=== PATIENT | female | born 1940 | race Caucasian/White ===

== ENCOUNTER → 2017-01-26 | Outpatient (CLI) | payer OTHER ==
[~2017-01-26] MED LIST: ASPEC81 PO; B-COCAP2 PO; FSM70 PO; LSN25 PO; METO50TA7 PO; MULT-506 PO; SIMV20TA2 PO; SYN88 PO; VIT. D3 PO; VITAMIN C PO; [UNRECOGNIZED DRUG - CODE] PO; [UNRECOGNIZED DRUG - OTHER] OR
== END | disposition home or self-care (01) ==
LOC: C.PATHSPEC 17:14
PROVIDERS: ATTEND Plastic Surgery
DX: L82.1 Other seborrheic keratosis (principal)

== ENCOUNTER 2024-04-03 08:21 | Observation (INO) ==
--- NOTE | 2024-04-03 09:52 | History & Physical Bridge Note ---
Date of Service April 03, 2024 History & Physical Bridge Note I have examined the patient, reviewed the History & Physical and in the interval since the performance of the History & Physical I have noted the following changes of clinical significance: no changes noted
--- NOTE | 2024-04-03 09:52 | Pre Anesthesia Assessment ---
Date of Service April 03, 2024 Pre Sedation Assessment Vital Signs Pulse Resp BP Pulse Ox O2 Del Method 04/03/24 08:49 69 18 159/65 H 96 Room Air Cardiovascular + regular rate Respiratory + respiratory effort normal Pre-Sedation Airway Assessment Smoking Status: Never smoker Hx Sleep Apnea: No Hx Difficult Intubation: No Short, Thick Neck: No Thyromental Distance: > or= 3.5 Finger Breadths Oral Cavity: + WNL Mallampati Class: III ASA: ASA3 NPO Status Date of Last Intake of Fluids: 04/03/24 Time of Last Intake of Fluids: 07:00 Date of Last Intake of Solid Food: 04/02/24 Time of Last Intake of Solid Foods: 22:00 Procedure Planning Contraindications for Sedation: none Current Medications Reviewed: Yes Notes The planned sedation has been discussed with the patient. Informed Consent was obtained. I have identified the patient, determined the appropriateness of sedation and have assessed the patient immediately prior to the procedure. All medicine(s) and interventions are by my order.
[2024-04-03] MEDS: NITROGLYCERIN/D5W 100MCG/ML 20ML SYR ONE (10:19)
[2024-04-03] MEDS: niCARdipine HCL INJ 2.5 MG/ML 10 ML AMP ONE (10:19)
[2024-04-03] MEDS: MIDAZOLAM HCL 1 MG/ML 2ML VIAL ONE ×2 (11:25→12:01)
[2024-04-03] MEDS: CLOPIDOGREL BISULFATE 300 MG TAB ONE (11:25)
[2024-04-03] MEDS: OPTIRAY 350 ONE (11:26)
[2024-04-03] MEDS: IODIXANOL (VISIPAQUE) 320 MG/ML 100ML IV ONE (12:00)
[2024-04-03] MEDS: HEPARIN (PORCINE) 1000 UNIT/ML 10 ML (CATH LAB USE ONLY) ONE ×2 (12:00→12:02)
[2024-04-03] MEDS: fentaNYL citrate PF 100 MCG/2 ML VIAL ONE (12:01)
--- NOTE | 2024-04-03 12:24 | Post Anesthesia Assessment ---
Date of Service April 03, 2024 Post Sedation Assessment Vital Signs Pulse Resp BP Pulse Ox O2 Del Method 04/03/24 08:49 69 18 159/65 H 96 Room Air Recovery Score Activity: Moves 4 extremities Respiration: Deep Breath/Cough Circulation: +/-20% PreAnes Value Consciousness: Fully Awake Oxygen Saturation: O2 needed for >90% Discharge Sedation Level of Care: Fast Track Phase II Post Sedation Plan On clinical assessment, the patient appears to have tolerated the sedation without complications. Patient is recovering as anticipated. Patient will continue to be monitored by nursing and may be discharged when sedation discharge criteria are met per below protocol. Upon Completions of procedure up to 15 minutes continue every 5 minute vital signs and the P.A.R. score; then discharge to a Phase I or Fast Track to Phase II per the following guidelines: * Discharge Patient to appropriate Phase II area if PAR is 8 or greater or return to pre- procedure baseline. The post - procedure orders will be as directed. * If PAR score is less than 8 or not return to pre-procedure baseline then patient will follow Phase I monitoring till PAR is reached for Phase II. The Phase I may be done in procedure room or may call to secure a Phase I area. * If naloxone or flumazenil are used for reversal, hold in Phase I for continued monitoring from when last reversal dose was given for a minimum of 60 minutes or longer pending the nurse and/or physician discretion of patient condition before discharge to Phase II. Please call the Sedation Physician to re-evaluate and complete post-note for discharge to Phase II area. Do NOT discharge from procedure sedation or Phase 1 until post- sedation evaluation note is complete by procedure /sedation MD Sedation Discharge Instructions to be given to the patient at discharge to home.
[2024-04-03] MEDS ORDERED: ONDANSETRON INJ 2 MG/ML 2 ML VIAL IV PRN (12:25)
--- OUTSIDE RECORDS SUMMARY | 2024-04-03 13:08 | External Medical Summary | Summary of Care ---
Author Name Unknown Organization [facility] Address [address] [place] [address] Phone [phone] Care Team Providers Care Pantograph Operator Name Role Phone Ally Paredes DO Primary Care Provider [phone] Reason for Visit * Reason Comments Medication Refill Encounter Details Date Type Department Care Team (Late st Contact Info) Description 03/23/2024 Refill Family Practice [facility] [address] [place] [address] Ally Paredes DO [address] [place] [address] Urinary frequency Allergies Active Allergy Reactions Criticality Noted Date Comments Clindamycin Hcl 09/19/2015 Fentanyl High 10/01/2016 Severe emesis Cephalexin Diarrhea 03/22/2022 Meperidine Hcl 01/24/2023 Naproxen Nausea/vomiting 06/30/2009 Oxycodone Hcl Nausea/vomiting 04/09/2010 Sulfamethoxazole-Trimethoprim Nausea/vomiting 0 01/27/2016 Tramadol 12/08/2016 Hydrocodone-Acetaminophen Nausea/vomiting 06/30 documented as of this encounter (statuses as of 03/23/2024) Medications Medication Sig Dispensed Refills Start Date End Date Status ASPIRIN 81 MG PO CHEW Take 1 Tablet by mouth in the morning. Active VITAMIN C CR 1000 MG PO TBCR Take 1,000 Tabs by mouth. Active MULTIVITAMINS PO TABS 1 daily Active Phenazopyrid-Cranbr y-C-Probiot (AZO URINARY TRACT SUPPORT) 95 & 250-30 MG TBPK Take by mouth once a week. Unsure of dosage 12/08/2016 Active Cholecalciferol (VITAMIN D-3) 25 MCG (1000 UT) Capsule Take 1 Capsule by mouth. 3x/week Active NATURAL SUPPLEMENT Take by mouth daily. Pancreatic enzyme supplement once daily Active Metamucil Oral Wafer Take 1 Wafer by mouth in the morning. Active Magnesium 250 MG Oral Tablet Take 1 Tablet by mouth in the morning. Active GNP Vitamin B-12 1000 MCG Oral Tablet Extended Release (Cyanocobalamin ER) Take by mouth daily. Active Hair Skin & Nails Gummies 1250-7.5-7.5 MCG-MG-UNT Oral Tablet Chewable (Biotin w/ Vitamins C & E) Take by mouth. Active Levoxyl 88 MCG Oral TabletIndications:P ostsurgical hypothyroidism TAKE 1 TABLET BY MOUTH ONCE DAILY FOR 6 DAYS OF THE WEEK. DO NOT TAKE ON SUNDAYS DIRECTED 90 Tablet 3 04/06/2023 04/28/20 24 Active Carvedilol 3.125 MG Oral Tablet (Coreg) TAKE ONE TABLET BY MOUTH TWICE A DAY IN THE MORNING AND BEFORE BEDTIME WITH FOOD 200 Tablet 2 06/28/2023 06/27/20 24 Active Diclofenac Sodium 1 % External Gel (Voltaren) apply 2gm topically four times daily; apply to single elbow, wrist or hand; for hand includes palm/fingers/caroline k of hand 800 g 2 09/19/2023 Active Lisinopril 40 MG Oral Tablet TAKE ONE TABLET BY MOUTH EVERY MORNING 90 Tablet 3 11/10/2023 11/10/19 25 Active Potassium Chloride ER 10 MEQ Oral Capsule Extended ReleaseIndications: Potassium (K) deficiency Take 1 Capsule by mouth in the morning and 1 Capsule before bedtime. 100 Capsule 3 11/10/2023 Active amLODIPine Besylate 5 MG Oral Tablet (Norvasc)Indication s:HTN, goal below 140/90 Take 1 Tablet by mouth in the morning. 100 Tablet 1 12/08/2023 Active Melatonin 10 MG Oral Tablet Disintegrating Take 1 Tablet by mouth at bedtime as needed for Sleep. Active Atorvastatin Calcium 40 MG Oral Tablet (Lipitor)Indication s:Hyperlipidemia with target LDL less than 100,Bruit (arterial),Aortic valve sclerosis TAKE ONE TABLET BY MOUTH EVERY DAY 90 Tablet 3 02/21/2024 Active Furosemide 20 MG Oral Tablet (Lasix)Indications: Chronic diastolic congestive heart failure (HCC) Take 2 Tablets by mouth in the morning. Or as directed by cardiology for edema/sob. 180 Tablet 3 03/07/2024 Active Additional Information Patient taking differently:40 mg Oral Daily(AM),20 mg every other day alternating with 40 mg, Reported on 03/19/2024 Fish Oil 1000 MG Oral Capsule Take 1 Capsule by mouth in the morning. Active Nitroglycerin 0.4 MG Sublingual Tablet Sublingual (Nitrostat) Place 1 Tablet under the tongue every 5 minutes as needed for Pain, Chest. up to 3 doses in 15 minutes 25 Tablet 11 03/19/2024 Active Mirabegron ER 25 MG Oral Tablet Extended Release 24 Hour (Myrbetriq)Indicati ons:Urinary frequency Take 1 Tablet by mouth in the morning. 100 Tablet 3 03/23/2024 Active Myrbetriq 25 MG Oral Tablet Extended Release 24 Hour (Mirabegron ER)Indications:Urin live frequency Take 1 Tablet by mouth in the morning. 100 Tablet 1 09/12/2023 03/23/20 24 Discontinu ed(Refill) Hospital, Clinic, or Other Facility Administered Medication Ordered Dose Route Frequency Start Date End Date Status Denosumab (Prolia) subcut inj 60 mgIndications:Senile osteoporosis 60 mg SC [id number] 09/06/2023 08/31/2024 Active documented as of this encounter (statuses as of 03/23/2024) Active Problems Problem Noted Date Diagnosed Date Hypertensive heart disease w ith chronic diastolic congestive heart failure 01/23/2024 Other specified peripheral vascular diseases 10/2022 Chronic diastolic congestive heart failure 01/24 Hyperparathyroidism 09/25/2020 Carotid stenosis, non-symptomatic, bilateral History of melanoma in situ 01/22/2018 S/P reverse total shoulder arthroplasty, right 1 08/22/2016 Senile osteoporosis 01/11/2017 History of papillary adenocarcinoma of thyroid 0 12/08/2016 History of malignant neoplasm of skin 12/08/2016 [facility]MC arthritis 07/22/2016 Personal history of malignant 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, recurrent, [id number], 2008 Dyslipidemia, goal LDL below 130 06/16/2010 Shoulder joint replacement status 05/29/2010 Primary localized osteoarthrosis of shoulder reg ion 01/08/2010 Vitamin D deficiency 09/19/2009 HTN, goal below 140/90 11/14/2007 ADVANCE DIRECTIVE INFORMATION 06/03/2005 Overview: Yes, Patient instructed to provide copy of advance directive for provider to review and to be scanned into Electronic Medical Record. 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/21/2014 09/18/2021 Overview: Historical.Multicentric Papillary Thyroid Carcinoma found incidentally at the time of surgery for Primary Hyperparathyroidism Carotid bruit 08/20/2011 08/20/2011 Secondary malignant neoplasm of axillary lymph nodes 07/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 01/30/2012 Hyperparathyroidism, primary 03/25/2010 02/24/2022 Overview: More specified condition on pl MALIGNANT NEOPLASM OF FEMALE BREAST 07/25/2008 01/30/2012 Secondary malignancy of skin of chest 07/17/2008 05/01/2019 Cardiovascular symptoms 11/14/200710/07 Overview: Right cartoid bruit, us negative Other osteoporosis without c urrent pathological fracture 10/31/2003 09/19/2015 Overview: ICD-10 update of inactive term Keratin granuloma , Glabella 05/30/00 05/30/2002 05/25/2006 Risk Intern's papule, Lt arm 05/30/00 05/30/2002 05/25/2006 Irritated crateriform keratosis, Back 11/18/00 05/30/20 02 05/25/2006 Lichenoid inflammatory reaction, Back 10/20/01 05/30/20 02 05/01/2019 Other seborrheic keratosis 03/02/2002 1 Actinic keratosis 03/02/2002 05/01/2019 Dyslipidemia, goal to be determined 06/16/2010 documented as of this encounter (statuses as of 03/23/2024) Immunizations Name Administration Dates Next Due COVID-19 mRNA, LNP-s, No Pre serve, 2-Dose Series (Moderna) 10/05/2020,08/31/2020 COVID-19, MRNA-LNP, 23-24, P F, 30 MCG/0.3 mL, 12 YRS AND ABOVE, IM ([employer] 12/19/2023,05/09/2023 COVID-19, mRNA, LNP-s, PF, B ooster, 100mcg/0.5mg (Moderna) 11/27/2021,06/04/2021 Covid-19, Mrna, Lnp-s, Pf, B ivalent, 30 Mcg, IM, 12 yrs and above (Pfizer) 04/19/2022 Covid-19, Mrna, Lnp-s, Pf, B ivalent, 50 Mcg, IM, 12 yrs and above (Moderna) 03/10/2023 Pneumococcal Conjugate Vacc, 13 Valent (Prevnar) 07/25/2018 RSV Vac., Bivalent, Perfusio n F, Pf,0.5 Ml (Abrysvo) 06/06/2023 Season Influenza, Quad, PF, Adjuvanted, 65+ Yrs, IM (FLUAD) 04/24/2020 Seasonal Influenza, PF, 6 M & above, IM , (FluLaval or Fluzone) 05/23/2018 Seasonal Influenza, Quadriva lent Hd (Fluzone Hd) 05/10/2023,05/06/2022,04/29/2021 Seasonal Influenza, Trivalen t, Adjuvanted, 65+ yrs 05/01/2019 TDAP (age 10 and older)(Boostrix) 10/07/2022,07/2013 Varicella Zoster Vaccine (Adult) 12/05/2008 Zoster Vaccine Recombinant (Shingrix) 01/01/2020 ,10/03/2019 documented as of this encounter Social History Tobacco Use Types Packs/Day Years Used Date Smoking Tobacco: Never Passive Smoke Exposure: Past Smokeless Tobacco: Never Comments:no passive smoke Alcohol Use Standard Drinks/Week Comments Yes 0 (1 standard drink = 0.6 oz pure alcohol) Ounce of yessi in middle of night if can't sleep PHQ-2 Answer Date Recorded PHQ Adult Total Score 0 05/10/2023 Hunger Vital Sign Answer Date Recorded Within the past 12 months, y ou worried that your food would run out before you got the money to buy more. Never true 02/16/20 23 Within the past 12 months, t he food you bought just didn't last and you didn't have money to get more. Never true 02/15/2023 Sex and Gender Information Value Date Recorded Sex Assigned at Female 05/01/2019 9:54 AM EDT Gender Identity Female 05/01/2019 9:54 AM EDT Sexual Orientation Straight 05/01/2019 9: 54 AM EDT Job Start Date Occupation Industry Not on file Not on file Not on file documented as of this encounter Miscellaneous Notes * Telephone Encounter - Ally Paredes DO - 03/23/2024 3:30 PM EDTSigned Prescriptions: Disp Refills Mirabegron ER 25 MG Oral Tablet Extended R*100 Ta*3 Sig: Take 1 Tablet by mouth in the morning. Authorizing Provider: ALLY PAREDES * Telephone Encounter - Marilyn Limon LPN - 03/23/2024 2:00 PM EDTPending Prescriptions: Disp Refills Mirabegron ER 25 MG Oral Tablet Extended R*100 Ta*3 Sig: Take 1 Tablet by mouth in the morning. * Telephone Encounter - Marilyn Limon LPN - 03/23/2024 2:00 PM EDT Did you pend patient's preferred pharmacy and medication before forwarding?no Pharmacy: [facility] Pending Prescriptions: Disp Refills Mirabegron ER 25 MG Oral Tablet Extended *100 Ta*3 Sig: Take 1 Tablet by mouth in the morning. Last Visit: 01/23/2024 (in office), Visit date not found (telemedicine) Next Visit: 04/24/2024 If no future appointments scheduled, and last appointment is greater than a year ago, please schedule patient for a follow-up appointment Last date the medication was ordered: Is this request for a controlled substance?No Urine Drug Screen:No results found. However, due to the size of the patient record, not all encounters were searched. Please check Results Review for a complete set of results. Patient Phone Numbers Labs: Lab Results Component Value Date/Time CREAT 1.2 (H) 03/20/2024 12:04 PM CREAT 0.9 08/12/2020 03:14 PM CREAT 0.8 07/23/1996 10:20 AM POTASSIUM 4.2 03/20/2024 12:04 PM POTASSIUM 4.1 08/12/2020 03:14 PM POTASSIUM 4.5 07/23/1996 10:20 AM TSH 2.20 01/25/2024 02:03 PM TSH 1.08 07/10/2020 12:36 PM LDLCALC 84 08/24/2023 07:38 AM LDLCALC 80 03/05/2019 07:20 AM LDLCALC 152. (H) 07/23/1996 10:20 AM LDLDIRECT 79 03/11/2020 07:33 AM ALT 18 03/20/2024 12:04 PM ALT 24 08/12/2020 03:14 PM ALT 15 07/23/1996 10:20 AM HGBA1C 5.7 (H) 07/08/2021 10:42 AM HGBA1C 5.4 03/11/2020 07:33 AM * Telephone Encounter - [place] - 03/23/2024 7:08 AM EDTPending Prescriptions: Disp Refills Mirabegron ER 25 MG Oral Tablet Extended R*100 Ta*1 Sig: Take 1Tablet by mouth in the morning. documented in this encounter Plan of Treatment Upcoming Encounters Date Type Department Care Team (Late st Contact Info) Description 04/24/2024 9:20 AM EDT Office Visit Family Practice [address] [place] [address] [address] [place] [address] Ally Paredes DO [address] [place] [address] 05/14/2024 2:45 PM EDT Office Visit Dermatology [facility] [address] [place] [address] Dann Tavarez MD [address] [place] [address] 07/03/2024 8:30 AM EST Office Visit Cardiology, [facility] [address] [place] [address] Charito Mccain PA-C [address] [place] [address] 07/26/2024 1:30 PM EST Office Visit Cardiology, [facility] [address] [facility] [address] [place] [address] Charito Mccain PA-C [address] [address] 08/30/2024 12:00 PM EST Office Visit Endocrinology [address] [place] [address] Maddy Munoz MD [address] [facility] [place] [address] 10/17/2024 12:30 PM EDT Office Visit Hematology/Oncology [facility] [address] [place] [address] Sonia Tesfaye MD [address] [place] [address] 12/17/2024 11:00 AM EDT Nurse Only Ancillary [facility] [address] [place] [address] College, Nurse Annual Wellness Visit [facility] [address] [place] [address] Health Maintenance Due Date Last Done Comments *NEPHROLOGY REFERRAL DUE TO RESISTANT HTN 03/14/2024 Influenza Vaccine (FLU shot) (#1) 2024 05/10/2023, 05/06/2022, 04/29/2021, Additional history exists Adult Wellness Visit 12/12/2024 12/13/2023, 04/05/2022, 03/23/2021 Depression Screening 12/12/2024 12/13/2023 DXA Scan 12/20/2024 12/20/2022, 12/06, 12/16/2020, Additional history exists TSH 01/24/2025 01/25/2024, 08/08, 07/08/2022, Additional history exists GFR 03/20/2025 03/20/2024, 08/0 01/2024, 02/23/2024, Additional history exists Albumin/Creatinine Ratio 04/05/2025 022, 03/05/2019, 07/25/2018, Additional history exists DTaP,Tdap,and Td Vaccines (3 - Td or Tdap) 10/07/2032 10/07/2022, 09/19/2012, 12/20/2002 Pneumococcal Vaccine: 65+ Years Completed 07/25/2018, 09/14/2004 Zoster Vaccines Completed 01/01/2020, 09/09, 12/05/2008 COVID-19 Vaccine Completed 12/19/2023, 09/2022, 03/10/2023, Additional history exists VITAMIN D LEVEL ONCE IN A LIFETIME-USE SMARTSET# [id number] Completed 02/23/2024, 08/24/2023, 07/08/2022, Additional history exists HPV (Gardasil) Vaccine Aged Out No lo nger eligible based on patient's age to complete this topic Hepatitis B Vaccine Aged Out No longe r eligible based on patient's age to complete this topic MENINGOCOCCAL (MENACTRA/MENVEO) Aged Out No longer eligible based on patient's age to complete this topic documented as of this encounter Medical Devices Implanted Type Area Signal Processing Engineer Device Identifier Shelf Expiration Date Model / Serial / Lot Plate Ricardo 6.5x30 508-32-104 - [id number] Implanted:Qty: 1 on 04/09/2010 at OR [facility] Right: Shoulder [employer] 10/07/2015 508-32-104 / / [id number] Socket Humeral Insert Implanted:Qty: 1 on 04/09/2010 at OR [facility] Right: Shoulder [employer] 07/08/2014 508-01-032 / / [id number] Head Glenoid/Screw5 -006 - [id number] Implanted:Qty: 1 on 04/09/2010 at OR [facility] Right: Shoulder [employer] 11/07/2015 508-32-101 / / [id number] Screw Lckg 5x22 506-03-122 - [id number] Implanted:Qty: 1 on 04/09/2010 at OR [facility] [place] Right: Shoulder [employer] 10/07/2015 506-03-122 / / [id number] Scrw Lckg [employer] 506-03-114 - [id number] Implanted:Qty: 1 on 04/09/2010 at OR [facility] Right: Shoulder [employer] 08/08/2015 506-03-114 / / [id number] Screw Lckg 5x26 506-03-126 - [id number] Implanted:Qty: 1 on 04/09/2010 at OR [facility] Right: Shoulder [employer] 12/07/2015 506-03-126 / / [id number] Screw Lckg 5x22 [id number] - [id number] Implanted:Qty: 1 on 04/09/2010 at OR [facility] Right: Shoulder [employer] 02/06/2016 506-03-122 / / [id number] Cement Bone G 1113-140-01 - [id number] Implanted:Qty: 1 on 04/09/2010 at OR [facility] Right: Shoulder [employer] 07/08/2013 00-1113-14 0 / / [id number] Shell Socket Humeral Rsp Implanted:Qty: 1 on 04/09/2010 at OR [facility] Right: Shoulder [employer] 01/07/2016 508-00-008 / / [id number] Stem Humeral Primary Rsp Implanted:Qty: 1 on 04/09/2010 at OR [facility] Right: Shoulder [employer] 08/08/2015 506-00-008 / / [id number] [place] Mini Quick 2/0 [id number] - [id number] Implanted:Qty: 1 on 09/17/2016 by Rafi Burnham MD at [facility] Left: Hand JNJ : DEPUY MITEK SURG PROD 05/07/2019 [id number] / / [id number] [place] Mini Quick 2/0 [id number] - [id number] Implanted:Qty: 1 on 09/17/2016 by Rafi Burnham MD at OR [facility] Left: Hand JNJ : DEPUY MITEK SURG PROD 05/07/2019 [id number] / / [id number] documented as of this encounter Visit Diagnoses Diagnosis Urinary frequency documented in this encounter Advance Directives Documents on File Type Date Recorded Patient Foaming Machine Operator Expl anation Power of Sourcing Coordinator 10/18/2023 12:36 PM NEENA R OF CATEGORY SPECIALIST - [facility] DIRECTIVE * Full Code (Latest Code Status on File) Date Activated Date Inactivated Comments 09/17/2016 10:03 AM 09/17/2016 4:52 PM This order reflects the patients wishes and were consensually agreed upon. * Full Code Date Activated Date Inactivated Comments 04/09/2010 10:27 AM 04/10/2010 4:33 PM This order re flects the patients wishes and were consensually agreed upon. * Full Code Date Activated Date Inactivated Comments 02/02/2010 12:31 PM 02/03/2010 10:26 PM This order reflects the patients wishes and were consensually agreed upon. * Full Code Date Activated Date Inactivated Comments 01/08/2010 10:06 AM 01/08/2010 11:06 AM This order r eflects the patients wishes and were consensually agreed upon. Question Answer Comments Discussion of Advance Directives occurred with: Patient Does the patient have a Living Will? No Does the patient have Health Care Power of Attor viridiana? No * Full Code Date Activated Date Inactivated Comments 08/13/2008 1:48 PM 08/14/2008 6:49 PM Care Teams Pantograph Operator Relationship Specialty Start Date End Date Ally Paredes DO [address] [place] [address] PCP - General Family Medicine 01/19/24 documented as of this encounter
--- OUTSIDE RECORDS SUMMARY | 2024-04-03 13:08 | External Medical Summary ---
Author Name Unknown Address Unknown Organization K09:[facility] [place] [address] [place] [address] Laboratory Report Ordering Provider Test Date Status MOSHE BOOGIE 03/20/2024 12:04:08 Final Warfarin Therapy
INR: 2 .0-3.0 conventional anticoagulation
INR: 2.5- 3.5 high intensity anticoagulation Observation Date Value Abnormality Reference (Units ) Status PT 03/20/2024 12:04:08 12.6 11.6-15.2 (seconds) Final INR 03/20/2024 12:04:08 0.9 0.8-1.2 Final Performing Location [facility] [place] [address] [place] [address]
--- OUTSIDE RECORDS SUMMARY | 2024-04-03 13:08 | External Medical Summary ---
Author Name Unknown Address Unknown Organization K09:[facility] [address] [place] [address] Laboratory Report Ordering Provider Test Date Status MOSHE BOOGIE 03/20/2024 12:04:08 Final Observation Date Value Abnormality Reference (Units ) Status BUN 03/20/2024 12:04:08 27 Above high normal 6-20 (mg/dL) Final Creatinine 03/20/2024 12:04:08 1.2 Above high normal 0.5-1.0 (mg/dL) Final Glomerular filtration rate/1.73 sq M.predicted [Volume Rate/Area] in Serum, Plasma or Blood by Creatinine-based formula (CKD-EPI) 03/20/2024 12:04:08 45 Below low normal >=60 (mL/min) Final eGFR is calculated based on the CKD-EPI 2020 equation. Sodium 03/20/2024 12:04:08 142 135-146 (m mol/L) Final Potassium 03/20/2024 12:04:08 4.2 3.5-5.1 (m mol/L) Final Cl 03/20/2024 12:04:08 101 98-107 (mm ol/L) Final CO2 03/20/2024 12:04:08 28 22-32 (mmo l/L) Final Anion gap 03/20/2024 12:04:08 13 7-15 (mmol /L) Final Glucose 03/20/2024 12:04:08 84 70-120 (mg /dL) Final Albumin 03/20/2024 12:04:08 4.4 3.8-5.0 (g /dL) Final AST (Aspartate aminotransferase) 03/20/2024 12:04:08 24 10-35 (U/L) Final Alk Phos 03/20/2024 12:04:08 64 35-130 (U/ L) Final Bilirubin, Total 03/20/2024 12:04:08 0.5 <=1 .2 (mg/dL) Final Calcium 03/20/2024 12:04:08 10.2 8.4-10.2 ( mg/dL) Final Protein 03/20/2024 12:04:08 6.8 6.0-8.3 (g /dL) Final ALT (Alanine aminotransferase) 03/20/2024 12:04:08 18 10-35 (U/L) Final Performing Location [facility] [address] [place] [address]
--- OUTSIDE RECORDS SUMMARY | 2024-04-03 13:08 | External Medical Summary | Summary of Care ---
Author Name Unknown Organization [facility] Address [address] [place] [address] Phone [phone] Care Team Providers Care Manager Retail Store Name Role Phone Ally Gonzales DO Primary Care Provider Reason for Visit * Reason Comments Outpatient Testing Encounter Details Date Type Department Care Team (Late st Contact Info) Description 03/20/2024 12:00 PM EDT Laboratory Laboratory [facility] [place] [address] [place] [address] [facility] [address] [place] [address] Exertional angina (HCC) Allergies Active Allergy Reactions Criticality Noted Date Comments Clindamycin Hcl 09/19/2015 Fentanyl High 10/01/2016 Severe emesis Cephalexin Diarrhea 03/22/2022 Meperidine Hcl 01/24/2023 Naproxen Nausea/vomiting 06/30/2009 Oxycodone Hcl Nausea/vomiting 04/09/2010 Sulfamethoxazole-Trimethoprim Nausea/vomiting 0 01/27/2016 Tramadol 12/08/2016 Hydrocodone-Acetaminophen Nausea/vomiting 06/30 documented as of this encounter (statuses as of 03/20/2024) Medications Medication Sig Dispensed Refills Start Date End Date Status ASPIRIN 81 MG PO CHEW Take 1 Tablet by mouth in the morning. Active VITAMIN C CR 1000 MG PO TBCR Take 1,000 Tabs by mouth. Active MULTIVITAMINS PO TABS 1 daily Active Phenazopyrid-Cranbry -C-Probiot (AZO URINARY TRACT SUPPORT) 95 & 250-30 [...] by mouth. Active Levoxyl 88 MCG Oral TabletIndications:Po stsurgical hypothyroidism TAKE 1 TABLET BY MOUTH ONCE DAILY FOR 6 DAYS OF THE WEEK. DO NOT TAKE ON SUNDAYS DIRECTED 90 Tablet 3 04/06/2023 4 Active Carvedilol 3.125 MG Oral Tablet (Coreg) TAKE ONE TABLET BY MOUTH TWICE A DAY IN THE MORNING AND BEFORE BEDTIME WITH FOOD 200 Tablet 2 06/28/2023 4 Active Myrbetriq 25 MG Oral Tablet Extended Release 24 Hour (Mirabegron ER)Indications:Urina ry frequency Take 1 Tablet by mouth in the morning. 100 Tablet 1 09/12/2023 Active Diclofenac Sodium 1 % External Gel (Voltaren) apply 2gm topically four times daily; apply to single elbow, wrist or hand; for hand includes palm/fingers/back of hand 800 g 2 09/19/2023 Active Lisinopril 40 MG Oral Tablet TAKE ONE TABLET BY MOUTH EVERY MORNING 90 Tablet 3 11/10/2023 5 Active Potassium Chloride ER 10 MEQ Oral Capsule Extended ReleaseIndications:P otassium (K) deficiency Take 1 Capsule by mouth in the morning and 1 Capsule before bedtime. 100 Capsule 3 11/10/2023 Active amLODIPine Besylate 5 MG Oral Tablet (Norvasc)Indications :HTN, goal below 140/90 Take 1 Tablet by mouth in the morning. 100 Tablet 1 12/08/2023 Active Melatonin 10 MG Oral Tablet Disintegrating Take 1 Tablet by mouth at bedtime as needed for Sleep. Active Atorvastatin Calcium 40 MG Oral Tablet (Lipitor)Indications :Hyperlipidemia with target LDL less than 100,Bruit (arterial),Aortic valve sclerosis TAKE ONE TABLET BY MOUTH EVERY DAY 90 Tablet 3 02/21/2024 Active Furosemide 20 MG Oral Tablet (Lasix)Indications:C hronic diastolic congestive heart failure (HCC) Take 2 [...] 15 minutes 25 Tablet 11 03/19/2024 Active Hospital, Clinic, or Other Facility Administered Medication Ordered Dose Route Frequency Start Date End Date Status Denosumab (Prolia) subcut inj 60 mgIndications:Senile osteoporosis 60 mg SC [id number] 09/06/2023 08/31/2024 Active documented as of this encounter (statuses as of 03/20/2024) Active Problems Problem Noted Date Diagnosed Date [...] 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, recurrent, [id number], 2008 Dyslipidemia, goal LDL below 130 06/16/2010 [...] as of this encounter (statuses as of 03/20/2024) Resolved Problems Problem Noted Date Diagnosed Date [...] Keratin granuloma , Glabella 05/30/00 05/30/2002 05/25/2006 Heat Treating Bluer's papule, Lt arm 05/30/00 05/30/2002 05/25/2006 Irritated crateriform keratosis, Back 11/18/00 05/30/20 02 05/25/2006 Lichenoid inflammatory reaction, Back 10/20/01 05/30/20 05/01/2019 Other seborrheic keratosis 03/02/2002 1 Actinic keratosis 03/02/2002 05/01/2019 Dyslipidemia, goal to be determined 06/16/2010 documented as of this encounter (statuses as of 03/20/2024) Immunizations Name Administration Dates Next Due COVID-19 mRNA, LNP-s, No Pre serve, 2-Dose Series (Moderna) 10/05/2020,08/31/2020 COVID-19, MRNA-LNP, 23-24, P F, 30 MCG/0.3 mL, 12 YRS AND ABOVE, IM ([facility]) 12/19/2023,05/09/2023 COVID-19, mRNA, LNP-s, PF, B ooster, [...] file Not on file Not on file Travel History Travel Start Travel End [facility] 02/08/2024 02/19/2024 documented as of this encounter Plan of Treatment Upcoming Encounters Date Type Department Care Team (Late st Contact Info) Description 04/24/2024 9:20 AM EDT Office Visit Family Practice [address] [place] [address] [address] [place] [address] Ally Gonzales DO [address] [place] [address] 05/14/2024 2:45 PM EDT [facility] [address] [place] [address] Dann Tavarez MD [address] [place] [address] 07/03/2024 8:30 AM EST Office Visit Cardiology, [facility] 132 [facility] [place] [address] Charito Mccain PA-C 132 [facility] [place] [address] 07/26/2024 1:30 PM EST Office Visit Cardiology, [facility] [address] [facility] [place] [address] Charito Mccain PA-C [address] [facility] [place] [address] 08/30/2024 12:00 PM EST Office Visit Endocrinology [address] [place] [address] Maddy Munoz [facility] [address] 10/17/2024 12:30 PM EDT Office Visit Hematology/Oncology [facility] 200 [place] [address] Sonia Tesfaye MD 200 [place] [address] 12/17/2024 11:00 AM EDT Nurse Only Ancillary 65 [facility] [address] [place] [address] College, Nurse Annual Wellness Visit [address] [address] Pending Results Name Type Priority Associated Diagnoses Date /Time COMPREHENSIVE METABOLIC PANEL Lab Routine Exertional angina (HCC) 03/20/2024 12:04 PM EDT PT INR Lab Routine Exertional angina (HCC) 03/20/2024 12:04 PM EDT APTT Lab Routine Exertional angina (HCC) 03/20/2024 12:04 PM EDT Health Maintenance Due Date Last Done Comments *NEPHROLOGY REFERRAL DUE TO RESISTANT HTN 03/14/2024 Influenza Vaccine (FLU shot) (#1) 2024 05/10/2023, 05/06/2022, 04/29/2021, Additional history exists Adult Wellness Visit 12/12/2024 12/13/2023, 04/05/2022, 03/23/2021 Depression Screening 12/12/2024 12/13/2023 DXA Scan 12/20/2024 12/20/2022, 12/06, 12/16/2020, Additional history exists TSH 01/24/2025 01/25/2024, 08/08, 07/08/2022, Additional history exists GFR 03/13/2025 03/13/2024, 02/05, 01/25/2024, Additional history exists Albumin/Creatinine Ratio 04/05/2025 022, 03/05/2019, 07/25/2018, Additional history exists DTaP,Tdap,and Td Vaccines (3 - Td or Tdap) 10/07/2032 10/07/2022, 09/19/2012, 12/20/2002 Pneumococcal Vaccine: 65+ Years Completed 07/25/2018, 09/14/2004 Zoster Vaccines Completed 01/01/2020, 09/09, 12/05/2008 COVID-19 Vaccine Completed 12/19/2023, 09/2022, 03/10/2023, Additional history exists VITAMIN D LEVEL ONCE IN A LIFETIME-USE SMARTSET# [id number] Completed 02/23/2024, 08/24/2023, 07/08/2022, Additional history exists [...] this encounter Medical Devices Implanted Type Area Contact Center Agent Device Identifier Shelf Expiration Date Model / Serial / Lot Plate Ricardo 6.5x30 508-32-104 - [id number] Implanted:Qty: 1 on 04/09/[place] [facility] [place]: Shoulder [employer] 10/07/2015 508-32-104 / / [id number] Socket Humeral Insert Implanted:Qty: 1 on 04/09/2010 [place] [facility] [place]: Shoulder [employer] 07/08/2014 508-01-032 / / [id number] Head Glenoid/Screw5 08-00-006 - [id number] Implanted:Qty: 1 on 04/09/2010 [place] [facility] [place]: Shoulder [employer] 11/07/2015 508-32-101 / / [id number] Screw Lckg 5x22 506122 - [id number] Implanted:Qty: 1 on 04/09/2010 [place] [facility] [place]: Shoulder [employer] 10/07/2015 506-03-122 / / [id number] Scrw Lckg [employer] [id number] - [id number] Implanted:Qty: 1 on 04/09/2010 [place] [facility] [place]: Shoulder [employer] 08/08/2015 506-03-114 / / [id number] Screw Lckg 5x26 506-126 - [id number] Implanted:Qty: 1 on 04/09/2010 [place] [facility] [place]: Shoulder [employer] 12/07/2015 506-03-126 / / [id number] Screw Lckg 5x22 122 - [id number] Implanted:Qty: 1 on 04/09/2010 [place] [facility] Right: Shoulder [employer] 02/06/2016 506-03-122 / / [id number] Cement Bone G 1113-140-01 - [id number] Implanted:Qty: 1 on 04/09/2010 [place] [facility] Right: Shoulder [employer] 07/08/2013 00-1113-14 / / [id number] Shell Socket Humeral Rsp Implanted:Qty: 1 on 04/09/2010 [place] [facility] Right: Shoulder [employer] 01/07/2016 508-00-008 / / [id number] Stem Humeral Primary Rsp Implanted:Qty: 1 on 04/09/2010 [place] [facility] Right: Shoulder [employer] 08/08/2015 506-00-008 / / [id number] [place] Mini Quick 2/0 342289 - [id number] Implanted:Qty: 1 on 09/17/2016 by Rafi Burnham MD at [facility] Left: Hand JNJ : DEPUY MITEK SURG PROD 05/07/2019 [id number] / / [id number] [place] Mini Quick 2/0 115815 - [id number] Implanted:Qty: 1 on 09/17/2016 by Rafi Burnham MD at OR [facility] Left: Hand JNJ : DEPUY MITEK SURG PROD 05/07/2019 [id number] / / [id number] documented as of this encounter Procedures Procedure Name Priority Date/Time Associated Diagnosis Comments CBC Routine 03/20/2024 12:04 PM EDT Exertional angina (HCC) documented in this encounter Results * CBC (03/20/2024 12:04 PM EDT) WBC 7.99 4.00 - 10.80 K/uL 03/20/2024 12:10 PM EDT [address] RBC 4.31 3.85 - 5.15 M/uL 03/20/2024 12:10 PM EDT [place] [address] HGB 13.4 12.0 - 15.3 g/dL 03/20/2024 12:10 PM EDT [address] HCT 41.9 36.0 - 45.2 % 03/20/2024 12:10 PM EDT [address] MCV 97.2 81.5 - 97.5 fL 03/20/2024 12:10 PM EDT [address] MCH 31.1 27.0 - 34.0 pg 03/20/2024 12:10 PM EDT [address] MCHC 32.0 32.0 - 36.0 g/dL 03/20/2024 12:10 PM EDT [address] RDW 13.1 11.5 - 15.5 % 03/20/2024 12:10 PM EDT [address] PLT 179 140 - 400 K/uL 03/20/2024 12:10 PM EDT [address] MPV 10.4 6.6 - 11.1 fL 03/20/2024 12:10 PM EDT [facility] 56 Blood Venous blood specimen / Unknown Venipuncture / Unknown 03/20/2024 12:04 PM EDT 03/20/2024 12:04 PM EDT Steve Roper DO LAB BLOOD ORDERABLES [address] [place] [address] documented in this encounter Visit Diagnoses Diagnosis Exertional angina (HCC) Other and unspecified angina pectoris documented in this encounter Advance Directives Documents on File Type Date Recorded Patient Mattress Stuffer Expl anation Power of Plate Molder 10/18/2023 12:36 PM NEENA R OF HOME AIDE - [employer] DIRECTIVE * Full Code [...] 1:48 PM 08/14/2008 6:49 PM Care Teams Manager Retail Store Relationship Specialty Start Date End Date Ally Gonzales DO [address] [place] [address] PCP - General Family Medicine 01/19/24 documented as of this encounter
--- OUTSIDE RECORDS SUMMARY | 2024-04-03 13:08 | External Medical Summary ---
Author Name Unknown Address Unknown Organization [id number]:[facility] [place] [address] Laboratory Report Ordering Provider Test Date Status MOSHE BOOGIE 03/20/2024 12:04:08 Final Observation Date Value Abnormality Reference (Units ) Status WBC, Total 03/20/2024 12:04:08 7.99 4.00-10.8 0 (K/uL) Final RBC 03/20/2024 12:04:08 4.31 3.85-5.15 (M/uL) Final Hemoglobin 03/20/2024 12:04:08 13.4 12.0-15.3 (g/dL) Final HCT 03/20/2024 12:04:08 41.9 36.0-45.2 (%) Final MCV 03/20/2024 12:04:08 97.2 81.5-97.5 (fL) Final MCH 03/20/2024 12:04:08 31.1 27.0-34.0 (pg) Final MCHC 03/20/2024 12:04:08 32.0 32.0-36.0 (g/dL) Final RDW 03/20/2024 12:04:08 13.1 11.5-15.5 (%) Final Platelets 03/20/2024 12:04:08 179 140-400 (K /uL) Final MPV 03/20/2024 12:04:08 10.4 6.6-11.1 ( fL) Final Performing Location [facility] [place] [address]
--- OUTSIDE RECORDS SUMMARY | 2024-04-03 13:08 | External Medical Summary ---
Author Name Unknown Address Unknown Organization K01:[facility] [place] - [address] [place] [address] Laboratory Report Ordering Provider Test Date Status MOSHE BOOGIE 03/20/2024 12:04:08 Final Anticoagulation may affect t esting. Refer to [facility] Test Catalog for a list of effects. Observation Date Value Abnormality Reference (Units ) Status aPTT panel - Platelet poor plasma 03/20/2024 12:04:08 27 21-38 (seconds) Final Performing Location [facility] - [address] [place] [address]
--- OUTSIDE RECORDS SUMMARY | 2024-04-03 13:08 | External Medical Summary | Summary of Care ---
Author Name Unknown Organization [facility] Address [address] [place] [address] Phone [phone] Care Team Providers Care Backbreaker Name Role Phone Ally Gonzales DO Primary Care Provider [phone] Reason for Visit * Reason Onset Date Comments Follow Up 03/19/2024 Encounter Details Date Type Department Care Team (Late st Contact Info) Description 03/19/2024 Telephone Cardiology, [facility] [address] [place] [address] Steve Roper DO [address] [place] [address] Follow Up Allergies Active Allergy Reactions Criticality Noted Date Comments Clindamycin Hcl 09/19/2015 Fentanyl High 10/01/2016 Severe emesis Cephalexin Diarrhea 03/22/2022 Meperidine Hcl 01/24/2023 Naproxen Nausea/vomiting 06/30/2009 Oxycodone Hcl Nausea/vomiting 04/09/2010 Sulfamethoxazole-Trimethoprim Nausea/vomiting 0 01/27/2016 Tramadol 12/08/2016 Hydrocodone-Acetaminophen Nausea/vomiting 06/30 documented as of this encounter (statuses as of 03/21/2024) Medications Medication Sig Dispensed Refills Start Date [...] inj 60 mgIndications:Senile osteoporosis 60 mg SC [id number] 09/06/2023 08/31/2024 Active documented as of this encounter (statuses as of 03/21/2024) Active Problems Problem Noted Date Diagnosed Date [...] 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, recurrent, [id number], 2008 Dyslipidemia, goal LDL below 130 06/16/2010 [...] as of this encounter (statuses as of 03/21/2024) Resolved Problems Problem Noted Date Diagnosed Date [...] Keratin granuloma , Glabella 05/30/00 05/30/2002 05/25/2006 Personal Care Assistant's papule, Lt arm 05/30/00 05/30/2002 05/25/2006 Irritated crateriform keratosis, Back 11/18/00 05/30/20 02 05/25/2006 Lichenoid inflammatory reaction, Back 10/20/01 05/30/20 02 05/01/2019 Other seborrheic keratosis 03/02/2002 1 Actinic keratosis 03/02/2002 05/01/2019 Dyslipidemia, goal to be determined 06/16/2010 documented as of this encounter (statuses as of 03/21/2024) Immunizations Name Administration Dates Next Due COVID-19 mRNA, LNP-s, No Pre serve, 2-Dose Series (Moderna) 10/05/2020,08/31/2020 COVID-19, MRNA-LNP, 23-24, P F, 30 MCG/0.3 mL, 12 YRS AND ABOVE, IM (PFIZER-Comirnaty) 12/19/2023,05/09/2023 COVID-19, mRNA, LNP-s, PF, B ooster, [...] file Travel History Travel Start Travel End [facility] 02/08/2024 02/19/2024 documented as of this encounter Miscellaneous Notes * Telephone Encounter - Lakesha Pro LPN - 03/20/2024 2:44 PM EDT [facility] CARDI[facility] CATHETERIZATION INSTRUCTIONS Please arrive at [facility] via the Main Entrance and check in at Outpatient Registration Desk at 8:30am (time) on 04/03/24(date). German Mccoy MD will perform your cardiac catheterization. Nothing to eat or drink after 10:00PM the night before. No caffeine 24 hours prior to procedure, No tobacco products after midnight DO NOT take the following medications on the morning of your procedure: Furosemide, Fish oil No over the counter vitamins, Fish oil and/or Vit E the morning of your procedure OK to take the following medications with a sip of water at their usual times: All other AM medications except vitamins Be sure to take (4) 81mg low dose aspirin on the morning of your catheterization. If you take INSULIN or NON-INSULIN INJECTABLES: n/a If you take COUMADIN/BLOOD THINNERS: n/a DO NOT wear any jewelry the day of the procedure. Bring your medications with you in their original containers. It may be necessary for you to take them after your procedure. You will not be allowed to drive, please bring a milk tanker driver 18 or older to take you home. You will not be permitted to leave via taxi, public transportation/bus or Uber. You will be admitted to a recovery area for rest and observation after your catheterization is complete. Please bring a book or tablet to occupy your time. No televisions are available in the recovery area. Pre-Op Testing [x] LAB [] RADIOLOGY/CHEST XRAY [] EKG If you have questions regarding the procedure or questions in the days after the procedure, please do not hesitate to call the office at [phone]. * Telephone Encounter - Steve Roper DO - 03/19/2024 4:49 PM EDT Cardiology nursing: Please refer to progress note from 03/19/2024. Please help proceed with obtaining prior authorization/scheduling diagnostic cardiac catheterization at [facility] with Dr German Mccoy, per patient preference. Pt's friend is care for by Dr. Mccoy and she was specifically asked for him. He was at [facility] this week, week of 03/19/24 and likely back again the week after that. Recent CXR already completed. Pt to have labs at [facility]. She had a meeting this afternoon and needed to leave before labs were drawn so I had placed the orders. documented in this encounter Plan of Treatment Upcoming Encounters Date Type Department Care Team (Late st Contact Info) Description 04/24/2024 9:20 AM EDT Office Visit Family Practice 65 [facility] [place] [facility] [address] Ally Gonzales DO 293 [facility] [address] 05/14/2024 2:45 PM EDT Office Visit Dermatology [facility] [place] [address] [facility] [address] Dann Tavarez MD 200 [facility] [place] [address] 07/03/2024 8:30 AM EST Office Visit Cardiology, [facility] 132 [place] [address] Charito Mccain PA-C 132 [place] [address] 07/26/2024 1:30 PM EST Office Visit Cardiology, [facility] 132 [place] [address] Charito Mccain PA-C 132 [place] [address] 08/30/2024 12:00 PM EST Office Visit Endocrinology [address] [place] [address] Maddy Munoz MD [address] [place] [facility] [place] [address] 10/17/2024 12:30 PM EDT Office Visit Hematology/Oncology [facility] 200 [facility] [place] [address] Sonia Tesfaye MD 200 [facility] [place] [address] 12/17/2024 11:00 AM EDT Nurse Only Ancillary 65 [facility] 293 [facility] [place] [address] College, Nurse Annual Wellness Visit [address] [place] [address] Scheduled Orders Name Type Priority Associated Diagnoses Orde r Schedule CARDIAC CATH-CARDIOLOGY ONLY Procedures Routine Exertional angina (HCC) Ordered: 03/19/2024 Health Maintenance Due Date Last Done Comments *NEPHROLOGY REFERRAL DUE TO RESISTANT HTN 03/14/2024 Influenza Vaccine (FLU shot) (#1) 2024 05/10/2023, 05/06/2022, 04/29/2021, Additional history exists Adult Wellness Visit 12/12/2024 12/13/2023, 04/05/2022, 03/23/2021 Depression Screening 12/12/2024 12/13/2023 DXA Scan 12/20/2024 12/20/2022, 12/06, 12/16/2020, Additional history exists TSH 01/24/2025 01/25/2024, 08/08, 07/08/2022, Additional history exists GFR 03/20/2025 03/20/2024, 01/2024, 02/23/2024, Additional history exists Albumin/Creatinine Ratio 04/05/2025 022, 03/05/2019, 07/25/2018, Additional history exists DTaP,Tdap,and Td Vaccines (3 - Td or Tdap) 10/07/2032 10/07/2022, 09/19/2012, 12/20/2002 Pneumococcal Vaccine: 65+ Years Completed 07/25/2018, 09/14/2004 Zoster Vaccines Completed 01/01/2020, 09/09, 12/05/2008 COVID-19 Vaccine Completed 12/19/2023, 09/2022, 03/10/2023, Additional history exists VITAMIN D LEVEL ONCE IN A LIFETIME-USE SMARTSET# [id number] Completed 02/23/2024, 08/24/2023, 07/08/2022, Additional history exists [...] this encounter Medical Devices Implanted Type Area Medical Language Specialist Device Identifier Shelf Expiration Date Model / Serial / Lot Plate Ricardo 6.5x30 508-32-104 - [id number] Implanted:Qty: 1 on 04/09/2010 at OR [facility] Right: Shoulder [employer] 10/07/2015 508-32-104 / / [id number] Socket Humeral Insert Implanted:Qty: 1 on 04/09/2010 at OR [facility] Right: Shoulder [employer] 07/08/2014 508-01-032 / / [id number] Head Glenoid/Screw5 - [id number] Implanted:Qty: 1 on 04/09/2010 at OR [facility] Right: Shoulder [employer] 11/07/2015 508-32-101 / / [id number] Screw Lckg 5x22 506-03122 - [id number] Implanted:Qty: 1 on 04/09/2010 at OR [facility] Right: Shoulder [employer] 10/07/2015 506-03-122 / / [id number] Scrw Lckg [employer] [id number] - [id number] Implanted:Qty: 1 on 04/09/2010 at OR [facility] Right: Shoulder [employer] 08/08/2015 506-03-114 / / [id number] Screw Lckg 5x26 506126 - [id number] Implanted:Qty: 1 on 04/09/2010 at OR [facility] Right: Shoulder [employer] 12/07/2015 506-03-126 / / [id number] Screw Lckg 5x22 506122 - [id number] Implanted:Qty: 1 on 04/09/2010 at OR [facility] Right: Shoulder [employer] 02/06/2016 506-03-122 / / [id number] Cement Bone G 1113-140-01 - [id number] Implanted:Qty: 1 on 04/09/2010 at OR [facility] Right: Shoulder [employer] 07/08/2013 00-1113-14 / / [id number] Shell Socket Humeral Rsp Implanted:Qty: 1 on 04/09/2010 at OR [facility] Right: Shoulder [employer] 01/07/2016 508-00-008 / / [id number] Stem Humeral Primary Rsp Implanted:Qty: 1 on 04/09/2010 at OR [facility] Right: Shoulder [employer] 08/08/2015 506-00-008 / / [id number] [place] Mini Quick 2/0 618293 - [id number] Implanted:Qty: 1 on 09/17/2016 by Rafi Burnham MD at OR [facility] Left: Hand JNJ : DEPUY MITEK SURG PROD 05/07/2019 [id number] / / [id number] [place] Mini Quick 2/0 672550 - [id number] Implanted:Qty: 1 on 09/17/2016 by Rafi Burnham MD at OR [facility] Left: Hand JNJ : DEPUY MITEK SURG PROD 05/07/2019 091942 / / [id number] documented as of this encounter Visit Diagnoses Diagnosis Exertional angina (HCC)- Primary Other and unspecified angina pectoris documented in this encounter Advance Directives Documents on File Type Date Recorded Patient Quality Control Operator Expl anation Power of Condenser Tube Tender 10/18/2023 12:36 PM NEENA R OF PRODUCTION WELDING SUPERVISOR - [employer] DIRECTIVE * Full Code [...] 1:48 PM 08/14/2008 6:49 PM Care Teams Backbreaker Relationship Specialty Start Date End Date Ally Gonzales DO 293 [facility] [place] [address] PCP - General Family Medicine 01/19/24 documented as of this encounter
--- OUTSIDE RECORDS SUMMARY | 2024-04-03 13:09 | External Medical Summary | Summary of Care ---
Author Name Unknown Organization [facility] Address [address] [place] [address] Phone [phone] Care Team Providers Care Auto Rental Supervisor Name Role Phone Ally Paredes DO Primary Care Provider [phone] Reason for Visit * Reason Comments Follow Up Encounter Details Date Type Department Care Team (Latest Contact Info) Description 03/19/2024 11:30 AM EDT Office Visit Cardiology, [facility] [address] [place] [phone] Keagan Roper DO [address] [place] [id number] Exertional angina (HCC)*; LVH (left ventricular hypertrophy); HTN, goal below 140/90; Diastolic dysfunction; Nonrheumatic aortic valve insufficiency; Abnormal stress echocardiogram Allergies Active Allergy Reactions Criticality Noted Date Comments Clindamycin Hcl 09/19/2015 Fentanyl High 10/01/2016 Severe emesis Cephalexin Diarrhea 03/22/2022 Meperidine Hcl 01/24/2023 Naproxen Nausea/vomiting 06/30/2009 Oxycodone Hcl Nausea/vomiting 04/09/2010 Sulfamethoxazole-Trimethoprim Nausea/vomiting 0 01/27/2016 Tramadol 12/08/2016 Hydrocodone-Acetaminophen Nausea/vomiting 06/30 documented as of this encounter (statuses as of 03/19/2024) Medications Medication Sig Dispensed Refills Start Date [...] inj 60 mgIndications:Senile osteoporosis 60 mg SC [id number] 09/06/2023 08/31/2024 Active perflutren lipid microsphere inj SUSP 1.956 mgIndications:Chronic diastolic congestive heart failure (HCC),SOB (shortness of breath),Chest tightness 1.956 mg IV ONCE PRN 03/19/2024 03/19/2024 Ended documented as of this encounter (statuses as of 03/19/2024) Active Problems Problem Noted Date Diagnosed Date [...] 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, recurrent, [id number], 2008 Dyslipidemia, goal LDL below 130 06/16/2010 [...] as of this encounter (statuses as of 03/19/2024) Resolved Problems Problem Noted Date Diagnosed Date [...] Keratin granuloma , Glabella 05/30/00 05/30/2002 05/25/2006 Leather Cutter's papule, Lt arm 05/30/00 05/30/2002 05/25/2006 Irritated crateriform keratosis, Back 11/18/00 05/30/20 02 05/25/2006 Lichenoid inflammatory reaction, Back 10/20/01 05/30/20 02 05/01/2019 Other seborrheic keratosis 03/02/2002 1 Actinic keratosis 03/02/2002 05/01/2019 Dyslipidemia, goal to be determined 06/16/2010 documented as of this encounter (statuses as of 03/19/2024) Immunizations Name Administration Dates Next Due COVID-19 [...] Passive Smoke Exposure: Past Smokeless Tobacco: Never Tobacco Cessation:Counseling Given: Not Answered Comments:no passive smoke Alcohol Use Standard Drinks/Week [...] file Travel History Travel Start Travel End [facility] 02/08/2024 02/19/2024 documented as of this encounter Last Filed Vital Signs Vital Sign Reading Time Taken Comments Blood Pressure 146/62 03/19/2024 10:58 AM EDT Pulse 70 03/19/2024 10:58 AM EDT Temperature - - Respiratory Rate 16 03/19/2024 10:58 AM EDT Oxygen Saturation - - Inhaled Oxygen Concentration - - Weight 54 kg (119 lb) 03/19/2024 10:58 AM EDT Height - - Body Mass Index 19.65 01/23/2024 4:43 PM EDT documented in this encounter Progress Notes * Keagan Roper DO - 03/19/2024 11:15 AM EDT Cardiology Follow Up Visit [facility] 03/19/2024 PCP: [place] [address] [phone] History of Present Illness: Ally Morris is a 83 year old year old female seen in cardiology follow up today as an acute add on for recent subjective complaint of exertional chest tightness and abnormal stress echocardiogram performed today. The patient describes herself as being physically active the patient describes herself as being physically active. She notes that over the last 3 months, she has experienced exertional chest tightness with her activity at water aerobics at the local [facility] that he had not limited her in the past. Previous medication adjustments were made including the addition of furosemide for treatment of exertional dyspnea, in the setting of hypertension and diastolic dysfunction and she has been taking furosemide 20 milligram tablet, 1 tablet per day alternating with 2 tablets per day, however her symptoms have persisted. Her baseline EKG reveals diffuse repolarization abnormalities suggestive of possible underlying left ventricular hypertrophy. Her exercise stress echocardiogram performed today was abnormal with reproduction of her chest tightness symptoms at a relatively low level of exercise with a stress-induced inferoseptal and inferior wall motion abnormality as described below. Symptoms resolved early in the post stress recovery interval and her EKG reverted to the previous baseline. She was comfortable at the time of my initial assessment in the stress test room and then ultimately in the cardiology clinic exam room. She was very active in her community performing multiple voluntary functions. She lives with her , Leon, who is 88 years old and is a renown historian of the national collegiate athletic association. Her past medical history is most notable for history of breast carcinoma for which she underwent bilateral mastectomy in the remote past dating back to 2008. She had lymph node resection of her rightarm in the past. She has a daughter who lives up the street from her, and a second child who lives in [place]. 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 History of malignant neoplasm of skin Senile osteoporosis S/P reverse total shoulder arthroplasty, right History of melanoma in situ Hyperparathyroidism (HCC) Carotid stenosis, non-symptomatic, bilateral Chronic diastolic congestive heart failure (HCC) Other specified peripheral vascular diseases (HCC) Hypertensive heart disease with chronic diastolic congestive heart failure (HCC) Past Surgical History: Procedure Laterality Date CENTRAL LINE PLACEMENT-FLUORO ([facility]) 02/03/2010 CENTRAL LINE PLACEMENT-FLUORO performed by GRAY KATZ at [place] [facility] [place]MO BY BOTH INFUSION AND O 08/08/1983 COLONOSCOPY, GI REFERRAL OP 06/08/2005 wnl DRAIN SHOULDER LESION, DEEP 02/02/2010 INCISION AND DRAINAGE SHOULDER performed by Samantha VELASCO at [place] [facility] INFORMATION 2022 groin lump removed MASTECTOMY, SIMPLE, COMPLETE 08/13/2008 MASTECTOMY SIMPLE COMPLETE performed by KEAGAN PARHAM at [facility] MASTECTOMY,RADICAL, URBAN-TYPE 08/13/2008 MASTECTOMY RADICAL INCLUDING PECTORAL MUSCLES AXILLARY AND INTERNAL MAMMARY LYMPH NODES URBAN TYPE OPERATION performed by KEAGAN PARHAM at [facility] MISCELLANEOUS ORDER ([facility] ONLY) 08/08/1971 Varicose Veins MISCELLANEOUS ORDER ([facility] ONLY) 08/08/1983 Lumpectomy, mastectomy , ALND right breast OTHER 08/08/1955 L5 discetomy PAP SCREEN 08/30/2003 WNL RECONSTRUCT/REPLACE SHOULDER JOINT 04/09/2010 REVERSE TOTAL SHOULDER ARTHROPLASTY performed by Samantha VELASCO at [place] [facility] REMOVAL OF BREAST, MODIFIED RADICAL 04/08/1984 REMOVAL OF THYROID GLAND 08/08/2002 Thyroidectomy and parathyroidectomy REMOVE TONSILS & ADENOIDS, UNDER 12 08/08/1943 Tonsillectomy/Adenoids,<12 Y/O REPAIR BICEPS LONG TENDON RUPTURE 07/01/2009 supraspinatus and subscapularis repair REPAIR/REVISE WRIST JOINT(S) Left 09/17/2016 ARTHROPLASTY INTERPOSITION CARPAL JOINTS performed by Rafi Burnham MD at OR [facility] REVISE UPPER EYELID 06/24/2011 both eyes upper lid blepharoplasties, Dr. Winston SET RADIATION THERAPY FIELD, SIMPLE 08/08/1983 SHOULDER ARTHROSCOPY/DECOMPRESSION 07/01/2009 Dr. Wagner [facility]OULDER SURGERY PROCEDURE NEC 07/10/2004 Left Shoulder Surgery, Open SIGMOIDOSCOPY/BIOPSY 09/26/2001 hyperplastic polyp TOTAL HYSTERECTOMY 08/08/1980 Partial, still has ovaries Family History: Family History Problem Relation Name Age of Onset Cancer Mother Shameka Cronin breast No Past Hx Mother Shameka Cronin at 81 years, metastatic breast cancer Heart Disorder Father Sam Cronin Lung Disorder Father Sam Cronin copd Hypertension Father Sam Cronin No Past Hx Father Sam Cronin at 76 of congestive heart failure Stroke Brother No Past Hx Brother Cancer Grandmother (Paternal) Libby Cronin stomach cancer Other (Other) Daughter (-) BRCA genetic testing in 09/2006 Other (Other) Other Denies any family history of skin diseases or skin cancer. 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 Tobacco Use Smoking status: Never Passive exposure: Past Smokeless tobacco: Never Tobacco comments: no passive smoke Vaping Use Vaping status: Never Used Substance and Sexual Activity Alcohol use: Yes Comment: Ounce of yessi in middle of night if can't sleep Drug use: No Sexual activity: Yes Partners: Male Comment: , Allergies: Fentanyl, Clindamycin hcl, Keflex [cephalexin], Meperidine hcl, Naproxen, Oxycodone hcl,Sulfamethoxazole-trimethoprim, Tramadol, and Vicodin [hydrocodone-acetaminophen] Medications: Current Outpatient Medications Medication Sig Dispense Refill ASPIRIN 81 MG PO CHEW Take 1 Tablet by mouth in the morning. VITAMIN C CR 1000 MG PO TBCR Take 1,000 Tabs by mouth. MULTIVITAMINS PO TABS 1 daily Cruodewkrrgw-Ikpsnpb-V-Probiot (AZO URINARY TRACT SUPPORT) 95 & 250-30 MG TBPK Take by mouth once a week. Unsure of dosage Cholecalciferol (VITAMIN D-3) 25 MCG (1000 UT) Capsule Take 1 Capsule by mouth. 3x/week NATURAL SUPPLEMENT Take by mouth daily. Pancreatic enzyme supplement once daily Metamucil Oral Wafer Take 1 Wafer by mouth in the morning. Magnesium 250 MG Oral Tablet Take 1 Tablet by mouth in the morning. GNP Vitamin B-12 1000 MCG Oral Tablet Extended Release (Cyanocobalamin ER) Take by mouth daily. Hair Skin & Nails Gummies 1250-7.5-7.5 MCG-MG-UNT Oral Tablet Chewable (Biotin w/ Vitamins C & E) Take by mouth. Levoxyl 88 MCG Oral Tablet TAKE 1 TABLET BY MOUTH ONCE DAILY FOR 6 DAYS OF THE WEEK. DO NOT TAKE ONSUNDAYS DIRECTED 90 Tablet 3 Carvedilol 3.125 MG Oral Tablet (Coreg) TAKE ONE TABLET BY MOUTH TWICE A DAY IN THE MORNING AND BEFORE BEDTIME WITH FOOD 200 Tablet 2 Myrbetriq 25 MG Oral Tablet Extended Release 24 Hour (Mirabegron ER) Take 1 Tablet by mouth in the morning. 100 Tablet 1 Diclofenac Sodium 1 % External Gel (Voltaren) apply 2gm topically four times daily; apply to singleelbow, wrist or hand; for hand includes palm/fingers/back of hand 800 g 2 Lisinopril 40 MG Oral Tablet TAKE ONE TABLET BY MOUTH EVERY MORNING 90 Tablet 3 Potassium Chloride ER 10 MEQ Oral Capsule Extended Release Take 1 Capsule by mouth in the morning and 1 Capsule before bedtime. 100 Capsule 3 amLODIPine Besylate 5 MG Oral Tablet (Norvasc) Take 1 Tablet by mouth in the morning. 100 Tablet 1 Melatonin 10 MG Oral Tablet Disintegrating Take 1 Tablet by mouth at bedtime as needed for Sleep. Atorvastatin Calcium 40 MG Oral Tablet (Lipitor) TAKE ONE TABLET BY MOUTH EVERY DAY 90 Tablet 3 Furosemide 20 MG Oral Tablet (Lasix) Take 2 Tablets by mouth in the morning. Or as directed by cardiology for edema/sob. (Patient taking differently: Take 2 Tablets by mouth in the morning. 20 mg every other day alternating with 40 mg.) 180 Tablet 3 Fish Oil 1000 MG Oral Capsule Take 1 Capsule by mouth in the morning. Current Facility-Administered Medications Medication Dose Route Frequency Provider Last Rate Last Admin Denosumab (Prolia) subcut inj 60 mg 60 mg Subcutaneous Q6 Months Linden Mansfield PA-C 60 mg at 09/06/23 1120 perflutren lipid microsphere inj SUSP 1.956 mg 1.956 mg Intravenous Once PRN Charito Mccain PA-C 1.956 mg at 03/19/24 1004 OBJECTIVE/PHYSICAL EXAMINATION: BP 146/62 (BP Site: Left Arm, BP Position: Sitting, BP Cuff Size: Regular) | Pulse 70 | Resp 16 | Wt 54 kg (119 lb) | BMI 19.65 kg/m | BSA 1.58 m BP Readings from Last 4 Encounters: 03/19/24 146/62 01/25/24 158/68 01/23/24 146/70 12/13/23 126/60 General: no acute distress and stated age Eyes: conjunctiva are pink and non-injected, sclera clear Neck: normal jugular venous pulse, no hepatojugular reflux Chest: normal shape and normal respiratory effort Lungs: clear to auscultation and percussion Cardiac Exam: - regular heart sounds, no murmurs, rubs, or gallops Abdomen: abdomen soft, non-tender, no abnormal masses and no hepatosplenomegaly Musculoskeletal: no gait disturbance, no weakness Extremities: no edema and no cyanosis Neuro: grossly normal exam Psych: appropriate affect and insight. Data: EKG performed 03/19/2024 and interpreted independently: Sinus rhythm at 68 beats per minute with occasional premature atrial contractions, T-wave abnormality noted in the inferior leads as well as leads V3-V6 suggestive of left ventricular hypertrophy versus ischemia. Unchanged compared to the previous resting EKG. Summary of resting transthoracic echocardiogram study performed 02/01/2024: The left ventricular cavity size is normal. The LV wall thickness is mildly increased (concentric). The left ventricular wall motion is normal. The qualitative LV ejection fraction is 60-64% (normal). The left ventricular diastolic function is moderately abnormal (grade II). The left atrium is mildly enlarged (35-41 ml/m^2). The aortic valve is mildly calcified. The aortic valve opening is mildly reduced. Mild aortic valve regurgitation is present. There is moderate mitral annular calcification. The mitral valve leaflets thickness is mildly increased. Mild mitral regurgitation is present. Moderate tricuspid regurgitation is present. There is no evidence of pulmonary hypertension. Summary of exercise stress echocardiogram performed today 03/19/2024: The examination is adequate to evaluate the referral indication. The stress echo is negative for inducible ischemia. The left ventricular wall motion is normal. Post exercise, there is a moderate sized septal and inferior wall motion abnormality with hypokinesis of the segments. The stress EKG response to exercise is equivocal for excluding ischemia with significant baseline ST, T wave changes that became more prominent with exercise. of ischemia versus left ventricular hypertrophy. The exercise test was terminated due to fatigue, shortness of breath, with noted 8/10 intensity "chest tightness" described by the patient at peak stress. The patient's symptoms resolved early in the post stress recovery interval and the EKG returned to the pre stress baseline. This study has what is deemed to be a "significant abnormality" consistent with ACT 112. Results of the study were discussed with the ordering provider. Same day cardiology follow-up was arranged. IMPRESSION: 83 year old year old female Exertional angina (HCC) (Primary) - Patient with symptoms of exertional chest tightness , reproduced during stress testing today withimages suggestive of RCA territory ischemia. -Prescription medication management: Continue aspirin , carvedilol, amlodipine, lisinopril and atorvastatin. -Recommend proceeding with invasive coronary angiography. Pt would like to have this performed at [place] with Dr Mccoy. -SL nitroglycerin added to her regimen for as needed use and instructions provided. LVH (left ventricular hypertrophy) / Diastolic dysfunction Continue furosemide . Hold the day of cath. HTN, goal below 140/90 BP slightly above goal today, however, patient is on 3 antihyertensives (carvedilol, lisinopril, and furosemide). In effort to avoid symptomatic low BP will maintain same treatment, which has yet however to be effective at preventing her angina. Nonrheumatic aortic valve insufficiency Mild, stable on echo Abnormal stress echocardiogram Plan as noted. orders - Nitroglycerin 0.4 MG Sublingual Tablet Sublingual (Nitrostat); Place 1 Tablet under the tongue every 5 minutes as needed for Pain, Chest. up to 3 doses in 15 minutes Pt had recent CXR last week with stable findings. Return for labs tomorrow. Will arrange cardiac catheterization. Follow Up: Return in about 4 weeks (around 04/16/2024) for Clinic Visit. | For: Clinic Visit | Check-out note: Non fasting lab work at [facility] this week. Nursing to schedule cardiac catheterization at [facility] Return with Teddy Mccain in 4-6 weeks. -pt seen in longitudinal cardiology follow up of the above chronic concerns with assessment and plan as noted. Keagan Roper, DO Cardiology, [address] [place] [address] This chart was completed in part utilizing [employer] Speech Voice Recognition Software. Grammatical errors, random word insertions, prounoun errors, and incomplete sentences are an occasional consequence of this system due to software limitations, ambient noise, and hardware issues. Any formal questions or concerns about the content, text, or information contained within the body of this dictation should be directly addressed to the provider for clarification. documented in this encounter Nursing Notes * Mariaa Childress CMA - 03/19/2024 10:57 AM EDT Examination Room: 12 Name: Ally Morris Date of : (1940). Reason for Visit: f/u stress test Interim Hospitalization(s): none Problems/Concerns: LE edema Chest Pain/SOB: Increase DEUTSCH. Chest pressure/tightness. [facility] Discussed: Not applicable [facility] is a way you can talk to your provider online through e-mail. Would you like to sign up? I can activate it for you? ALREADY ACTIVE Patient was instructed to not get up on the exam table until directed and assisted by their provider; patient is to remain seated in the chair/ wheelchair/ exam table for fall prevention and safety reasons. Patient is aware to have assistance to step down off exam table with personnel. Patient voiced full comprehension of instructions. documented in this encounter Plan of Treatment Upcoming Encounters Date Type Department Care Team (Late st Contact Info) Description 04/24/2024 9:20 AM EDT Office Visit Family Practice [address] [place] [address] [address] [place] [address] Ally Paredes [facility] [address] 05/14/2024 2:45 PM EDT Office Visit Dermatology [address] [place] [address] [place] [address] Dann Tavarez MD [address] [place] [address] 07/03/2024 8:30 AM EST Office Visit Cardiology, [facility] [address] [place] [address] Charito Mccain PA-C [address] [place] [address] 07/26/2024 1:30 PM EST Office Visit Cardiology, [facility] [address] [place] [address] Charito Mccain PA-C [address] [place] [address] 08/30/2024 12:00 PM EST Office Visit Endocrinology [address] [place] [address] Maddy Munoz MD [address] [place] [address] 10/17/2024 12:30 PM EDT Office Visit Hematology[facility] [address] [place] [address] Sonia Tesfaye MD [address] [place] [address] 12/17/2024 11:00 AM EDT Nurse Only Ancillary [address] [facility] [address] [place] [address] College, Nurse Annual Wellness Visit [address] [address] Scheduled Orders Name Type Priority Associated Diagnoses Orde r Schedule EKG EKG Routine Exertional angina (HCC) Ordered: 03/19/2024 CBC Lab Routine Exertional angina (HCC) Expected: 03/20/2024, Expires: 06/07/2024 COMPREHENSIVE METABOLIC PANEL Lab Routine Exertional angina (HCC) Expected: 03/20/2024, Expires: 06/07/2024 PT INR Lab Routine Exertional angina (HCC) Expected: 03/20/2024, Expires: 06/07/2024 APTT Lab Routine Exertional angina (HCC) Expected: 03/20/2024, Expires: 06/07/2024 Health Maintenance Due Date Last Done Comments [...] D LEVEL ONCE IN A LIFETIME-USE SMARTSET# [id number] Completed 02/23/2024, 08/24/2023, 07/08/2022, Additional history exists [...] this encounter Medical Devices Implanted Type Area Powder Blender And Pourer Device Identifier Shelf Expiration Date Model / Serial / Lot Plate Ricardo 6.5x30 508-32-104 - [id number] Implanted:Qty: 1 on 04/09/2010 [place] [facility] [place]: Shoulder [employer] 10/07/2015 508-32-104 / / [id number] Socket Humeral Insert Implanted:Qty: 1 on 04/09/2010 at [place] [facility] [place]: Shoulder [employer] 07/08/2014 508-01-032 / / [id number] Head Glenoid/Screw5 - [id number] Implanted:Qty: 1 on 04/09/2010 at [place] [facility] [place]: Shoulder [employer] 11/07/2015 508-32-101 / / [id number] Screw Lckg 5x22 [id number] - [id number] Implanted:Qty: 1 on 04/09/2010 at [place] [facility] [place]: Shoulder [employer] 10/07/2015 506-03-122 / / [id number] Scrw Lckg [employer] [id number] - [id number] Implanted:Qty: 1 on 04/09/2010 at [place] [facility] [place]: Shoulder [employer] 08/08/2015 506-03-114 / / [id number] Screw Lckg 5x26 506-03-126 - [id number] Implanted:Qty: 1 on 04/09/2010 at [place] [facility] [place]: Shoulder [employer] 12/07/2015 506-03-126 / / [id number] Screw Lckg 5x22 506-03-122 - [id number] Implanted:Qty: 1 on 04/09/2010 at [place] [facility] [place]: Shoulder [employer] 02/06/2016 506-03-122 / / [id number] Cement Bone G 1113-140-01 - [id number] Implanted:Qty: 1 on 04/09/2010 at [place] [facility] [place]: Shoulder [employer] 07/08/2013 00-1113-14 0 / / [id number] Shell Socket Humeral Rsp Implanted:Qty: 1 on 04/09/2010 at [place] [facility] [place]: Shoulder [employer] 01/07/2016 508-00-008 / / [id number] Stem Humeral Primary Rsp Implanted:Qty: 1 on 04/09/2010 at [place] [facility] [place]: Shoulder [employer] 08/08/2015 506-00-008 / / [id number] [employer] Mini Quick 2/0 [id number] - [id number] Implanted:Qty: 1 on 09/17/2016 by Rafi Burnham MD at OR [facility] Left: Hand SHAINAJ : DEPUY MITEK SURG PROD 05/07/2019 [id number] / / [id number] [employer] Mini Quick 2/0 [id number] - [id number] Implanted:Qty: 1 on 09/17/2016 by Rafi Burnham MD at OR [facility] Left: Hand JNJ : DEPUY MITEK SURG PROD 05/07/2019327157 / / [id number] documented as of this encounter Visit Diagnoses Diagnosis Exertional angina (HCC)- Primary Other and unspecified angina pectoris LVH (left ventricular hypertrophy) Cardiomegaly HTN, goal below 140/90 Unspecified essential hypertension Diastolic dysfunction Heart disease, unspecified Nonrheumatic aortic valve insufficiency Aortic valve disorders Abnormal stress echocardiogram Other nonspecific abnormal cardiovascular system function study documented in this encounter Advance Directives Documents on File Type Date Recorded Patient Certified Histologic Technician Expl anation Power of Stair Builder 10/18/2023 12:36 PM NEENA R OF COMPRESSED GAS TESTER - ADVANCED HEALTHCARE DIRECTIVE * Full Code [...] 1:48 PM 08/14/2008 6:49 PM Care Teams Auto Rental Supervisor Relationship Specialty Start Date End Date Ally Paredes DO [address] [place] [address] PCP - General Family Medicine 01/19/24 documented as of this encounter
--- OUTSIDE RECORDS SUMMARY | 2024-04-03 13:09 | External Medical Summary | Summary of Care ---
Author Name Unknown Organization [facility] Address [address] [place] [address] Phone [phone] Care Team Providers Care Principal Ios Developer Name Role Phone Ally Gonzales DO Primary Care Provider Encounter Details Date Type Department Care Team (Latest Contact Info) Description 03/05/2024 11:25 AM EDT - 03/05/2024 11:59 PM EDT Hospital Encounter Radiology Film File [address] [place] [address] Arrived Discharge Disposition: Home - Self Care Allergies Active Allergy Reactions Criticality Noted Date Comments Clindamycin Hcl 09/19/2015 Fentanyl High 10/01/2016 Severe emesis Cephalexin Diarrhea 03/22/2022 Meperidine Hcl 01/24/2023 Naproxen Nausea/vomiting 06/30/2009 Oxycodone Hcl Nausea/vomiting 04/09/2010 Sulfamethoxazole-Trimethoprim Nausea/vomiting 0 01/27/2016 Tramadol 12/08/2016 Hydrocodone-Acetaminophen Nausea/vomiting 06/30 documented as of this encounter (statuses as of 03/06/2024) Medications Medication Sig Dispensed Refills Start Date [...] Tablet Disintegrating Take 1 Tablet by mouth every night at bedtime. Active Furosemide 20 MG Oral Tablet (Lasix)Indications:C hronic diastolic congestive heart failure (HCC) Take 1 Tablet by mouth in the morning. 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, recurrent, [id number], 2008 Dyslipidemia, goal LDL below 130 06/16/2010 [...] as of this encounter (statuses as of 03/06/2024) Resolved Problems Problem Noted Date Diagnosed Date [...] Keratin granuloma , Glabella 05/30/00 05/30/2002 05/25/2006 Medical Records Coder's papule, Lt arm 05/30/00 05/30/2002 05/25/2006 Irritated crateriform keratosis, Back 11/18/00 05/30/20 02 05/25/2006 Lichenoid inflammatory reaction, Back 10/20/01 05/30/20 02 05/01/2019 Other seborrheic keratosis 03/02/2002 1 Actinic keratosis 03/02/2002 05/01/2019 Dyslipidemia, goal to be determined 06/16/2010 documented as of this encounter (statuses as of 03/06/2024) Immunizations Name Administration Dates Next Due COVID-19 mRNA, LNP-s, No Pre serve, 2-Dose Series (Moderna) 10/05/2020,08/31/2020 COVID-19, MRNA-LNP, 23-24, P F, 30 MCG/0.3 mL, 12 YRS AND ABOVE, IM (Urban Remedyirnaty) 12/19/2023,05/09/2023 COVID-19, mRNA, LNP-s, PF, B ooster, [...] file Travel History Travel Start Travel End [facility] 02/08/2024 02/19/2024 documented as of this encounter Plan of Treatment Upcoming Encounters Date Type Department Care Team (Late st Contact Info) Description 03/19/2024 9:15 AM EDT Imaging Cardiac Studies, [facility] [address] [facility] [place] [address] 04/24/2024 9:20 AM EDT Office Visit Family Practice [address] [place] [address] [address] [facility] [place] [address] Ally Gonzales DO [address] [place] [address] 07/26/2024 1:30 PM EST Office Visit Cardiology, [facility] [address] [place] [address] Charito Mccain, [place] 132 [facility] [place] [address] 08/30/2024 12:00 PM EST Office Visit Endocrinology [address] [place] [address] Maddy Munoz MD [address] [facility] [place] [address] 10/17/2024 12:30 PM EDT Office Visit Hematology/Oncology [address] [place] [address] [place] [address] Sonia Tesfaye MD [address] [place] [address] 12/17/2024 11:00 AM EDT Nurse Only Ancillary [address] [place] [address] [facility] [place] [address] College, Nurse Annual Wellness Visit [address] [facility] [address] [facility], [place] [id number] Health Maintenance Due Date Last Done Comments Influenza Vaccine (FLU shot) (#1) 2024 05/10/2023, 05/06/2022, 04/29/2021, Additional history exists Depression Screening 12/12/2024 12/13/2023 DXA Scan 12/20/2024 12/20/2022, 12/06, 12/16/2020, Additional history exists TSH 01/24/2025 01/25/2024, 08/08, 07/08/2022, Additional history exists GFR 02/22/2025 02/23/2024, 01/06, 08/24/2023, Additional history exists Albumin/Creatinine Ratio 04/05/2025 022, 03/05/2019, 07/25/2018, Additional history exists DTaP,Tdap,and Td Vaccines (3 - Td or Tdap) 10/07/2032 10/07/2022, 09/19/2012, 12/20/2002 Pneumococcal Vaccine: 65+ Years Completed 07/25/2018, 09/14/2004 Zoster Vaccines Completed 01/01/2020, 09/09, 12/05/2008 COVID-19 Vaccine Completed 12/19/2023, 09/2022, 03/10/2023, Additional history exists VITAMIN D LEVEL ONCE IN A LIFETIME-USE SMARTSET# [id number] Completed 02/23/2024, 08/24/2023, 07/08/2022, Additional history exists [...] this encounter Medical Devices Implanted Type Area Cutter Aluminum Sheet Device Identifier Shelf Expiration Date Model / Serial / Lot Plate Ricardo 6.5x30 508-32-104 - [id number] Implanted:Qty: 1 on 04/09/2010 at OR [facility] Right: Shoulder [employer] 10/07/2015 508-32-104 / / [id number] Socket Humeral Insert Implanted:Qty: 1 on 04/09/2010 at OR [facility] Right: Shoulder [employer] 07/08/2014 508-01-032 / / [id number] Head Glenoid/Screw5 - [id number] Implanted:Qty: 1 on 04/09/2010 at OR [facility] Right: Shoulder [employer] 11/07/2015 508-32-101 / / [id number] Screw Lckg 5x22 506122 - [id number] Implanted:Qty: 1 on 04/09/2010 at OR [facility] Right: Shoulder [employer] 10/07/2015 506-03-122 / / [id number] Scrw Lckg [employer] 506-03114 - [id number] Implanted:Qty: 1 on 04/09/2010 at OR [facility] Right: Shoulder [employer] 08/08/2015 506-03-114 / / [id number] Screw Lckg 5x26 506-03126 - [id number] Implanted:Qty: 1 on 04/09/2010 at OR [facility] Right: Shoulder [employer] 12/07/2015 506-03-126 / / [id number] Screw Lckg 5x22 506122 - [id number] Implanted:Qty: 1 on 04/09/2010 at OR [facility] Right: Shoulder [employer] 02/06/2016 506-03-122 / / [id number] Cement Bone G 1113-140-01 - [id number] Implanted:Qty: 1 on 04/09/2010 at OR [facility] Right: Shoulder [employer] 07/08/2013 00-1113-14 0 / / [id number] Shell Socket Humeral Rsp Implanted:Qty: 1 on 04/09/2010 at OR [facility] Right: Shoulder [employer] 01/07/2016 508-00-008 / / [id number] Stem Humeral Primary Rsp Implanted:Qty: 1 on 04/09/2010 at OR [facility] Right: Shoulder [employer] 08/08/2015 506-00-008 / / [id number] [place] Mini Quick 2/0 [id number] - [id number] Implanted:Qty: 1 on 09/17/2016 by Rafi Burnham MD at OR [facility] Left: Hand JNJ : DEPUY MITEK SURG PROD 05/07/2019522660 / / [id number] [place] Mini Quick 2/0 191532 - [id number] Implanted:Qty: 1 on 09/17/2016 by Rafi Burnham MD at OR [facility] Left: Hand JNJ : DEPUY MITEK SURG PROD 05/07/201921191011 / / [id number] documented as of this encounter Procedures Procedure Name Priority Date/Time Associated Diagnosis Comments DERM EXAM - DERM (IMAGES ONLY, NO REPORT) Routine 03/05/2024 11:25 AM EDT Seborrheic keratosis AK (actinic keratosis) documented in this encounter Results * DERM EXAM - DERM (IMAGES ONLY, NO REPORT) (03/05/2024 11:25 AM EDT) Narrative Scheduling, Silent - 03/05/2024 11:25 AM EDT This is an imaging study not interpreted or resulted by a [facility] or [facility] contracted radiologist. Mili Ricks PA-C RADIOLO GY ([facility]) documented in this encounter Advance Directives Documents on File Type Date Recorded Patient [place]nut Dehydrator Operator Expl anation Power of Secretary Receptionist 10/18/2023 12:36 PM NEENA R OF CENTER MACHINE SET UP OPERATOR - [facility] DIRECTIVE * Full Code [...] 1:48 PM 08/14/2008 6:49 PM Care Teams Principal Ios Developer Relationship Specialty Start Date End Date Ally Gonzales DO [address] [place] [address] PCP - General Family Medicine 01/19/24 documented as of this encounter
--- OUTSIDE RECORDS SUMMARY | 2024-04-03 13:09 | External Medical Summary | Summary of Care ---
Author Name Unknown Organization [facility] Address [address] [place] [address] Phone [phone] Care Team Providers Care Portable Track Crew Chief Name Role Phone Ally Gonzales DO Primary Care Provider Reason for Visit * Reason Comments Outpatient Testing Encounter Details Date Type Department Care Team (Late st Contact Info) Description 02/23/2024 1:40 PM EDT Laboratory Laboratory [facility] [place] [address] [place] [address] [facility] [address] [place] [address] Senile osteoporosis; Chronic diastolic congestive heart failure (HCC); SOB (shortness of breath); Chest tightness; HTN, goal below 140/90; Localized edema Allergies Active Allergy Reactions Criticality Noted Date Comments Clindamycin Hcl 09/19/2015 Fentanyl High 10/01/2016 Severe emesis Cephalexin Diarrhea 03/22/2022 Meperidine Hcl 01/24/2023 Naproxen Nausea/vomiting 06/30/2009 Oxycodone Hcl Nausea/vomiting 04/09/2010 Sulfamethoxazole-Trimethoprim Nausea/vomiting 0 01/27/2016 Tramadol 12/08/2016 Hydrocodone-Acetaminophen Nausea/vomiting 06/30 documented as of this encounter (statuses as of 02/23/2024) Medications Medication Sig Dispensed Refills Start Date [...] the morning. 30 Tablet 5 01/27/2024 Active Furosemide 20 MG Oral Tablet (Lasix) Take 1 Tablet by mouth in the morning. 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, recurrent, [id number], 2009 Dyslipidemia, goal LDL below 130 06/16/2010 Shoulder [...] as of this encounter (statuses as of 02/23/2024) Resolved Problems Problem Noted Date Diagnosed Date [...] Keratin granuloma , Glabella 05/30/00 05/30/2002 05/25/2006 Insulation Worker Furnace Installer's papule, Lt arm 05/30/00 05/30/2002 05/25/2006 Irritated crateriform keratosis, Back 11/18/00 05/30/20 02 05/25/2006 Lichenoid inflammatory reaction, Back 10/20/01 05/30/20 02 05/01/2019 Other seborrheic keratosis 03/02/2002 1 Actinic keratosis 03/02/2002 05/01/2019 Dyslipidemia, goal to be determined 06/16/2010 documented as of this encounter (statuses as of 02/23/2024) Immunizations Name Administration Dates Next Due COVID-19 mRNA, LNP-s, No Pre serve, 2-Dose Series (Moderna) 10/05/2020,08/31/2020 COVID-19, MRNA-LNP, 23-24, P F, 30 MCG/0.3 mL, 12 YRS AND ABOVE, IM (PFIZER-Comirnat) 12/19/2023,05/09/2023 COVID-19, mRNA, LNP-s, PF, B ooster, [...] file Travel History Travel Start Travel End [facility] 02/08/2024 02/19/2024 documented as of this encounter Plan of Treatment Upcoming Encounters Date Type Department Care Team (Late st Contact Info) Description 03/19/2024 9:15 AM EDT Imaging Cardiac Studies, [facility] [address] [place] [address] 04/24/2024 9:20 AM EDT Office Visit Family Practice [address] [place] [address] [address] [place] [address] Ally Gonzales DO [address] [place] [address] 07/26/2024 1:30 PM EST Office Visit Cardiology, [facility] [address] [place] [address] Charito Mccain, [place]ha[place] 132 [place] [address] 08/30/2024 12:00 PM EST Office Visit Endocrinology [address] [place] [address] Maddy Munoz MD [address] [facility] [place] [address] 10/17/2024 12:30 PM EDT Office Visit [facility]ematology/[facility] [address] [facility] [place], [place] [address] Sonia Tesfaye MD 200 [facility] [place], [place] [address] 12/17/2024 11:00 AM EDT Nurse Only Ancillary 65 [facility] [address] [place] [address] College, Nurse Annual Wellness Visit [address] [facility] [address] [facility] [place] [address] Pending Results Name Type Priority Associated Diagnoses Date /Time 25-HYDROXY VITAMIN D Lab Routine Senile osteoporosis 02/23/2024 1:50 PM EDT BASIC METABOLIC PANEL Lab Routine Chronic diastolic congestive heart failure (HCC) SOB (shortness of breath) Chest tightness HTN, goal below 140/90 Localized edema 02/23/2024 1:50 PM EDT BNP, NT-PRO Lab Routine Chronic diastolic congestive heart failure (HCC) SOB (shortness of breath) Chest tightness HTN, goal below 140/90 Localized edema 02/23/2024 1:50 PM EDT Health Maintenance Due Date Last Done Comments Influenza Vaccine (FLU shot) (#1) 2024 05/10/2023, 05/06/2022, 04/29/2021, Additional history exists Depression Screening 12/12/2024 12/13/2023 DXA Scan 12/20/2024 12/20/2022, 12/06, 12/16/2020, Additional history exists GFR 01/24/2025 01/25/2024, 08/08, 12/16/2022, Additional history exists TSH 01/24/2025 01/25/2024, 08/08, 07/08/2022, Additional history exists Albumin/Creatinine Ratio 04/05/2025 022, 03/05/2019, 07/25/2018, Additional history exists DTaP,Tdap,and Td Vaccines (3 - Td or Tdap) 10/07/2032 10/07/2022, 09/19/2012, 12/20/2002 Pneumococcal Vaccine: 65+ Years Completed 07/25/2018, 09/14/2004 Zoster Vaccines Completed 01/01/2020, 09/09, 12/05/2008 VITAMIN D LEVEL ONCE IN A LIFETIME-USE SMARTSET# [id number] Completed 08/24/2023, 07/08/2022, 07/08/2021, Additional history exists COVID-19 Vaccine Completed 12/19/2023, 09/2022, 03/10/2023, Additional history exists HPV (Gardasil) Vaccine Aged Out No lo nger eligible based on patient's age to complete this topic Hepatitis B Vaccine Aged Out No longe r eligible based on patient's age to complete this topic MENINGOCOCCAL (MENACTRA/MENVEO) Aged Out No longer eligible based on patient's age to complete this topic documented as of this encounter Medical Devices Implanted Type Area Core Inserter Device Identifier Shelf Expiration Date Model / Serial / Lot Plate Ricardo 6.5x30 508-32-104 - [id number] Implanted:Qty: 1 on 04/09/2010 at [place] [facility] Right: Shoulder [employer] 10/07/2015 508-32-104 / / [id number] Socket Humeral Insert Implanted:Qty: 1 on 04/09/2010 at OR [facility] Right: Shoulder [employer] 07/08/2014 508-01-032 / / [id number] Head Glenoid/Screw5 -006 - [id number] Implanted:Qty: 1 on 04/09/2010 at OR [facility] Right: Shoulder [employer] 11/07/2015 508-32-101 / / [id number] Screw Lckg 5x22 506-03-122 - [id number] Implanted:Qty: 1 on 04/09/2010 at OR [facility] Right: Shoulder [employer] 10/07/2015 506-03-122 / / [id number] Scrw Lckg [employer] 506-03-114 - [id number] Implanted:Qty: 1 on 04/09/2010 at OR [facility] Right: Shoulder [employer] 08/08/2015 506-03-114 / / [id number] Screw Lckg 5x26 506-03-126 - [id number] Implanted:Qty: 1 on 04/09/2010 at OR [facility] Right: Shoulder [employer] 12/07/2015 506-03-126 / / [id number] Screw Lckg 5x22 506-03-122 - [id number] Implanted:Qty: 1 on 04/09/2010 at OR [facility] Right: Shoulder [employer] 02/06/2016 506-03-122 / / [id number] Cement Bone G 1113-140-01 - [id number] Implanted:Qty: 1 on 04/09/2010 at OR [facility] Right: Shoulder [employer] 07/08/2013 00-1113-14 0 / / [id number] Shell Socket Humeral Rsp Implanted:Qty: 1 on 04/09/2010 at OR [facility] Right: Shoulder [employer] 01/07/2016 508-00-008 / / [id number] Stem Humeral Primary Rsp Implanted:Qty: 1 on 04/09/2010 at OR [facility] Right: Shoulder [employer] 08/08/2015 506-00-008 / / [id number] [place] Mini Quick 2/0 [id number] - [id number] Implanted:Qty: 1 on 09/17/2016 by Rafi Burnham MD at OR [facility] Left: Hand JNJ : DEPUY MITEK SURG PROD 05/07/2019 [id number] / / [id number] [place] Mini Quick 2/0 [id number] - [id number] Implanted:Qty: 1 on 09/17/2016 by Rafi Burnham MD at OR [facility] Left: Hand JNJ : DEPUY MITEK SURG PROD 05/07/2019 [id number] / / [id number] documented as of this encounter Visit Diagnoses Diagnosis Senile osteoporosis Chronic diastolic congestive heart failure (HCC) Chronic diastolic heart failure SOB (shortness of breath) Shortness of breath Chest tightness Other chest pain HTN, goal below 140/90 Unspecified essential hypertension Localized edema Edema documented in this encounter Advance Directives Documents on File Type Date Recorded Patient Director Systems Expl anation Power of Plumbing Hardware Assembler 10/18/2023 12:36 PM NEENA R OF PARTS ROOM ASSOCIATE - [facility] DIRECTIVE * Full Code [...] 1:48 PM 08/14/2008 6:49 PM Care Teams Portable Track Crew Chief Relationship Specialty Start Date End Date Ally Gonzales DO [address] [place] [address] PCP - General Family Medicine 01/19/24 documented as of this encounter
--- OUTSIDE RECORDS SUMMARY | 2024-04-03 13:09 | External Medical Summary | Summary of Care ---
Author Name Unknown Organization [facility] Address [address] [place] [address] Phone [phone] Care Team Providers Care Caramel Coloring Operator Name Role Phone Ally Gonzales DO Primary Care Provider [phone] Reason for Visit * Reason Comments Outpatient Testing Encounter Details Date Type Department Care Team (Late st Contact Info) Description 03/13/2024 1:40 PM EDT Laboratory Laboratory [facility] [place] [address] [place] [address] [place] [facility] [address] [place] [address] Chronic diastolic congestive heart failure (HCC); SOB [...] as of this encounter (statuses as of 03/13/2024) Medications Medication Sig Dispensed Refills Start Date [...] by mouth every night at bedtime. Active Atorvastatin Calcium 40 MG Oral Tablet (Lipitor)Indications :Hyperlipidemia with target LDL less than 100,Bruit (arterial),Aortic valve sclerosis TAKE ONE TABLET BY MOUTH EVERY DAY 90 Tablet 3 02/21/2024 Active Furosemide 20 MG Oral Tablet (Lasix)Indications:C hronic diastolic congestive heart failure (HCC) Take 2 Tablets by mouth in the morning. Or as directed by cardiology for edema/sob. 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, recurrent, [id number], 2008 Dyslipidemia, goal LDL below 130 06/16/2010 [...] as of this encounter (statuses as of 03/13/2024) Resolved Problems Problem Noted Date Diagnosed Date [...] Keratin granuloma , Glabella 05/30/00 05/30/2002 05/25/2006 Wireless Operator's papule, Lt arm 05/30/00 05/30/2002 05/25/2006 Irritated crateriform keratosis, Back 11/18/00 05/30/20 02 05/25/2006 Lichenoid inflammatory reaction, Back 10/20/01 05/30/20 02 05/01/2019 Other seborrheic keratosis 03/02/2002 1 Actinic keratosis 03/02/2002 05/01/2019 Dyslipidemia, goal to be determined 06/16/2010 documented as of this encounter (statuses as of 03/13/2024) Immunizations Name Administration Dates Next Due COVID-19 [...] file Travel History Travel Start Travel End [facility] 02/08/2024 02/19/2024 documented as of this encounter Plan of Treatment Upcoming Encounters Date Type Department Care Team (Late st Contact Info) Description 03/19/2024 9:15 AM EDT Imaging Cardiac Studies, [facility] [address] [place] [address] 04/24/2024 9:20 AM EDT Office Visit Family Practice [address] [place] [address] [address] [place] [address] Ally Gonzales DO [address] [place] [address] 07/26/2024 1:30 PM EST Office Visit Cardiology, [facility] [address] [place] [address] Charito Mccain PAShaun [address] [place] [address] 08/30/2024 12:00 PM EST Office Visit Endocrinology [address] [place] [address] Maddy Munoz MD [address] [facility] [place] [address] 10/17/2024 12:30 PM EDT Office Visit Hematology/Oncology [place] [address] [facility] [place], [place] [address] Sonia Tesfaye MD [address] [facility] [place], [place] [address] 12/17/2024 11:00 AM EDT Nurse Only Ancillary [facility] [address] [place] [address] College, Nurse Annual Wellness Visit [address] [facility] [address] [place] [address] Pending Results Name Type Priority Associated Diagnoses Date /Time BASIC METABOLIC PANEL Lab Routine Chronic diastolic congestive heart failure (HCC) SOB (shortness of breath) Chest tightness HTN, goal below 140/90 Localized edema 03/13/2024 1:41 PM EDT Health Maintenance Due Date Last [...] D LEVEL ONCE IN A LIFETIME-USE SMARTSET# [id number] Completed 02/23/2024, 08/24/2023, 07/08/2022, Additional history exists [...] this encounter Medical Devices Implanted Type Area Aircraft Structural Design Engineer Device Identifier Shelf Expiration Date Model / Serial / Lot Plate Ricardo 6.5x30 508-32-104 - [id number] [place]ed:Q[place] 1 [place]09[place] [facility] [place] Shoulder [employer] 10/07/2015 508-32-104 / / [id number] Socket Humeral Insert Implanted:Qty: 1 on 04/09/2010 [place] [facility] [place] Shoulder [employer] 07/08/2014 508-01-032 / / [id number] Head Glenoid/Screw5 006 - [id number] Implanted:Qty: 1 on 04/09/2010 [place] [facility] [place] Shoulder [employer] 11/07/2015 508-32-101 / / [id number] Screw Lckg 5x22 506-03-122 - [id number] Implanted:Qty: 1 on 04/09/2010 [place] [facility] [place]: Shoulder [employer] 10/07/2015 506-03-122 / / [id number] Scrw Lckg [employer] 506-03-114 - [id number] Implanted:Qty: 1 on 04/09/2010 [place] [facility] [place]: Shoulder [employer] 08/08/2015 506-03-114 / / [id number] Screw Lckg 5x26 506-126 - [id number] Implanted:Qty: 1 on 04/09/2010 [place] [facility] [place]: Shoulder [employer] 12/07/2015 506-03-126 / / [id number] Screw Lckg 5x22 506122 - [id number] Implanted:Qty: 1 on 04/09/2010 [place] [facility] [place]: Shoulder [employer] 02/06/2016 506-03-122 / / [id number] Cement Bone G 1113-140-01 - [id number] Implanted:Qty: 1 on 04/09/2010 [place] [facility] [place]: Shoulder [employer] 07/08/2013 00-1113-14 0- / / [id number] Shell Socket Humeral Rsp Implanted:Qty: 1 on 04/09/2010 [place] [facility] [place]: Shoulder [employer] 01/07/2016 508-00-008 / / [id number] Stem Humeral Primary Rsp Implanted:Qty: 1 on 04/09/2010 [place] [facility] [place]: Shoulder [employer] 08/08/2015 506-00-008 / / [id number] [place] Mini Quick 2/0 115965 - [id number] Implanted:Qty: 1 on 09/17/2016 by Rafi Burnahm MD at OR [facility] Left: Hand JNJ : DEPUY MITEK SURG PROD 05/07/2019 147417 / / [id number] [place] Mini Quick 2/0 184982 - [id number] Implanted:Qty: 1 on 09/17/2016 by Rafi Burnham MD at OR [facility] Left: Hand JNJ : DEPUY MITEK SURG PROD 05/07/2019 [id number] / / [id number] documented as of this encounter Visit Diagnoses Diagnosis Chronic diastolic congestive heart failure (HCC) Chronic diastolic heart failure SOB (shortness of breath) Shortness of breath Chest tightness Other chest pain HTN, goal below 140/90 Unspecified essential hypertension Localized edema Edema documented in this encounter Advance Directives Documents on File Type Date Recorded Patient Director And Professor Expl anation Power of Cycling Instructor 10/18/2023 12:36 PM NEENA R OF RESEARCH METHODS INSTRUCTOR - [employer] DIRECTIVE * Full Code [...] 1:48 PM 08/14/2008 6:49 PM Care Teams Caramel Coloring Operator Relationship Specialty Start Date End Date Ally Gonzales DO [address] [place] [address] PCP - General Family Medicine 01/19/24 documented as of this encounter
--- OUTSIDE RECORDS SUMMARY | 2024-04-03 13:09 | External Medical Summary | Summary of Care ---
Author Name Unknown Organization [facility] Address [address] [place] [address] Phone [phone] Care Team Providers Care Senior Bioinformatics Scientist Name Role Phone Ally Gonzales DO Primary Care Provider [phone] Reason for Visit * Reason Comments Follow Up Pt has changing and new skin lesions on various areas of body that she would like to point out. H/o MM and several SCC's. Encounter Details Date Type Department Care Team (Late st Contact Info) Description 03/05/2024 11:20 AM EDT Office Visit Dermatology, [facility]me[facility] Hendricks [address] [place] [address] Mili Ricks PA-C [address] [place] [address] Seborrheic keratosis*; AK (actinic keratosis) Allergies Active Allergy Reactions Criticality Noted Date Comments Clindamycin Hcl 09/19/2015 Fentanyl High 10/01/2016 Severe emesis Cephalexin Diarrhea 03/22/2022 Meperidine Hcl 01/24/2023 Naproxen Nausea/vomiting 06/30/2009 Oxycodone Hcl Nausea/vomiting 04/09/2010 Sulfamethoxazole-Trimethoprim Nausea/vomiting 0 01/27/2016 Tramadol 12/08/2016 Hydrocodone-Acetaminophen Nausea/vomiting 06/30 documented as of this encounter (statuses as of 03/05/2024) Medications Medication Sig Dispensed Refills Start Date [...] elbow, wrist or hand; for hand includes palm/fingers/ba ck of hand 800 g 2 09/19/2023 Active [...] bedtime. Active Furosemide 20 MG Oral Tablet (Lasix)Indications: Chronic diastolic congestive heart failure (HCC) Take 1 Tablet by mouth in the morning. 30 Tablet 5 01/27/2024 Active Atorvastatin Calcium 40 MG Oral Tablet (Lipitor)Indication s:Hyperlipidemia with target LDL less than 100,Bruit (arterial),Aortic valve sclerosis TAKE ONE TABLET BY MOUTH EVERY DAY 90 Tablet 3 02/21/2024 Active Furosemide 20 MG Oral Tablet (Lasix) Take 1 Tablet by mouth in the morning. 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, recurrent, [id number], 2009 Dyslipidemia, goal LDL below 130 06/16/2010 [...] as of this encounter (statuses as of 03/05/2024) Resolved Problems Problem Noted Date Diagnosed Date [...] Keratin granuloma , Glabella 05/30/00 05/30/2002 05/25/2006 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, Lt arm 05/30/00 05/30/2002 05/25/2006 Irritated crateriform keratosis, Back 11/18/00 05/30/2005/25/2006 Lichenoid inflammatory reaction, Back 10/20/01 05/30/2005/01/2019 Other seborrheic keratosis 03/02/2002 1 Actinic keratosis 03/02/2002 05/01/2019 Dyslipidemia, goal to be determined 06/16/2010 documented as of this encounter (statuses as of 03/05/2024) Immunizations Name Administration Dates Next Due COVID-19 [...] file Travel History Travel Start Travel End [facility] 02/08/2024 02/19/2024 documented as of this encounter Progress Notes * Mili Ricks PA-C - 03/05/2024 11:13 AM EDT SUBJECTIVE: CC: Pt has changing and new skin lesions on various areas of body that she would like to point out.H/o MM and several SCC's. HPI: Ally Morris is a 83 year old female who is an established patient seen for follow-up for several concerning areas. Patient last visit on 11/[address] Tavarez. Spot on R neck. Present for a long time. Peels off. Similar ones on R back, L upper arm, back of scalp [place] scaly spots on L dorsal hand and R forearm. Catches. DERMATOLOGIC PAST MEDICAL HISTORY: Reviewed previous office notes and relevant surgical pathology: History of skin cancer: Hx melanoma 12/27, stage T1a R forearm; severely atypical nevus cannot r/o MMIS R lower paraspinal back 11/29 Hx SCC R hand 2021, SCCIS R distal arm 2021, SCC R bradley 2020 REVIEW OF SYSTEMS: See HPI- all other findings negative Constitutional: (-) fever, chills, sweats, weight loss Cardiovascular: (-) lower extremity edema Skin: (-) no rash or new or changing moles or skin lesions MEDICA TIONS: Current Outpatient Medications Medication Sig Dispense Refill ASPIRIN 81 MG PO CHEW Take 1 Tablet by mouth in the morning. VITAMIN C CR 1000 MG PO TBCR Take 1,000 Tabs by mouth. MULTIVITAMINS PO TABS 1 daily Myqkwfffqkir-Fccxedo-T-Probiot (AZO URINARY TRACT SUPPORT) 95 & 250-30 [...] Tablet by mouth every night at bedtime. Furosemide 20 MG Oral Tablet (Lasix) Take 1 Tablet by mouth in the morning. 30 Tablet 5 Atorvastatin Calcium 40 MG Oral Tablet (Lipitor) TAKE ONE TABLET BY MOUTH EVERY DAY 90 Tablet 3 Current Facility-Administered Medications Medication Dose Route Frequency Provider Last Rate Last Admin Denosumab (Prolia) subcut inj 60 mg 60 mg Subcutaneous Q6 Months Linden Mansfield PA-C 60 mg at 09/06/23 1120 ALLERG Y: Fentanyl, Clindamycin hcl, Keflex [cephalexin], Meperidine hcl, Naproxen, Oxycodone hcl, Sulfamethoxazole-trimethoprim, Tramadol, and Vicodin [hydrocodone-acetaminophen] OBJECTIVE: GEN: Healthy, alert, no distress, appears oriented, pleasant, and cooperative. PSYCH: Appropriate mood and affect, alert SKIN: Detailed exam of scalp, neck, back, arms was completed and are within normal limits with the following exceptions: 1. Brown to skin colored papules on posterior scalp, upper back, upper arms 2. [place] scaly papule on L dorsal hand, R forearm ASSESS MENT/PLAN: Seborrheic Keratoses -Reassured of the benign nature of lesion -Discussed with patient that they may get more of these lesions in the future -If there are any lesions that become irritated, bleed, or painful to return to clinic for evaluation -No current treatment necessary at this time 2. Actinic Keratoses -Educated on premalignant potential and small risk of developing into a SCC -Discussed treatment options including cryotherapy. Patient prefers cryotherapy. -Cryosurgery procedure, risks and benefits explained to the patient. Specifically, side effects including blistering, hyperpigmentation, hypopigmentation, scar or pain at procedure site was discussedand patient verbalized understanding. Consent was obtained. Patient, site and procedure verified. Cryotherapy was performed with Liquid Nitrogen via cryo spray unit to 2 lesions. Location noted in physical exam. Post op course explained. -Counseled on importance of sun protection with sunscreen of at least SPF 30 and protective clothing. -Discussed importance of yearly skin checks and to contact our office if she notices any new or changes skin lesion. Patient alone today. Follow-up: Schedule 6 month FU in [facility] with Dr. Tavarez Photos taken 5-15, patient consented to photos taken. Patient Phone Numbers Applicable photos (if any) and chart reviewed by Dr. Giancarlo Landis The patient was encouraged to contact me with any further questions or concerns. Mili Ricks PA-C 03/05/2024 11:13 AM documented in this encounter Nursing Notes * Phylicia Landon, MED ASSIST - 03/05/2024 11:05 AM EDT Chief Complaint Patient presents with Follow Up Pt has changing and new skin lesions on various areas of body that she would like to point out. H/oMM and several SCC's. documented in this encounter Plan of Treatment Upcoming Encounters Date Type Department Care Team (Late st Contact Info) Description 03/19/2024 9:15 AM EDT Imaging Cardiac Studies, [facility] [address] [place] [address] 04/24/2024 9:20 AM EDT Office Visit Family Practice [address] [facility] [address] [place] [address] Ally Gonzales DO [address] [place] [address] 07/26/2024 1:30 PM EST Office Visit Cardiology, [facility] [address] [place] [address] Charito Mccain PA-Saloni [address] [place] [address] 08/30/2024 12:00 PM EST Office Visit Endocrinology [address] [place] [address] Maddy Munoz MD [address] [facility] [place] [address] 10/17/2024 12:30 PM EDT Office Visit Hematology/Oncology [facility] [place] [address] [place] [address] Sonia Tesfaye MD [address] [place] [address] 12/17/2024 11:00 AM EDT Nurse Only Ancillary [address] [facility] [address] [place] [address] College, Nurse Annual Wellness Visit [address] [place] [address] Health Maintenance Due Date Last Done Comments [...] D LEVEL ONCE IN A LIFETIME-USE SMARTSET# [id number] Completed 02/23/2024, 08/24/2023, 07/08/2022, Additional history exists [...] this encounter Medical Devices Implanted Type Area Channel Sales Director Device Identifier Shelf Expiration Date Model / Serial / Lot Plate Ricardo 6.5x30 508-32-104 - [id number] Implanted:Qty: 1 [place] [facility] [place]: Shoulder [employer] 10/07/2015 508-32-104 / / [id number] Socket Humeral Insert Implanted:Qty: 1 on 04/09/2010 [place] [facility] [place]: Shoulder [employer] 07/08/2014 508-01-032 / / [id number] Head Glenoid/Screw5 006 - [id number] Implanted:Qty: 1 on 04/09/2010 [place] [facility] [place]: Shoulder [employer] 11/07/2015 508-32-101 / / [id number] Screw Lckg 5x22 506122 - [id number] Implanted:Qty: 1 on 04/09/2010 [place] [facility] [place]: Shoulder [employer] 10/07/2015 506-03-122 / / [id number] Scrw Lckg [employer] [id number] - [id number] Implanted:Qty: 1 on 04/09/2010 [place] [facility] [place]: Shoulder [employer] 08/08/2015 506-03-114 / / [id number] Screw Lckg 5x26 506-03-126 - [id number] Implanted:Qty: 1 on 04/09/2010 [place] [facility] [place]: Shoulder [employer] 12/07/2015 506-03-126 / / [id number] Screw Lckg 5x22 506-03122 - [id number] Implanted:Qty: 1 on 04/09/2010 [place] [facility] [place]: Shoulder [employer] 02/06/2016 506-03-122 / / [id number] Cement Bone G 1113-140-01 - [id number] Implanted:Qty: 1 on 04/09/2010 [place] [facility] [place]: Shoulder [employer] 07/08/2013 00-1113-14 / / [id number] Shell Socket Humeral Rsp Implanted:Qty: 1 on 04/09/2010 [place] [facility] [place] Right: Shoulder [employer] 01/07/2016 508-00-008 / / [id number] Stem Humeral Primary Rsp Implanted:Qty: 1 on 04/09/2010 [place] [facility] [place]: Shoulder [employer] 08/08/2015 506-00-008 / / [id number] [place] Mini Quick 2/0 [id number] - [id number] Implanted:Qty: 1 on 09/17/2016 by Rafi Burnham MD at [facility] Left: Hand JNJ : DEPUY MITEK SURG PROD 05/07/2019 568260 / / [id number] [place] Mini Quick 2/0 [id number] - [id number] Implanted:Qty: 1 on 09/17/2016 by Rafi Burnham MD at OR [facility] Left: Hand JNJ : DEPUY MITEK SURG PROD 05/07/2019 [id number] / / [id number] documented as of this encounter Procedures Procedure [...] study not interpreted or resulted by a [employer] or [employer] contracted radiologist. Mili Ricks PA-C RADIOLO GY (RAD GENERAL) documented in this encounter Visit Diagnoses Diagnosis Seborrheic keratosis- Primary Other seborrheic keratosis AK (actinic keratosis) Actinic keratosis documented in this encounter Advance Directives Documents on File Type Date Recorded Patient Piece Worker Expl anation Power of Patient Support Specialist 10/18/2023 12:36 PM NEENA R OF PRICE CHANGER - [employer] DIRECTIVE * Full Code [...] 1:48 PM 08/14/2008 6:49 PM Care Teams Senior Bioinformatics Scientist Relationship Specialty Start Date End Date Ally Gonzales DO [address] [place] [address] PCP - General Family Medicine 01/19/24 documented as of this encounter
--- OUTSIDE RECORDS SUMMARY | 2024-04-03 13:09 | External Medical Summary ---
Author Name Unknown Address Unknown Organization K[facility] [place] [address] Laboratory Report Ordering Provider Test Date Status ANGIE ESTRADA 03/13/2024 13:41:54 Final Observation Date Value Abnormality Reference (Units ) Status BUN 03/13/2024 13:41:54 21 Above high normal 6-20 (mg/dL) Final Creatinine 03/13/2024 13:41:54 1.2 Above high normal 0.5-1.0 (mg/dL) Final Glomerular filtration rate/1.73 sq M.predicted [Volume Rate/Area] in Serum, Plasma or Blood by Creatinine-based formula (CKD-EPI) 03/13/2024 13:41:54 46 Below low normal >=60 (mL/min) Final eGFR is calculated based on the CKD-EPI 2020 equation. Sodium 03/13/2024 13:41:54 141 135-146 (m mol/L) Final Potassium 03/13/2024 13:41:54 4.1 3.5-5.1 (m mol/L) Final Cl 03/13/2024 13:41:54 101 98-107 (mm ol/L) Final CO2 03/13/2024 13:41:54 30 22-32 (mmo l/L) Final Anion gap 03/13/2024 13:41:54 10 7-15 (mmol /L) Final Glucose 03/13/2024 13:41:54 109 70-120 (mg /dL) Final Calcium 03/13/2024 13:41:54 10.0 8.4-10.2 ( mg/dL) Final Performing Location [facility] [place] [address]
--- OUTSIDE RECORDS SUMMARY | 2024-04-03 13:09 | External Medical Summary | Summary of Care ---
Author Name Unknown Organization [facility] Address [address] [place] [address] Phone [phone] Care Team Providers Care Customer Quality Engineer Name Role Phone Ally Gonzales DO Primary Care Provider [phone] Reason for Visit * Reason Comments Follow Up Pt has changing and new skin lesions on various areas of body that she would like to point out. H/o MM and several SCC's. 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, recurrent, [id number], 2009 Dyslipidemia, goal LDL below 130 06/16/2010 [...] Keratin granuloma , Glabella 05/30/00 05/30/2002 05/25/2006 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, 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 05/30/00 05/30/2002 05/25/2006 Irritated [...] IM, 12 yrs and above (Moderna) 03/10/2023 PPD 08/11/2005,05/08/2004 Pneumococcal Conjugate Vacc, 13 Valent (Prevnar) 07/25/2018 Pneumococcal Polysaccharide PPV23 (Pneumovax) 09/14/2004 RSV Vac., Bivalent, Perfusio n F, Pf,0.5 Ml (Abrysvo) 06/06/2023 Season Influenza, Quad, PF, Adjuvanted, 65+ Yrs, IM (FLUAD) 04/24/2020 Seasonal Influenza, PF, 6 M & above, IM , (FluLaval or Fluzone) 05/23/2018 Seasonal Influenza, Quadriva lent Hd (Fluzone Hd) 05/10/2023,05/06/2022,04/29/2021 Seasonal Influenza, Trivalen t, Adjuvanted, 65+ yrs 05/01/2019 TD - Tetanus/Diptheria (ADULT) 12/20/2002 TDAP (age 10 and older)(Boostrix) 10/07/2022,07/2013 Varicella [...] file Travel History Travel Start Travel End [facility] 02/08/2024 02/19/2024 documented as of this encounter Progress Notes * Gopal Landis MD - 03/05/2024 11:20 AM EDT I have reviewed the relevant notes and photographs taken by BRIAN Regan. I have reviewed and agree with the assessment and plan. Gopal Landis MD * Mili Ricks PA-C - 03/05/2024 11:13 [...] back, L upper arm, back of scalp Ferron scaly spots on L dorsal hand and [...] by mouth. MULTIVITAMINS PO TABS 1 daily Jzzefciqqbmx-Cpgmffo-F-Probiot (AZO URINARY TRACT SUPPORT) 95 & 250-30 [...] posterior scalp, upper back, upper arms 2. Ferron scaly papule on L dorsal hand, R [...] today. Follow-up: Schedule 6 month FU in [facility] with Dr. Tavarez Photos taken 5-15, patient [...] 03/19/2024 9:15 AM EDT Imaging Cardiac Studies, [facility] [address] [place] [address] 04/24/2024 9:20 AM EDT Office Visit Family Practice [address] [place] [address] [address] [place] [address] Ally Gonzales DO [address] [place] [address] 07/26/2024 1:30 PM EST Office Visit Cardiology, [facility] [address] [place] [address] Charito Mccain PA-C [address] [place] [address] 08/30/2024 12:00 PM EST Office Visit Endocrinology [address] [place], [place] [address] Maddy Munoz MD [address] [facility] [place] [id number] 10/17/2024 12:30 PM EDT Office Visit Hematology/Oncology [facility] 200 [facility] [place] [phone] Sonia Tesfaye MD 200 [facility] [place] [address] 12/17/2024 11:00 AM EDT Nurse Only Ancillary 65 [facility] 293 [place] [address] College, Nurse Annual Wellness Visit [address] [facility] [address] [place] [facility] [address] Health Maintenance Due Date Last Done Comments [...] D LEVEL ONCE IN A LIFETIME-USE SMARTSET# 61159 Completed 02/23/2024, 08/24/2023, 07/08/2022, Additional history exists [...] this encounter Medical Devices Implanted Type Area Distribution System Operator Device Identifier Shelf Expiration Date Model / Serial / Lot Plate Ricardo 6.5x30 508-32-104 - [id number] Implanted:Qty: 1 on 04/09/2010 at OR [facility] Right: Shoulder [employer] 10/07/2015 508-32-104 / / [id number] Socket Humeral Insert Implanted:Qty: 1 on 04/09/2010 at OR [facility] Right: Shoulder [employer] 07/08/2014 508-01-032 / / [id number] Head Glenoid/Screw5 - [id number] Implanted:Qty: 1 on 04/09/2010 at OR [facility] Right: Shoulder [employer] 11/07/2015 508-32-101 / / [id number] Screw Lckg 5x22 506-03-122 - [id number] Implanted:Qty: 1 on 04/09/2010 at OR [facility] Right: Shoulder [employer] 10/07/2015 506-03-122 / / [id number] Scrw Lckg [employer] 506-03-114 - [id number] Implanted:Qty: 1 on 04/09/2010 at OR [facility] Right: Shoulder [employer] 08/08/2015 506-03-114 / / [id number] Screw Lckg 5x26 506-03-126 - [id number] Implanted:Qty: 1 on 04/09/2010 at OR [facility] Right: Shoulder [employer] 12/07/2015 506-03-126 / / [id number] Screw Lckg 5x22 506-03-122 - [id number] Implanted:Qty: 1 on 04/09/2010 at OR [facility] Right: Shoulder [employer] 02/06/2016 506-03-122 / / [id number] Cement Bone G 1113-140-01 - [id number] Implanted:Qty: 1 on 04/09/2010 at OR [facility] Right: Shoulder [employer] 07/08/2013 00-1113-14 / / [id number] Shell Socket Humeral Rsp Implanted:Qty: 1 on 04/09/2010 at OR [facility] Right: Shoulder [employer] 01/07/2016 508-00-008 / / [id number] Stem Humeral Primary Rsp Implanted:Qty: 1 on 04/09/2010 at OR [facility] Right: Shoulder [employer] 08/08/2015 506-00-008 / / [id number] [place] Mini Quick 2/0 [id number] - [id number] Implanted:Qty: 1 on 09/17/2016 by Rafi Burnham MD at OR [facility] Left: Hand JNJ : DEPUY MITEK SURG PROD 05/07/2019 167841 / / [id number] [place] Mini Quick 2/0 686319 - [id number] Implanted:Qty: 1 on 09/17/2016 by Rafi Burnham MD at OR [facility] Left: Hand JNJ : DEPUY MITEK SURG PROD 05/07/2019 [id number] / / [id number] documented as of this encounter Procedures Procedure [...] interpreted or resulted by a [facility] or [facility] contracted radiologist. Mili Ricks PA-C RADIOLO GY (RAD GENERAL) documented in this encounter Visit Diagnoses Diagnosis Seborrheic keratosis- Primary Other seborrheic keratosis AK (actinic keratosis) Actinic keratosis documented in this encounter Advance Directives Documents on File Type Date Recorded Patient Limited Radiology Technician Expl anation Power of Fleet Maintenance Manager 10/18/2023 12:36 PM NEENA R OF ENFORCEMENT MANAGER - [facility] DIRECTIVE * Full Code [...] 1:48 PM 08/14/2008 6:49 PM Care Teams Customer Quality Engineer Relationship Specialty Start Date End Date Ally Gonzales DO [address] [place] [address] PCP - General Family Medicine 01/19/24 documented as of this encounter
--- OUTSIDE RECORDS SUMMARY | 2024-04-03 13:09 | External Medical Summary ---
Author Name Unknown Address Unknown Organization [id number]:LABORATORY [facility] - [address] [place] [address] Laboratory Report Ordering Provider Test Date Status OANH BLAIR 02/23/2024 13:50:06 Final Deficient: <20 ng/mL
Ins ufficient: 20-29 ng/mL
Recommended/Optimum:30-50 ng/mL

Vitamin D intoxication is rare. If suspicious of Vitamin D toxicity, evaluation of serum Calcium and PTH is recommended. Observation Date Value Abnormality Reference (Units ) Status 25-OH Vitamin D total 02/23/2024 13:50:06 39 >19 (ng/mL) Final Performing Location LABORATORY C - [address] [place] [address]
--- OUTSIDE RECORDS SUMMARY | 2024-04-03 13:09 | External Medical Summary | Summary of Care ---
Author Name Unknown Organization [facility] Address [address] [place] [address] Phone [phone] Care Team Providers Care Pl Sql Developer Name Role Phone Ally Paredes DO Primary Care Provider Reason for Visit * Reason Comments Follow Up Encounter Details Date Type Department Care Team (Latest Contact Info) Description 03/19/2024 11:30 AM EDT Office Visit Cardiology, [facility] [address] [place] [address] Keagan Roper DO [address] [place] [address] Exertional angina (HCC)*; LVH (left ventricular hypertrophy); [...] inj 60 mgIndications:Senile osteoporosis 60 mg SC [id number] 09/06/2023 08/31/2024 Active perflutren lipid microsphere inj [...] 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, recurrent, [id number], 2008 Dyslipidemia, goal LDL below 130 06/16/2010 [...] Keratin granuloma , Glabella 05/30/00 05/30/2002 05/25/2006 Specialty Trimmer's papule, Lt arm 05/30/00 05/30/2002 05/25/2006 Irritated [...] file Travel History Travel Start Travel End [facility] 02/08/2024 02/19/2024 documented as of this [...] 11:15 AM EDT Cardiology Follow Up Visit [facility] 03/19/2024 PCP: [place] [address] [phone] History of Present Illness: Ally Morris is [...] activity at water aerobics at the local [facility] that he had not limited her [...] and a second child who lives in [place]. Review of Systems: All systems reviewed & [...] PLACEMENT-FLUORO performed by GRAY KATZ at [facility] CHEMO BY BOTH INFUSION AND O 08/08/1983 COLONOSCOPY, GI REFERRAL OP 06/08/2005 wnl DRAIN SHOULDER LESION, DEEP 02/02/2010 INCISION AND DRAINAGE SHOULDER performed by Samantha VELASCO at OR [facility] INFORMATION 2022 groin lump removed MASTECTOMY, SIMPLE, COMPLETE 08/13/2008 MASTECTOMY SIMPLE COMPLETE performed by KEAGAN PARHAM at [facility] MASTECTOMY,RADICAL, URBAN-TYPE 08/13/2008 MASTECTOMY RADICAL INCLUDING PECTORAL MUSCLES AXILLARY AND INTERNAL MAMMARY LYMPH NODES URBAN TYPE OPERATION performed by KEAGAN PARHAM at [facility] MISCELLANEOUS ORDER ([facility] ONLY) 08/08/1971 Varicose Veins MISCELLANEOUS ORDER ([facility] ONLY) 08/08/1983 Lumpectomy, mastectomy , ALND right breast OTHER 08/08/1955 L5 discetomy PAP SCREEN 08/30/2003 WNL RECONSTRUCT/REPLACE SHOULDER JOINT 04/09/2010 REVERSE TOTAL SHOULDER ARTHROPLASTY performed by Samantha VELASCO at [facility] REMOVAL OF BREAST, MODIFIED RADICAL 04/08/1984 REMOVAL [...] SIMPLE 08/08/1983 SHOULDER ARTHROSCOPY/DECOMPRESSION 07/01/2009 Dr. 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 MULTIVITAMINS PO TABS 1 daily Oogpxsgddhus-Jtcmaun-U-Probiot (AZO URINARY TRACT SUPPORT) 95 & 250-30 [...] would like to have this performed at [place] with Dr Mccoy. -SL nitroglycerin added to [...] Check-out note: Non fasting lab work at [facility] this week. Nursing to schedule cardiac catheterization at [facility] Return with Teddy Mccain in 4-6 weeks. -pt seen in longitudinal cardiology follow up of the above chronic concerns with assessment and plan as noted. Keagan Roper, DO Cardiology, [address] [place] [address] This chart was completed in part utilizing [employer] Speech Voice Recognition Software. Grammatical errors, random [...] 9:20 AM EDT Office Visit Family Practice [address] [place] [address] 293 [facility] [place] [address] Ally Paredes DO [address] [facility] [address] 05/14/2024 2:45 PM EDT Office Visit Dermatology [facility] [place] [address] [place] [address] Dann Tavarez MD [address] [place] [address] 07/03/2024 8:30 AM EST Office Visit Cardiology, [facility] 132 [place] [address] Charito Mccain PA-C 132 [place] [address] 07/26/2024 1:30 PM EST Office Visit Cardiology, [facility] 132 [facility] [place] [address] Charito Mccain PA-C 132 [place] [address] 08/30/2024 12:00 PM EST Office Visit Endocrinology [address] [place] [address] Maddy Munoz MD [address] [place] [address] 10/17/2024 12:30 PM EDT Office Visit Hematology/Oncology [facility] 200 [place] [address] Sonia Tesfaye MD 200 [place] [address] 12/17/2024 11:00 AM EDT Nurse Only Ancillary 65 [facility] [address] [place] [address] College, Nurse Annual Wellness Visit [address] [address] Scheduled Orders Name Type Priority Associated Diagnoses [...] D LEVEL ONCE IN A LIFETIME-USE SMARTSET# [id number] Completed 02/23/2024, 08/24/2023, 07/08/2022, Additional history exists [...] this encounter Medical Devices Implanted Type Area Data Entry Device Identifier Shelf Expiration Date Model / Serial / Lot Plate Ricardo 6.5x30 508-32-104 - [id number] Implanted:Qty: 1 on 04/09/2010 at [place] [facility] Right: Shoulder [employer] 10/07/2015 508-32-104 / / [id number] Socket Humeral Insert Implanted:Qty: 1 on 04/09/2010 at [place] [facility] Right: Shoulder [employer] 07/08/2014 508-01-032 / / [id number] Head Glenoid/Screw5 - [id number] Implanted:Qty: 1 on 04/09/2010 at [place] [facility] Right: Shoulder [employer] 11/07/2015 508-32-101 / / [id number] Screw Lckg 5x22 506122 - [id number] Implanted:Qty: 1 on 04/09/2010 at [place] [facility] Right: Shoulder [employer] 10/07/2015 506-03-122 / / [id number] Scrw Lckg [employer] [id number] - [id number] Implanted:Qty: 1 on 04/09/2010 at [place] [facility] Right: Shoulder [employer] 08/08/2015 506-03-114 / / [id number] Screw Lckg 5x26 506-03-126 - [id number] Implanted:Qty: 1 on 04/09/2010 at [place] [facility] Right: Shoulder [employer] 12/07/2015 506-03-126 / / [id number] Screw Lckg 5x22 506-03-122 - [id number] Implanted:Qty: 1 on 04/09/2010 at [place] [facility] Right: Shoulder [employer] 02/06/2016 506-03-122 / / [id number] Cement Bone G 1113-140-01 - [id number] Implanted:Qty: 1 on 04/09/2010 at [place] [facility] Right: Shoulder [employer] 07/08/2013 00-1113-14 0 / / [id number] Shell Socket Humeral Rsp Implanted:Qty: 1 on 04/09/2010 at OR [facility] Right: Shoulder [employer] 01/07/2016 508-00-008 / / [id number] Stem Humeral Primary Rsp Implanted:Qty: 1 on 04/09/2010 at [place] [facility] Right: Shoulder [employer] 08/08/2015 506-00-008 / / [id number] [place] Mini Quick 2/0 829804 - [id number] Implanted:Qty: 1 on 09/17/2016 by Rafi Burnham MD at OR [facility] Left: Hand SHAINAJ : DEPUY MITEK SURG PROD 05/07/2019 985965 / / [id number] [place] Mini Quick 2/0 476448 - [id number] Implanted:Qty: 1 on 09/17/2016 by Rafi Burnham MD at OR [facility] Left: Hand JNJ : DEPUY MITEK SURG PROD 05/07/2019510199 / / [id number] documented as of this encounter Visit Diagnoses [...] Documents on File Type Date Recorded 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
--- OUTSIDE RECORDS SUMMARY | 2024-04-03 13:09 | External Medical Summary | Summary of Care ---
Author Name Unknown Organization [facility] Address [address] [place] [address] Phone [phone] Care Team Providers Care Regional Vice President Surgical Sales Name Role Phone Ally Gonzales DO Primary Care Provider Reason for Visit * Reason Onset Date Comments Test Results 03/14/2024 Encounter Details Date Type Department Care Team (Late st Contact Info) Description 03/14/2024 Telephone Cardiology, [facility] [address] [place] [address] Charito Mccain PA-C [address] [place] [address] Test Results Allergies Active Allergy Reactions Criticality Noted Date Comments Clindamycin Hcl 09/19/2015 Fentanyl High 10/01/2016 Severe emesis Cephalexin Diarrhea 03/22/2022 Meperidine Hcl 01/24/2023 Naproxen Nausea/vomiting 06/30/2009 Oxycodone Hcl Nausea/vomiting 04/09/2010 Sulfamethoxazole-Trimethoprim Nausea/vomiting 0 01/27/2016 Tramadol 12/08/2016 Hydrocodone-Acetaminophen Nausea/vomiting 06/30 documented as of this encounter (statuses as of 03/14/2024) Medications Medication Sig Dispensed Refills Start Date [...] inj 60 mgIndications:Senile osteoporosis 60 mg SC [id number] 09/06/2023 08/31/2024 Active documented as of this encounter (statuses as of 03/14/2024) Active Problems Problem Noted Date Diagnosed Date [...] 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, recurrent, [id number], 2008 Dyslipidemia, goal LDL below 130 06/16/2010 [...] as of this encounter (statuses as of 03/14/2024) Resolved Problems Problem Noted Date Diagnosed Date [...] Keratin granuloma , Glabella 05/30/00 05/30/2002 05/25/2006 Geriatric Care Manager's papule, Lt arm 05/30/00 05/30/2002 05/25/2006 Irritated crateriform keratosis, Back 11/18/00 05/30/20 02 05/25/2006 Lichenoid inflammatory reaction, Back 10/20/01 05/30/20 02 05/01/2019 Other seborrheic keratosis 03/02/2002 1 Actinic keratosis 03/02/2002 05/01/2019 Dyslipidemia, goal to be determined 06/16/2010 documented as of this encounter (statuses as of 03/14/2024) Immunizations Name Administration Dates Next Due COVID-19 [...] file Travel History Travel Start Travel End [facility] 02/08/2024 02/19/2024 documented as of this encounter Miscellaneous Notes * Telephone Encounter - Florence Peña CMA - 03/14/2024 12:36 PM EDT My g sent. * Telephone Encounter - Folrence Peña CMA - 03/14/2024 12:35 PM EDT ----- Message from Charito Mccain sent at 03/13/2024 4:34 PM EDT ----- Lungs are clear Normal chest xray. Good documented in this encounter Plan of Treatment Upcoming Encounters Date Type Department Care Team (Late st Contact Info) Description 03/19/2024 9:15 AM EDT Imaging Cardiac Studies, [facility] 132 [facility] [place] [address] 04/24/2024 9:20 AM EDT Office Visit Family Practice [address] [place] [address] 293 [facility] [place] [address] Ally Gonzales DO [address] [facility], [place] [address] 05/14/2024 2:45 PM EDT Office Visit Dermatology [facility] 200 [facility] [place] [address] Dann Tavarez MD 200 [facility] [place] [address] 07/26/2024 1:30 PM EST Office Visit Cardiology, [facility] [address] [place] [address] Charito Mccain PA-C [address] [facility] [place] [address] 08/30/2024 12:00 PM EST Office Visit Endocrinology [address] [place] [address] Maddy Munoz MD [address] [place] [address] 10/17/2024 12:30 PM EDT Office Visit Hematology/Oncology [facility] 200 [facility] [place] [phone] Sonia Tesfaye MD 200 [facility] [place] [address] 12/17/2024 11:00 AM EDT Nurse Only Ancillary 65 [facility] 293 [facility] [place] [address] College, Nurse Annual Wellness Visit 65 [facility] 293 [facility] [place] [address] Health Maintenance Due Date Last Done Comments [...] D LEVEL ONCE IN A LIFETIME-USE SMARTSET# 78067 Completed 02/23/2024, 08/24/2023, 07/08/2022, Additional history exists [...] this encounter Medical Devices Implanted Type Area Commercial Floor Covering Installer Device Identifier Shelf Expiration Date Model / Serial / Lot Plate Ricardo 6.5x30 508-32-104 - [id number] Implanted:Qty: 1 on 04/09/2010 at OR [facility] Right: Shoulder [employer] 10/07/2015 508-32-104 / / [id number] Socket Humeral Insert Implanted:Qty: 1 on 04/09/2010 at OR [facility] Right: Shoulder [employer] 07/08/2014 508-01-032 / / [id number] Head Glenoid/Screw5 08-00-006 - [id number] Implanted:Qty: 1 on 04/09/2010 at OR [facility] Right: Shoulder [employer] 11/07/2015 508-32-101 / / [id number] Screw Lckg 5x22 506--122 - [id number] Implanted:Qty: 1 on 04/09/2010 at OR [facility] Right: Shoulder [employer] 10/07/2015 506-03-122 / / [id number] Scrw Lckg [employer] 506-03-114 - [id number] Implanted:Qty: 1 on 04/09/2010 at OR [facility] Right: Shoulder [employer] 08/08/2015 506-03-114 / / [id number] Screw Lckg 5x26 506-03-126 - [id number] Implanted:Qty: 1 on 04/09/2010 at OR [facility] Right: Shoulder [employer] 12/07/2015 506-03-126 / / [id number] Screw Lckg 5x22 506-122 - [id number] Implanted:Qty: 1 on 04/09/2010 at OR [facility] Right: Shoulder [employer] 02/06/2016 506-03-122 / / [id number] Cement Bone G 1113-140-01 - [id number] Implanted:Qty: 1 on 04/09/2010 at OR [facility] Right: Shoulder [employer] 07/08/2013 00-1113-14 / / [id number] Shell Socket Humeral Rsp Implanted:Qty: 1 on 04/09/2010 at OR [facility] Right: Shoulder [employer] 01/07/2016 508-00-008 / / [id number] Stem Humeral Primary Rsp Implanted:Qty: 1 on 04/09/2010 at OR [facility] Right: Shoulder [employer] 08/08/2015 506-00-008 / / [id number] [place] Mini Quick 2/0 455081 - [id number] Implanted:Qty: 1 on 09/17/2016 by Rafi Burnham MD at OR [facility] Left: Hand JNJ : DEPUY MITEK SURG PROD 05/07/2019791149 / / [id number] [place] Mini Quick 2/0 709122 - [id number] Implanted:Qty: 1 on 09/17/2016 by Rafi Burnham MD at OR [facility] Left: Hand JNJ : DEPUY MITEK SURG PROD 05/07/2019587416 / / [id number] documented as of this encounter Advance Directives Documents on File Type Date Recorded Patient Biomedical Specialist Expl anation Power of Plate Mill Hand 10/18/2023 12:36 PM NEENA R OF SEARCH MANAGER - [facility] [facility] DIRECTIVE * Full [...] 1:48 PM 08/14/2008 6:49 PM Care Teams Regional Vice President Surgical Sales Relationship Specialty Start Date End Date Ally Gonzales DO [address] [place] [address] PCP - General Family Medicine 01/19/24 documented as of this encounter
--- OUTSIDE RECORDS SUMMARY | 2024-04-03 13:10 | External Medical Summary ---
Author Name Unknown Address Unknown Organization K01:[facility] [address] [place] [address] Laboratory Report Ordering Provider Test Date Status ANGIE ESTRADA 02/23/2024 13:50:06 Final Exclude Heart Failure: <300 pg/mL
Diagnose Heart Failure:
Age <50 yr: >450 pg/mL
50-75 yr: >900 pg/mL
>75 yr: >1800 pg/mL
GFR is 30-59 mL/min: >1200 pg/mL or Age- adjusted values
GFR <30 mL/min: do not use, not reliable

Prognostic threshold: 1000 pg/mL Observation Date Value Abnormality Reference (Units ) Status BNP, Pro-hormone 02/23/2024 13:50:06 4 Above high no rmal <300 (pg/mL) Final Performing Location [facility] [address] [place] [address]
--- OUTSIDE RECORDS SUMMARY | 2024-04-03 13:10 | External Medical Summary | Summary of Care ---
Author Name Unknown Organization [facility] Address [address] [place] [address] Phone [phone] Care Team Providers Care Acid Blower Name Role Phone Ally Gonzales DO Primary Care Provider Reason for Visit * Reason Comments Outpatient Testing Encounter Details Date Type Department Care Team (Latest Contact Info) Description 01/25/2024 2:00 PM EDT Laboratory Laboratory, [facility] 132 [facility] [place] [address] [place] [address] [facility] [address] Localized edema; LVH (left ventricular hypertrophy); HTN, goal below 140/90; SOB (shortness of breath); Nonspecific abnormal electrocardiogram (ECG) (EKG) Allergies Active Allergy Reactions Criticality Noted Date Comments Clindamycin Hcl 09/19/2015 Fentanyl High 10/01/2016 Severe emesis Cephalexin Diarrhea 03/22/2022 Meperidine Hcl 01/24/2023 Naproxen Nausea/vomiting 06/30/2009 Oxycodone Hcl Nausea/vomiting 04/09/2010 Sulfamethoxazole-Trimethoprim Nausea/vomiting 0 01/27/2016 Tramadol 12/08/2016 Hydrocodone-Acetaminophen Nausea/vomiting 06/30 documented as of this encounter (statuses as of 01/25/2024) Medications Medication Sig Dispensed Refills Start Date [...] FOOD 200 Tablet 2 06/28/2023 4 Active Atorvastatin Calcium 40 MG Oral Tablet (Lipitor)Indications :Hyperlipidemia with target LDL less than 100,Bruit (arterial),Aortic valve sclerosis TAKE ONE TABLET BY MOUTH EVERY DAY 90 Tablet 1 08/31/2023 5 Active Myrbetriq 25 MG Oral Tablet Extended [...] MOUTH EVERY MORNING 90 Tablet 3 11/10/2023 Active Potassium Chloride ER 10 MEQ Oral Capsule Extended ReleaseIndications:P otassium (K) deficiency Take 1 Capsule by mouth in the morning and 1 Capsule before bedtime. 100 Capsule 3 11/10/2023 Active hydroCHLOROthiazide 12.5 MG Oral CapsuleIndications:H TN, goal below 140/90 TAKE ONE CAPSULE BY MOUTH EVERY MORNING 90 Capsule 1 11/10/2023 Active amLODIPine Besylate 5 MG Oral Tablet (Norvasc)Indications :HTN, goal below 140/90 Take 1 Tablet by mouth in the morning. 100 Tablet 1 12/08/2023 Active Melatonin 10 MG Oral Tablet Disintegrating Take 1 Tablet by mouth every night at bedtime. 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, recurrent, [id number], 2008 Dyslipidemia, goal LDL below 130 06/16/2010 [...] as of this encounter (statuses as of 01/25/2024) Resolved Problems Problem Noted Date Diagnosed Date [...] Keratin granuloma , Glabella 05/30/00 05/30/2002 05/25/2006 Per Diem Physical Therapist Assistant's papule, Lt arm 05/30/00 05/30/2002 05/25/2006 Irritated crateriform keratosis, Back 11/18/00 05/30/20 02 05/25/2006 Lichenoid inflammatory reaction, Back 10/20/01 05/30/20 02 05/01/2019 Other seborrheic keratosis 03/02/2002 1 Actinic keratosis 03/02/2002 05/01/2019 Dyslipidemia, goal to be determined 06/16/2010 documented as of this encounter (statuses as of 01/25/2024) Immunizations Name Administration Dates Next Due COVID-19 mRNA, LNP-s, No Pre serve, 2-Dose Series (Moderna) 10/05/2020,08/31/2020 COVID-19, MRNA-LNP, 23-24, P F, 30 MCG/0.3 mL, 12 YRS AND ABOVE, IM ([facility] 12/19/2023,05/09/2023 COVID-19, mRNA, LNP-s, PF, B [...] on file documented as of this encounter Plan of Treatment Upcoming Encounters Date Type Department Care Team (Late st Contact Info) Description 02/01/2024 9:00 AM EDT Cardiac Studies Cardiac Studies, [facility] 132 [facility] [place] [address] 04/24/2024 9:20 AM EDT Office Visit Family Practice [address] [place] [address] [address] [place] [address] Ally Gonzales DO [address] [place] [address] 07/26/2024 1:30 PM EST Office Visit Cardiology, [facility] 132 [facility] [place] [address] Charito Mccain PA-C 132 [place] [address] 08/30/2024 12:00 PM EST Office Visit Endocrinology [address] [place] [address] Maddy Munoz MD [address] [facility] [place] [address] 10/17/2024 12:30 PM EDT Office Visit Hematology/Oncology [facility] [address] [place] [address] Sonia Tesfaye MD 200 [facility] [place] [address] 12/17/2024 11:00 AM EDT Nurse Only Ancillary 65 [facility] 293 [place] [address] College, Nurse Annual Wellness Visit 65 [facility] 293 [place] [address] Pending Results Name Type Priority Associated Diagnoses Date /Time CBC Lab Routine Localized edema LVH (left ventricular hypertrophy) HTN, goal below 140/90 SOB (shortness of breath) Nonspecific abnormal electrocardiogram (ECG) (EKG) 01/25/2024 2:03 PM EDT BNP, NT-PRO Lab Routine Localized edema LVH (left ventricular hypertrophy) HTN, goal below 140/90 SOB (shortness of breath) Nonspecific abnormal electrocardiogram (ECG) (EKG) 01/25/2024 2:03 PM EDT COMPREHENSIVE METABOLIC PANEL Lab Routine Localized edema LVH (left ventricular hypertrophy) HTN, goal below 140/90 SOB (shortness of breath) Nonspecific abnormal electrocardiogram (ECG) (EKG) 01/25/2024 2:03 PM EDT TSH WITH FREE T4 IF INDICATED Lab Routine Localized edema LVH (left ventricular hypertrophy) HTN, goal below 140/90 SOB (shortness of breath) Nonspecific abnormal electrocardiogram (ECG) (EKG) 01/25/2024 2:03 PM EDT Health Maintenance Due Date Last Done Comments GFR 08/24/2024 08/24/2023, 12/06, 09/23/2022, Additional history exists TSH 08/24/2024 08/24/2023, 12/0 08/2021, 07/08/2021, Additional history exists Depression Screening 12/12/2024 12/13/2023 DXA Scan 12/20/2024 12/20/2022, 12/06, 12/16/2020, Additional history exists Albumin/Creatinine Ratio 04/05/20252 022, 03/05/2019, 07/25/2018, Additional history exists DTaP,Tdap,and Td Vaccines (3 - Td or Tdap) 10/07/2032 10/07/2022, 09/19/2012, 12/20/2002 Pneumococcal Vaccine: 65+ Years Completed 07/25/2018, 09/14/2004 Zoster Vaccines Completed 01/01/2020, 09/09, 12/05/2008 Influenza Vaccine (FLU shot) Completed 10/2022, 05/06/2022, 04/29/2021, Additional history exists VITAMIN D LEVEL ONCE IN A LIFETIME-USE SMARTSET# [id number] Completed 08/24/2023, 07/08/2022, 07/08/2021, Additional history exists COVID-19 Vaccine Completed 12/19/2023, 09/2022, 03/10/2023, Additional history exists GARDASIL-HPV IMMUNIZATION SERIES Aged Out No longer eligible based on patient's age to complete this topic Hepatitis B Aged Out No longer eligi ble based on patient's age to complete this topic MENINGOCOCCAL (MENACTRA/MENVEO) Aged Out No longer eligible based on patient's age to complete this topic documented as of this encounter Medical Devices Implanted Type Area Physical Education Teacher Device Identifier Shelf Expiration Date Model / Serial / Lot Plate Ricardo 6.5x30 508-32-104 - [id number] Implanted:Qty: 1 on 04/09/2010 [place] [facility] [place]: Shoulder [employer] 10/07/2015 508-32-104 / / [id number] Socket Humeral Insert Implanted:Qty: 1 on 04/09/2010 at [place] [facility] [place]: Shoulder [employer] 07/08/2014 508-01-032 / / [id number] Head Glenoid/Screw5 - [id number] Implanted:Qty: 1 on 04/09/2010 at [place] [facility] [place] Right: Shoulder [employer] 11/07/2015 508-32-101 / / [id number] Screw Lckg 5x22 506-03-122 - [id number] Implanted:Qty: 1 on 04/09/2010 at [place] [facility] [place] Right: Shoulder [employer] 10/07/2015 506-03-122 / / [id number] Scrw Lckg [employer] -03-114 - [id number] Implanted:Qty: 1 on 04/09/2010 at [place] [facility] [place] Right: Shoulder [employer] 08/08/2015 506-03-114 / / [id number] Screw Lckg 5x26 506-03126 - [id number] Implanted:Qty: 1 on 04/09/2010 at [place] [facility] [place] Right: Shoulder [employer] 12/07/2015 506-03-126 / / [id number] Screw Lckg 5x22 506-03122 - [id number] Implanted:Qty: 1 on 04/09/2010 at [place] [facility] [place]: Shoulder [employer] 02/06/2016 506-03-122 / / [id number] Cement Bone G 1113-140-01 - [id number] Implanted:Qty: 1 on 04/09/2010 at [place] [facility] [place] Right: Shoulder [employer] 07/08/2013 00-1113-14 / / [id number] Shell Socket Humeral Rsp Implanted:Qty: 1 on 04/09/2010 at [place] [facility] [place] Right: Shoulder [employer] 01/07/2016 508-00-008 / / [id number] Stem Humeral Primary Rsp Implanted:Qty: 1 on 04/09/2010 at [place] [facility] [place] Right: Shoulder [employer] 08/08/2015 506-00-008 / / [id number] [place] Mini Quick 2/0 [id number] - [id number] Implanted:Qty: 1 on 09/17/2016 by Rafi Burnham MD at [facility] Left: Hand JNJ : DEPUY MITEK SURG PROD 05/07/2019 [id number] / / [id number] [place] Mini Quick 2/0 385761 - [id number] Implanted:Qty: 1 on 09/17/2016 by Rafi Burnham MD at [facility] Left: Hand JNJ : DEPUY MITEK SURG PROD 05/07/2019 [id number] / / [id number] documented as of this encounter Visit Diagnoses Diagnosis Localized edema Edema LVH (left ventricular hypertrophy) Cardiomegaly HTN, goal below 140/90 Unspecified essential hypertension SOB (shortness of breath) Shortness of breath Nonspecific abnormal electrocardiogram (ECG) (EKG) documented in this encounter Advance Directives Documents on File Type Date Recorded Patient Towboat Pilot Expl anation Power of Wood Flour Miller 10/18/2023 12:36 PM NEENA R OF PERSONAL CARE SERVICE PROVIDER - [facility] DIRECTIVE * Full Code [...] 1:48 PM 08/14/2008 6:49 PM Care Teams Acid Blower Relationship Specialty Start Date End Date Ally Gonzales DO [address] [place] [address] PCP - General Family Medicine 01/19/24 documented as of this encounter
--- OUTSIDE RECORDS SUMMARY | 2024-04-03 13:10 | External Medical Summary ---
Author Name Unknown Address Unknown Organization [id number]:LAB[facility]ATORY [facility] - [facility] [address] [place] [address] Laboratory Report Ordering Provider Test Date Status ANGIE ESTRADA 01/25/2024 14:03:06 Final Exclude Heart Failure: <300 pg/mL
Diagnose Heart Failure:
Age <50 yr: >450 pg/mL
50-75 yr: >900 pg/mL
>75 yr: >1800 pg/mL
GFR is 30-59 mL/min: >1200 pg/mL or Age- adjusted values
GFR <30 mL/min: do not use, not reliable

Prognostic threshold: 1000 pg/mL Observation Date Value Abnormality Reference (Units ) Status BNP, Pro-hormone 01/25/2024 14:03:06 1439 Above high no rmal <300 (pg/mL) Final Performing Location LABORATORY [facility] - [address] [place] [address]
--- OUTSIDE RECORDS SUMMARY | 2024-04-03 13:10 | External Medical Summary | Summary of Care ---
Author Name Unknown Organization [facility] Address [address] [place] [address] Phone [phone] Care Team Providers Care Investor Relations Manager Name Role Phone Ally Gonzales DO Primary Care Provider [phone] Reason for Visit * Reason Onset Date Comments Advice 01/27/2024 Adán Encounter Details Date Type Department Care Team (Late st Contact Info) Description 01/27/2024 Telephone Cardiology, [facility] [address] [place] [address] Charito Mccain PA-C [address] [place] [address] Advice (Adán) Allergies Active Allergy Reactions Criticality Noted Date Comments Clindamycin Hcl 09/19/2015 Fentanyl High 10/01/2016 Severe emesis Cephalexin Diarrhea 03/22/2022 Meperidine Hcl 01/24/2023 Naproxen Nausea/vomiting 06/30/2009 Oxycodone Hcl Nausea/vomiting 04/09/2010 Sulfamethoxazole-Trimethoprim Nausea/vomiting 0 01/27/2016 Tramadol 12/08/2016 Hydrocodone-Acetaminophen Nausea/vomiting 06/30 documented as of this encounter (statuses as of 01/27/2024) Medications Medication Sig Dispensed Refills Start Date [...] inj 60 mgIndications:Senile osteoporosis 60 mg SC [id number] 09/06/2023 08/31/2024 Active documented as of this encounter (statuses as of 01/27/2024) Active Problems Problem Noted Date Diagnosed Date [...] 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, recurrent, [id number], 2008 Dyslipidemia, goal LDL below 130 06/16/2010 [...] as of this encounter (statuses as of 01/27/2024) Resolved Problems Problem Noted Date Diagnosed Date [...] Keratin granuloma , Glabella 05/30/00 05/30/2002 05/25/2006 Rd Manager's papule, Lt arm 05/30/00 05/30/2002 05/25/2006 Irritated crateriform keratosis, Back 11/18/00 05/30/20 02 05/25/2006 Lichenoid inflammatory reaction, Back 10/20/01 05/30/20 02 05/01/2019 Other seborrheic keratosis 03/02/2002 1 Actinic keratosis 03/02/2002 05/01/2019 Dyslipidemia, goal to be determined 06/16/2010 documented as of this encounter (statuses as of 01/27/2024) Immunizations Name Administration Dates Next Due COVID-19 [...] Telephone Encounter - Florence Peña CMA - 01/27/2024 11:37 AM EDT Rx sent. Pt aware. * Telephone Encounter - Flores Kessler OSA - 01/27/2024 9:04 AM EDT Person calling: Ally Relationship to patient: self Number to return call: [phone] Reason for call(brief): [facility]ication [facility] Provider Name: Adán Detailed message to office:Patien calling in asking about her lasix prescription. She stated that the pharmacy had not received it yet. documented in this encounter Plan of Treatment Upcoming Encounters Date Type Department Care Team (Late st Contact Info) Description 02/01/2024 9:00 AM EDT Cardiac Studies [facility] [address] [place] [address] 04/24/2024 9:20 AM EDT Office Visit Family Practice 65 [facility] [place] [facility] [phone] Ally Gonzales DO 293 [facility] [address] 07/26/2024 1:30 PM EST Office Visit Cardiology, [facility] [address] [facility] [place] [address] Charito Mccain, PA-[place] [facility] [address] 08/30/2024 12:00 PM EST Office Visit Endocrinology [address] [place] [address] Maddy Munoz MD [address] [facility] [address] 10/17/2024 12:30 PM EDT Office [facility] 200 [facility] [place] [address] Sonia Tesfaye MD 200 [facility] [place] [address] 12/17/2024 11:00 AM EDT Nurse Only Ancillary 65 [facility] 293 [place] [address] College, Nurse Annual Wellness Visit [address] [place] [address] Health Maintenance Due Date Last Done Comments Depression Screening 12/12/2024 12/13/2023 DXA Scan 12/20/2024 [...] D LEVEL ONCE IN A LIFETIME-USE SMARTSET# [id number] Completed 08/24/2023, 07/08/2022, 07/08/2021, Additional history exists [...] this encounter Medical Devices Implanted Type Area Primer Press Operator Device Identifier Shelf Expiration Date Model / Serial / Lot Plate Ricardo 6.5x30 508-32-104 - [id number] [place]planted:Qty: 1 on 04/09[place]2010 [place] [facility] [place] Shoulder [employer] 10/07/2015 508-32-104 / / [id number] Socket Humeral Insert Implanted:Qty: 1 on 04/09/2010 [place] [facility] [place]: Shoulder [employer] 07/08/2014 508-01-032 / / [id number] Head Glenoid/Screw5 - [id number] Implanted:Qty: 1 on 04/09/2010 [place] [facility] [place]: Shoulder [employer] 11/07/2015 508-32-101 / / [id number] Screw Lckg 5x22 506-03-122 - [id number] Implanted:Qty: 1 on 04/09/2010 [place] [facility] [place]: Shoulder [employer] 10/07/2015 506-03-122 / / [id number] Scrw Lckg [employer] 506-03-114 - [id number] Implanted:Qty: 1 on 04/09/2010 [place] [facility] [place]: Shoulder [employer] 08/08/2015 506-03-114 / / [id number] Screw Lckg 5x26 506-03-126 - [id number] Implanted:Qty: 1 on 04/09/2010 [place] [facility] [place]: Shoulder [employer] 12/07/2015 506-03-126 / / [id number] Screw Lckg 5x22 506-03-122 - [id number] Implanted:Qty: 1 on 04/09/2010 [place] [facility] [place]: Shoulder [employer] 02/06/2016 506-03-122 / / [id number] Cement Bone G 1113-140-01 - [id number] Implanted:Qty: 1 on 04/09/2010 [place] [facility] [place]: Shoulder [employer] 07/08/2013 00-1113-14 0- / / [id number] Shell Socket Humeral Rsp Implanted:Qty: 1 on 04/09/2010 at [place] [facility] [place]: Shoulder [employer] 01/07/2016 508-00-008 / / [id number] Stem Humeral Primary Rsp Implanted:Qty: 1 on 04/09/2010 [place] [facility] [place]: Shoulder [employer] 08/08/2015 506-00-008 / / [id number] [place] Mini Quick 2/0 500340 - [id number] Implanted:Qty: 1 on 09/17/2016 by Rafi Burnham MD at [facility] Left: Hand JNJ : DEPUY MITEK SURG PROD 05/07/2019 [id number] / / [id number] [place] Mini Quick 2/0 748933 - [id number] Implanted:Qty: 1 on 09/17/2016 by Rafi Burnham MD at [facility] Left: Hand JNJ : DEPUY MITEK SURG PROD 05/07/2019 [id number] / / [id number] documented as of this encounter Advance Directives Documents on File Type Date Recorded Patient Center Medical Director Expl anation Power of Cottage Cheese Maker 10/18/2023 12:36 PM NEENA R OF SENIOR CONSTRUCTION MANAGER - [facility] DIRECTIVE * Full [...] 1:48 PM 08/14/2008 6:49 PM Care Teams Investor Relations Manager Relationship Specialty Start Date End Date Ally Gonzales DO [address] [place] [address] PCP - General Family Medicine 01/19/24 documented as of this encounter
--- OUTSIDE RECORDS SUMMARY | 2024-04-03 13:10 | External Medical Summary ---
Author Name Unknown Address Unknown Organization K0G:LABORATORY [facility] [place] [address] [place] [address] Laboratory Report Ordering Provider Test Date Status ANGIE ESTRADA 01/25/2024 14:03:06 Final Observation Date Value Abnormality Reference (Units ) Status WBC, Total 01/25/2024 14:03:06 7.19 4.00-10.8 0 (K/uL) Final RBC 01/25/2024 14:03:06 4.17 3.85-5.15 (M/uL) Final Hemoglobin 01/25/2024 14:03:06 13.1 12.0-15.3 (g/dL) Final HCT 01/25/2024 14:03:06 40.1 36.0-45.2 (%) Final MCV 01/25/2024 14:03:06 96.2 81.5-97.5 (fL) Final MCH 01/25/2024 14:03:06 31.4 27.0-34.0 (pg) Final MCHC 01/25/2024 14:03:06 32.7 32.0-36.0 (g/dL) Final RDW 01/25/2024 14:03:06 12.7 11.5-15.5 (%) Final Platelets 01/25/2024 14:03:06 201 140-400 (K /uL) Final MPV 01/25/2024 14:03:06 10.6 6.6-11.1 ( fL) Final Performing Location [facility]ORY [facility] [place] [address] [place] [address]
--- OUTSIDE RECORDS SUMMARY | 2024-04-03 13:10 | External Medical Summary | Summary of Care ---
Author Name Unknown Organization [facility] Address [address] [place] [address] Phone [phone] Care Team Providers Care Production Line Manager Name Role Phone Ally Gonzales DO Primary Care Provider [phone] Reason for Referral * Precert (Within 10 days (routine)) - Authorized Specialty Diagnoses / Procedures Referred By Contac t Referred To Contact Cardiac Studies Diagnoses Localized edema LVH (left ventricular hypertrophy) HTN, goal below 140/90 SOB (shortness of breath) Nonspecific abnormal electrocardiogram (ECG) (EKG) Procedures ECHO, COMPLETE (2D), TRANS-THORACIC Charito Mccain PA-C [address] [place] [address] Referral ID Status Reason Start Date Expiration Date V isits Requested Visits Authorized [id number] Authorized Precert 01/25/[phone] Reason for Visit * Reason Comments Follow Up * Evaluate & Treat - Unlimited Visits (Within 24 hrs (call dept; emergent)) - Authorized Specialty Diagnoses / Procedures Referred By Contact Referred To Contact Cardiovascular Medicine / Cardiology Diagnoses Angina pectoris (HCC) Chronic diastolic congestive heart failure (HCC) Hypertensive heart disease with chronic diastolic congestive heart failure (HCC) Ally Gonzales DO [address] [place] [address] Referral ID Status Reason Start Date Expiration Date Visits Requested Visits Authorized [id number] Authorized Specialty Services Required 01/23/[phone] Encounter Details Date Type Department Care Team (Latest Contact Info) Description 01/25/2024 1:30 PM EDT Office Visit [facility], [facility] [address] [facility] [address] Charito Mccain PA-C [address] [facility] [address] SOB (shortness of breath)*; Localized edema; LVH (left ventricular hypertrophy); HTN, goal below 140/90; Nonspecific abnormal electrocardiogram (ECG) (EKG) Allergies Active [...] MOUTH EVERY MORNING 90 Capsule 1 11/10/2023 5 Active amLODIPine Besylate 5 MG Oral Tablet [...] inj 60 mgIndications:Senile osteoporosis 60 mg SC [id number] 09/06/2023 08/31/2024 Active documented as of this [...] 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, recurrent, [id number], 2009 Dyslipidemia, goal LDL below 130 06/16/2010 [...] Keratin granuloma , Glabella 05/30/00 05/30/2002 05/25/2006 [employer]'s papule, Lt arm 05/30/00 05/30/2002 05/25/2006 Irritated [...] 30 Mcg, IM, 12 yrs and above ([facility]) 04/19/2022 Covid-19, Mrna, Lnp-s, Pf, B ivalent, [...] on file documented as of this encounter Last Filed Vital Signs Vital Sign Reading Time Taken Comments Blood Pressure 158/68 01/25/2024 1:23 PM EDT Pulse 66 01/25/2024 1:23 PM EDT Temperature - - Respiratory Rate - - Oxygen Saturation 98% 01/25/2024 1:23 PM EDT Inhaled Oxygen Concentration - - Weight 55.3 kg (122 lb) 01/25/2024 1:23 PM EDT Height - - Body Mass Index 20.15 01/23/2024 4:43 PM EDT documented in this encounter Progress Notes * Charito Mccain PA-C - 01/25/2024 1:55 PM EDT 01/25/2024 Cardiology F/U: History of Present Illness: Ally Morris is a 83 year old female who presents today for cardiology follow up, requested by theP. Last clinic evaluation approx 1.5 years ago with the undersigned History includes: 1. Hypertension with hypertensive heart disease 2. Dyslipidemia 3. Mild carotid vascular disease, follows with vascular. 4. History of Breast CA x2 with radiation to the chest 5. History of thyroid CA 6. History of melanoma 7. History of abnormal EKG, suggestive of LVH with repolarization. Negative nuclear stress test in 11/2022. Patient reports worsening SOB and LE edema over the last few weeks. Mild chest tightness with a lotof walking up an incline. Resolves quickly. BP was also high intermittently but now improved. She is taking lisinopril, carvedilol, HCTZ and amlodipine. She feels her ankles and feet are swollen, but to my exam, they have no edema. She does not want to have another nuclear stress due to side effects she experiences for several days. No chest pain, palpitations, dizziness, syncope or near syncope. No orthopnea, PND, or increased lower extremity edema. No fever, chills, cough, hematochezia, melena, or hemoptysis. BP was high on arrival today but much improved on my repeat. She reports readings at home are in the 130/70's. Review of Systems: See HPI for pertinent positives. All others negative, other than those noted in HPI. Patient Active Problem List Diagnosis POSTSURGICAL HYPOTHYROID [...] PLACEMENT-FLUORO performed by GRAY KATZ at RADIOLOGY [facility] CHEMO BY BOTH INFUSION AND O 08/08/1983 COLONOSCOPY, GI REFERRAL OP 06/08/2005 wnl DRAIN SHOULDER LESION, DEEP 02/02/2010 INCISION AND DRAINAGE SHOULDER performed by Samantha VELASCO at [facility] INFORMATION 2022 groin lump removed MASTECTOMY, SIMPLE, COMPLETE 08/13/2008 MASTECTOMY SIMPLE COMPLETE performed by KEAGAN PARHAM at [facility] MASTECTOMY,RADICAL, URBAN-TYPE 08/13/2008 MASTECTOMY RADICAL INCLUDING PECTORAL MUSCLES AXILLARY AND INTERNAL MAMMARY LYMPH NODES URBAN TYPE OPERATION performed by KEAGAN PARHAM at [facility] MISCELLANEOUS ORDER ([facility] ONLY) 08/08/1971 Varicose Veins MISCELLANEOUS ORDER ([facility] ONLY) 08/08/1983 Lumpectomy, mastectomy , ALND right breast OTHER 08/08/1955 L5 discetomy PAP SCREEN 08/30/2003 WNL RECONSTRUCT/REPLACE SHOULDER JOINT 04/09/2010 REVERSE TOTAL SHOULDER ARTHROPLASTY performed by Samantha VELASCO at OR [facility] REMOVAL OF BREAST, MODIFIED RADICAL 04/08/1984 REMOVAL [...] SIMPLE 08/08/1983 SHOULDER ARTHROSCOPY/DECOMPRESSION 07/01/2009 Dr. 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 (Adult - for ages 18 years and over): No Does your family have trouble paying for medicine? (Household - for ages 0-17 years): Not on file Food Insecurity: No Food Insecurity (05/10/2023) Food Insecurity Do you need food for this week? (Adult - for ages 18 years and over): No Are you able to get enough food for your family? (Household - for ages 0-17 years): Not on file Does your family need food this week? (Household - for ages 0-17 years): Not on file Do you always have enough food for your family? (Household - for ages 0-17 years): Not on file Transportation Needs: No Transportation Needs (05/10/2023) Transportation Needs Do you have trouble getting a ride to medical visits or work? (Adult - for ages 18 years and over):Never True Does your family have a hard time getting a ride to doctors visits? (Household - for ages 0-17 years): Not on file Has lack of transportation kept you from medical appointments, meetings, work, or from getting things needed for daily living? Check all that apply. (Adult - for ages 18 years and over): Not on file Do you (or your family) have trouble finding or paying for a ride (transportation)? (Household - for ages 0-17 years): Not on file Social Connections: Socially Integrated (05/10/2023) Social Connections How often do you feel lonely or isolated from those around you? (Adult - for ages 18 years and over): Never Housing Stability: Low Risk (05/10/2023) Housing Stability Do you currently live in a intermediate or have no steady place to sleep at night? (Adult - for ages 18 years and over): No Do you think you are at risk of becoming homeless? (Adult - for ages 18 years and over): No Does your family worry about paying for your home or becoming homeless? (Household - for ages 0-17 years): Not on file Are you homeless or worried that you might be in the future? (Adult - for ages 18 years and over): Not on file Are you (or your family) homeless or worried that you might be in the future? (Household - for ages0-17 years): Not on file Allergies: Fentanyl, Clindamycin hcl, Keflex [cephalexin], Meperidine hcl, Naproxen, Oxycodone hcl,Sulfamethoxazole-trimethoprim, Tramadol, and Vicodin [hydrocodone-acetaminophen] Medications: Current Outpatient Medications Medication Sig Dispense Refill ASPIRIN 81 MG PO CHEW Take 1 Tablet by mouth in the morning. VITAMIN C CR 1000 MG PO TBCR Take 1,000 Tabs by mouth. MULTIVITAMINS PO TABS 1 daily Lupqrkqhpmdq-Paqtvnb-C-Probiot (AZO URINARY TRACT SUPPORT) 95 & 250-30 [...] BEFORE BEDTIME WITH FOOD 200 Tablet 2 Atorvastatin Calcium 40 MG Oral Tablet (Lipitor) TAKE ONE TABLET BY MOUTH EVERY DAY 90 Tablet 1 Myrbetriq 25 MG Oral Tablet Extended Release [...] 1 Capsule before bedtime. 100 Capsule 3 hydroCHLOROthiazide 12.5 MG Oral Capsule TAKE ONE CAPSULE BY MOUTH EVERY MORNING 90 Capsule 1 amLODIPine Besylate 5 MG Oral Tablet (Norvasc) Take 1 Tablet by mouth in the morning. 100 Tablet 1 Melatonin 10 MG Oral Tablet Disintegrating Take 1 Tablet by mouth every night at bedtime. Current Facility-Administered Medications Medication Dose Route Frequency Provider Last Rate Last Admin Denosumab (Prolia) subcut inj 60 mg 60 mg Subcutaneous Q6 Months Linden Mansfield PA-C 60 mg at 09/06/23 1120 OBJECTIVE/PHYSICAL EXAMINATION: BP 158/68 | Pulse 66 | Wt 55.3 kg (122 lb) | SpO2 98% | BMI 20.15 kg/m | BSA 1.6 m On my repeat 134/66 BP Readings from Last 4 Encounters: 01/25/24 158/68 01/23/24 146/70 12/13/23 126/60 10/18/23 122/60 General: no acute distress and stated age Eyes: conjunctiva are pink and non-injected, sclera clear Neck: normal jugular venous pulse, no hepatojugular reflux Chest: normal shape and normal respiratory effort Lungs: clear to auscultation and percussion Cardiac Exam: regular heart sounds, II/ systolic murmur Lexiscan stress test report reviewed dated November 25, 2022: Abdomen: abdomen soft, non-tender, no abnormal masses and no hepatosplenomegaly Musculoskeletal: no gait disturbance, no weakness Extremities: no edema and no cyanosis Neuro: grossly normal exam Psych: appropriate affect and insight. Data: EKG reviewed from January 2024: Normal sinus rhythm with sinus arrhythmia Possible Left atrial enlargement Left ventricular hypertrophy with secondary repolarization abnormality Abnormal ECG When compared with ECG of 24-Jan-2023 08:33, No significant change was found Nuclear lexiscan stress test report reviewed dated November 2022: Interpretation Summary 1. Normal pharmacologic Cardiolite stress test without evidence of infarct or ischemia. 2. Normal pharmacologic stress EKG. 3. Normal post-stress ejection fraction. 4. Normal wall motion analysis. EKG performed October 2022: Sinus bradycardia at 59 bpm Possible Left atrial enlargement Left ventricular hypertrophy with secondary repolarization abnormality Abnormal ECG When compared with ECG of 06-OCT-2022 11:17, T wave inversion more evident in Inferior leads Echo report reviewed dated October 14, 2022: Interpretation Summary The primary indication after review was deemed appropriate and the examination was performed. Normal LV chamber size with mild concentric LVH. Calculated LV ejection Fraction = 60% (bi-plane method of discs). Grade III diastolic dysfunction. Moderate aortic valve sclerosis without stenosis. Moderate aortic valve regurgitation is present. There is mild mitral annular calcification. The mitral valve leaflets are mildly calcified. Mitral stenosis is absent. Moderate mitral regurgitation is present. Moderate tricuspid regurgitation is present. Mild left atrial enlargement. EKG reviewed from 10/06/22 - Poor tracing/artifact Normal sinus rhythm Possible Left atrial enlargement Left ventricular hypertrophy with secondary repolarization abnormality or ischemia Abnormal ECG compared to the previous tracing performed 08/31/2016 significant changes are present with the development of high amplitude T wave inversions in the lateral leads Carotid duplex report reviewed dated Aug 2022: Impression: Right carotid artery duplex examination indicates evidence of less than 50% stenosis of the internal carotid artery. Left carotid artery duplex examination indicates evidence of less than 50% stenosis of the internalcarotid artery. Latest Reference Range & Units 08/12/22 10:29 09/23/22 12:52 Triglycerides <=174 mg/dL 120 Cholesterol <200 mg/dL 165 Non-HDL Cholesterol <=159 mg/dL 101 HDL Cholesterol >49 mg/dL 64 LDL Cholesterol <=129 mg/dL 77 Sodium 135 - 146 mmol/L 139 138 Potassium 3.5 - 5.1 mmol/L 4.3 5.0 Chloride 98 - 107 mmol/L 98 99 CO2 22 - 32 mmol/L 31 29 BUN 6 - 20 mg/dL 20 20 Creatinine 0.5 - 1.0 mg/dL 0.9 0.9 Estimated Glomerular Filtration Rate >=60 mL/min 61 62 Anion Gap 7 - 15 mmol/L 10 10 Glucose 70 - 120 mg/dL 85 103 Calcium 8.4 - 10.2 mg/dL 10.2 10.0 IMPRESSION: 83 year old female ICD-10-CM 1. SOB (shortness of breath) R06.02 2. Localized edema R60.0 3. LVH (left ventricular hypertrophy) I51.7 4. HTN, goal below 140/90 I10 5. Nonspecific abnormal electrocardiogram (ECG) (EKG) R94.31 RECOMMENDATIONS/PLAN: Patient presenting with increased SOB, edema, and intermittent chest tightness. EKG is chronically abnormal, suggestive of LVH with repolarization She had negative nuclear stress test 1 year ago which was negative for inducible ischemia. She claims to have had side effects from this stress test for many days and does not wish to repeat. Recommend updating labs Plan: Cbc BNP, NT-pro Comprehensive metabolic panel TSH with free T4 if indicated Recommend updating resting echo. Consider changing HCTZ to loop diuretic. She does not examine as volume tolerated but she has grade III diastolic dysfunction which may contribute to her symptoms. We also discussed her low dose amlodipine may be contributing to her mild edema, along with her varicose veins. Compression stockings advised. Low sodium diet encouraged. Further recommendations pending review of labs and echo. Patient leaving to go out of the country in several weeks, will try to expedite testing The patient is to continue all current medications as listed above. No changes were made at today'svisit. ER for emergencies advised. Patient is being evaluated in the cardiology office for ongoing care/risk management for HTN; LVH. I spent a total of 30 minutes on the date of service in preparation, delivery, and documentation ofthe care provided to Ally Morris excluding any time spent in the performance of separately billedservices. The patient agrees to the above plan and will call with additional questions or concerns. ER with all emergencies advised. Follow-up: Return in about 6 months (around 07/26/2024). | Check-out note: Blood work today Schedule echo JOSEPH - prior to February 07 - may need to call in the back Charito Mccain PA-C Department of Cardiology This chart was completed in part utilizing [employer] Speech Voice Recognition Software. Grammatical errors, random [...] documented in this encounter Nursing Notes * Florence Peña CMA - 01/25/2024 1:20 PM EDT Examination Room: 1 Name: Ally Morris Date of : (1940) Reason for Visit: 1 yr Interim Hospitalization(s): none Problems/Concerns: denied Chest Pain/SOB: chest pain throughout the day. Tightness in center of chest. Feet swelling. Uncomfortable. SOBOE. Has to stop to get a breath. My [facility] is a way you can [...] 9:00 AM EDT Cardiac Studies Cardiac Studies, [facility] [address] [place] [address] 04/24/2024 9:20 AM EDT Office Visit Family Practice [address] [facility] [address] [place] [address] Ally Gonzales DO [address] [place] [address] 07/26/2024 1:30 PM EST Office Visit Cardiology, [facility] [address] [place] [address] Charito Mccain, PA-Saloni [address] [place] [address] 08/30/2024 12:00 PM EST Office Visit Endocrinology [address] [place] [address] Maddy Munoz MD [address] [facility], [place] [id number] 10/17/2024 12:30 PM EDT Office Visit Hematology/Oncology [facility] [address] [facility] [place] [address] Sonia Tesfaye MD [address] [facility] [place] [address] 12/17/2024 11:00 AM EDT Nurse Only Ancillary [address] [facility] [address] [facility] [place] [address] College, Nurse Annual Wellness Visit [address] [address] Pending Results Name Type Priority Associated Diagnoses Date /Time BNP, NT-PRO Lab Routine Localized edema LVH (left ventricular hypertrophy) HTN, goal below 140/90 SOB (shortness of breath) Nonspecific abnormal electrocardiogram (ECG) (EKG) 01/25/2024 2:03 PM EDT TSH WITH FREE T4 IF INDICATED Lab Routine Localized edema LVH (left ventricular hypertrophy) HTN, goal below 140/90 SOB (shortness of breath) Nonspecific abnormal electrocardiogram (ECG) (EKG) 01/25/2024 2:03 PM EDT Scheduled Orders Name Type Priority Associated Diagnoses Orde r Schedule BNP, NT-PRO Lab Routine Localized edema LVH (left ventricular hypertrophy) HTN, goal below 140/90 SOB (shortness of breath) Nonspecific abnormal electrocardiogram (ECG) (EKG) Expected: 01/25/2024, Expires: 01/24/2025 TSH WITH FREE T4 IF INDICATED Lab Routine Localized edema LVH (left ventricular hypertrophy) HTN, goal below 140/90 SOB (shortness of breath) Nonspecific abnormal electrocardiogram (ECG) (EKG) Expected: 01/25/2024, Expires: 01/24/2025 ECHO, COMPLETE (2D), TRANS-THORACIC Echocardiology Routine Localized edema LVH (left ventricular hypertrophy) HTN, goal below 140/90 SOB (shortness of breath) Nonspecific abnormal electrocardiogram (ECG) (EKG) Expected: 01/25/2024 (Approximate), Expires: 01/24/2025 Health Maintenance Due Date Last Done Comments TSH 08/24/2024 08/24/2023, 12/0 08/2021, 07/08/2021, Additional history exists Depression Screening 12/12/2024 12/13/2023 DXA Scan 12/20/2024 12/20/2022, 12/06, 12/16/2020, Additional history exists GFR 01/24/2025 01/25/2024, 08/08, 12/16/2022, Additional history exists Albumin/Creatinine Ratio 04/05/2025 022, 03/05/2019, 07/25/2018, Additional history exists DTaP,Tdap,and Td Vaccines (3 - Td or Tdap) 10/07/2032 10/07/2022, 09/19/2012, 12/20/2002 Pneumococcal Vaccine: 65+ Years Completed 07/25/2018, 09/14/2004 Zoster Vaccines Completed 01/01/2020, 09/09, 12/05/2008 Influenza Vaccine (FLU shot) Completed 10/2022, 05/06/2022, 04/29/2021, Additional history exists VITAMIN D LEVEL ONCE IN A LIFETIME-USE SMARTSET# [id number] Completed 08/24/2023, 07/08/2022, 07/08/2021, Additional history exists [...] this encounter Medical Devices Implanted Type Area Supervisor Pig Machine Device Identifier Shelf Expiration Date Model / Serial / Lot Plate Ricardo 6.5x30 508-32-104 - [id number] Implanted:Qty: 1 on 04/09/2010 at OR [facility] Right: Shoulder [employer] 10/07/2015 508-32-104 / / [id number] Socket Humeral Insert Implanted:Qty: 1 on 04/09/2010 at OR [facility] Right: Shoulder [employer] 07/08/2014 508-01-032 / / [id number] Head Glenoid/Screw5 006 - [id number] Implanted:Qty: 1 on 04/09/2010 at OR [facility] Right: Shoulder [employer] 11/07/2015 508-32-101 / / [id number] Screw Lckg 5x22 506-03-122 - [id number] Implanted:Qty: 1 on 04/09/2010 at OR [facility] Right: Shoulder [employer] 10/07/2015 506-03-122 / / [id number] Scrw Lckg [employer] 50603-114 - [id number] Implanted:Qty: 1 on 04/09/2010 at OR [facility] Right: Shoulder [employer] 08/08/2015 506-03-114 / / [id number] Screw Lckg 5x26 506-126 - [id number] Implanted:Qty: 1 on 04/09/2010 at OR [facility] Right: Shoulder [employer] 12/07/2015 506-03-126 / / [id number] Screw Lckg 5x22 122 - [id number] Implanted:Qty: 1 on 04/09/2010 at OR [facility] Right: Shoulder [employer] 02/06/2016 506-03-122 / / [id number] Cement Bone G 1113-140-01 - [id number] Implanted:Qty: 1 on 04/09/2010 at OR [facility] Right: Shoulder [employer] 07/08/2013 00-1113-14 0- / / [id number] Shell Socket Humeral Rsp Implanted:Qty: 1 on 04/09/2010 at OR [facility] Right: Shoulder [employer] 01/07/2016 508-00-008 / / [id number] Stem Humeral Primary Rsp Implanted:Qty: 1 on 04/09/2010 at OR [facility] Right: Shoulder [employer] 08/08/2015 506-00-008 / / [id number] [place] Mini Quick 2/0 [id number] - [id number] Implanted:Qty: 1 on 09/17/2016 by Rafi Burnham MD at OR [facility] Left: Hand JNJ : DEPUY MITEK [employer]G PROD 05/07/2019 576100 / / [id number] [place] Mini Quick 2/0 [id number] - [id number] Implanted:Qty: 1 on 09/17/2016 by Rafi Burnham MD at OR [facility] Left: Hand JNJ : DEPUY MITEK SURG PROD 05/07/2019 [id number] / / [id number] documented as of this encounter Results * (ABNORMAL) COMPREHENSIVE METABOLIC PANEL (01/25/2024 2:03 PM EDT) BUN 21(H) 6 - 20 mg/dL 01/25/2024 4:24 PM EDT [facility] Creatinine 1.0 0.5 - 1.0 mg/dL 01/25/2024 4:24 PM EDT [facility] Estimated Glomerular Filtration Rate 56(L) >=60 mL/min 01/25/2024 4:24 PM EDT [facility] Comment:eGFR is calculated b ased on the CKD-EPI 2020 equation Sodium 136 135 - 146 mmol/L 01/25/2024 4:24 PM EDT [facility] Potassium 4.3 3.5 - 5.1 mmol/L 01/25/2024 4:24 PM EDT [facility] Chloride 97(L) 98 - 107 mmol/L 01/25/2024 4:24 PM EDT [facility] CO2 31 22 - 32 mmol/L 01/25/2024 4:24 PM EDT [facility] Anion Gap 8 7 - 15 mmol/L 01/25/2024 4:24 PM EDT [facility] Glucose 115 70 - 120 mg/dL 01/25/2024 4:24 PM EDT [facility] Albumin 4.5 3.8 - 5.0 g/dL 01/25/2024 4:24 PM EDT [facility] AST 25 10 - 35 U/L 01/25/2024 4:24 PM EDT [facility] Alkaline Phosphatase 61 35 - 130 U/L 01/25/2024 4:24 PM EDT [facility] Bilirubin, Total 0.5 <=1.2 mg/dL 01/25/2024 4:24 PM EDT [facility] Calcium 10.0 8.4 - 10.2 mg/dL 01/25/2024 4:24 PM EDT [facility] Protein 6.9 6.0 - 8.3 g/dL 01/25/2024 4:24 PM EDT [facility] ALT 20 10 - 35 U/L 01/25/2024 4:24 PM EDT [facility] Blood Venous blood specimen / Unknown Venipuncture / Unknown 01/25/2024 2:03 PM EDT 01/25/2024 2:03 PM EDT Charito Mccain PA-C LAB BLOOD [facility]ALLUM [facility] [address] [facility] [place] [address] * CBC (01/25/2024 2:03 PM EDT) WBC 7.19 4.00 - 10.80 K/uL 01/25/2024 2:22 PM EDT [facility] RBC 4.17 3.85 - 5.15 M/uL 01/25/2024 2:22 PM EDT [facility] HGB 13.1 12.0 - 15.3 g/dL 01/25/2024 2:22 PM EDT [facility] HCT 40.1 36.0 - 45.2 % 01/25/2024 2:22 PM EDT [facility] MCV 96.2 81.5 - 97.5 fL 01/25/2024 2:22 PM EDT [facility] MCH 31.4 27.0 - 34.0 pg 01/25/2024 2:22 PM EDT [facility] MCHC 32.7 32.0 - 36.0 g/dL 01/25/2024 2:22 PM EDT [facility] RDW 12.7 11.5 - 15.5 % 01/25/2024 2:22 PM EDT [facility] PLT 201 140 - 400 K/uL 01/25/2024 2:22 PM EDT [facility] MPV 10.6 6.6 - 11.1 fL 01/25/2024 2:22 PM EDT [facility] Blood Venous blood specimen / Unknown Venipuncture / Unknown 01/25/2024 2:03 PM EDT 01/25/2024 2:03 PM EDT Charito Mccain PA-C LAB BLOOD ORDSamir MCCALLUM [facility] [address] [place] [address] documented in this encounter Visit Diagnoses Diagnosis SOB (shortness of breath)- Primary Shortness of breath Localized edema Edema LVH (left ventricular hypertrophy) Cardiomegaly HTN, goal below 140/90 Unspecified essential hypertension Nonspecific abnormal electrocardiogram (ECG) (EKG) documented in this encounter Advance Directives Documents on File Type Date Recorded Patient Oim Consultant Expl anation Power of Market Developer 10/18/2023 12:36 PM NEENA R OF LUBE MAN - [employer] [facility] DIRECTIVE * Full Code [...] 1:48 PM 08/14/2008 6:49 PM Care Teams Production Line Manager Relationship Specialty Start Date End Date Ally Gonzales DO [address] [place] [address] PCP - General Family Medicine 01/19/24 documented as of this encounter"
--- OUTSIDE RECORDS SUMMARY | 2024-04-03 13:10 | External Medical Summary | Summary of Care ---
Author Name Unknown Organization [facility] Address [address] [place] [address] Phone [phone] Care Team Providers Care Still Operator Name Role Phone Ally Gonzales DO Primary Care Provider Reason for Visit * Reason Onset Date Comments Test Results 02/02/2024 Encounter Details Date Type Department Care Team (Late st Contact Info) Description 02/02/2024 Telephone Cardiology, [facility] [address] [place] [id number] Mir Neumann PA-C [address] [place] [phone] Test Results Allergies Active Allergy Reactions Criticality Noted Date Comments Clindamycin Hcl 09/19/2015 Fentanyl High 10/01/2016 Severe emesis Cephalexin Diarrhea 03/22/2022 Meperidine Hcl 01/24/2023 Naproxen Nausea/vomiting 06/30/2009 Oxycodone Hcl Nausea/vomiting 04/09/2010 Sulfamethoxazole-Trimethoprim Nausea/vomiting 0 01/27/2016 Tramadol 12/08/2016 Hydrocodone-Acetaminophen Nausea/vomiting 06/30 documented as of this encounter (statuses as of 02/02/2024) Medications Medication Sig Dispensed Refills Start Date [...] the morning. 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, recurrent, [id number], 2009 Dyslipidemia, goal LDL below 130 06/16/2010 [...] as of this encounter (statuses as of 02/02/2024) Resolved Problems Problem Noted Date Diagnosed Date [...] Keratin granuloma , Glabella 05/30/00 05/30/2002 05/25/2006 Electrical Controls Engineer's papule, Lt arm 05/30/00 05/30/2002 05/25/2006 Irritated crateriform keratosis, Back 11/18/00 05/30/20 02 05/25/2006 Lichenoid inflammatory reaction, Back 10/20/01 05/30/20 02 05/01/2019 Other seborrheic keratosis 03/02/2002 1 Actinic keratosis 03/02/2002 05/01/2019 Dyslipidemia, goal to be determined 06/16/2010 documented as of this encounter (statuses as of 02/02/2024) Immunizations Name Administration Dates Next Due COVID-19 [...] encounter Miscellaneous Notes * Telephone Encounter - Prashant Wilkinson LPN - 02/02/2024 11:38 AM EDT Sent patient a Spire message to make aware. ----- Message from Mir Neumann sent at 02/01/2024 5:49 PM EDT ----- In basket coverage for Mrs. Mccain. Echo results are similar to prior - normal systolic function, diastolic dysfunction, stable mild to moderate valve issues. No evidence of pulmonary hypertension. OK documented in this encounter Plan of Treatment Upcoming Encounters Date Type Department Care Team (Late st Contact Info) Description 04/24/2024 9:20 AM EDT Office Visit Family Practice [address] [place] [address] [address] [place] [address] Ally Gonzales DO [address] [place] [address] 07/26/2024 1:30 PM EST Office Visit Cardiology, [facility] 132 [facility] [place] [address] Charito Mccain PA-C 132 [facility] [place] [address] 08/30/2024 12:00 PM EST Office Visit Endocrinology [address] [place] [phone] Maddy Munoz MD [address] [facility], [place] [id number] 10/17/2024 12:30 PM EDT Office Visit Hematology/Oncology [facility] [address] [facility] [place] [phone] Sonia Tesfaye MD [address] [facility] [place] [address] 12/17/2024 11:00 AM EDT Nurse Only Ancillary 65 [facility] [address] [place] [address] College, Nurse Annual Wellness Visit 65 [facility] 293 [facility] [address] Health Maintenance Due Date Last Done Comments [...] D LEVEL ONCE IN A LIFETIME-USE SMARTSET# 90530 Completed 08/24/2023, 07/08/2022, 07/08/2021, Additional history exists [...] this encounter Medical Devices Implanted Type Area Marketing Services Manager Device Identifier Shelf Expiration Date Model / Serial / Lot Plate Ricardo 6.5x30 508-32-104 - [id number] Implanted:Qty: 1 on 04/09/2010 at OR [facility] [place] Right: Shoulder [employer] 10/07/2015 508-32-104 / / [id number] Socket Humeral Insert Implanted:Qty: 1 on 04/09/2010 at OR [facility] Right: Shoulder [employer] 07/08/2014 508-01-032 / / [id number] Head Glenoid/Screw5 - [id number] Implanted:Qty: 1 on 04/09/2010 at OR [facility] Right: Shoulder [employer] 11/07/2015 508-32-101 / / [id number] Screw Lckg 5x22 506-122 - [id number] Implanted:Qty: 1 on 04/09/2010 at OR [facility] [place] Right: Shoulder [employer] 10/07/2015 506-03-122 / / [id number] Scrw Lckg [employer] 03-114 - [id number] Implanted:Qty: 1 on 04/09/2010 at OR [facility] Right: Shoulder [employer] 08/08/2015 506-03-114 / / [id number] Screw Lckg 5x26 506-126 - [id number] Implanted:Qty: 1 on 04/09/2010 at OR [facility] Right: Shoulder [employer] 12/07/2015 506-03-126 / / [id number] Screw Lckg 5x22 506122 - [id number] Implanted:Qty: 1 on 04/09/2010 at OR [facility] Right: Shoulder [employer] 02/06/2016 506-03-122 / / [id number] Cement Bone G 1113-140-01 - [id number] Implanted:Qty: 1 on 04/09/2010 at OR [facility] Right: Shoulder [employer] 07/08/2013 00-1113-14 / [id number] Shell Socket Humeral Rsp Implanted:Qty: 1 on 04/09/2010 at OR [facility] Right: Shoulder [employer] 01/07/2016 508-00-008 / / [id number] Stem Humeral Primary Rsp Implanted:Qty: 1 on 04/09/2010 at OR [facility] Right: Shoulder [employer] 08/08/2015 506-00-008 / / [id number] Brutus Mini Quick 2/0 [id number] - [id number] Implanted:Qty: 1 on 09/17/2016 by Rafi Burnham MD at OR [facility] Left: Hand JNJ : DEPUY MITEK SURG PROD 05/07/2019533669 / / [id number] Brutus Mini Quick 2/0 [id number] - [id number] Implanted:Qty: 1 on 09/17/2016 by Rafi Burnham MD at OR [facility] Left: Hand JNJ : DEPUY MITEK SURG PROD 05/07/2019035967 / / [id number] documented as of this encounter Advance Directives Documents on File Type Date Recorded Patient Taxi Cab Driver Expl anation Power of Counter Stacker 10/18/2023 12:36 PM NEENA R OF DISPATCHER SERVICE CHIEF - [facility] DIRECTIVE * Full Code [...] 1:48 PM 08/14/2008 6:49 PM Care Teams Still Operator Relationship Specialty Start Date End Date Ally Gonzales DO [address] [place] [address] PCP - General Family Medicine 01/19/24 documented as of this encounter
--- OUTSIDE RECORDS SUMMARY | 2024-04-03 13:10 | External Medical Summary | Summary of Care ---
Author Name Unknown Organization [facility] Address [address] [place] [address] Phone [phone] Care Team Providers Care Parts Washer Name Role Phone Ally Paredes DO Primary Care Provider Reason for Visit * Reason Comments Medication Refill Encounter Details Date Type Department Care Team (Late st Contact Info) Description 02/21/2024 Refill Family Practice 65 [facility] [address] [place] [phone] Ally Paredes DO [address] [place] [address] Hyperlipidemia with target LDL less than 100; Bruit (arterial); Aortic valve sclerosis Allergies Active Allergy Reactions Criticality Noted Date Comments Clindamycin Hcl 09/19/2015 Fentanyl High 10/01/2016 Severe emesis Cephalexin Diarrhea 03/22/2022 Meperidine Hcl 01/24/2023 Naproxen Nausea/vomiting 06/30/2009 Oxycodone Hcl Nausea/vomiting 04/09/2010 Sulfamethoxazole-Trimethoprim Nausea/vomiting 0 01/27/2016 Tramadol 12/08/2016 Hydrocodone-Acetaminophen Nausea/vomiting 06/30 documented as of this encounter (statuses as of 02/21/2024) Medications Medication Sig Dispensed Refills Start Date [...] EVERY DAY 90 Tablet 3 02/21/2024 Active Atorvastatin Calcium 40 MG Oral Tablet (Lipitor)Indication s:Hyperlipidemia with target LDL less than 100,Bruit (arterial),Aortic valve sclerosis TAKE ONE TABLET BY MOUTH EVERY DAY 90 Tablet 1 08/31/2023 4 Discontinu ed(Refill) Hospital, Clinic, or Other Facility Administered Medication Ordered Dose Route Frequency Start Date End Date Status Denosumab (Prolia) subcut inj 60 mgIndications:Senile osteoporosis 60 mg SC [id number] 09/06/2023 08/31/2024 Active documented as of this encounter (statuses as of 02/21/2024) Active Problems Problem Noted Date Diagnosed Date [...] 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, recurrent, [id number], 2009 Dyslipidemia, goal LDL below 130 06/16/2010 [...] as of this encounter (statuses as of 02/21/2024) Resolved Problems Problem Noted Date Diagnosed Date [...] Keratin granuloma , Glabella 05/30/00 05/30/2002 05/25/2006 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 Vertical's papule, Lt arm 05/30/00 05/30/2002 05/25/2006 Irritated crateriform keratosis, Back 11/18/00 05/30/20 02 05/25/2006 Lichenoid inflammatory reaction, Back 10/20/01 05/30/2005/01/2019 Other seborrheic keratosis 03/02/2002 1 Actinic keratosis 03/02/2002 05/01/2019 Dyslipidemia, goal to be determined 06/16/2010 documented as of this encounter (statuses as of 02/21/2024) Immunizations Name Administration Dates Next Due COVID-19 [...] encounter Miscellaneous Notes * Telephone Encounter - Paula Eldridge RPh - 02/21/2024 9:59 PM EDT Signed Prescriptions: Disp Refills Atorvastatin Calcium 40 MG Oral Tablet (Li*90 Tab*3 Sig: TAKE ONE TABLET BY MOUTH EVERY DAYAuthorizing Provider: ALLY PAREDES User: PAULA ELDRIDGE documented in this encounter Plan of Treatment Upcoming Encounters Date Type Department Care Team (Late st Contact Info) Description 04/24/2024 9:20 AM EDT Office Visit Family Practice [address] [place] [address] [place] [phone] Ally Paredes DO [address] [place] [address] 07/26/2024 1:30 PM EST Office Visit Cardiology, [facility] [address] [facility] [place] [address] Charito Mccain PA-C [address] [place] [address] 08/30/2024 12:00 PM EST Office Visit Endocrinology [address] [place] [address] Maddy Munoz MD [address] [facility] [place] [address] 10/17/2024 12:30 PM EDT Office Visit Hematology/Oncology [facility] 200 [facility] [place] [address] Sonia Tesfaye MD 200 [place] [address] 12/17/2024 11:00 AM EDT Nurse Only Ancillary 65 [facility] [address] [place] [address] College, Nurse Annual Wellness Visit 65 [facility] 293 [facility] [place] [address] Health Maintenance Due Date Last Done Comments Influenza Vaccine (FLU shot) (#1) 2024 05/10/2023, 05/06/2022, 04/29/2021, Additional history exists Depression Screening 12/12/2024 12/13/2023 DXA Scan 12/20/2024 12/20/2022, 12/06, 12/16/2020, Additional history exists GFR 01/24/2025 01/25/2024, 08/08, 12/16/2022, Additional history exists TSH 01/24/2025 01/25/2024, 08/08, 07/08/2022, Additional history exists Albumin/Creatinine Ratio 04/05/20252 022, 03/05/2019, 07/25/2018, Additional history exists DTaP,Tdap,and Td Vaccines (3 - Td or Tdap) 10/07/2032 10/07/2022, 09/19/2012, 12/20/2002 Pneumococcal Vaccine: 65+ Years Completed 07/25/2018, 09/14/2004 Zoster Vaccines Completed 01/01/2020, 09/09, 12/05/2008 VITAMIN D LEVEL ONCE IN A LIFETIME-USE SMARTSET# 00524 Completed 08/24/2023, 07/08/2022, 07/08/2021, Additional history exists [...] this encounter Medical Devices Implanted Type Area Molecular Physicist Device Identifier Shelf Expiration Date Model / Serial / Lot Plate Ricardo 6.5x30 508-32-104 - [id number] Implanted:Qty: 1 on 04/09/2010 at OR [facility] [place] Right: Shoulder [employer] 10/07/2015 508-32-104 / / [id number] Socket Humeral Insert Implanted:Qty: 1 on 04/09/2010 at OR [facility] [place] Right: Shoulder [employer] 07/08/2014 508-01-032 / / [id number] Head Glenoid/Screw5 - [id number] Implanted:Qty: 1 on 04/09/2010 at OR [facility] [place] Right: Shoulder [employer] 11/07/2015 508-32-101 / / [id number] Screw Lckg 5x22 506-122 - [id number] Implanted:Qty: 1 on 04/09/2010 at OR [facility] [place] Right: Shoulder [employer] 10/07/2015 506-03-122 / / [id number] Scrw Lckg [employer] -114 - [id number] Implanted:Qty: 1 on 04/09/2010 at OR [facility] [place] Right: Shoulder [employer] 08/08/2015 506-03-114 / / [id number] Screw Lckg 5x26 506-03126 - [id number] Implanted:Qty: 1 on 04/09/2010 at OR [facility] [place] Right: Shoulder [employer] 12/07/2015 506-03-126 / / [id number] Screw Lckg 5x22 506-03122 - [id number] Implanted:Qty: 1 on 04/09/2010 at OR [facility] [place] Right: Shoulder [employer] 02/06/2016 506-03-122 / / [id number] Cement Bone G 1113-140-01 - [id number] Implanted:Qty: 1 on 04/09/2010 at OR [facility] [place] Right: Shoulder [employer] 07/08/2013 00-1113-14 0 / / [id number] Shell Socket Humeral Rsp Implanted:Qty: 1 on 04/09/2010 at OR [facility] [place] Right: Shoulder [employer] 01/07/2016 508-00-008 / / [id number] Stem Humeral Primary Rsp Implanted:Qty: 1 on 04/09/2010 at OR [facility] [place] Right: Shoulder [employer] 08/08/2015 506-00-008 / / [id number] [place] Mini Quick 2/0 [id number] - [id number] Implanted:Qty: 1 on 09/17/2016 by Rafi Burnham MD at OR [facility] Left: Hand JNJ : DEPUY MITEK SURG PROD 05/07/2019 [id number] / / [id number] [place] Mini Quick 2/0 512677 - [id number] Implanted:Qty: 1 on 09/17/2016 by Rafi Burnham MD at OR [facility] Left: Hand JNJ : DEPUY MITEK SURG PROD 05/07/2019 [id number] / / [id number] documented as of this encounter Visit Diagnoses Diagnosis Hyperlipidemia with target LDL less than 100 Other and unspecified hyperlipidemia Bruit (arterial) Other symptoms involving cardiovascular system Aortic valve sclerosis Aortic valve disorders documented in this encounter Advance Directives Documents on File Type Date Recorded Patient Service Advisor Expl anation Power of Coagulating Operator 10/18/2023 12:36 PM NEENA R OF PRENATAL GENETIC COUNSELOR - [employer] DIRECTIVE * Full Code [...] 1:48 PM 08/14/2008 6:49 PM Care Teams Parts Washer Relationship Specialty Start Date End Date Ally Paredes DO [address] [place] [address] PCP - General Family Medicine 01/19/24 documented as of this encounter
--- OUTSIDE RECORDS SUMMARY | 2024-04-03 13:10 | External Medical Summary | Summary of Care ---
Author Name Unknown Organization [facility] Address [address] [place] [address] Phone [phone] Care Team Providers Care Harness Builder Name Role Phone Ally Gonzales DO Primary Care Provider [phone] Reason for Visit * Reason Onset Date Comments Advice 11/25/2023 Returned call Encounter Details Date Type Department Care Team (Late st Contact Info) Description 11/25/2023 Telephone Dermatology [facility] [address] [place] [address] Services, Scheduling [address] [place] [address] Advice (Returned call) Allergies Active Allergy Reactions Criticality Noted Date Comments Clindamycin Hcl 09/19/2015 Fentanyl High 10/01/2016 Severe emesis Cephalexin Diarrhea 03/22/2022 Meperidine Hcl 01/24/2023 Naproxen Nausea/vomiting 06/30/2009 Oxycodone Hcl Nausea/vomiting 04/09/2010 Sulfamethoxazole-Trimethoprim Nausea/vomiting 0 01/27/2016 Tramadol 12/08/2016 Hydrocodone-Acetaminophen Nausea/vomiting 06/30 documented as of this encounter (statuses as of 02/13/2024) Medications Medication Sig Dispensed Refills Start Date End Date Status ASPIRIN 81 MG PO CHEW Take 1 Tablet by mouth in the morning. Active VITAMIN C CR 1000 MG PO TBCR Take 1,000 Tabs by mouth. Active MULTIVITAMINS PO TABS 1 daily Active Phenazopyrid-Cranb io-B-Czhoodi (AZO URINARY TRACT SUPPORT) 95 & 250-30 MG TBPK Take by mouth once a week. Unsure of dosage 7 Active Cholecalciferol (VITAMIN D-3) 25 MCG (1000 [...] Vitamins C & E) Take by mouth. Activ e Levoxyl 88 MCG Oral TabletIndications: Postsurgical hypothyroidism TAKE 1 TABLET BY MOUTH ONCE DAILY FOR 6 DAYS OF THE WEEK. DO NOT TAKE ON SUNDAYS DIRECTED 90 Tablet 3 3 04/28/20 24 Active Carvedilol 3.125 MG Oral Tablet (Coreg) TAKE ONE TABLET BY MOUTH TWICE A DAY IN THE MORNING AND BEFORE BEDTIME WITH FOOD 200 Tablet 2 3 06/27/20 24 Active Atorvastatin Calcium 40 MG Oral Tablet (Lipitor)Indicatio ns:Hyperlipidemia with target LDL less than 100,Bruit (arterial),Aortic valve sclerosis TAKE ONE TABLET BY MOUTH EVERY DAY 90 Tablet 1 4 08/30/19 25 Active Myrbetriq 25 MG Oral Tablet Extended Release 24 Hour (Mirabegron ER)Indications:Uri nary frequency Take 1 Tablet by mouth in the morning. 100 Tablet 1 4 Active Diclofenac Sodium 1 % External Gel (Voltaren) apply 2gm topically four times daily; apply to single elbow, wrist or hand; for hand includes palm/fingers/b ack of hand 800 g 2 4 Active Lisinopril 40 MG Oral Tablet TAKE ONE TABLET BY MOUTH EVERY MORNING 90 Tablet 3 4 11/10/19 25 Active Potassium Chloride ER 10 MEQ Oral Capsule Extended ReleaseIndications :Potassium (K) deficiency Take 1 Capsule by mouth in the morning and 1 Capsule before bedtime. 100 Capsule 3 4 Active amLODIPine Besylate 5 MG Oral Tablet (Norvasc)Indicatio ns:HTN, goal below 140/90 Take 1 Tablet by mouth in the morning. 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, recurrent, [id number], 2008 Dyslipidemia, goal LDL below 130 06/16/2010 [...] as of this encounter (statuses as of 02/13/2024) Resolved Problems Problem Noted Date Diagnosed Date [...] Keratin granuloma , Glabella 05/30/00 05/30/2002 05/25/2006 Chart Picker's papule, Lt arm 05/30/00 05/30/2002 05/25/2006 Irritated crateriform keratosis, Back 11/18/00 05/30/20 02 05/25/2006 Lichenoid inflammatory reaction, Back 10/20/01 05/30/20 02 05/01/2019 Other seborrheic keratosis 03/02/2002 1 Actinic keratosis 03/02/2002 05/01/2019 Dyslipidemia, goal to be determined 06/16/2010 documented as of this encounter (statuses as of 02/13/2024) Immunizations Name Administration Dates Next Due COVID-19 mRNA, LNP-s, No Pre serve, 2-Dose Series (Moderna) 10/05/2020,08/31/2020 COVID-19, MRNA-LNP, 23-24, P F, 30 MCG/0.3 mL, 12 YRS AND ABOVE, IM (PFIZER-Comirnaty) 05/09/2023 COVID-19, mRNA, LNP-s, PF, B ooster, 100mcg/0.5mg [...] encounter Miscellaneous Notes * Telephone Encounter - Lexii Esposito OSA - 11/29/2023 1:06 PM EDT Pt scheduled * Telephone Encounter - Lexii Esposito OSA - 11/29/2023 9:15 AM EDT Left message with pt for pt to return call to schedule. May offer appt as advised by Dr. Shearer * Telephone Encounter - Vannessa Shearer MD - 11/29/2023 6:52 AM EDT Excision, 6 wks, can offer december 11 at 3 pm on gen derm side. * Telephone Encounter - Muriel Lindsey OSA - 11/28/2023 7:58 AM EDT Mahesh Decker/Manfred please review, schedule as an OPS/excision and how soon? * Telephone Encounter - Muriel Lindsey OSA - 11/28/2023 7:26 AM EDT Is this patient aware of the diagnosis below? I dont want to call if they are not aware of the diagnosis. Dann Tavarez MD Patient with severely atypical mole on back, cannot r/o early melanoma in situ. Requires excision with either me, Dr. Shearer, or Dr. Brianne Anderson. 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 Hematoxylin and eosin stained sections reveal a proliferation of melanocytes as single cells and nests at the dermal-epidermal junction and in the dermis. The dermis associated with the lesion shows fibrosis. An immunostain to SOX-10 (controls appropriate) highlights the melanocytic proliferation includingnear confluent junctional growth of melanocytes and focal upward epidermal scatter of melanocytes. An immunostain to PRAME (controls appropriate) focally labels the melanocytic proliferation. Elastinspecial stain (controls appropriate) shows loss of elastin fibers in the superficial dermis. The dermal fibrosis and loss of elastin fibers could represent scar, prior trauma changes, or a possible regression effect. 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 However, evolving malignant melanoma in situ forming in association with a dysplastic compound melanocytic nevus cannot completely be ruled out. The possibility of a focally invasive malignant melanoma was considered, but this is not favored. The case was peer reviewed by others in the [facility] dermatopathology group. B. Skin, left clavicle, shave: Actinic keratosis (see comment) Solar lentigo (see comment) Comment: Hematoxylin and eosin stained sections reveal an epidermis with areas of keratinocyte atypia and disorder as well as a focal area of increased melanin pigment deposition at the tips of hyperplastic bulbous rete ridges. Superficial dermal inflammatory infiltrate is also noted. The case was peer reviewed by another dermatopathologist in the [facility] dermatopathology group. * Telephone Encounter - Sonya Tse OSA - 11/25/2023 5:21 PM EDT Patient returned call to discuss biopsy results. Please call patient to discuss Thanks JILLIAN Durant documented in this encounter Plan of Treatment Upcoming Encounters Date Type Department Care Team (Late st Contact Info) Description 04/24/2024 9:20 AM EDT Office Visit Family Practice [address] [facility] [address] [place] [address] Ally Gonzales DO [address] [place] [address] 07/26/2024 1:30 PM EST Office Visit Cardiology, [facility] [address] [place] [address] Charito Mccain, [place] [address] [place] [address] 08/30/2024 12:00 PM EST Office Visit Endocrinology [address] [place] [address] Maddy Munoz MD [address] [place] [address] 10/17/2024 12:30 PM EDT Office Visit Hematology/Oncology [facility] [address] [facility] [place] [address] Sonia Tesfaye MD [address] [facility] [place] [address] 12/17/2024 11:00 AM EDT Nurse Only Ancillary [address] [address] College, Nurse Annual Wellness Visit [address] [address] Health Maintenance Due Date Last Done Comments [...] D LEVEL ONCE IN A LIFETIME-USE SMARTSET# [id number] Completed 08/24/2023, 07/08/2022, 07/08/2021, Additional history exists [...] this encounter Medical Devices Implanted Type Area Assembly Line Worker Device Identifier Shelf Expiration Date Model / Serial / Lot Plate Ricardo 6.5x30 508-32-104 - [id number] Implanted:Qty: 1 on 04/09/2010 at OR [facility] [place] Right: Shoulder [employer] 10/07/2015 508-32-104 / / [id number] Socket Humeral Insert Implanted:Qty: 1 on 04/09/2010 at OR [facility] [place] Right: Shoulder [employer] 07/08/2014 508-01-032 / / [id number] Head Glenoid/Screw5 0800-006 - [id number] Implanted:Qty: 1 on 04/09/2010 at OR [facility] [place] Right: Shoulder [employer] 11/07/2015 508-32-101 / / [id number] Screw Lckg 5x22 506-03-122 - [id number] Implanted:Qty: 1 on 04/09/2010 at OR [facility] [place] Right: Shoulder [employer] 10/07/2015 506-03-122 / / [id number] Scrw Lckg [employer] 506-03114 - [id number] Implanted:Qty: 1 on 04/09/2010 at OR [facility] [place] Right: Shoulder [employer] 08/08/2015 506-03-114 / / [id number] Screw Lckg 5x26 506-03-126 - [id number] Implanted:Qty: 1 on 04/09/2010 at OR [facility] [place] Right: Shoulder [employer] 12/07/2015 506-03-126 / / [id number] Screw Lckg 5x22 506-03-122 - [id number] Implanted:Qty: 1 on 04/09/2010 at OR [facility] [place] Right: Shoulder [employer] 02/06/2016 506-03-122 / / [id number] Cement Bone G 1113-140-01 - [id number] Implanted:Qty: 1 on 04/09/2010 at OR [facility] [place] Right: Shoulder [employer] 07/08/2013 00-1113-14 / / [id number] Shell Socket Humeral Rsp Implanted:Qty: 1 on 04/09/2010 at OR [facility] [place] Right: Shoulder [employer] 01/07/2016 508-00-008 / / [id number] Stem Humeral Primary Rsp Implanted:Qty: 1 on 04/09/2010 at OR [facility] [place] Right: Shoulder [employer] 08/08/2015 506-00-008 / / [id number] Redwood Mini Quick 2/0 867084 - [id number] Implanted:Qty: 1 on 09/17/2016 by Rafi Burnham MD at OR [facility] Left: Hand JNJ : DEPUY MITEK SURG PROD 05/07/2019 326145 / / [id number] Redwood Mini Quick 2/0 025994 - [id number] Implanted:Qty: 1 on 09/17/2016 by Rafi Burnham MD at OR [facility] Left: Hand JNJ : DEPUY MITEK SURG PROD 05/07/2019892876 / / [id number] documented as of this encounter Advance Directives Documents on File Type Date Recorded Patient Securities Lending Trader Expl anation Power of Clipping Marker 10/18/2023 12:36 PM NEENA R OF DIRECTOR OF MEDICAL REVIEW - [employer] DIRECTIVE * Full Code [...] 1:48 PM 08/14/2008 6:49 PM Care Teams Harness Builder Relationship Specialty Start Date End Date Ally Gonzales DO [address] [place] [address] PCP - General Family Medicine 01/19/24 documented as of this encounter
--- OUTSIDE RECORDS SUMMARY | 2024-04-03 13:10 | External Medical Summary ---
Author Name Unknown Address Unknown Organization [id number]:[facility] - [address] [place] [address] Laboratory Report Ordering Provider Test Date Status ANGIE ESTRADA 01/25/2024 14:03:06 Final Observation Date Value Abnormality Reference (Units ) Status TSH 01/25/2024 14:03:06 2.20 0.27-4.20 (uIU/mL) Final Performing Location [facility] - [address] [place] [address]
--- OUTSIDE RECORDS SUMMARY | 2024-04-03 13:10 | External Medical Summary ---
Author Name Unknown Address Unknown Organization K09:[facility] [place] [address] Laboratory Report Ordering Provider Test Date Status ANGIE ESTRADA 02/23/2024 13:50:06 Final Observation Date Value Abnormality Reference (Units ) Status BUN 02/23/2024 13:50:06 21 Above high normal 6-20 (mg/dL) Final Creatinine 02/23/2024 13:50:06 1.1 Above high normal 0.5-1.0 (mg/dL) Final Glomerular filtration rate/1.73 sq M.predicted [Volume Rate/Area] in Serum, Plasma or Blood by Creatinine-based formula (CKD-EPI) 02/23/2024 13:50:06 47 Below low normal >=60 (mL/min) Final eGFR is calculated based on the CKD-EPI 2020 equation. Sodium 02/23/2024 13:50:06 138 135-146 (m mol/L) Final Potassium 02/23/2024 13:50:06 4.7 3.5-5.1 (m mol/L) Final Cl 02/23/2024 13:50:06 101 98-107 (mm ol/L) Final CO2 02/23/2024 13:50:06 25 22-32 (mmo l/L) Final Anion gap 02/23/2024 13:50:06 12 7-15 (mmol /L) Final Glucose 02/23/2024 13:50:06 99 70-120 (mg /dL) Final Calcium 02/23/2024 13:50:06 9.6 8.4-10.2 ( mg/dL) Final Performing Location [facility] [place] [address]
--- OUTSIDE RECORDS SUMMARY | 2024-04-03 13:10 | External Medical Summary ---
Author Name Unknown Address Unknown Organization [id number]:[facility] - [address] [place] [address] Laboratory Report Ordering Provider Test Date Status ANGIE SETRADA 01/25/2024 14:03:06 Final Observation Date Value Abnormality Reference (Units ) Status BUN 01/25/2024 14:03:06 21 Above high normal 6-20 (mg/dL) Final Creatinine 01/25/2024 14:03:06 1.0 0.5-1.0 (mg/dL) Final Glomerular filtration rate/1.73 sq M.predicted [Volume Rate/Area] in Serum, Plasma or Blood by Creatinine-based formula (CKD-EPI) 01/25/2024 14:03:06 56 Below low normal >=60 (mL/min) Final eGFR is calculated based on the CKD-EPI 2020 equation Sodium 01/25/2024 14:03:06 136 135-146 (m mol/L) Final Potassium 01/25/2024 14:03:06 4.3 3.5-5.1 (m mol/L) Final Cl 01/25/2024 14:03:06 97 Below low normal 98- 107 (mmol/L) Final CO2 01/25/2024 14:03:06 31 22-32 (mmo l/L) Final Anion gap 01/25/2024 14:03:06 8 7-15 (mmol /L) Final Glucose 01/25/2024 14:03:06 115 70-120 (mg /dL) Final Albumin 01/25/2024 14:03:06 4.5 3.8-5.0 (g /dL) Final AST (Aspartate aminotransferase) 01/25/2024 14:03:06 25 10-35 (U/L) Fin al Alk Phos 01/25/2024 14:03:06 61 35-130 (U/ L) Final Bilirubin, Total 01/25/2024 14:03:06 0.5 <=1 .2 (mg/dL) Final Calcium 01/25/2024 14:03:06 10.0 8.4-10.2 ( mg/dL) Final Protein 01/25/2024 14:03:06 6.9 6.0-8.3 (g /dL) Final ALT (Alanine aminotransferase) 01/25/2024 14:03:06 20 10-35 (U/L) Delgado castrejon Performing Location [facility] - [address] [place] [address]
--- OUTSIDE RECORDS SUMMARY | 2024-04-03 13:10 | External Medical Summary | Summary of Care ---
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 She stated that the pharmacy had not received it yet. documented in this encounter Plan of Treatment Upcoming Encounters Date Type Department Care Team (Late st Contact Info) Description 02/01/2024 9:00 AM EDT Cardiac Studies [facility] [address] 04/24/2024 9:20 AM EDT Office Visit Family Practice 65 [facility] [place] [address] [facility] [place] [address] Ally Gonzales DO [address] [facility], [place] [address] 07/26/2024 1:30 PM EST Office Visit Cardiology, [facility] 132 [facility] [place] [address] Charito Mccain, KALEIGH 132 [facility] [place] [address] 08/30/2024 12:00 PM EST Office Visit Endocrinology [address] [place] [address] Maddy Munoz MD [address] [facility] [place] [address] 10/17/2024 12:30 PM EDT Office Visit Hematology/Oncology [facility] [address] [place] [address] Sonia Tesfaye MD [address] [place] [address] 12/17/2024 11:00 AM EDT Nurse Only Ancillary 65 [facility] [address] [facility] [place] [address] College, Nurse Annual Wellness Visit 65 [facility] [address] [facility] [place] [address] Health Maintenance Due Date Last Done Comments [...] D LEVEL ONCE IN A LIFETIME-USE SMARTSET# [id number] Completed 08/24/2023, 07/08/2022, 07/08/2021, Additional history exists [...] this encounter Medical Devices Implanted Type Area Equipment Sales Specialist Device Identifier Shelf Expiration Date Model / Serial / Lot Plate Ricardo 6.5x30 508-32-104 - [id number] Implanted:Qty: 1 on 04/09/2010 at OR [facility] [place] Right: Shoulder [employer] 10/07/2015 508-32-104 / / [id number] Socket Humeral Insert Implanted:Qty: 1 on 04/09/2010 at OR [facility] [place] Right: Shoulder [employer] 07/08/2014 508-01-032 / / [id number] Head Glenoid/Screw5 - [id number] Implanted:Qty: 1 on 04/09/2010 at OR [facility] [place] Right: Shoulder [employer] 11/07/2015 508-32-101 / / [id number] Screw Lckg 5x22 506-03-122 - [id number] Implanted:Qty: 1 on 04/09/2010 at OR [facility] [place] Right: Shoulder [employer] 10/07/2015 506-03-122 / / [id number] Scrw Lckg [employer] 506-03-114 - [id number] Implanted:Qty: 1 on 04/09/2010 at OR [facility] [place] Right: Shoulder [employer] 08/08/2015 506-03-114 / / [id number] Screw Lckg 5x26 506--126 - [id number] Implanted:Qty: 1 on 04/09/2010 at OR [facility] [place] Right: Shoulder [employer] 12/07/2015 506-03-126 / / [id number] Screw Lckg 5x22 506-122 - [id number] Implanted:Qty: 1 on 04/09/2010 at OR [facility] [place] Right: Shoulder [employer] 02/06/2016 506-03-122 / / [id number] Cement Bone G 1113-140-01 - [id number] Implanted:Qty: 1 on 04/09/2010 at OR [facility] [place] Right: Shoulder [employer] 07/08/2013 00-1113-14 0- / / [id number] Shell Socket Humeral Rsp Implanted:Qty: 1 on 04/09/2010 at OR [facility] [place] Right: Shoulder [employer] 01/07/2016 508-00-008 / / [id number] Stem Humeral Primary Rsp Implanted:Qty: 1 on 04/09/2010 at OR [facility] [place] Right: Shoulder [employer] 08/08/2015 506-00-008 / / [id number] Balm Mini Quick 2/0 809932 - [id number] Implanted:Qty: 1 on 09/17/2016 by Rafi Burnham MD at OR [facility] Left: Hand JNJ : DEPUY MITEK SURG PROD 05/07/2019409624 / / [id number] Balm Mini Quick 2/0 308684 - [id number] Implanted:Qty: 1 on 09/17/2016 by Rafi Burnham MD at OR [facility] Left: Hand JNJ : DEPUY [employer] SURG PROD 05/07/20195 / / [id number] documented as of this encounter Advance Directives Documents on File Type Date Recorded 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
--- OUTSIDE RECORDS SUMMARY | 2024-04-03 13:11 | External Medical Summary | Summary of Care ---
Author Name Unknown Organization [facility] Address [address] [place] [address] Phone [phone] Care Team Providers Care Financial Coach Name Role Phone Ally Gonzales DO Primary Care Provider Reason for Visit * Reason Onset Date Comments Advice 12/16/202312/15 Encounter Details Date Type Department Care Team (Late st Contact Info) Description 12/16/2023 Telephone Family Practice [facility] [address] [place] [address] Ally Gonzales DO [address] [place] [address] Advice (12/15) Allergies Active Allergy Reactions Criticality Noted Date Comments Clindamycin Hcl 09/19/2015 Fentanyl High 10/01/2016 Severe emesis Cephalexin Diarrhea 03/22/2022 Meperidine Hcl 01/24/2023 Naproxen Nausea/vomiting 06/30/2009 Oxycodone Hcl Nausea/vomiting 04/09/2010 Sulfamethoxazole-Trimethoprim Nausea/vomiting 0 01/27/2016 Tramadol 12/08/2016 Hydrocodone-Acetaminophen Nausea/vomiting 06/30 documented as of this encounter (statuses as of 12/19/2023) Medications Medication Sig Dispensed Refills Start Date End Date Status ASPIRIN 81 MG PO CHEW Take 1 Tablet by mouth in the morning. 0 Active VITAMIN C CR 1000 MG PO TBCR Take 1,000 Tabs by mouth. 0 Active MULTIVITAMINS PO TABS 1 daily 0 Active Phenazopyrid-Cranbry -C-Probiot (AZO URINARY TRACT SUPPORT) 95 & 250-30 MG TBPK Take by mouth once a week. Unsure of dosage 0 12/08/2016 Active Cholecalciferol (VITAMIN D-3) 25 MCG (1000 UT) Capsule Take 1 Capsule by mouth. 3x/week 0 Active NATURAL SUPPLEMENT Take by mouth daily. Pancreatic enzyme supplement once daily 0 Active Metamucil Oral Wafer Take 1 Wafer by mouth in the morning. 0 Active Magnesium 250 MG Oral Tablet Take 1 Tablet by mouth in the morning. 0 Active GNP Vitamin B-12 1000 MCG Oral Tablet Extended Release (Cyanocobalamin ER) Take by mouth daily. 0 Active Hair Skin & Nails Gummies 1250-7.5-7.5 MCG-MG-UNT Oral Tablet Chewable (Biotin w/ Vitamins C & E) Take by mouth. 0 Active Levoxyl 88 MCG Oral TabletIndications:Po stsurgical [...] Tablet by mouth every night at bedtime. 0 Active Hospital, Clinic, or Other Facility Administered Medication Ordered Dose Route Frequency Start Date End Date Status Denosumab (Prolia) subcut inj 60 mgIndications:Senile osteoporosis 60 mg SC [id number] 09/06/2023 08/31/2024 Active documented as of this encounter (statuses as of 12/19/2023) Active Problems Problem Noted Date Diagnosed Date Other specified peripheral vascular diseases 10/2022 Chronic [...] 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, recurrent, [id number], 2008 Dyslipidemia, goal LDL below 130 06/16/2010 [...] as of this encounter (statuses as of 12/19/2023) Resolved Problems Problem Noted Date Diagnosed Date [...] Keratin granuloma , Glabella 05/30/00 05/30/2002 05/25/2006 Special Education Tutor's papule, Lt arm 05/30/00 05/30/2002 05/25/2006 Irritated crateriform keratosis, Back 11/18/00 05/30/20 02 05/25/2006 Lichenoid inflammatory reaction, Back 10/20/01 05/30/20 02 05/01/2019 Other seborrheic keratosis 03/02/2002 1 Actinic keratosis 03/02/2002 05/01/2019 Dyslipidemia, goal to be determined 06/16/2010 documented as of this encounter (statuses as of 12/19/2023) Immunizations Name Administration Dates Next Due COVID-19 mRNA, LNP-s, No Pre serve, 2-Dose Series (Moderna) 10/05/2020,08/31/2020 COVID-19, MRNA-LNP, 23-24, P F, 30 MCG/0.3 mL, 12 YRS AND ABOVE, IM (PFIZER-Comirnaty) 05/09/2023 COVID-19, mRNA, LNP-s, PF, B ooster, 100mcg/0.5mg (Moderna) 11/27/2021,06/04/2021 Covid-19, Mrna, Lnp-s, Pf, B ivalent, 30 Mcg, IM, 12 yrs and above (Pfizer) 04/19/2022 Pneumococcal Conjugate Vacc, 13 Valent (Prevnar) 07/25/2018 [...] encounter Miscellaneous Notes * Telephone Encounter - Laisha Manning LPN - 12/19/2023 8:41 AM EDT Patient called in to office. Relayed information from Dr. Gonzales. Pt acknowledged understanding. States she would like to come in today for COVID vaccine. * Telephone Encounter - Ally Gonzales DO - 12/16/2023 4:12 PM EDT There is a new recommendation to get a repeat COVID vaccine. Would be similar vaccine to what she had in the fall. Takes up to two week to be fully effective but would provide at least some protection if she did get it JOSEPH. * Telephone Encounter - Laisah Manning LPN - 12/16/2023 3:28 PM EDT Call placed to patient. Pt states she will be flying 12/23 and is concerned about COVID. Reviewed CDC website recommendationregarding vaccines with pt. Last vaccine - Pfizer on 05/30/24. Pt asking if there is still time for vaccine to be effective. Pt would like Dr de leon as she had a friend who had a COVID vaccine and has had severe issues since. Please advise. * Telephone Encounter - Denae Mehta OSA - 12/16/2023 11:33 AM EDT Patient called and LVM. Patient would like to know if there is a new covid shot available. Patient will be traveling. Last covid shot was 05/30/2023 at [facility]. Please advise. Thank you documented in this encounter Plan of Treatment Upcoming Encounters Date Type Department Care Team (Late st Contact Info) Description 01/23/2024 4:20 PM EDT Office Visit Family Practice [facility] [address] [place] [address] Ally Gonzales DO [address] [place] [address] 08/30/2024 12:00 PM EST Office Visit [facility] [address] [place] [address] Maddy Munoz MD [address], [place] [id number] 10/17/2024 12:30 PM EDT Office Visit Hematology/Oncology [facility] [address] [place] [id number] Sonia Tesfaye MD [address] [place] [address] 12/17/2024 11:00 AM EDT Nurse Only Ancillary [facility] [address] [place] [address] College, Nurse Annual Wellness Visit [address] [place] [address] Health Maintenance Due Date Last Done Comments *BISPHONATE OR OTHER ACCEPTABLE MEDICATION NEEDED FOR OSTEOPOROSIS (REFER TO SMARTSET #1146) 09/08/2023 GFR 08/24/2024 08/24/2023, 12/06, 09/23/2022, Additional history exists TSH 08/24/2024 08/24/2023, 12/0 08/2021, 07/08/2021, Additional history exists Depression Screening 12/12/2024 12/13/2023 DXA Scan 12/20/2024 12/20/2022, 12/06, 12/16/2020, Additional history exists Albumin/Creatinine Ratio 04/05/2025 022, 03/05/2019, 07/25/2018, Additional history exists DTaP,Tdap,and Td Vaccines (3 - Td or Tdap) 10/07/2032 10/07/2022, 09/19/2012, 12/20/2002 Pneumococcal Vaccine: 65+ Years Completed 07/25/2018, 09/14/2004 Zoster Vaccines Completed 01/01/2020, 09/09, 12/05/2008 COVID-19 Vaccine Completed 05/09/2023, 07/2022, 11/27/2021, Additional history exists Influenza Vaccine (FLU shot) Completed 10/2022, 05/06/2022, 04/29/2021, Additional history exists VITAMIN D LEVEL ONCE IN A LIFETIME-USE SMARTSET# 55971 Completed 08/24/2023, 07/08/2022, 07/08/2021, Additional history exists GARDASIL-HPV IMMUNIZATION SERIES Aged Out No longer eligible based on patient's age to complete this topic Hepatitis B Aged Out No longer eligi ble based on patient's age to complete this topic MENINGOCOCCAL (MENACTRA/MENVEO) Aged Out No longer eligible based on patient's age to complete this topic documented as of this encounter Medical Devices Implanted Type Area Rotary Planer Set Up Operator Device Identifier Shelf Expiration Date Model / Serial / Lot Plate Ricardo 6.5x30 508-32-104 - [id number] [place]planted:[place] 1 on [place]2010 [place] [facility] [place]: Shoulder [employer] 10/07/2015 508-32-104 / / [id number] Socket Humeral Insert Implanted:Qty: 1 on 04/09/2010 [place] [facility] [place]: Shoulder [employer] 07/08/2014 508-01-032 / / [id number] Head Glenoid/Screw5 08-00-006 - [id number] Implanted:Qty: 1 on 04/09/2010 [place] [facility]: Shoulder [employer] 11/07/2015 508-32-101 / / [id number] Screw Lckg 5x22 [id number] - [id number] Implanted:Qty: 1 on 04/09/2010 [place] [facility]: Shoulder [employer] 10/07/2015 506-03-122 / / [id number] Scrw Lckg [employer] [id number] - [id number] Implanted:Qty: 1 on 04/09/2010 [place] [facility] [place] Shoulder [employer] 08/08/2015 506-03-114 / / [id number] Screw Lckg 5x26 506-126 - [id number] Implanted:Qty: 1 on 04/09/2010 [place] [facility] [place]: Shoulder [employer] 12/07/2015 506-03-126 / / [id number] Screw Lckg 5x22 -122 - [id number] Implanted:Qty: 1 on 04/09/2010 [place] [facility] [place]: Shoulder [employer] 02/06/2016 506-03-122 / / [id number] Cement Bone G 1113-140-01 - [id number] Implanted:Qty: 1 on 04/09/2010 [place] [facility] [place]: Shoulder [employer] 07/08/2013 00-1113-14 / / [id number] Shell Socket Humeral Rsp Implanted:Qty: 1 on 04/09/2010 [place] [facility]: Shoulder [employer] 01/07/2016 508-00-008 / / [id number] Stem Humeral Primary Rsp Implanted:Qty: 1 on 04/09/2010 [place] [facility] [place]: Shoulder [employer] 08/08/2015 506-00-008 / / [id number] [place] Mini Quick 2/0 [id number] - [id number] Implanted:Qty: 1 on 09/17/2016 by Rafi Burnham MD at [facility] Left: Hand JNJ : DEPUY MITEK SURG PROD 05/07/2019 [id number] / / [id number] [place] Mini Quick 2/0 [id number] - [id number] Implanted:Qty: 1 on 09/17/2016 by Rafi Burnham MD at [facility] Left: Hand JNJ : DEPUY MITEK SURG PROD 05/07/2019235826 / / [id number] documented as of this encounter Advance Directives Documents on File Type Date Recorded Patient Arts Manager Expl anation Power of Biostatistics Professor 10/18/2023 12:36 PM NEENA R OF [facility] SPECIALIST - [facility] DIRECTIVE Latest Code Status on File Code Status Date Activated Date Inactivated Comments Full Code 09/17/2016 10:03 AM 09/17/2016 4:52 PM This order reflects the patients wishes and were consensually agreed upon. Code Status History Code Status Date Activated Date Inactivated Comments Full Code 04/09/2010 10:27 AM 04/10/2010 4:33 PM This o rder reflects the patients wishes and were consensually agreed upon. Full Code 02/02/2010 12:31 PM 02/03/2010 10:26 PM Thi s order reflects the patients wishes and were consensually agreed upon. Full Code 01/08/2010 10:06 AM 01/08/2010 11:06 AM This order reflects the patients wishes and were consensually agreed upon. Question Answer Comments Discussion of Advance Directives occurred with: Patient Does the patient have a Living Will? No Does the patient have Health Care Power of Biostatistics Professor? No Full Code 08/13/2008 1:48 PM 08/14/2008 6:49 PM Care Teams Financial Coach Relationship Specialty Start Date End Date Ally Gonzales DO [address] [place] [address] PCP - General Family Medicine 01/20/23 documented as of this encounter
--- OUTSIDE RECORDS SUMMARY | 2024-04-03 13:11 | External Medical Summary | Summary of Care ---
Author Name Unknown Organization [facility] Address [address] [place] [address] Phone [phone] Care Team Providers Care Senior Business Manager Name Role Phone Ally Gonzales DO Primary Care Provider [phone] Reason for Referral * Evaluate & Treat - Unlimited Visits (Within 24 hrs (call dept; emergent)) - Authorized Specialty Diagnoses / Procedures Referred By Contact Referred To Contact Cardiovascular Medicine / Cardiology Diagnoses Angina pectoris (HCC) Chronic diastolic congestive heart failure (HCC) Hypertensive heart disease with chronic diastolic congestive heart failure (HCC) Ally Gonzales DO [address] [place] [address] Referral ID Status Reason Start Date Expiration Date Visits Requested Visits Authorized [id number] Authorized Specialty Services Required 01/23/[phone] Question Answer Referral Priority Within 24 hrs (call dept; emergent) Where should this appointment be scheduled? [facility] To which of the following clinics are you referring your patient? General Cardiology Clinic Reason for Visit * Reason Comments Re-Check Encounter Details Date Type Department Care Team (Late st Contact Info) Description 01/23/2024 4:20 PM EDT Office Visit Family Practice [address] [facility] [address] [place] [address] Ally Gonzales, DO [address] [place] [address] Angina pectoris (HCC)*; Chronic diastolic congestive heart failure (HCC); Hypertensive heart disease with chronic diastolic congestive heart failure (HCC) Allergies Active Allergy Reactions Criticality Noted Date Comments Clindamycin Hcl 09/19/2015 Fentanyl High 10/01/2016 Severe emesis Cephalexin Diarrhea 03/22/2022 Meperidine Hcl 01/24/2023 Naproxen Nausea/vomiting 06/30/2009 Oxycodone Hcl Nausea/vomiting 04/09/2010 Sulfamethoxazole-Trimethoprim Nausea/vomiting 0 01/27/2016 Tramadol 12/08/2016 Hydrocodone-Acetaminophen Nausea/vomiting 06/30 documented as of this encounter (statuses as of 01/23/2024) Medications Medication Sig Dispensed Refills Start Date [...] ON SUNDAYS DIRECTED 90 Tablet 3 04/06/2023 09/21/202 4 Active Carvedilol 3.125 MG Oral Tablet [...] inj 60 mgIndications:Senile osteoporosis 60 mg SC [id number] 09/06/2023 08/31/2024 Active documented as of this encounter (statuses as of 01/23/2024) Active Problems Problem Noted Date Diagnosed Date [...] 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, recurrent, [id number], 2009 Dyslipidemia, goal LDL below 130 06/16/2010 [...] as of this encounter (statuses as of 01/23/2024) Resolved Problems Problem Noted Date Diagnosed Date [...] Keratin granuloma , Glabella 05/30/00 05/30/2002 05/25/2006 Airport Operations Specialist's papule, Lt arm 05/30/00 05/30/2002 05/25/2006 Irritated crateriform keratosis, Back 11/18/00 05/30/20 02 05/25/2006 Lichenoid inflammatory reaction, Back 10/20/01 05/30/20 02 05/01/2019 Other seborrheic keratosis 03/02/2002 1 Actinic keratosis 03/02/2002 05/01/2019 Dyslipidemia, goal to be determined 06/16/2010 documented as of this encounter (statuses as of 01/23/2024) Immunizations Name Administration Dates Next Due COVID-19 [...] Sign Reading Time Taken Comments Blood Pressure 146/70 01/23/2024 4:43 PM EDT Pulse 77 01/23/2024 4:43 PM EDT Temperature 36.8 C (98.3 F) 01/23/2024 4:43 PM ED T Respiratory Rate - - Oxygen Saturation 97% 01/23/2024 4:43 PM EDT Inhaled Oxygen Concentration - - Weight 55.6 kg (122 lb 9.6 oz) 01/23/2024 4:43 P M EDT Height 165.7 cm (5' 5.25") 01/23/2024 4:43 PM ED T Body Mass Index 20.25 01/23/2024 4:43 PM EDT documented in this encounter Progress Notes * Marilyn Limon LPN - 01/23/2024 4:58 PM EDT EKG per order * [facility] Ally CaryDO - 01/23/2024 4:45 PM EDT SUBJECTIVE: Chief Complaint Patient presents with Re-Check HPI: Ally Morris is a 83 year old female who presents today for regular return. Pt states that she has tightness in her chest if she goes upstairs, walks up a hill or walks a distance. She will have this if she swims a couple of laps in the pool. She does not feel short of breath. She is getting swelling in her legs. She states that this has gone on for that same amount of time. She notes they improve if she elevates them. She notes no arm pain, jaw discomfort of nausea. She notes no palpitations. She had some dizziness about 2-3 weeks ago and relates this to getting up to quickly. 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 She is taking her medications regularly. She is going to [place] on February 07. PHM: Patient Active Problem List Diagnosis POSTSURGICAL HYPOTHYROID [...] with chronic diastolic congestive heart failure (HCC) Current Outpatient Medications Medication Sig Dispense Refill ASPIRIN 81 MG PO CHEW Take 1 Tablet by mouth in the morning. VITAMIN C CR 1000 MG PO TBCR Take 1,000 Tabs by mouth. MULTIVITAMINS PO TABS 1 daily Wthvjjrmqmld-Hgrotye-T-Probiot (AZO URINARY TRACT SUPPORT) 95 & 250-30 [...] Mansfield PA-C 60 mg at 09/06/23 1120 Past Medical History: Diagnosis Date Actinic keratosis Arthropathy associated with other bacterial diseases, shoulder region(121.41) Cardiovascular symptoms right carotid bruit/ US negative Closed ill-defined fractures of upper limb 09/12/07 Fractured arm Dyslipidemia, goal to be determined Herpes zoster HTN, goal below 140/90 11/14/2007 Hyperparathyroidism 2003 S/P removal of two parathyroid adenomas on 05/24/03 Malignant neoplasm of other specified sites of female breast 1983 Malignant neoplasm of thyroid gland (HCC) May 2003 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 Whitney Papillary thyroid carcinoma (HCC) 06/21/2014 Multicentric Papillary Thyroid Carcinoma Personal history of malignant 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/30/2012 Right, recurrent, [id number], 2009 Postsurgical hypothyroidism Retinal disorder RVO Senile osteoporosis 01/11/2017 Torn rotator cuff 2009 right Vitamin D deficiency 09/19/2009 Past Surgical History: Procedure Laterality Date CENTRAL LINE PLACEMENT-FLUORO ([facility]) 02/03/2010 CENTRAL LINE PLACEMENT-FLUORO performed by GRAY KATZ at [facility] CHEMO BY BOTH INFUSION AND O 08/08/1983 COLONOSCOPY, GI REFERRAL OP 06/08/2005 wnl DRAIN SHOULDER LESION, DEEP 02/02/2010 INCISION AND DRAINAGE SHOULDER performed by Samantha VELASCO at [facility] INFORMATION 2022 groin lump removed MASTECTOMY, SIMPLE, COMPLETE 08/13/2008 MASTECTOMY SIMPLE COMPLETE performed by KEAGAN PARHAM at [facility] MASTECTOMY,RADICAL, URBAN-TYPE 08/13/2008 MASTECTOMY RADICAL INCLUDING PECTORAL MUSCLES AXILLARY AND INTERNAL MAMMARY LYMPH NODES URBAN TYPE OPERATION performed by KEAGAN PARHAM at [facility] MISCELLANEOUS ORDER ([facility] ONLY) 08/08/1971 Varicose Veins MISCELLANEOUS ORDER ([facility] ONLY) 08/08/1983 Lumpectomy, mastectomy , ALND right breast OTHER 08/08/1955 L5 discetomy PAP SCREEN 08/30/2003 WNL RECONSTRUCT/REPLACE SHOULDER JOINT 04/09/2010 REVERSE TOTAL SHOULDER ARTHROPLASTY performed by Samantha VELASCO at [facility] REMOVAL OF BREAST, MODIFIED RADICAL 04/08/1984 REMOVAL [...] TOTAL HYSTERECTOMY 08/08/1980 Partial, still has ovaries Review of patient's allergies indicates: Allergen Reactions Fentanyl Severe emesis Clindamycin Hcl Keflex [Cephalexin] Diarrhea Meperidine Hcl Naproxen Nausea/vomiting Oxycodone Hcl Nausea/vomiting Sulfamethoxazole-Trimethoprim Nausea/vomiting Tramadol Vicodin [Hydrocodone-Acetaminophen] Nausea/vomiting Family History Problem Relation Name Age of [...] history of skin diseases or skin cancer. Family Status Relation Status Mo at age 81 breast cancer Fa at age 78 CHF, emphysema Bro Alive Bro (Not Specified) PGMA (Not Specified) Josi Alive Josi (Not Specified) Son Alive Other (Not Specified) Social History Tobacco Use Smoking status: Never Passive exposure: Past Smokeless tobacco: Never Tobacco comments: no passive smoke Substance Use Topics Alcohol use: Yes Comment: Ounce of yessi in middle of night if can't sleep Vaping/E-Cigarette Use Vaping/E-Cigarette Use Never User Passive Exposure No Counseling Given? No Vaping/E-Cigarette Substances Nicotine No Other No Flavoring No THC No Cannabidiol (CBD) No Vaping/E-Cigarette Devices Disposable No Pre-filled or Refillable Cartridge No Refillable Tank No Pre-filled Pod No REVIEW OF SYSTEMS: Review of Systems Constitutional: Negative for chills, fatigue, fever and unexpected weight change. Respiratory: Positive for chest tightness. Negative for cough, shortness of breath and wheezing. Cardiovascular: Positive for leg swelling. Negative for chest pain and palpitations. Gastrointestinal: Negative for abdominal pain, constipation, diarrhea, nausea and vomiting. Musculoskeletal: Negative for arthralgias, gait problem and joint swelling. Skin: Negative for color change, pallor and rash. Neurological: Positive for dizziness. OBJECTIVE: BP 146/70 | Pulse 77 | Temp 36.8 C (98.3 F) | Ht 1.657 m (5' 5.25") | Wt 55.6 kg (122 lb 9.6 oz) | SpO2 97% | BMI 20.25 kg/m | BSA 1.6 m PHYSICAL EXAM: Physical Exam Constitutional: General: She is not in acute distress. Appearance: She is well-developed. Cardiovascular: Rate and Rhythm: Normal rate and regular rhythm. Heart sounds: Murmur (slight a LUSB) heard. No friction rub. No gallop. Pulmonary: Effort: Pulmonary effort is normal. No respiratory distress. Breath sounds: Normal breath sounds. No wheezing or rales. Abdominal: General: Bowel sounds are normal. There is no distension. Palpations: Abdomen is soft. Tenderness: There is no abdominal tenderness. There is no guarding. Musculoskeletal: General: No tenderness or deformity. Normal range of motion. Skin: General: Skin is warm and dry. Coloration: Skin is not pale. Findings: No erythema or rash. Neurological: Mental Status: She is alert and oriented to person, place, and time. ASSESSMENT/PLAN: (I20.9) Angina pectoris (HCC) (primary encounter diagnosis) (I50.32) Chronic diastolic congestive heart failure (HCC) (I11.0, I50.32) Hypertensive heart disease with chronic diastolic congestive heart failure (HCC) Plan: EKG, CARDIOLOGY REFERRAL OP, EKG Pt with angina with activity. She notes resolution when she stops to rest. Increased swelling in legs over last several weeks. Initially noticed this about 2-3 weeks ago. EKG with no acute issue today. She refuses nuclear stress test. She is also traveling to [place] on 02/07. Will set up for acute visit with cardiology to expedite testing. Follow-up: 3-4 months, following testing Total time today including reviewing chart before the visit, pertinent labs, imaging reports, face to face time, and documentation time was 43 minutes. Ally Gonzales DO documented in this encounter Plan of Treatment Upcoming Encounters Date Type Department Care Team (Late st Contact Info) Description 01/25/2024 1:30 PM EDT Office Visit Cardiology, [facility] [address] [facility] [place] [address] Charito Mccain PA-C [address] [facility] [place] [address] 04/24/2024 9:20 AM EDT Office Visit Family Practice 65 [facility] [address] [place] [address] Ally Gonzales DO [address] [place] [address] 08/30/2024 12:00 PM EST Office Visit Endocrinology [address] [place] [phone] Maddy Munoz MD [address] [place] [address] 10/17/2024 12:30 PM EDT Office Visit [facility] [place] [address] [place] [id number] Sonia Tesfaye MD [address] [place] [address] 12/17/2024 11:00 AM EDT Nurse Only Ancillary 65 [facility] [address] [place] [address] College, Nurse Annual Wellness Visit [address] [address] Scheduled Orders Name Type Priority Associated Diagnoses Orde r Schedule EKG EKG Routine Angina pectoris (HCC) Chronic diastolic congestive heart failure (HCC) Hypertensive heart disease with chronic diastolic congestive heart failure (HCC) Expected: 01/23/2024 (Approximate), Expires: 02/21/2025 Scheduled Referrals Name Type Priority Associated Diagnoses Orde r Schedule CARDIOLOGY REFERRAL OP Referral Within 24 hrs (call dept; emergent) Angina pectoris (HCC) Chronic diastolic congestive heart failure (HCC) Hypertensive heart disease with chronic diastolic congestive heart failure (HCC) Ordered: 01/23/2024 Health Maintenance Due Date Last Done Comments GFR 08/24/2024 08/24/2023, 12/06, 09/23/2022, Additional history exists TSH 08/24/2024 08/24/2023, 08/2021, 07/08/2021, Additional history exists Depression Screening [...] D LEVEL ONCE IN A LIFETIME-USE SMARTSET# 25501 Completed 08/24/2023, 07/08/2022, 07/08/2021, Additional history exists [...] this encounter Medical Devices Implanted Type Area Industrial Hygiene Manager Device Identifier Shelf Expiration Date Model / Serial / Lot Plate Ricardo 6.5x30 508-32-104 - [id number] Implanted:Qty: 1 on 04/09/2010 at [place] [facility] Right: Shoulder [employer] 10/07/2015 508-32-104 / / [id number] Socket Humeral Insert Implanted:Qty: 1 on 04/09/2010 at [place] [facility] Right: Shoulder [employer] 07/08/2014 508-01-032 / / [id number] Head Glenoid/Screw5 - [id number] Implanted:Qty: 1 on 04/09/2010 at [place] [facility] Right: Shoulder [employer] 11/07/2015 508-32-101 / / [id number] Screw Lckg 5x22 506-122 - [id number] Implanted:Qty: 1 on 04/09/2010 at [place] [facility] Right: Shoulder [employer] 10/07/2015 506-03-122 / / [id number] Scrw Lckg [employer] 506-03-114 - [id number] Implanted:Qty: 1 on 04/09/2010 at [place] [facility] Right: Shoulder [employer] 08/08/2015 506-03-114 / / [id number] Screw Lckg 5x26 506-03-126 - [id number] Implanted:Qty: 1 on 04/09/2010 at [place] [facility] Right: Shoulder [employer] 12/07/2015 506-03-126 / / [id number] Screw Lckg 5x22 [id number] - [id number] Implanted:Qty: 1 on 04/09/2010 at [place] [facility] Right: Shoulder [employer] 02/06/2016 506-03-122 / / [id number] Cement Bone G 1113-140-01 - [id number] Implanted:Qty: 1 on 04/09/2010 at [place] [facility] Right: Shoulder [employer] 07/08/2013 00-1113-14 0- / / [id number] Shell Socket Humeral Rsp Implanted:Qty: 1 on 04/09/2010 at [place] [facility] Right: Shoulder [employer] 01/07/2016 508-00-008 / / [id number] Stem Humeral Primary Rsp Implanted:Qty: 1 on 04/09/2010 at [place] [facility] Right: Shoulder [employer] 08/08/2015 506-00-008 / / [id number] [place] Mini Quick 2/0 [id number] - [id number] Implanted:Qty: 1 on 09/17/2016 by Rafi Burnham MD at OR [facility] Left: Hand JNJ : DEPUY MITEK SURG PROD 05/07/201921191011 / / [id number] [place] Mini Quick 2/0 111683 - [id number] Implanted:Qty: 1 on 09/17/2016 by Rafi Burnham MD at OR [facility] Left: Hand JNJ : DEPUY MITEK SURG PROD 05/07/201921191011 / / [id number] documented as of this encounter Visit Diagnoses Diagnosis Angina pectoris (HCC)- Primary Other and unspecified angina pectoris Chronic diastolic congestive heart failure (HCC) Chronic diastolic heart failure Hypertensive heart disease with chronic diastolic congestive heart failure (HCC) documented in this encounter Advance Directives Documents on File Type Date Recorded Patient Dental Prosthetist Expl anation Power of Tire Stripper 10/18/2023 12:36 PM NEENA R OF [facility] - [employer] DIRECTIVE * Full Code [...] PM 08/14/2008 6:49 PM Care Teams Senior Business Manager Relationship Specialty Start Date End Date Ally Gonzales DO [address] [place] [address] PCP - General Family Medicine 01/19/24 documented as of this encounter
--- OUTSIDE RECORDS SUMMARY | 2024-04-03 13:11 | External Medical Summary | Summary of Care ---
Author Name Unknown Organization [facility] Address [address] [place] [address] Phone [phone] Care Team Providers Care Supportive Employment Case Manager Name Role Phone Ally Gonzales DO Primary Care Provider Reason for Visit * Reason Onset Date Comments Adult Annual Wellness Visit, Subsequent Visit Adult Annual Wellness Visit, Subsequent Visit Encounter Details Date Type Department Care Team (Late st Contact Info) Description 12/13/2023 10:00 AM EDT Nurse Only Ancillary [address] [address] College, Nurse Annual Wellness Visit [address] [address] Adult Annual Wellness Visit, Subsequent Vi... Allergies Active Allergy Reactions Criticality Noted Date Comments Clindamycin Hcl 09/19/2015 Fentanyl High 10/01/2016 Severe emesis Cephalexin Diarrhea 03/22/2022 Meperidine Hcl 01/24/2023 Naproxen Nausea/vomiting 06/30/2009 Oxycodone Hcl Nausea/vomiting 04/09/2010 Sulfamethoxazole-Trimethoprim Nausea/vomiting 0 01/27/2016 Tramadol 12/08/2016 Hydrocodone-Acetaminophen Nausea/vomiting 06/30 documented as of this encounter (statuses as of 12/13/2023) Medications Medication Sig Dispensed Refills Start Date End Date Status ASPIRIN 81 MG PO CHEW Take 1 Tablet by mouth in the morning. 0 Active VITAMIN C CR 1000 MG PO TBCR Take 1,000 Tabs by mouth. 0 Active MULTIVITAMINS PO TABS 1 daily 0 Active Phenazopyrid-Cranbr y-C-Probiot (AZO URINARY TRACT SUPPORT) [...] mouth. 0 Active Levoxyl 88 MCG Oral TabletIndications:P ostsurgical [...] 3 11/10/2023 Active hydroCHLOROthiazide 12.5 MG Oral CapsuleIndications: HTN, goal below 140/90 TAKE ONE CAPSULE BY MOUTH EVERY MORNING 90 Capsule 1 11/10/2023 5 Active amLODIPine Besylate 5 MG Oral Tablet (Norvasc)Indication s:HTN, goal below 140/90 Take 1 Tablet by mouth in the morning. 100 Tablet 1 12/08/2023 Active Melatonin 10 MG Oral Tablet Disintegrating Take 1 Tablet by mouth every night at bedtime. 0 Active AZO Bladder Control/Go-Less Oral Capsule Take 1 Tablet by mouth once a week. Takes on Wednesdays 0 4 Discontinu ed(Medicat ion List Clean Up) Hospital, Clinic, or Other Facility Administered Medication Ordered Dose Route Frequency Start Date End Date Status Denosumab (Prolia) subcut inj 60 mgIndications:Senile osteoporosis 60 mg SC [id number] 09/06/2023 08/31/2024 Active documented as of this encounter (statuses as of 12/13/2023) Active Problems Problem Noted Date Diagnosed Date [...] 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, recurrent, [id number], 2008 Dyslipidemia, goal LDL below 130 06/16/2010 [...] as of this encounter (statuses as of 12/13/2023) Resolved Problems Problem Noted Date Diagnosed Date [...] Keratin granuloma , Glabella 05/30/00 05/30/2002 05/25/2006 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 Sales's papule, Lt arm 05/30/00 05/30/2002 05/25/2006 Irritated crateriform keratosis, Back 11/18/00 05/30/20 02 05/25/2006 Lichenoid inflammatory reaction, Back 10/20/01 05/30/20 02 05/01/2019 Other seborrheic keratosis 03/02/2002 1 Actinic keratosis 03/02/2002 05/01/2019 Dyslipidemia, goal to be determined 06/16/2010 documented as of this encounter (statuses as of 12/13/2023) Immunizations Name Administration Dates Next Due COVID-19 [...] Sign Reading Time Taken Comments Blood Pressure 126/60 12/13/2023 10:31 AM EDT Pulse 70 12/13/2023 10:31 AM EDT Temperature 35.9 C (96.6 F) 12/13/2023 10:31 AM E DT Respiratory Rate - - Oxygen Saturation 99% 12/13/2023 10:31 AM EDT Inhaled Oxygen Concentration - - Weight 56.3 kg (124 lb 3.2 oz) 12/13/2023 10:31 AM EDT Height 160.7 cm (5' 3.25") 12/13/2023 10:31 AM E DT Body Mass Index 21.83 12/13/2023 10:31 AM EDT documented in this encounter Patient Instructions * Patient Instructions* Marilyn Guillen RN - 12/13/2023 10:57 AM EDT Hi Ms. Morris, As your primary care physician, I know that regular visits with my patients who have several chronic conditions can go a long way in helping you stay healthy. Many times, the clinic team and I are in touch with you and/or other care team members between office visits to adjust medications, discuss any changes in your health, and review our care plan to make sure it is still meeting your needs. I am dedicated to helping you take a more active role in your overall care. It is important that there are resources available to you, so I created a personalized plan of care with a Health Calendar for you, which is included on the next page of this letter. Below is a list that summarizes your electronic health record: Health Maintenance Due: Health Maintenance Due Topic Date Due *BISPHONATE OR OTHER ACCEPTABLE MEDICATION NEEDED FOR OSTEOPOROSIS (REFER TO SMARTSET #1146) Never done Current Medication List: (as of Visit date not found (in office), Visit date not found (telemedicine) ) Current Outpatient Medications Medication Sig Dispense Refill ASPIRIN 81 MG PO CHEW Take 1 Tablet by mouth in the morning. VITAMIN C CR 1000 MG PO TBCR Take 1,000 Tabs by mouth. MULTIVITAMINS PO TABS 1 daily Ikyamzezzqox-Rwivdje-X-Probiot (AZO URINARY TRACT SUPPORT) 95 & 250-30 [...] TAKE ON SUNDAYS DIRECTED 90 Tablet 3 Carvedilol 3.125 MG Oral Tablet (Coreg) TAKE ONE TABLET BY MOUTH TWICE A DAY IN THE MORNING ANDBEFORE BEDTIME WITH FOOD 200 Tablet 2 Atorvastatin [...] Mansfield PA-C 60 mg at 09/06/23 1120 Current List of Allergies: (as of Visit date not found (in office), Visit date not found (telemedicine) ) Review of patient's allergies indicates: Allergen Reactions Fentanyl Severe emesis Clindamycin Hcl Keflex [Cephalexin] Diarrhea Meperidine Hcl Naproxen Nausea/vomiting Oxycodone Hcl Nausea/vomiting Sulfamethoxazole-Trimethoprim Nausea/vomiting Tramadol Vicodin [Hydrocodone-Acetaminophen] Nausea/vomiting Most Recent Lab Results: Results for orders placed or performed in visit on 11/21/23 SURGICAL PATHOLOGY Result Value Ref Range Final Diagnosis A. Skin, right lower paraspinal back, shave: Dysplastic [...] was peer reviewed by others in the [facility] dermatopathology group. B. Skin, left clavicle, [...] peer reviewed by another dermatopathologist in the [facility] dermatopathology group. Clinical History See Order Comments Order Comments A. Right lower paraspinal back - 7mm brown/black irregular papule - favor congenital nevus with adjacent SK, r/o atypical melanocytic proliferation B. Left clavicle - 5mm eroded and scaly pink papule - ak, r/o nmsc Gross Description A. Skin. Received in formalin with a container labeled with "Ally Morris", "[id number]", "1940" and " right lower paraspinal back". Received is a 0.8 x 0.7 cm skin shave. The skin surface is mason to brown, firm, slightly raised throughout. The underlying tissue is inked. The specimen is trisected and submitted in cassette A1. Also received in the same container is a white to mason, smooth fragment of tissue measuring 0.3 x 0.2 cm. Possible underlying tissue is inked. The fragment is submitted intact in cassette A2.Note: Due to the scant size of the specimen, tissue may not survive processing. Gross By: AYDE B. Skin. Received in formalin with a container labeled with "Ally Morris", "[id number]", "1940" and " leftclavicle". Received is a 0.8 x 0.6 cm skin shave. The skin surface is mason to whelan, firm, slightly raised throughout. The underlying tissue is inked. The specimen is bisected and submitted in cassetteB1. Gross By: AYDE Photographic images and diagrams represent stafford findings in this case; they are not intended to replace a complete review of the final diagnostic report. The following statement applies to Flow Cytometry, Histology, In situ Hybridization Assays and Molecular Genetics. This test was developed and performed at [facility] and its performance characteristics determined by [facility]. It has not been cleared or approved by the U.S. Food and Drug Administration. The FDA has determined that such clearance or approval is not necessary. This test is used for clinical purposes. It should not be regarded as investigationalor for research. Special stains, including histochemical stains, and studies using immunologic and RAJANI methodology (where applicable) are performed with appropriate positive and negative control reactions. *Note: Due to a large number of results and/or encounters for the requested time period, some results have not been displayed. A complete set of results can be found in Results Review. Sincerely, Allyeva Gonzales, DO 12/13/2023 [facility] Calendar (as of Visit date not found (in office), Visit date not found (telemedicine) ) Care needs Care needs Last completed Due next Discuss medication for ostoporosis --- Never done Kidney Function Test 08/24/2023 08/24/2024 Yearly thyroid level check 08/24/2023 08/24/2024 Bone Density 12/20/2022 12/20/2024 Urine albumin/creatinine test 04/05/2022 04/05/2025 Diphtheria, tetanus & pertussis vaccines (3 - Td or Tdap) 10/07/2022 10/07/2032 As you look over the recommended services, be sure to check with your insurance company to determine what's covered. [employer] is a great tool that helps you review your medical record online, including test results, doctor notes and your health summary. You can also schedule appointments with me and other members of your care team, request prescription refills and ask for advice related to your medical conditions at [email or web address]. documented in this encounter Progress Notes * Marilyn Guillen RN - 12/13/2023 10:33 AM EDT AD8 Dementia Screening Interview Person answering questions: patient Remember, "Yes, a change" indicates that there has been a change in the last several years caused by cognitive (thinking and memory) problems 1. Problems with judgement (eg: problems making decisions, bad financial decisions, problems with thinking). No (0) 2. Less interest in hobbies/activities. No (0) 3. Repeats the same things over and over (questions, stories, or statements). No (0) 4. Trouble learning how to use a tool, appliance, or gadget (eg: VCR, computer, microwave, remote control). No (0) 5. Forgets correct month or year. No (0) 6. Trouble handling complicated financial affairs (eg: balancing checkbook, income taxes, paying bills). No (0) 7. Trouble remembering appointments. No (0) 8. Daily problems with thinking and/or memory. No (0) TOTAL AD8: 0 - AD8 Dementia Screening Score The final score is a sum of the number items marked "Yes, A Change". 0 - 1: Normal cognition; 2 or greater: Cognitive impairments is likely to be present - further testing required Adult Annual Wellness Visit: Ally Morris is a 83 year old female who presents for an Adult Annual Wellness Visit. Depression Screening: Did the patient complete the screening questionnaire for Depression? Yes Is the patient's total score for Depression 15 or greater? No, no further intervention needed, unless requested by patient. Did the patient answer positively to the suicide question? No, no further intervention needed, unless requested by patient. In general, compared to other people your age, what would you say that your health is? Very Good Ht Readings from Last 1 Encounters: 12/13/23 1.607 m (5' 3.25") Wt Readings from Last 1 Encounters: 12/13/23 56.3 kg (124 lb 3.2 oz) Body Mass Index: BMI Less than 30 Body mass index is 21.83 kg/m. BP Readings from Last 1 Encounters: 12/13/23 126/60 Medical/Surgical/Family History Reviewed: Yes Past Medical History: Diagnosis Date Actinic keratosis Arthropathy associated with other bacterial diseases, shoulder region(711.41) Cardiovascular symptoms right carotid bruit/ US negative Closed ill-defined fractures of upper limb 09/12/07 Fractured arm Dyslipidemia, goal to be determined Herpes zoster HTN, goal below 140/90 11/14/2007 Hyperparathyroidism 2003 S/P removal of two parathyroid adenomas on 05/24/03 Malignant neoplasm of other specified sites of female breast 1984 Malignant neoplasm of thyroid gland (HCC) May 2003 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 Whitney Papillary thyroid carcinoma ([facility]) 06/21/2014 Multicentric Papillary Thyroid Carcinoma Personal history of malignant 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/30/2012 Right, recurrent, [id number], 2008 Postsurgical hypothyroidism Retinal disorder RVO Senile osteoporosis 01/11/2017 Torn rotator cuff 2008 right Vitamin D deficiency 09/19/2009 Past Surgical History: Procedure Laterality Date CENTRAL LINE PLACEMENT-FLUORO ([facility]) 02/03/2010 CENTRAL LINE PLACEMENT-FLUORO performed by GRAY KATZ at RADIOLOGY [facility] CHEMO BY BOTH INFUSION AND O 08/08/1983 COLONOSCOPY, GI REFERRAL OP 06/08/2005 wnl DRAIN SHOULDER LESION, DEEP 02/02/2010 INCISION AND DRAINAGE SHOULDER performed by Samantha VELASCO at OR [facility] INFORMATION 2022 groin lump removed MASTECTOMY, SIMPLE, COMPLETE 08/13/2008 MASTECTOMY SIMPLE COMPLETE performed by KEAGAN PARHAM at [facility] MASTECTOMY,RADICAL, URBAN-TYPE 08/13/2008 MASTECTOMY RADICAL INCLUDING PECTORAL MUSCLES AXILLARY AND INTERNAL MAMMARY LYMPH NODES URBAN TYPE OPERATION performed by KEAGAN PARHAM at [facility] MISCELLANEOUS ORDER ([facility] ONLY) 08/08/1971 Varicose Veins MISCELLANEOUS ORDER ([facility] ONLY) 08/08/1983 Lumpectomy, mastectomy , ALND right breast OTHER 08/08/1955 L5 discetomy PAP SCREEN 08/30/2003 WNL RECONSTRUCT/REPLACE SHOULDER JOINT 04/09/2010 REVERSE TOTAL SHOULDER ARTHROPLASTY performed by Samantha VELASCO at OR [facility] REMOVAL OF BREAST, MODIFIED RADICAL 04/08/1984 REMOVAL [...] SIMPLE 08/08/1983 SHOULDER ARTHROSCOPY/DECOMPRESSION 07/01/2009 Dr. Wagner [facility] RIGHT SHOULDER SURGERY PROCEDURE NEC 07/10/2004 Left Shoulder Surgery, Open SIGMOIDOSCOPY/BIOPSY 09/26/2001 hyperplastic polyp TOTAL HYSTERECTOMY 08/08/1980 Partial, still has ovaries Family History Problem Relation Age of Onset Cancer Mother breast No Past Hx Mother at 81 years, metastatic breast cancer Heart Disorder Father Lung Disorder Father copd Hypertension Father No Past Hx Father at 76 of congestive heart failure Stroke Brother No Past Hx Brother Cancer Grandmother (Paternal) stomach cancer Other (Other) Daughter (-) BRCA genetic testing in 09/2006 Other (Other) Other Denies any family history of skin diseases or skin cancer. Has patient ever had cancer? History of cancer, type: breast, melanoma is situ, papillary adenocarcinoma and location: right, chest, thyroid Social History Tobacco Use Smoking status: Never [...] No Refillable Tank No Pre-filled Pod No Tobacco/Alcohol screening completed today? Yes Hospital Care: Admissions (within the last year): Not Applicable ER within 30 days: No Does the patient have an Advance Directives/Living Will? Yes Last Physical Exam: Last physical exam: 09/12/2023 Does patient see primary provider regularly? Yes Does patient see other providers? Yes, Specialist Patient Care Team updated? Yes Review of patient's allergies indicates: Allergen Reactions Fentanyl Severe emesis Clindamycin Hcl Keflex [Cephalexin] Diarrhea Meperidine Hcl Naproxen Nausea/vomiting Oxycodone Hcl Nausea/vomiting Sulfamethoxazole-Trimethoprim Nausea/vomiting Tramadol Vicodin [Hydrocodone-Acetaminophen] Nausea/vomiting Immunization History Administered Date(s) Administered COVID-19 mRNA, LNP-s, No Preserve, 2-Dose Series (Moderna) 08/31/2020, 10/05/2020 COVID-19, MRNA-LNP, 23-24, PF, 30 MCG/0.3 mL, 12 YRS AND ABOVE, IM (PFIZER- Comirnaty) 05/09/2023 COVID-19, mRNA, LNP-s, PF, Booster, 100mcg/0.5mg (Moderna) 06/04/2021, 11/27/2021 Covid-19, Mrna, Lnp-s, Pf, Bivalent, 30 Mcg, IM, 12 yrs and above (Pfizer) 04/19/2022 PPD 05/08/2004, 08/11/2005 Pneumococcal Conjugate Vacc, 13 Valent (Prevnar) 07/25/2018 Pneumococcal Polysaccharide PPV23 (Pneumovax) 09/14/2004 RSV Vac., Bivalent, Perfusion F, Pf,0.5 Ml (Abrysvo) 06/06/2023 Season Influenza, Quad, PF, Adjuvanted, 65+ Yrs, IM (FLUAD) 04/24/2020 Seasonal Influenza, PF, 6 M & above, IM , (FluLaval or Fluzone) 05/23/2018 Seasonal Influenza, Quadrivalent Hd (Fluzone Hd) 04/29/2021, 05/06/2022, 05/10/2023 Seasonal Influenza, Trivalent, Adjuvanted, 65+ yrs 05/01/2019 TD - Tetanus/Diptheria (ADULT) 12/20/2002 TDAP (age 10 and older)(Boostrix) 09/19/2012, 10/07/2022 Varicella Zoster Vaccine (Adult) 12/05/2008 Zoster Vaccine Recombinant (Shingrix) 10/03/2019, 01/01/2020 Current Outpatient Medications Medication Sig Dispense Refill ASPIRIN 81 MG PO CHEW Take 1 Tablet by mouth in the morning. VITAMIN C CR 1000 MG PO TBCR Take 1,000 Tabs by mouth. 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 Yes Patient takes medications as prescribed? Yes Patient manages own medications: Yes Patient uses a pill box? Yes, refill(s) completed by self Dental Exam: Yes: Every Year Eye Screening: Yes: Every year Are you having trouble with hearing? No Do you use an assistive device to help your hearing? No Exercise Screening: exercises 3-4 times per week Nutrition Assessment: Eats a balanced diet and Eats three meals a day Pain Screening: Are you having any pain? Yes. Pain Scale: 5 out of 10; Location: left elbow, When: on and off, Duration: since June, Aggravating Factors: picking up stuff, Relieved by: brace, voltaren, magnesium oil Sleep Screening Tool 'STOP': Do you snore? No Do you feel fatigued during the day? No Do you wake up feeling like you haven't slept? No Have you been told you stop breathing at night? No Do you gasp for air or choke while sleeping? No Have you been told you have Sleep Apnea? No Do you have high blood pressure or are on medication(s) to control high blood pressure? Yes SCORE: If you check YES to two or more questions, make a referral for Obstructive Sleep Apnea Patient and Caregiver Support System: Patient lives with a spouse Means of Transportation: Drives. Not a concern. Patient lives in Two Story - How many stairs: 17 steps to 2nd floor and 12 steps to basement and attic-has hand rails Community Resources: Not Applicable Functional Status and ADL Skills: Has patient ever had an amputation? No Functional Assessment: 79- Normal activity with effort: some symptoms of disease Ambulation: Patient ambulates without assistive device. Independent Dressing: Gets clothes and dresses without any assistance: Independent Able to move freely in chair or bed including turning over: Independent Repositioning (bed or chair): Not applicable Transfers: Independent Toileting: Goes to bathroom, uses toilet, arranges clothes and returns without any assistance: Independent Toileting: continent of bladder and continent of bowel-occasional urinary leakage Feeding: Self Bathing: Self; shower inside tub, has grab bars, textured floor in tub and non skid strips, steps out onto a rug Requires none assistance with ADLs. Instrumental ADL's: Shopping: Independent Housekeeping: Minimal Assistance Handling Finances: Independent DME Vendor Name: Not Applicable Fall Risk Assessment: Can the patient demonstrate that she can stand from a sitting position? Yes Has the patient had a fall within the last 6 months? No Does the patient have a problem with her gait or balance? No Does the patient take 4 or more prescription medicines? Yes Does the patient use sedatives or narcotics? No Fall Risk Factors Present: Uses more than 4 medications Older than age 70 Pur-Gk-bqx-Go Test: Time began at 10:00. Patient stood from sitting position and walked approximately 10 feet, returnedand sat down. Total time for fxc-re-jpr-go test was 9.76 seconds. Hxg-Zv-yxv-Go Test completed? Yes Gender Specific Preventative Plan: Health Maintenance Topic Date Due *BISPHONATE OR OTHER ACCEPTABLE MEDICATION NEEDED FOR OSTEOPOROSIS (REFER TO SMARTSET #1146) Never done GFR 08/24/2024 TSH 08/24/2024 Depression Screening 12/12/2024 DXA Scan 12/20/2024 Albumin/Creatinine Ratio 04/05/2025 DTaP,Tdap,and Td Vaccines (3 - Td or Tdap) 10/07/2032 VITAMIN D LEVEL ONCE IN A LIFETIME-USE SMARTSET# [id number] Completed Influenza Vaccine (FLU shot) Completed Zoster Vaccines Completed Pneumococcal Vaccine: 65+ Years Completed COVID-19 Vaccine Completed Hepatitis B Aged Out MENINGOCOCCAL (MENACTRA/MENVEO) Aged Out GARDASIL-HPV IMMUNIZATION SERIES Aged Out Follow Up/ Referrals/Handouts: No further action needed Routine general medical examination at a health care facility (Primary) Carotid stenosis, non-symptomatic, bilateral Chronic diastolic congestive heart failure (HCC) Other specified peripheral vascular diseases (HCC) Continue to monitor and with current medication Dyslipidemia, goal LDL below 130 Lab Results Component Value Date/Time LDL (CALCULATED) 152. (H) 07/23/1996 10:20 AM LDL CHOLESTEROL (CALCULATED) - [facility] 84 08/24/2023 07:38 AM LDL CHOLESTEROL (CALCULATED) - [facility] 80 03/05/2019 07:20 AM LDL CHOLESTEROL (DIRECT MEASURE) - [facility] 79 03/11/2020 07:33 AM Continue to monitor diet/exercise and with current medication History of malignant neoplasm of skin History of melanoma in situ Continue to monitor and with current medication History of papillary adenocarcinoma of thyroid POSTSURGICAL HYPOTHYROID TSH Results: Lab Results Component Value Date/Time TSH - [facility] 3.74 08/24/2023 07:38 AM TSH - [facility] 2.33 07/08/2022 12:59 PM TSH - [facility] 3.89 07/08/2021 10:42 AM TSH - [facility] 1.08 07/10/2020 12:36 PM TSH - [facility] 1.09 03/11/2020 07:33 AM TSH - [facility] 2.25 07/24/2019 03:14 PM Continue to monitor and with current medication. Continue to follow with endocrinology and hem/oncology HTN, goal below 140/90 BP Readings from Last 3 Encounters: 12/13/23 126/60 10/18/23 122/60 09/12/23 120/64 Continue to monitor and with current medication Hyperparathyroidism (HCC) Continue to monitor Personal history of malignant neoplasm of breast Pt has bilateral mastectomies. Continue to monitor Primary localized osteoarthrosis of shoulder region Continue to monitor and with current medication. Continue to follow with orthopedics Senile osteoporosis Continue to monitor and with prolia injections. Continue to follow with rheumatology Vitamin D deficiency Continue to monitor and with current medication Discussed putting up a hand rail on her basement steps. Pt having some on going SOB with exertion. Offered scheduling an appt with Dr Gonzales-pt declines need for at this time. She will continue to monitor and will call for appt if not improving or worsening. Pt's pulse ox today was 99%. Follow Up: Return in 1 year (on 12/12/2024) for 12 month Subsequent Adult Wellness Visit. | For: 12 month Subsequent Adult Wellness Visit | Check-out note: 12 month Subsequent Adult Wellness Visit Would patient like to schedule next AWV visit? Yes Marilyn Guillen RN documented in this encounter Miscellaneous Notes * Pt Handout (on AVS) - Marilyn Guillen RN - 12/13/2023 10:37 AM EDT Images from the original note were not included. 12410 Preventing Falls: Making Changes in Your Living Space Is your living space filled with hazards that could cause you to fall? Changes can make you safer. They could even save your life. Take a careful look around your home. Change what you can on your own. Hire someone or ask friends or family to help with harder tasks. Be sure to add a nonslip mat to the inside of your shower or bathtub. Always keep a nightlight on. Keep a clear path from your bed to the bathroom. Move items from higher shelves to lower ones. Remove hazards Remove things that can trip you, like throw rugs, boxes, piles of paper, or cords. Nail down rugs or carpeting if you don't want to remove them. Use slip- resistant backing. Don't store items on stairs. Keep walkways clear. Clean up spills right away. Replace glass tables with wooden ones. They're safer if you fall. Add safety devices Add handrails to both sides of stairs. Buy a raised toilet seat. Add grab bars near the toilet and in the shower. Get grabbers to help you reach things and avoid climbing. Improve lighting Add nightlights to halls, bedrooms, and bathrooms. Put light switches at the top and bottom of stairs. Be sure each room and flight of stairs has proper lighting. Use shades or curtains to cut glare from windows. Put flashlights in each room. Replace burned-out bulbs. Get glowing light switches for room entrances. Take other precautions Use nonskid floor wax. Buy a nonslip mat and a liquid soap dispenser for the shower. Put most-used items within easy reach. Add bright paint or tape on the top front edge of steps. Save big jobs, such as moving furniture or other heavy objects, for family or friends. Get professional help installing grab bars. They can be unsafe if not installed the right way. Fix riskier rooms first Don't tackle everything at once. Focus on one room at a time. The bathroom is a common spot for falls, so you may want to start there. Or start with a room you spend lots of time in, such as your bedroom. Make only a few changes at once. This will give you time to adjust to them. Outside safety You might arrange for these changes yourself, or you might need to talk to your building components designer or[employer] association about them. Have loose boards on porches or damaged stairs repaired. Have rough edges, holes, or large cracks in sidewalks or driveways repaired. Remove hazards that could trip you, such as hoses or nydai. Use high-wattage light bulbs (100 vega or greater) near outside doors and stairs. Add handrails to outside stairs. Have them extend beyond the bottom step. Get help in winter weather with ice or snow removal. Last Reviewed Date: 07/08/202219993418-5827 [employer]. All rights reserved. This information is not intended as a substitute for professional medical care. Always follow your healthcare professional's instructions. * Pt Handout (on AVS) - Marilyn Guillen RN - 12/13/2023 10:37 AM EDT [id number] Fall Prevention Falls often take place due to slipping, tripping, or losing your balance. Millions of people fall every year and injure themselves. Among older adults in the [place] falls are the most common cause of traumatic brain injuries. Every 20 minutes, an older adult dies from a fall. Here are ways to reduceyour risk of falling again: Think about your fall. Was there anything that caused your fall that can be fixed, removed, or replaced? Make your home safe by keeping walkways clear of objects you may trip over, such as electrical cords. Use nonslip pads under rugs. Don't use area rugs or small throw rugs. Use nonslip mats in bathtubs and showers. Hang grab rails by the toilet and inside and outside the shower. Install handrails and lights on staircases. The handrails should be on both sides of the stairs. Use night lights. Don't walk in poorly lit areas. Don't stand on chairs or wobbly ladders. Use care when reaching overhead or looking up. This position can cause a loss of balance. Be sure your shoes fit well, are in good condition, and have nonslip bottoms. Wear shoes both inside and outside of your home. Don't go barefoot or wear slippers. Be cautious when going up and down stairs, curbs, and when walking on uneven sidewalks. If your balance is poor, consider using a cane or walker. Talk with your healthcare provider about having a balance assessment. If your fall was related to alcohol use, stop or limit alcohol intake. Ask your provider for help if you think you may overuse alcohol and can't stop. If your fall was related to use of sleeping medicines, talk with your provider about this. You may need to reduce your dosage at bedtime if you wake up during the night to go to the bathroom. To reduce the need for nighttime bathroom trips: o Don't drink fluids for several hours before going to bed o Empty your bladder before going to bed o Men can keep a urinal at the bedside Stay as active as you can. Balance, flexibility, strength, and endurance all come from exercise.They all play a role in preventing falls. Ask your provider which types of activity are right for you. Try to do some type of exercise every day. Get your eyes checked once a year or more often if your vision changes If you have pets, know where they are before you stand up or walk so you don't trip over them. Go over all your medicines with a pharmacist or other provider. This is to see if any of them could make you more likely to fall. Have this type of medicine review at least once every year. If your provider advises a new medicine, ask if the side effects will affect your balance. Don't move quickly from one position to another. For instance, don't stand up fast from sitting.This can cause dizziness and may lead to a fall. Sit down when putting on pants, socks, and shoes. This will make you less likely to lose your balance and fall. Always let your provider know if you have fallen since your last visit. Contact your provider right away if you're having balance problems or falling more often. Last Reviewed Date: 08/08/202119991575-5728 [employer]. All rights reserved. This information is not intended as a substitute for professional medical care. Always follow your healthcare professional's instructions. documented in this encounter Plan of Treatment Upcoming Encounters Date Type Department Care Team (Late st Contact Info) Description 01/23/2024 4:20 PM EDT Office Visit Family Practice [address] [place] [address] [place] [address] Ally Gonzales DO [address] [place] [address] 08/30/2024 12:00 PM EST Office Visit Endocrinology, [place] [address] [place] [address] Maddy Munoz MD [address] [place] [address] 10/17/2024 12:30 PM EDT [facility] [address] [facility] [place] [address] [facility] [address] [facility] [address] 12/17/2024 11:00 AM EDT Nurse Only Ancillary [address] [facility] [address] [place] [address] College, Nurse Annual Wellness Visit [address] [facility] [address] [place] [address] Health Maintenance Due Date Last Done Comments *BISPHONATE OR OTHER ACCEPTABLE MEDICATION NEEDED FOR OSTEOPOROSIS (REFER TO SMARTSET #1146) 09/08/2023 GFR 08/24/2024 08/24/2023, 12/06, 09/23/2022, Additional history exists TSH 08/24/2024 08/24/2023, 12/08/2021, 07/08/2021, Additional history exists Depression Screening 12/12/2024 [...] D LEVEL ONCE IN A LIFETIME-USE SMARTSET# 70670 Completed 08/24/2023, 07/08/2022, 07/08/2021, Additional history exists [...] this encounter Medical Devices Implanted Type Area Molder Setter Device Identifier Shelf Expiration Date Model / Serial / Lot Plate Ricardo 6.5x30 508-32-104 - [id number] Implanted:Qty: 1 on 04/09/2010 at OR [facility] [place] Right: Shoulder [employer] 10/07/2015 508-32-104 / / [id number] Socket Humeral Insert Implanted:Qty: 1 on 04/09/2010 at OR [facility] [place] Right: Shoulder [employer] 07/08/2014 508-01-032 / / [id number] Head Glenoid/Screw5 -006 - [id number] Implanted:Qty: 1 on 04/09/2010 at OR [facility] [place] Right: Shoulder [employer] 11/07/2015 508-32-101 / / [id number] Screw Lckg 5x22 506-03-122 - [id number] Implanted:Qty: 1 on 04/09/2010 at OR [facility] [place] Right: Shoulder [employer] 10/07/2015 506-03-122 / / [id number] Scrw Lckg [employer] 50603-114 - [id number] Implanted:Qty: 1 on 04/09/2010 at OR [facility] [place] Right: Shoulder [employer] 08/08/2015 506-03-114 / / [id number] Screw Lckg 5x26 506-03-126 - [id number] Implanted:Qty: 1 on 04/09/2010 at OR [facility] [place] Right: Shoulder [employer] 12/07/2015 506-03-126 / / [id number] Screw Lckg 5x22 506-03-122 - [id number] Implanted:Qty: 1 on 04/09/2010 at OR [facility] [place] Right: Shoulder [employer] 02/06/2016 506-03-122 / / [id number] Cement Bone G 1113-140-01 - [id number] Implanted:Qty: 1 on 04/09/2010 at OR [facility] [place] Right: Shoulder [employer] 07/08/2013 00-1113-14 / / [id number] Shell Socket Humeral Rsp Implanted:Qty: 1 on 04/09/2010 at OR [facility] [place] Right: Shoulder [employer] 01/07/2016 508-00-008 / / [id number] Stem Humeral Primary Rsp Implanted:Qty: 1 on 04/09/2010 at OR [facility] [place] Right: Shoulder [employer] 08/08/2015 506-00-008 / / [id number] Burnham Mini Quick 2/0 [id number] - [id number] Implanted:Qty: 1 on 09/17/2016 by Rafi Burnham MD at [facility] Left: Hand JNJ : DEPUY [employer]ITEK [employer]G PROD 05/07/2019 [id number] / / [id number] Burnham Mini Quick 2/0 706186 - [id number] Implanted:Qty: 1 on 09/17/2016 by Rafi Burnham MD at [facility] Left: Hand JNJ : DEPUY MITEK SURG PROD 05/07/2019 [id number] / / [id number] documented as of this encounter Visit Diagnoses Diagnosis Routine general medical examination at a health care facility- Primary Carotid stenosis, non-symptomatic, bilateral Chronic diastolic congestive heart failure (HCC) Chronic diastolic heart failure Dyslipidemia, goal LDL below 130 Other and unspecified hyperlipidemia History of malignant neoplasm of skin Personal history of other malignant neoplasm of skin History of melanoma in situ Personal history of malignant melanoma of skin History of papillary adenocarcinoma of thyroid Personal history of malignant neoplasm of thyroid HTN, goal below 140/90 Unspecified essential hypertension Hyperparathyroidism (HCC) Hyperparathyroidism, unspecified Other specified peripheral vascular diseases (HCC) Personal history of malignant neoplasm of breast POSTSURGICAL HYPOTHYROID 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 No Full Code 08/13/2008 1:48 PM 08/14/2008 6:49 PM Care Teams Supportive Employment Case Manager Relationship Specialty Start Date End Date Ally Gonzales DO [address] [place] [address] PCP - General Family Medicine 01/20/23 documented as of this encounter
--- OUTSIDE RECORDS SUMMARY | 2024-04-03 13:11 | External Medical Summary | Summary of Care ---
Author Name Unknown Organization [facility] Address [address] [place] [address] Phone [phone] Care Team Providers Care Airport Operations Coordinator Name Role Phone Ally Gonzales DO Primary Care Provider [phone] Reason for Visit * Reason Comments Procedure Patient here for exc ision of DN with severe atypia on her right lower paraspinal back. Encounter Details Date Type Department Care Team (Late st Contact Info) Description 12/12/2023 3:00 PM EDT Office Visit Dermatology [facility] [place] [address] [facility] [place] [address] Vannessa Shearer MD [address] [place] [address] Pigmented skin lesion of uncertain behavior of torso* Allergies Active Allergy Reactions Criticality Noted Date Comments Clindamycin Hcl 09/19/2015 Fentanyl High 10/01/2016 Severe emesis Cephalexin Diarrhea 03/22/2022 Meperidine Hcl 01/24/2023 Naproxen Nausea/vomiting 06/30/2009 Oxycodone Hcl Nausea/vomiting 04/09/2010 Sulfamethoxazole-Trimethoprim Nausea/vomiting 0 01/27/2016 Tramadol 12/08/2016 Hydrocodone-Acetaminophen Nausea/vomiting 06/30 documented as of this encounter (statuses as of 12/23/2023) Medications Medication Sig Dispensed Refills Start Date [...] the morning. 100 Tablet 1 12/08/2023 Active Hospital, Clinic, or Other Facility Administered Medication Ordered Dose Route Frequency Start Date End Date Status Denosumab (Prolia) subcut inj 60 mgIndications:Senile osteoporosis 60 mg SC [id number] 09/06/2023 08/31/2024 Active documented as of this encounter (statuses as of 12/23/2023) Active Problems Problem Noted Date Diagnosed Date [...] 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, recurrent, [id number], 2009 Dyslipidemia, goal LDL below 130 06/16/2010 [...] as of this encounter (statuses as of 12/23/2023) Resolved Problems Problem Noted Date Diagnosed Date [...] Keratin granuloma , Glabella 05/30/00 05/30/2002 05/25/2006 Price Checker's papule, Lt arm 05/30/00 05/30/2002 05/25/2006 Irritated crateriform keratosis, Back 11/18/00 05/30/20 02 05/25/2006 Lichenoid inflammatory reaction, Back 10/20/01 05/30/20 02 05/01/2019 Other seborrheic keratosis 03/02/2002 1 Actinic keratosis 03/02/2002 05/01/2019 Dyslipidemia, goal to be determined 06/16/2010 documented as of this encounter (statuses as of 12/23/2023) Immunizations Name Administration Dates Next Due COVID-19 [...] on file documented as of this encounter Progress Notes * Vannessa Shearer MD - 12/12/2023 4:12 PM EDT Ally Morris is a 83 year old female for removal of a lesion on the right lower paraspinal back. Pathology as follows: A. Skin, right lower paraspinal back, shave: [...] was peer reviewed by others in the [facility] dermatopathology group. Examination Ally Morris, 83 year old female, is alert, oriented and appears well and in no distress. 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, evolving malignant melanoma in situ forming in association with a dysplastic compound melanocytic nevus cannot completely be ruled out, rightlower paraspinal back Recommendation: 1) The lesion was excised (see separate note) Follow-up: as needed Vannessa Shearer MD Dermatology [facility] [place] [address] [facility] [address] PROCEDURE NOTE Referred by: Brandon Tavarez MD Preoperative diagnosis: 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 Postoperative diagnosis: Pending Location: right lower paraspinal back Surgeon(s): Vannessa Shearer MD Anesthesia: Lidocaine 0.5% with epinephrine 1:200,000 by local infiltration Procedure: Excision of soft tissue lesion and closure of defect with an intermediate layered repair Estimated blood loss: Less than 5cc Complications: none Preoperative size: 1.3 cm x 0.6 cm without margins, 2.3 cm x 1.6 cm with margins Postoperative length of closure: 4.3 cm Description of procedure: The patient was escorted to the procedure room. Timeout was called. Patient name, medical record number, date and procedure were verified. Verification of positioning,equipment and availability of supplies was executed. Site(s) identified and marked prior to procedure. Patient and staff present were in agreement. The surgical site was examined and excision was planned to take at least 5 mm of normal-appearing skin in all directions. The skin was then locally anesthetized and prepped in the usual fashion. Excision was performed through the full thickness of skin into the subcutaneous tissue. The specimen was submitted in formalin for histologic examination. Meticulous hemostasis was obtained with the electrosurgical device and the defect was closed primarily with a layered repair using deep sutures of 3-0 Vicryl and superficial sutures of 5-0 Vicryl Rapide. A sterile pressure dressing was placed. Postoperative care: The patient was instructed to cleanse the wound daily, followed by the application of sterile ointment and a nonadherent dressing. I urged the patient to call us if any problems or questions should arise postoperatively. (Treated as melanoma in situ: Operation performed with curative intent: Yes Original Breslow thickness of the lesion: cannot rule out Melanoma in situ (MIS) Clinical margin width (measured from the edge of the lesion or the prior excision scar): 0.5 cm Depth of excision: full-thickness skin and subcutaneous tissue to deep fat) documented in this encounter Nursing Notes * Qing Coelho LPN - 12/12/2023 3:11 PM EDT Pt here today for excision of DN on right lower paraspinal back Pt is not allergic to any numbing medication or betadine. Does not have a pacemaker/defibrillator or other hardware in body Does not require any antibiotics prior to procedures. Procedure explained. Questions answered. Consent reviewed and signed. documented in this encounter Miscellaneous Notes * Result Encounter Note - Vannessa Shearer MD - 12/14/2023 2:44 PM EDT Please let patient know that margins are clear and make sure she doesn't have any questions regarding the wound/wound care. A. 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 documented in this encounter Plan of Treatment Upcoming Encounters Date Type Department Care Team (Late st Contact Info) Description 01/23/2024 4:20 PM EDT Office Visit Family Practice [address] [facility] [place] [address] [place] [address] Ally Gonzales DO [address] [place] [address] 08/30/2024 12:00 PM EST Office Visit Endocrinology, [place] [address] [place] [address] Maddy Munoz MD [address], [place] [id number] 10/17/2024 12:30 PM EDT Office Visit Hematology/Oncology [facility] [place] [address] [facility] [place] [place] [id number] Sonia Tesfaye MD [address] [facility] [place] [address] 12/17/2024 11:00 AM EDT Nurse Only Ancillary [address] [facility] [place] [address] [facility], [place] [address] College, Nurse Annual Wellness Visit [address] [facility] [address] [facility], [place] [address] Health Maintenance Due Date Last Done Comments [...] D LEVEL ONCE IN A LIFETIME-USE SMARTSET# 23651 Completed 08/24/2023, 07/08/2022, 07/08/2021, Additional history exists [...] this encounter Medical Devices Implanted Type Area Quality Control Scientist Device Identifier Shelf Expiration Date Model / Serial / Lot Plate Ricardo 6.5x30 508-32-104 - [id number] Implanted:Qty: 1 on 04/09/2010 at OR [facility] Right: Shoulder [employer] 10/07/2015 508-32-104 / / [id number] Socket Humeral Insert Implanted:Qty: 1 on 04/09/2010 at OR [facility] Right: Shoulder [employer] 07/08/2014 508-01-032 / / [id number] Head Glenoid/Screw5 - [id number] Implanted:Qty: 1 on 04/09/2010 at OR [facility] Right: Shoulder [employer] 11/07/2015 508-32-101 / / [id number] Screw Lckg 5x22 506-122 - [id number] Implanted:Qty: 1 on 04/09/2010 at OR [facility] Right: Shoulder [employer] 10/07/2015 506-03-122 / / [id number] Scrw Lckg [employer] 50603-114 - [id number] Implanted:Qty: 1 on 04/09/2010 at OR [facility] Right: Shoulder [employer] 08/08/2015 506-03-114 / / [id number] Screw Lckg 5x26 506-126 - [id number] Implanted:Qty: 1 on 04/09/2010 at OR [facility] Right: Shoulder [employer] 12/07/2015 506-03-126 / / [id number] Screw Lckg 5x22 506122 - [id number] Implanted:Qty: 1 on 04/09/2010 at OR [facility] Right: Shoulder [employer] 02/06/2016 506-03-122 / / [id number] Cement Bone G 1113-140-01 - [id number] Implanted:Qty: 1 on 04/09/2010 at OR [facility] Right: Shoulder [employer] 07/08/2013 00-1113-14 / / [id number] Shell Socket Humeral Rsp Implanted:Qty: 1 on 04/09/2010 at OR [facility] Right: Shoulder [employer] 01/07/2016 508-00-008 / / [id number] Stem Humeral Primary Rsp Implanted:Qty: 1 on 04/09/2010 at OR [facility] Right: Shoulder [employer] 08/08/2015 506-00-008 / / [id number] [employer] Mini Quick 2/0 629226 - [id number] Implanted:Qty: 1 on 09/17/2016 by Rafi Burnham MD at OR [facility] Left: Hand JNJ : DEPUY MITEK SURG PROD 05/07/2019729185 / / [id number] [employer] Mini Quick 2/0 930309 - [id number] Implanted:Qty: 1 on 09/17/2016 by Rafi Burnham MD at OR [facility] Left: Hand JNJ : DEPUY MITEK SURG PROD 05/07/201921191011 / / [id number] documented as of this encounter Procedures Procedure Name Priority Date/Time Associated Diagnosis Comments SURGICAL PATHOLOGY Routine 12/12/2023 4: 25 PM EDT Pigmented skin lesion of uncertain behavior of torso documented in this encounter Results * SURGICAL PATHOLOGY (12/12/2023 4:25 PM EDT) Final Diagnosis A. 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 Clinical History See Order Comments 12/14/2023 2:41 PM EDT LABORATORY [facility] Order Comments A. 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 Gross Description A. Skin. Received in formalin with a container labeled with "Ally Morris", "[id number]", "1940" and " right lower paraspinal back". Received is a mason-whelan oriented elliptical skin excision with a stitch designating superior; 3.5 x 1.9 cm excised to a depth of 0.8 cm. Skin surface is mason-whelan, dull wrinkled, hair-bearing with a depressed biopsy site centrally, 1.1 x 0.8 cm with surrounding mason-whelan raised waxy skin extending to the left margin. There is minimal subcutaneous tissue present. Specimen is differentially inked blue and orange. The peripheral margins are shaved and cut surfaces demonstrate unremarkable subcutaneous tissue. The specimen is submitted entirely per attached photograph in 11 cassettes Gross By: AY 12/14/2023 2:41 PM EDT LABORATORY [facility] Sign Out Location Pathologist sign out performed at [facility] ([facility] [address] [place] [address]. 12/14/2023 2:41 PM EDT LABORATORY [facility] Photographic images and diagrams represent stafford findings in this case; they are not intended to replace a complete review of the final diagnostic report. The following statement applies to Flow Cytometry, Histology, In situ Hybridization Assays and Molecular Genetics. This test was developed and performed at [facility] and its performance characteristics determined by [facility]. It has not been cleared or approved by the U.S. Food and Drug Administration. The FDA has determined that such clearance or approval is not necessary. This test is used for clinical purposes. It should not be regarded as investigational or for research. Special stains, including histochemical stains, and studies using immunologic and RAJANI methodology (where applicable) are performed with appropriate positive and negative control reactions. 12/14/2023 2:41 PM EDT LABORATORY [facility] Tissue Skin structure / Unknown 12/12/2023 4:25 PM EDT 12/12/2023 4:25 PM EDT Comment:A. 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 [address] [place] [address] documented in this encounter Visit Diagnoses Diagnosis Pigmented skin lesion of uncertain behavior of torso- Primary documented in this encounter Advance Directives Documents on File Type Date Recorded Patient Superintendent General Expl anation Power of Engineering Geologist 10/18/2023 12:36 PM NEENA R OF BANANA ROOM CUTTER - [facility] DIRECTIVE Latest Code Status [...] the patient have Health Care Power of Engineering Geologist? No Full Code 08/13/2008 1:48 PM 08/14/2008 6:49 PM Care Teams Airport Operations Coordinator Relationship Specialty Start Date End Date Ally Gonzales DO [address] [place] [address] PCP - General Family Medicine 01/20/23 documented as of this encounter
--- OUTSIDE RECORDS SUMMARY | 2024-04-03 13:11 | External Medical Summary | Summary of Care ---
Author Name Unknown Organization [facility] Address [address] [place] [address] Phone [phone] Care Team Providers Care Hat Blocking Machine Operator Name Role Phone Ally Gonzales DO Primary Care Provider Reason for Visit * Reason Onset Date Comments Encounter Created in Error 01/18/2024 Encounter Details Date Type Department Care Team (Late st Contact Info) Description 01/18/2024 Telephone Family Practice [address] [facility] [address] [place] [address] Ally Gonzales DO [address] [place], [place] [phone] Encounter Created in Error Allergies Active Allergy Reactions Criticality Noted Date Comments Clindamycin Hcl 09/19/2015 Fentanyl High 10/01/2016 Severe emesis Cephalexin Diarrhea 03/22/2022 Meperidine Hcl 01/24/2023 Naproxen Nausea/vomiting 06/30/2009 Oxycodone Hcl Nausea/vomiting 04/09/2010 Sulfamethoxazole-Trimethoprim Nausea/vomiting 0 01/27/2016 Tramadol 12/08/2016 Hydrocodone-Acetaminophen Nausea/vomiting 06/30 documented as of this encounter (statuses as of 01/18/2024) Medications Medication Sig Dispensed Refills Start Date [...] inj 60 mgIndications:Senile osteoporosis 60 mg SC [id number] 09/06/2023 08/31/2024 Active documented as of this encounter (statuses as of 01/18/2024) Active Problems Problem Noted Date Diagnosed Date [...] 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, recurrent, [id number], 2009 Dyslipidemia, goal LDL below 130 06/16/2010 [...] as of this encounter (statuses as of 01/18/2024) Resolved Problems Problem Noted Date Diagnosed Date [...] Keratin granuloma , Glabella 05/30/00 05/30/2002 05/25/2006 Trimming Caser's papule, Lt arm 05/30/00 05/30/2002 05/25/2006 Irritated crateriform keratosis, Back 11/18/00 05/30/20 02 05/25/2006 Lichenoid inflammatory reaction, Back 10/20/01 05/30/20 02 05/01/2019 Other seborrheic keratosis 03/02/2002 1 Actinic keratosis 03/02/2002 05/01/2019 Dyslipidemia, goal to be determined 06/16/2010 documented as of this encounter (statuses as of 01/18/2024) Immunizations Name Administration Dates Next Due COVID-19 [...] PM EDT Office Visit Family Practice [address] [facility] [address] [place] [address] Ally Gonzales DO [address] [place] [address] 08/30/2024 12:00 PM EST Office Visit Endocrinology [address] [place] [address] Maddy Munoz MD [address] [place] [address] 10/17/2024 12:30 PM EDT Office Visit Hematology/Oncology [facility] [address] [place] [phone] Sonia Tesfaye MD [address] [place] [address] 12/17/2024 11:00 AM EDT Nurse Only Ancillary [address] [facility] [address] [place] [address] College, Nurse Annual Wellness Visit 65 [facility] [address] [place] [address] Health Maintenance Due Date Last Done Comments GFR 08/24/2024 08/24/2023, 12/06, 09/23/2022, Additional history exists TSH 08/24/2024 08/24/2023, 1208/2021, 07/08/2021, Additional history exists Depression Screening 12/12/2024 [...] D LEVEL ONCE IN A LIFETIME-USE SMARTSET# 29566 Completed 08/24/2023, 07/08/2022, 07/08/2021, Additional history exists [...] encounter Medical Devices Implanted Type Area Marketing Project Manager Device Identifier Shelf Expiration Date Model / Serial / Lot Plate Ricardo 6.5x30 508-32-104 - [id number] [place]planted:Qty: 1 [place] 04/09/[place] [facility] [place] Shoulder [employer] 10/07/2015 508-32-104 / / [id number] Socket Humeral Insert Implanted:Qty: 1 on 04/09/2010 [place] [facility] [place]: Shoulder [employer] 07/08/2014 508-01-032 / / [id number] Head Glenoid/Screw5 08-00-006 - [id number] Implanted:Qty: 1 on 04/09/2010 [place] [facility] [place]: Shoulder [employer] 11/07/2015 508-32-101 / / [id number] Screw Lckg 5x22 506-03122 - [id number] Implanted:Qty: 1 on 04/09/2010 [place] [facility] [place]: Shoulder [employer] 10/07/2015 506-03-122 / / [id number] Scrw Lckg [employer] 506-03114 - [id number] Implanted:Qty: 1 on 04/09/2010 [place] [facility] [place]: Shoulder [employer] 08/08/2015 506-03-114 / / [id number] Screw Lckg 5x26 506-03126 - [id number] Implanted:Qty: 1 on 04/09/2010 [place] [facility] [place]: Shoulder [employer] 12/07/2015 506-03-126 / / [id number] Screw Lckg 5x22 506-03122 - [id number] Implanted:Qty: 1 on 04/09/2010 [place] [facility] [place]: Shoulder [employer] 02/06/2016 506-03-122 / / [id number] Cement Bone G 1113-140-01 - [id number] Implanted:Qty: 1 on 04/09/2010 [place] [facility] [place]: Shoulder [employer] 07/08/2013 00-1113-14 0 / / [id number] Shell Socket Humeral Rsp Implanted:Qty: 1 on 04/09/2010 [place] [facility] Right: Shoulder [employer] 01/07/2016 508-00-008 / / [id number] Stem Humeral Primary Rsp Implanted:Qty: 1 on 04/09/2010 [place] [facility] Right: Shoulder [employer] 08/08/2015 506-00-008 / / [id number] [employer] 2/0 695534 - [id number] Implanted:Qty: 1 on 09/17/2016 by Rafi Burnham MD at OR [facility] Left: Hand JNJ : DEPUY MITEK SURG PROD 05/07/20195 / / [id number] [employer] 2/0 067812 - [id number] Implanted:Qty: 1 on 09/17/2016 by Rafi Burnham MD at OR [facility] Left: Hand JNJ : DEPUY MITEK SURG PROD 05/07/2019180703 / / [id number] documented as of this encounter Advance Directives Documents on File Type Date Recorded Patient Fire Lookout Expl anation Power of Railroad Track Repair Supervisor 10/18/2023 12:36 PM NEENA R OF ROOF FOREMAN - [employer] [facility] DIRECTIVE * Full Code [...] 1:48 PM 08/14/2008 6:49 PM Care Teams Hat Blocking Machine Operator Relationship Specialty Start Date End Date Ally Gonzales DO [address] [place] [address] PCP - General Family Medicine 01/20/23 documented as of this encounter
--- OUTSIDE RECORDS SUMMARY | 2024-04-03 13:11 | External Medical Summary | Summary of Care ---
Author Name Unknown Organization [facility] Address [address] [place] [address] Phone [phone] Care Team Providers Care Ob Gyn Name Role Phone Ally Paredes DO Primary Care Provider Reason for Visit * Reason Comments Medication Refill Encounter Details Date Type Department Care Team (Late st Contact Info) Description 12/08/2023 Refill Family Practice [facility] [address] [place] [phone] Ally Paredes DO [address] [place] [address] HTN, goal below 140/90 Allergies Active Allergy Reactions Criticality Noted Date Comments Clindamycin Hcl 09/19/2015 Fentanyl High 10/01/2016 Severe emesis Cephalexin Diarrhea 03/22/2022 Meperidine Hcl 01/24/2023 Naproxen Nausea/vomiting 06/30/2009 Oxycodone Hcl Nausea/vomiting 04/09/2010 Sulfamethoxazole-Trimethoprim Nausea/vomiting 0 01/27/2016 Tramadol 12/08/2016 Hydrocodone-Acetaminophen Nausea/vomiting 06/30 documented as of this encounter (statuses as of 12/08/2023) Medications Medication Sig Dispensed Refills Start Date [...] the morning. 100 Tablet 1 12/08/2023 Active amLODIPine Besylate 5 MG Oral Tablet (Norvasc)Indication s:HTN, goal below 140/90 Take 1 Tablet by mouth in the morning. 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, recurrent, [id number], 2008 Dyslipidemia, goal LDL below 130 06/16/2010 [...] as of this encounter (statuses as of 12/08/2023) Resolved Problems Problem Noted Date Diagnosed Date [...] Keratin granuloma , Glabella 05/30/00 05/30/2002 05/25/2006 Recreation Therapy Aide's papule, Lt arm 05/30/00 05/30/2002 05/25/2006 Irritated crateriform keratosis, Back 11/18/00 05/30/20 02 05/25/2006 Lichenoid inflammatory reaction, Back 10/20/01 05/30/20 02 05/01/2019 Other seborrheic keratosis 03/02/2002 1 Actinic keratosis 03/02/2002 05/01/2019 Dyslipidemia, goal to be determined 06/16/2010 documented as of this encounter (statuses as of 12/08/2023) Immunizations Name Administration Dates Next Due COVID-19 [...] encounter Miscellaneous Notes * Telephone Encounter - Mariaa Eldridge RPh - 12/08/2023 9:49 PM EDT Signed Prescriptions: Disp Refills amLODIPine Besylate 5 MG Oral Tablet (Norv*100 Ta*1 Sig: Take 1 Tablet by mouth in the morning.Authorizing Provider: ALLY PAREDES User: MARIAA ELDRIDGE documented in this encounter Plan of Treatment Upcoming Encounters Date Type Department Care Team (Late st Contact Info) Description 12/12/2023 3:00 PM EDT Office Visit Dermatology [facility] [place] [address] [place] [address] Vannessa Shearer MD [address] [place], [place] [address] 12/13/2023 10:00 AM EDT Nurse Only Ancillary [facility] [address] [facility], Nurse Annual Wellness Visit [address] [address] 01/23/2024 4:20 PM EDT Office Visit Family [facility] [address] Ally Paredes DO [address] [place] [address] 08/30/2024 12:00 PM EST Office Visit Endocrinology, [place] [address] [place] [address] Maddy Munoz MD [address] [place] [address] 10/17/2024 12:30 PM EDT Office Visit Hematology/Oncology [facility] [place] 200 [facility] [place] [phone] Sonia Tesfaye MD [address] [facility] [place] [address] Health Maintenance Due Date Last Done Comments *BISPHONATE OR OTHER ACCEPTABLE MEDICATION NEEDED FOR OSTEOPOROSIS (REFER TO SMARTSET #1146) 09/08/2023 Depression Screening 05/10/2024 05/10/2023 GFR 08/24/2024 08/24/2023, 12/06, 09/23/2022, Additional history exists TSH 08/24/2024 08/24/2023, 1208/2021, 07/08/2021, Additional history exists DXA Scan 12/20/2024 12/20/2022, 12/06, 12/16/2020, Additional [...] D LEVEL ONCE IN A LIFETIME-USE SMARTSET# 71110 Completed 08/24/2023, 07/08/2022, 07/08/2021, Additional history exists [...] this encounter Medical Devices Implanted Type Area Ton Cylinder Inspector Device Identifier Shelf Expiration Date Model / Serial / Lot Plate Ricardo 6.5x30 508-32-104 - [id number] Implanted:Qty: 1 on 04/09/2010 at OR [facility] [place] Right: Shoulder [employer] 10/07/2015 508-32-104 / / [id number] Socket Humeral Insert Implanted:Qty: 1 on 04/09/2010 at OR [facility] Right: Shoulder [employer] 07/08/2014 508-01-032 / / [id number] Head Glenoid/Screw5 006 - [id number] Implanted:Qty: 1 on 04/09/2010 at OR [facility] Right: Shoulder [employer] 11/07/2015 508-32-101 / / [id number] Screw Lckg 5x22 506-03-122 - [id number] Implanted:Qty: 1 on 04/09/2010 at OR [facility] Right: Shoulder [employer] 10/07/2015 506-03-122 / / [id number] Scrw Lckg [employer] 50603-114 - [id number] Implanted:Qty: 1 on 04/09/2010 at OR [facility] Right: Shoulder [employer] 08/08/2015 506-03-114 / / [id number] Screw Lckg 5x26 506--126 - [id number] Implanted:Qty: 1 on 04/09/2010 at OR [facility] Right: Shoulder [employer] 12/07/2015 506-03-126 / / [id number] Screw Lckg 5x22 -122 - [id number] Implanted:Qty: 1 on 04/09/2010 at OR [facility] Right: Shoulder [employer] 02/06/2016 506-03-122 / / [id number] Cement Bone G 1113-140-01 - [id number] Implanted:Qty: 1 on 04/09/2010 at OR [facility] Right: Shoulder [employer] 07/08/2013 00-1113-14 0- / / [id number] Shell Socket Humeral Rsp Implanted:Qty: 1 on 04/09/2010 at OR [facility] Right: Shoulder [employer] 01/07/2016 508-00-008 / / [id number] Stem Humeral Primary Rsp Implanted:Qty: 1 on 04/09/2010 at OR [facility] Right: Shoulder [employer] 08/08/2015 506-00-008 / / [id number] [place] Mini Quick 2/0 865029 - [id number] Implanted:Qty: 1 on 09/17/2016 by Rafi Burnham MD at OR [facility] Left: Hand JNJ : DEPUY MITEK SURG PROD 05/07/2019 [id number] / / [id number] [place] Mini Quick 2/0 264611 - [id number] Implanted:Qty: 1 on 09/17/2016 by Rafi Burnham MD at OR [facility] Left: Hand JNJ : DEPUY MITEK SURG PROD 05/07/2019 [id number] / / [id number] documented as of this encounter Visit Diagnoses Diagnosis HTN, goal below 140/90 Unspecified essential hypertension documented in this encounter Advance Directives Documents on File Type Date Recorded Patient Baseball Glove Stuffer Expl anation Power of System Integration Engineer 10/18/2023 12:36 PM NEENA R OF JIGGER OPERATOR - [employer] [facility] DIRECTIVE Latest Code Status [...] the patient have Health Care Power of System Integration Engineer? No Full Code 08/13/2008 1:48 PM 08/14/2008 6:49 PM Care Teams Ob Gyn Relationship Specialty Start Date End Date Ally Paredes DO [address] [place] [address] PCP - General Family Medicine 01/20/23 documented as of this encounter
--- OUTSIDE RECORDS SUMMARY | 2024-04-03 13:11 | External Medical Summary | Summary of Care ---
Author Name Unknown Organization [facility] Address [address] [place] [address] Phone [phone] Care Team Providers Care Blacksmith Supervisor Name Role Phone Ally Gonzales DO Primary Care Provider [phone] Reason for Visit * Reason Onset Date Comments Appointment 11/29/2023 January 15 Encounter Details Date Type Department Care Team (Late st Contact Info) Description 11/29/2023 Telephone Family Practice [facility] [address] [place] [address] Ally Gonzales DO [address] [place] [address] Appointment (January 15) Allergies Active Allergy Reactions Criticality Noted Date Comments Clindamycin Hcl 09/19/2015 Fentanyl High 10/01/2016 Severe emesis Cephalexin Diarrhea 03/22/2022 Meperidine Hcl 01/24/2023 Naproxen Nausea/vomiting 06/30/2009 Oxycodone Hcl Nausea/vomiting 04/09/2010 Sulfamethoxazole-Trimethoprim Nausea/vomiting 0 01/27/2016 Tramadol 12/08/2016 Hydrocodone-Acetaminophen Nausea/vomiting 06/30 documented as of this encounter (statuses as of 01/11/2024) Medications Medication Sig Dispensed Refills Start Date [...] EVERY MORNING 90 Capsule 1 11/10/2023 Active Hospital, Clinic, or Other Facility Administered Medication Ordered Dose Route Frequency Start Date End Date Status Denosumab (Prolia) subcut inj 60 mgIndications:Senile osteoporosis 60 mg SC [id number] 09/06/2023 08/31/2024 Active documented as of this encounter (statuses as of 01/11/2024) Active Problems Problem Noted Date Diagnosed Date [...] 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, recurrent, [id number], 2008 Dyslipidemia, goal LDL below 130 06/16/2010 [...] as of this encounter (statuses as of 01/11/2024) Resolved Problems Problem Noted Date Diagnosed Date [...] Keratin granuloma , Glabella 05/30/00 05/30/2002 05/25/2006 Locomotive Supervisor's papule, Lt arm 05/30/00 05/30/2002 05/25/2006 Irritated crateriform keratosis, Back 11/18/00 05/30/20 02 05/25/2006 Lichenoid inflammatory reaction, Back 10/20/01 05/30/20 02 05/01/2019 Other seborrheic keratosis 03/02/2002 1 Actinic keratosis 03/02/2002 05/01/2019 Dyslipidemia, goal to be determined 06/16/2010 documented as of this encounter (statuses as of 01/11/2024) Immunizations Name Administration Dates Next Due COVID-19 [...] encounter Miscellaneous Notes * Telephone Encounter - Mindi Thompson OSA - 11/29/2023 11:20 AM EDT Left message with Patric to return call to reschedule 01/16/2024 appt Also cancelled 12/07/2023 Wellness visit as it was scheduled for [address] [place] She will need to reschedule documented in this encounter Plan of Treatment Upcoming Encounters Date Type Department Care Team (Late st Contact Info) Description 01/23/2024 4:20 PM EDT Office Visit Family Practice [facility] [address] [place] [address] Ally Gonzales DO [address] [place] [address] 08/30/2024 12:00 PM EST Office Visit Endocrinology, [place] [address] [place] [address] Maddy Munoz MD [address] [place] [address] 10/17/2024 12:30 PM EDT [facility] [address] [place] [address] Sonia Tesfaye MD [address] [place] [address] 12/17/2024 11:00 AM EDT Nurse Only Ancillary [facility] [address] [place] [address] College, Nurse Annual Wellness Visit [address] [address] Health Maintenance Due Date Last Done Comments [...] D LEVEL ONCE IN A LIFETIME-USE SMARTSET# 76394 Completed 08/24/2023, 07/08/2022, 07/08/2021, Additional history exists [...] this encounter Medical Devices Implanted Type Area Customer Service Manager Device Identifier Shelf Expiration Date Model / Serial / Lot Plate Ricardo 6.5x30 508-32-104 - [id number] Implanted:Qty: 1 on 04/09/2010 at OR [facility] [place] Right: Shoulder [employer] 10/07/2015 508-32-104 / / [id number] Socket Humeral Insert Implanted:Qty: 1 on 04/09/2010 at OR [facility] Right: Shoulder [employer] 07/08/2014 508-01-032 / / [id number] Head Glenoid/Screw5 - [id number] Implanted:Qty: 1 on 04/09/2010 at OR [facility] Right: Shoulder [employer] 11/07/2015 508-32-101 / / [id number] Screw Lckg 5x22 506122 - [id number] Implanted:Qty: 1 on 04/09/2010 at OR [facility] Right: Shoulder [employer] 10/07/2015 506-03-122 / / [id number] Scrw Lckg [employer] 506114 - [id number] Implanted:Qty: 1 on 04/09/2010 at OR [facility] Right: Shoulder [employer] 08/08/2015 506-03-114 / / [id number] Screw Lckg 5x26 126 - [id number] Implanted:Qty: 1 on 04/09/2010 at OR [facility] Right: Shoulder [employer] 12/07/2015 506-03-126 / / [id number] Screw Lckg 5x22 122 - [id number] Implanted:Qty: 1 on 04/09/2010 at OR [facility] Right: Shoulder [employer] 02/06/2016 506-03-122 / / [id number] Cement Bone G 1113-140-01 - [id number] Implanted:Qty: 1 on 04/09/2010 at OR [facility] Right: Shoulder [employer] 07/08/2013 00-1113-14 0- / / [id number] Shell Socket Humeral Rsp Implanted:Qty: 1 on 04/09/2010 at OR [facility] Right: Shoulder [employer] 01/07/2016 508-00-008 / / [id number] Stem Humeral Primary Rsp Implanted:Qty: 1 on 04/09/2010 at OR [facility] Right: Shoulder [employer] 08/08/2015 506-00-008 / / [id number] [place] Mini Quick 2/0 221810 - [id number] Implanted:Qty: 1 on 09/17/2016 by Rafi Burnham MD at OR [facility] Left: Hand JNJ : DEPUY MITEK SURG PROD 05/07/2019 [id number] / / [id number] [place] Mini Quick 2/0 042899 - [id number] Implanted:Qty: 1 on 09/17/2016 by Rafi Burnham MD at OR [facility] Left: Hand JNJ : HU MITEK SURG PROD 05/07/2019 [id number] / / [id number] documented as of this encounter Advance Directives Documents on File Type Date Recorded Patient Mechanical Technologist Expl anation Power of Newcomer Hostess 10/18/2023 12:36 PM NEENA R OF FORMER HAND - [employer] DIRECTIVE * Full Code [...] 1:48 PM 08/14/2008 6:49 PM Care Teams Blacksmith Supervisor Relationship Specialty Start Date End Date Ally Gonzales DO [address] [place] [address] PCP - General Family Medicine 01/20/23 documented as of this encounter
--- OUTSIDE RECORDS SUMMARY | 2024-04-03 13:11 | External Medical Summary | Summary of Care ---
Author Name Unknown Organization [facility] Address [address] [place] [address] Phone [phone] Care Team Providers Care Marking Stitcher Name Role Phone Ally Gonzales DO Primary Care Provider [phone] Encounter Details Date Type Department Care Team (Late st Contact Info) Description 12/19/2023 9:15 AM EDT Immunization Ancillary 65 [facility] [address] [place] [address] College, Covid19 Vaccine [address] [address] Arrived Allergies Active Allergy Reactions Criticality Noted Date [...] inj 60 mgIndications:Senile osteoporosis 60 mg SC [id number] 09/06/2023 08/31/2024 Active documented as of this [...] 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, recurrent, iK5qO6T1, 2008 Dyslipidemia, goal LDL below 130 06/16/2010 [...] Keratin granuloma , Glabella 05/30/00 05/30/2002 05/25/2006 Cylinder Steamer's papule, Lt arm 05/30/00 05/30/2002 05/25/2006 Irritated [...] PM EDT Office Visit Family Practice 65 [facility] [address] [place] [address] Ally Gonzales DO [address] [place] [address] 08/30/2024 12:00 PM EST Office Visit [facility] [address] [place] [address] Maddy Munoz MD [address] [place] [address] 10/17/2024 12:30 PM EDT Office Visit Hematology/Oncology [facility] [address] [place] [address] Sonia Tesfaye MD [address] [place] [address] 12/17/2024 11:00 AM EDT Nurse Only Ancillary 65 [facility] [address] [place] [address] College, Nurse Annual Wellness Visit 65 [facility] [address] [place] [address] Health Maintenance Due Date Last Done Comments *BISPHONATE OR OTHER ACCEPTABLE MEDICATION NEEDED FOR OSTEOPOROSIS (REFER TO SMARTSET #1146) 09/08/2023 GFR 08/24/2024 08/24/2023, 0508/2022, 09/23/2022, Additional history exists TSH 08/24/2024 08/24/2023, [...] Completed 12/19/2023, 09/2022, 03/10/2023, Additional history exists Influenza Vaccine (FLU shot) Completed 10/2022, 05/06/2022, 04/29/2021, Additional history exists VITAMIN D LEVEL ONCE IN A LIFETIME-USE SMARTSET# 29432 Completed 08/24/2023, 07/08/2022, 07/08/2021, Additional history exists [...] this encounter Medical Devices Implanted Type Area Cabin Worker Device Identifier Shelf Expiration Date Model / Serial / Lot Plate Ricardo 6.5x30 508-32-104 - [id number] Implanted:Qty: 1 on 04/09/2010 at [place] [facility] [place] Right: Shoulder [employer] 10/07/2015 508-32-104 / / [id number] Socket Humeral Insert Implanted:Qty: 1 on 04/09/2010 at [place] [facility] [place] Right: Shoulder [employer] 07/08/2014 508-01-032 / / [id number] Head Glenoid/Screw5 0800-006 - [id number] Implanted:Qty: 1 on 04/09/2010 at OR [facility] [place] Right: Shoulder [employer] 11/07/2015 508-32-101 / / [id number] Screw Lckg 5x22 506-03-122 - [id number] Implanted:Qty: 1 on 04/09/2010 at OR [facility] [place] Right: Shoulder [employer] 10/07/2015 506-03-122 / / [id number] Scrw Lckg [employer] 506-03114 - [id number] Implanted:Qty: 1 on 04/09/2010 at [place] [facility] [place] Right: Shoulder [employer] 08/08/2015 506-03-114 / / [id number] Screw Lckg 5x26 506-03-126 - [id number] Implanted:Qty: 1 on 04/09/2010 at [place] [facility] [place] Right: Shoulder [employer] 12/07/2015 506-03-126 / / [id number] Screw Lckg 5x22 506-03122 - [id number] Implanted:Qty: 1 on 04/09/2010 at OR [facility] [place] Right: Shoulder [employer] 02/06/2016 506-03-122 / / [id number] Cement Bone G 1113-140-01 - [id number] Implanted:Qty: 1 on 04/09/2010 at OR [facility] [place] Right: Shoulder [employer] 07/08/2013 00-1113-14 / / [id number] Shell Socket Humeral Rsp Implanted:Qty: 1 on 04/09/2010 at [place] [facility] [place] Right: Shoulder [employer] 01/07/2016 508-00-008 / / [id number] Stem Humeral Primary Rsp Implanted:Qty: 1 on 04/09/2010 at [place] [facility] [place] Right: Shoulder [employer] 08/08/2015 506-00-008 / / [id number] [place] Mini Quick 2/0 795728 - [id number] Implanted:Qty: 1 on 09/17/2016 by Rafi Burnham MD at OR [facility] Left: Hand JNJ : DEPUY MITEK SURG PROD 05/07/2019000047 / / [id number] [place] Mini Quick 2/0 451092 - [id number] Implanted:Qty: 1 on 09/17/2016 by Rafi Burnham MD at OR [facility] Left: Hand JNJ : DEPUY MITEK SURG PROD 05/07/2019 [id number] / / [id number] documented as of this encounter Advance Directives Documents on File Type Date Recorded Patient Completions Engineer Expl anation Power of Shirt Sewer 10/18/2023 12:36 PM NEENA R OF ENTRY LEVEL LAB TECHNICIAN - [employer] DIRECTIVE Latest Code Status [...] the patient have Health Care Power of Shirt Sewer? No Full Code 08/13/2008 1:48 PM 08/14/2008 6:49 PM Care Teams Marking Stitcher Relationship Specialty Start Date End Date Ally Gonzales DO [address] [place] [address] PCP - General Family Medicine 01/20/23 documented as of this encounter
--- OUTSIDE RECORDS SUMMARY | 2024-04-03 13:11 | External Medical Summary | Summary of Care ---
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 Encounter Details Date Type Department Care Team (Late st Contact Info) Description 12/12/2023 3:00 PM EDT Office Visit Dermatology [facility] [place] [address] [facility] [place] [address] Vannessa Shearer MD [address] [place] [address] Pigmented skin lesion of uncertain behavior of [...] inj 60 mgIndications:Senile osteoporosis 60 mg SC [id number] 09/06/2023 08/31/2024 Active documented as of this [...] 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, recurrent, [id number], 2009 Dyslipidemia, goal LDL below 130 06/16/2010 [...] Keratin granuloma , Glabella 05/30/00 05/30/2002 05/25/2006 [place]top Spreader's papule, Lt arm 05/30/00 05/30/2002 05/25/2006 Irritated [...] peer reviewed by others in the [facility] dermatopathology group. Examination Ally Morris, 83 year [...] Follow-up: as needed Vannessa Shearer MD Dermatology [address] [address] PROCEDURE NOTE Referred by: Brandon Tavarez MD [...] EDT Office Visit Family Practice [address], [place] [address] [place] [address] Ally Gonzales DO [address] [place] [address] 08/30/2024 12:00 PM EST Office Visit Endocrinology, [place] [address] [place] [address] Maddy Munoz MD [address] [place] [address] 10/17/2024 12:30 PM EDT Office Visit Hematology/Oncology [facility] 200 [place] [address] Sonia Tesfaye MD 200 [place] [place] [address] 12/17/2024 11:00 AM EDT Nurse Only Ancillary 65 [facility] 293 [place] [address] College, Nurse Annual Wellness Visit [address] [facility] [address] [place] [address] Health Maintenance Due Date Last Done Comments [...] D LEVEL ONCE IN A LIFETIME-USE SMARTSET# 43447 Completed 08/24/2023, 07/08/2022, 07/08/2021, Additional history exists [...] this encounter Medical Devices Implanted Type Area Fellmongery Worker Device Identifier Shelf Expiration Date Model / Serial / Lot Plate Ricardo 6.5x30 508-32-104 - [id number] Implanted:Qty: 1 on 04/09/2010 at [place] [facility] Right: Shoulder [employer] 10/07/2015 508-32-104 / / [id number] Socket Humeral Insert Implanted:Qty: 1 on 04/09/2010 at OR [facility] Right: Shoulder [employer] 07/08/2014 508-01-032 / / [id number] Head Glenoid/Screw5 006 - [id number] Implanted:Qty: 1 on 04/09/2010 at OR [facility] Right: Shoulder [employer] 11/07/2015 508-32-101 / / [id number] Screw Lckg 5x22 506-03-122 - [id number] Implanted:Qty: 1 on 04/09/2010 at OR [facility] Right: Shoulder [employer] 10/07/2015 506-03-122 / / [id number] Scrw Lckg [employer] 506-03-114 - [id number] Implanted:Qty: 1 on 04/09/2010 at OR [facility] Right: Shoulder [employer] 08/08/2015 506-03-114 / / [id number] Screw Lckg 5x26 506--126 - [id number] Implanted:Qty: 1 on 04/09/2010 at [facility] Right: Shoulder [employer] 12/07/2015 506-03-126 / / [id number] Screw Lckg 5x22 -122 - [id number] Implanted:Qty: 1 on 04/09/2010 at OR [facility] Right: Shoulder [employer] 02/06/2016 506-03-122 / / [id number] Cement Bone G 1113-140-01 - [id number] Implanted:Qty: 1 on 04/09/2010 at OR [facility] Right: Shoulder [employer] 07/08/2013 00-1113-14 0- / / [id number] Shell Socket Humeral Rsp Implanted:Qty: 1 on 04/09/2010 at OR [facility] Right: Shoulder [employer] 01/07/2016 508-00-008 / / [id number] Stem Humeral Primary Rsp Implanted:Qty: 1 on 04/09/2010 at OR [facility] Right: Shoulder [employer] 08/08/2015 506-00-008 / / [id number] [place] Mini Quick 2/0 [id number] - [id number] Implanted:Qty: 1 on 09/17/2016 by Rafi Burnham MD at [facility] Left: Hand JNJ : DEPUY MITEK SURG PROD 05/07/2019229990 / / [id number] [place] Mini Quick 2/0 328331 - [id number] Implanted:Qty: 1 on 09/17/2016 by Rafi Burnham MD at OR [facility] Left: Hand JNJ : DEPUY MITEK SURG PROD 05/07/2019 [id number] / / [id number] documented as of this encounter Procedures Procedure [...] calcinosis cutis 12/14/2023 2:41 PM EDT LABORATORY [facility] Clinical History See Order Comments 12/14/2023 2:41 PM EDT LABORATORY [facility] Order Comments A. 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 Skin. Received in formalin with a container labeled with "Ally Morris", "[id number]", "1940" and " right lower paraspinal back". [...] By: AY 12/14/2023 2:41 PM EDT LABORATORY [facility] Sign Out Location Pathologist sign out performed at [facility] ([facility]), [address] [place] [address]. 12/14/2023 2:41 PM EDT LABORATORY [facility] Photographic images and diagrams represent stafford findings in this case; they are not intended to replace a complete review of the final diagnostic report. The following statement applies to Flow Cytometry, Histology, In situ Hybridization Assays and Molecular Genetics. This test was developed and performed at [facility] and its performance characteristics determined by [facility]. It has not been cleared or approved [...] control reactions. 12/14/2023 2:41 PM EDT LABORATORY [facility] Tissue Skin structure / Unknown 12/12/2023 4:25 PM EDT 12/12/2023 4:25 PM EDT Comment:A. 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, evolving malignant melanoma in situ forming in association with a dysplastic compound melanocytic nevus cannot completely be ruled out", suture at superior pole Vannessa Shearer MD LAB PATHOLOGY [facility] LABORATORY [facility] [address] [place] [address] documented in this encounter Visit Diagnoses Diagnosis Pigmented skin lesion of uncertain behavior of torso- Primary documented in this encounter Advance Directives Documents on File Type Date Recorded Patient Campground Cleaning Attendant Expl anation Power of Property Officer 10/18/2023 12:36 PM NEENA R OF ENVIRONMENTAL ENGINEERING INTERN - [facility] DIRECTIVE Latest Code Status [...] the patient have Health Care Power of Property Officer? No Full Code 08/13/2008 1:48 PM 08/14/2008 6:49 PM Care Teams Health And Safety Tech Relationship Specialty Start Date End Date Ally Gonzales DO [address] [place] [address] PCP - General Family Medicine 01/20/23 documented as of this encounter
--- OUTSIDE RECORDS SUMMARY | 2024-04-03 13:11 | External Medical Summary | Summary of Care ---
Author Name Unknown Organization [facility] Address [address] [place] [address] Phone [phone] Care Team Providers Care Plumber Maintenance Name Role Phone Ally Gonzales DO Primary Care Provider [phone] Reason for Visit * Reason Onset Date Comments Test Results 12/14/2023 Encounter Details Date Type Department Care Team (Late st Contact Info) Description 12/14/2023 Telephone [facility] [address] [place] [address] Vannessa Shearer MD [address] [place] [id number] Test Results Allergies Active Allergy Reactions Criticality Noted Date Comments Clindamycin Hcl 09/19/2015 Fentanyl High 10/01/2016 Severe emesis Cephalexin Diarrhea 03/22/2022 Meperidine Hcl 01/24/2023 Naproxen Nausea/vomiting 06/30/2009 Oxycodone Hcl Nausea/vomiting 04/09/2010 Sulfamethoxazole-Trimethoprim Nausea/vomiting 0 01/27/2016 Tramadol 12/08/2016 Hydrocodone-Acetaminophen Nausea/vomiting 06/30 documented as of this encounter (statuses as of 12/16/2023) Medications Medication Sig Dispensed Refills Start Date [...] inj 60 mgIndications:Senile osteoporosis 60 mg SC [id number] 09/06/2023 08/31/2024 Active documented as of this encounter (statuses as of 12/16/2023) Active Problems Problem Noted Date Diagnosed Date [...] 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, recurrent, [id number], 2009 Dyslipidemia, goal LDL below 130 06/16/2010 [...] as of this encounter (statuses as of 12/16/2023) Resolved Problems Problem Noted Date Diagnosed Date [...] Keratin granuloma , Glabella 05/30/00 05/30/2002 05/25/2006 Director Child's papule, Lt arm 05/30/00 05/30/2002 05/25/2006 Irritated crateriform keratosis, Back 11/18/00 05/30/20 02 05/25/2006 Lichenoid inflammatory reaction, Back 10/20/01 05/30/20 02 05/01/2019 Other seborrheic keratosis 03/02/2002 1 Actinic keratosis 03/02/2002 05/01/2019 Dyslipidemia, goal to be determined 06/16/2010 documented as of this encounter (statuses as of 12/16/2023) Immunizations Name Administration Dates Next Due COVID-19 [...] encounter Miscellaneous Notes * Telephone Encounter - Kayce Garrett LPN - 12/14/2023 3:41 PM EDT Called and left generic message with to have her check MyChart message ----- Message from Vannessa Shearer MD sent at 12/14/2023 2:44 PM EDT ----- Please let patient know that margins are [...] 4:20 PM EDT Office Visit Family Practice [address] [place] [address] [address] [place] [address] Ally Gonzales DO [address] [place] [address] 08/30/2024 12:00 PM EST Office Visit Endocrinology, [place] [address] [place] [address] Maddy Munoz MD [address] [place] [address] 10/17/2024 12:30 PM EDT Office Visit [facility] 200 [facility] [address] Sonia Tesfaye MD [address] [place] [address], [place] [address] 12/17/2024 11:00 AM EDT Nurse Only Ancillary 65 [facility] [place] 293 [facility] [address] College, Nurse Annual Wellness Visit [address] [facility] 293 [facility], [place] [address] Health Maintenance Due Date Last Done Comments [...] D LEVEL ONCE IN A LIFETIME-USE SMARTSET# 19442 Completed 08/24/2023, 07/08/2022, 07/08/2021, Additional history exists [...] this encounter Medical Devices Implanted Type Area Machine Tender Device Identifier Shelf Expiration Date Model / Serial / Lot Plate Ricardo 6.5x30 508-32-104 - [id number] Implanted:Qty: 1 on 04/09/[address] [facility] Right: Shoulder [employer] 10/07/2015 508-32-104 / / [id number] Socket Humeral Insert Implanted:Qty: 1 on 04/09/[address] [facility] Right: Shoulder [employer] 07/08/2014 508-01-032 / / [id number] Head Glenoid/Screw5 - [id number] Implanted:Qty: 1 on 04/09/[address] [facility] Right: Shoulder [employer] 11/07/2015 508-32-101 / / [id number] Screw Lckg 5x22 506122 - [id number] Implanted:Qty: 1 on 04/09/[address] [facility] Right: Shoulder [employer] 10/07/2015 506-03-122 / / [id number] Scrw Lckg [employer] 506-03114 - [id number] Implanted:Qty: 1 on 04/09/[address] [facility] Right: Shoulder [employer] 08/08/2015 506-03-114 / / [id number] Screw Lckg 5x26 [id number] - [id number] Implanted:Qty: 1 on 04/09/[address] [facility] Right: Shoulder [employer] 12/07/2015 506-03-126 / / [id number] Screw Lckg 5x22 506122 - [id number] Implanted:Qty: 1 on 04/09/[address] [facility] Right: Shoulder [employer] 02/06/2016 506-03-122 / / [id number] Cement Bone G 1113-140-01 - [id number] Implanted:Qty: 1 on 04/09/[address] [facility] Right: Shoulder [employer] 07/08/2013 00-1113-14 0- / / [id number] Shell Socket Humeral Rsp Implanted:Qty: 1 on 04/09/[address] [facility] Right: Shoulder [employer] 01/07/2016 508-00-008 / / [id number] Stem Humeral Primary Rsp Implanted:Qty: 1 on 04/09/[address] [facility] Right: Shoulder [employer] 08/08/2015 506-00-008 / / [id number] [place] Mini Quick 2/0 [id number] - [id number] Implanted:Qty: 1 on 09/17/2016 by Rafi Burnham MD at [facility] Left: Hand JNJ : DEPUY MITEK SURG PROD 05/07/201921191011 / / [id number] [place] Mini Quick 2/0 [id number] - [id number] Implanted:Qty: 1 on 09/17/2016 by Rafi Burnham MD at [facility] Left: Hand JNJ : DEPUY MITEK SURG PROD 05/07/201921191011 / / [id number] documented as of this encounter Advance Directives Documents on File Type Date Recorded Patient Slitting Machine Operator Expl anation Power of Manager Environmental Affairs 10/18/2023 12:36 PM NEENA R OF UPSET WELDING MACHINE OPERATOR - [facility] DIRECTIVE Latest Code [...] the patient have Health Care Power of Manager Environmental Affairs? No Full Code 08/13/2008 1:48 PM 08/14/2008 6:49 PM Care Teams Plumber Maintenance Relationship Specialty Start Date End Date Ally Gonzales DO [address] [place] [address] PCP - General Family Medicine 01/20/23 documented as of this encounter
--- OUTSIDE RECORDS SUMMARY | 2024-04-03 13:12 | External Medical Summary | Summary of Care ---
Author Name Unknown Organization [facility] Address [address] [place] [address] Phone [phone] Care Team Providers Care Paleobotanist Name Role Phone Ally Paredes DO Primary Care Provider [phone] Reason for Visit * Reason Comments Medication Refill Encounter Details Date Type Department Care Team (Late st Contact Info) Description 11/10/2023 Refill Family Practice 65 [facility] [address] [place] [phone] Ally Paredes DO [address] [place] [address] Potassium (K) deficiency; HTN, goal below 140/90 Allergies Active Allergy Reactions Criticality Noted Date Comments Clindamycin Hcl 09/19/2015 Fentanyl High 10/01/2016 Severe emesis Cephalexin Diarrhea 03/22/2022 Meperidine Hcl 01/24/2023 Naproxen Nausea/vomiting 06/30/2009 Oxycodone Hcl Nausea/vomiting 04/09/2010 Sulfamethoxazole-Trimethoprim Nausea/vomiting 0 01/27/2016 Tramadol 12/08/2016 Hydrocodone-Acetaminophen Nausea/vomiting 06/30 documented as of this encounter (statuses as of 11/10/2023) Medications Medication Sig Dispensed Refills Start Date [...] DIRECTED 90 Tablet 3 04/06/2023 4 Active amLODIPine Besylate 5 MG Oral Tablet (Norvasc)Indication s:HTN, goal below 140/90 Take 1 Tablet by mouth in the morning. 100 Tablet 1 05/24/2023 Active Carvedilol 3.125 MG Oral Tablet (Coreg) [...] MORNING 90 Capsule 1 11/10/2023 5 Active Potassium Chloride ER 10 MEQ Oral Capsule Extended ReleaseIndications: Potassium (K) deficiency Take 1 Capsule by mouth in the morning and 1 Capsule before bedtime. 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, recurrent, [id number], 2008 Dyslipidemia, goal LDL below 130 06/16/2010 [...] as of this encounter (statuses as of 11/10/2023) Resolved Problems Problem Noted Date Diagnosed Date [...] Keratin granuloma , Glabella 05/30/00 05/30/2002 05/25/2006 Environmental Health Specialist's papule, Lt arm 05/30/00 05/30/2002 05/25/2006 Irritated crateriform keratosis, Back 11/18/00 05/30/2005/25/2006 Lichenoid inflammatory reaction, Back 10/20/01 05/30/20 02 05/01/2019 Other seborrheic keratosis 03/02/2002 1 Actinic keratosis 03/02/2002 05/01/2019 Dyslipidemia, goal to be determined 06/16/2010 documented as of this encounter (statuses as of 11/10/2023) Immunizations Name Administration Dates Next Due COVID-19 [...] Telephone Encounter - Ally Paredes DO - 11/10/2023 12:18 PM EDTSigned Prescriptions: Disp Refills Potassium Chloride ER 10 MEQ Oral Capsule *100 Ca*3 Sig: Take 1 Capsule by mouth in the morning and 1 Capsule before bedtime.Authorizing Provider: ALLY PAREDES MhydroCHLOROthiazide 12.5 MG Oral Capsule 90 Cap*1 Sig: TAKE ONE CAPSULE BY MOUTH EVERY MORNINGAuthorizing Provider: ALLY PAREDES documented in this encounter Plan of Treatment Upcoming Encounters Date Type Department Care Team (Late st Contact Info) Description 11/21/2023 9:15 AM EDT Office Visit Dermatology [facility] [address] [place] [address] Dann Tavarez MD [address] [place] [address] 12/07/2023 3:00 PM EDT Nurse Only Ancillary [facility] [address] [place] [address] [address] Im, Nurse Annual Wellness [facility] 200 [facility] [place], [place] [address] 01/16/2024 3:00 PM EDT Office Visit Family Practice [address] [place] [address] [place] [address] Ally Paredes DO 293 [facility] [address] 08/30/2024 12:00 PM EST Office Visit Endocrinology, [place] [address] [place] [address] Maddy Munoz MD [address] [place] [address] 10/17/2024 12:30 PM EDT Office Visit Hematology/Oncology [facility] 200 [facility] [place], [place] [address] Sonia Tesfaye MD 200 [facility] [place], [place] [address] Health Maintenance Due Date Last Done Comments *BISPHONATE OR OTHER ACCEPTABLE MEDICATION NEEDED FOR OSTEOPOROSIS (REFER TO SMARTSET #1146) 09/08/2023 Depression Screening 05/10/2024 05/10/2023 GFR 08/24/2024 08/24/2023, 12/06, 09/23/2022, Additional history exists TSH 08/24/2024 08/24/2023, 12/08/2021, 07/08/2021, Additional history exists DXA Scan 12/20/2024 [...] D LEVEL ONCE IN A LIFETIME-USE SMARTSET# [id number] Completed 08/24/2023, 07/08/2022, 07/08/2021, Additional history exists [...] this encounter Medical Devices Implanted Type Area Tenderizer Tender Device Identifier Shelf Expiration Date Model / Serial / Lot Plate Ricardo 6.5x30 508-32-104 - [id number] [place]planted:Qty: 1 [place]09[place] [facility] [place]: Shoulder [employer] 10/07/2015 508-32-104 / / [id number] Socket Humeral Insert Implanted:Qty: 1 on 04/09/2010 [place] [facility] [place]: Shoulder [employer] 07/08/2014 508-01-032 / / [id number] Head Glenoid/Screw5 006 - [id number] Implanted:Qty: 1 on 04/09/2010 [place] [facility] [place]: Shoulder [employer] 11/07/2015 508-32-101 / / [id number] Screw Lckg 5x22 506-03-122 - [id number] Implanted:Qty: 1 on 04/09/2010 [place] [facility]: Shoulder [employer] 10/07/2015 506-03-122 / / [id number] Scrw Lckg [employer] 506-03-114 - [id number] Implanted:Qty: 1 on 04/09/2010 [place] [facility] [place]: Shoulder [employer] 08/08/2015 506-03-114 / / [id number] Screw Lckg 5x26 506-03-126 - [id number] Implanted:Qty: 1 on 04/09/2010 [place] [facility] [place]: Shoulder [employer] 12/07/2015 506-03-126 / / [id number] Screw Lckg 5x22 506-03-122 - [id number] Implanted:Qty: 1 on 04/09/2010 [place] [facility] [place]: Shoulder [employer] 02/06/2016 506-03-122 / / [id number] Cement Bone G 1113-140-01 - [id number] Implanted:Qty: 1 on 04/09/2010 [place] [facility] Right: Shoulder [employer] 07/08/2013 00-1113-14 0 / / [id number] Shell Socket Humeral Rsp Implanted:Qty: 1 on 04/09/2010 [place] [facility] Right: Shoulder [employer] 01/07/2016 508-00-008 / / [id number] Stem Humeral Primary Rsp Implanted:Qty: 1 on 04/09/2010 [place] [facility] Right: Shoulder [employer] 08/08/2015 506-00-008 / / [id number] [place] Mini Quick 2/0 [id number] - [id number] Implanted:Qty: 1 on 09/17/2016 by Rafi Burnham MD at [facility] Left: Hand JNJ : DEPUY MITEK SURG PROD 05/07/2019 376096 / / [id number] [place] Mini Quick 2/0 [id number] - [id number] Implanted:Qty: 1 on 09/17/2016 by Rafi Burnham MD at [facility] Left: Hand JNJ : DEPUY MITEK SURG PROD 05/07/2019 [id number] / / [id number] documented as of this encounter Visit Diagnoses Diagnosis Potassium (K) deficiency Hypopotassemia HTN, goal below 140/90 Unspecified essential hypertension documented in this encounter Advance Directives Documents on File Type Date Recorded Patient Station Engineer Expl anation Power of Container Finishing Inspector 10/18/2023 12:36 PM NEENA R OF LANDSCAPE DESIGNER - [facility] DIRECTIVE Latest Code Status [...] the patient have Health Care Power of Container Finishing Inspector? No Full Code 08/13/2008 1:48 PM 08/14/2008 6:49 PM Care Teams Paleobotanist Relationship Specialty Start Date End Date Ally Paredes DO [address] [place] [address] PCP - General Family Medicine 01/20/23 documented as of this encounter
--- OUTSIDE RECORDS SUMMARY | 2024-04-03 13:12 | External Medical Summary | Summary of Care ---
Author Name Unknown Organization [facility] Address [address] [place] [address] Phone [phone] Care Team Providers Care Customer Support Consultant Name Role Phone Ally Paredes DO Primary Care Provider [phone] Reason for Visit * Reason Comments Follow Up Pt here for full ski n exam. Hx of melanoma and non-melanoma skin cancer. Pt has multiple areas of concern. Pt has lesion on L eyelid, lesion on abdomen, and lesion on R index finger that she is concerned with. Spots are old but have changed. Encounter Details Date Type Department Care Team (Late st Contact Info) Description 11/21/2023 9:15 AM EDT Office Visit Dermatology [facility] [address] [facility] [place] [place] [address] Dann Tavarez MD [address] [facility] [place] [address] Actinic skin damage*; Seborrheic keratoses; Hx of squamous cell carcinoma; Hx of malignant melanoma; Scar; Skin neoplasm; Actinic keratosis Allergies Active Allergy Reactions Criticality Noted Date Comments Clindamycin Hcl 09/19/2015 Fentanyl High 10/01/2016 Severe emesis Cephalexin Diarrhea 03/22/2022 Meperidine Hcl 01/24/2023 Naproxen Nausea/vomiting 06/30/2009 Oxycodone Hcl Nausea/vomiting 04/09/2010 Sulfamethoxazole-Trimethoprim Nausea/vomiting 0 01/27/2016 Tramadol 12/08/2016 Hydrocodone-Acetaminophen Nausea/vomiting 06/30 documented as of this encounter (statuses as of 11/21/2023) Medications Medication Sig Dispensed Refills Start Date [...] inj 60 mgIndications:Senile osteoporosis 60 mg SC [id number] 09/06/2023 08/31/2024 Active documented as of this encounter (statuses as of 11/21/2023) Active Problems Problem Noted Date Diagnosed Date [...] 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, recurrent, [id number], 2008 Dyslipidemia, goal LDL below 130 06/16/2010 [...] as of this encounter (statuses as of 11/21/2023) Resolved Problems Problem Noted Date Diagnosed Date [...] Keratin granuloma , Glabella 05/30/00 05/30/2002 05/25/2006 Regional Telecommunications Specialist's papule, Lt arm 05/30/00 05/30/2002 05/25/2006 Irritated crateriform keratosis, Back 11/18/00 05/30/20 02 05/25/2006 Lichenoid inflammatory reaction, Back 10/20/01 05/30/20 02 05/01/2019 Other seborrheic keratosis 03/02/2002 1 Actinic keratosis 03/02/2002 05/01/2019 Dyslipidemia, goal to be determined 06/16/2010 documented as of this encounter (statuses as of 11/21/2023) Immunizations Name Administration Dates Next Due COVID-19 mRNA, LNP-s, No Pre serve, 2-Dose Series (Moderna) 10/05/2020,08/31/2020 COVID-19, MRNA-LNP, 23-24, P F, 30 MCG/0.3 mL, 12 YRS AND ABOVE, IM ([facility]) 05/09/2023 COVID-19, mRNA, LNP-s, PF, B ooster, [...] as of this encounter Progress Notes * Dann Tavarez MD - 11/21/2023 9:15 AM EDT SUBJECTIVE: Chief Complaint: Chief Complaint Patient presents with Follow Up Pt here for full skin exam. Hx of melanoma and non-melanoma skin cancer. Pt has multiple areas of concern. Pt has lesion on L eyelid, lesion on abdomen, and lesion on R index finger that she is concerned with. Spots are old but have changed. HPI: Ally Morris is a 83 year old female with history of malignant melanoma and nonmelanoma skin cancer , seen today to be monitored for recurrence at previously treated sites and to be evaluated for the development of new lesions. Has several spots she's concerned about. New spot on left upper eyelid. Spots on abdomen Melanoma History: Hx MM date 12/27, stage T1a, Location R forearm Remote history of Malignant Melanoma chest and other nonmelanoma skin cancer (past Dr. Whitney pt) Additional Derm History: 2021 SCC R hand 2021 SCCis R distal arm 2020 SCC R bradley Review of Systems: Complete review of systems performed with attention to potential metastatic disease Physical Examination: Constitutional: Patient is well-appearing and in no acute distress. Respiratory: Normal respiratory effort. Psychiatric: Patient mood and behavior are appropriate to situation. Neuro: Patient is alert and oriented. No apparent weakness or focal signs. Skin: Exam of the scalp, face, conjunctivae, oral mucosa, neck, chest, back, abdomen, and all four extremities is performed. All areas are normal except for the following findings. -There is a well-healed primary site without clinical evidence of local, satellite, or in-transit recurrence. Scattered on face, chest, back - diffuse mottled hypopigmented and hyperpigmented macules without significant irregularity. Associated telangiectasias Left upper eyelid and abdomen - and the trunk and extremities are several scattered mason/brown hyperkeratotic stuck on appearing waxy papules. Right calf, left thigh, right cheek x3, right lateral neck, nasal dorsum x2, left cheek - x9 grittyerythematous macules/papules A. Right lower paraspinal back - 7mm brown/black irregular papule - favor congenital nevus with adjacent SK, r/o atypical melanocytic proliferation B. Left clavicle - 5mm eroded and scaly pink papule - ak, r/o nmsc ASSESSMENT and PLAN: History of Melanoma. -History was obtained regarding new or changing moles. -Complete physical skin exam performed. -Patient counseled on self-examination for new or changing moles. The signs and symptoms of skin cancer were reviewed and the patient was advised to practice sun protection and sun avoidance, use daily sunscreen (SPF > 30), and perform regular self-skin and lymph node exams on a monthly basis. I reviewed changes to watch for including changes in the A-B-C-D's,asymmetry of a lesion, changes in border, color or diameter as well as non healing lesions. I instructed the patient to call if any new lesions appear or current lesions change. Additional Problems: Scar. - Well healed. No evidence of disease recurrence. History of Nonmelanoma Skin Cancer - Well healed scar(s) with no evidence of recurrence -Daily sun protection recommended as discussed above Chronic Actinic Damage - Discussed that skin changes are due to chronic sun exposure. - Daily sun protection recommended Seborrheic keratoses - The benign nature of these lesions was discussed with the patient and that no treatment is indicated today. Actinic keratosis -The diagnosis and malignant potential of the lesion was explained. Treatment options were reviewedincluding cryotherapy, topical medications, and observation. All questions were addressed. Procedure - Cryotherapy (Premalignant Destruction) -The patient would like to proceed with cryosurgery;Cryosurgery explained to the patient, consent obtained, patient, site and procedure verified, and then cryotherapy was performed with Liquid Nitrogen via cryo spray unit to 9 lesions. Location noted in physical exam. Post op course explained. -Discussed that if any of these lesions fail to completely resolve after treatment patient should call me for re-evaluation Skin neoplasm(s) - Shave biopsy of the following lesion(s) A. Right lower paraspinal back - 7mm brown/black irregular papule - favor congenital nevus with adjacent SK, r/o atypical melanocytic proliferation B. Left clavicle - 5mm eroded and scaly pink papule - ak, r/o nmsc Procedure - Tangential biopsy of skin Biopsy by shave was recommended for the lesion(s) noted above to establish and confirm diagnosis. The procedure, risks, benefits, alternatives and expected outcomes were discussed with the patient and consent was obtained. Time out called. Patient identified, procedure verified, site(s) identified and verified. Patient and staff present in agreement. Area prepped with alcohol and anesthetized using 0.5% lidocaine with epinephrine at 1:200,000 concentration. Biopsy of lesion(s) performed. 20% AlCl and bandaging applied. Specimen(s) sent to pathology. Patient instructed in routine post-op care. Lesion(s) B was/were curetted for cure. Size of lesionB: 5mm Size of wound after currettage: 13mm Follow up high priority melanoma clinic 6 months. Dann Tavarez MD Ref: SELF[[id number]] NO STRE[address] ADDRESS AVAILABLE None (office) None (fax) PCP: [place] [address] [phone] documented in this encounter Nursing Notes * Rosa Sierra LPN - 11/21/2023 9:10 AM EDT Patient identified by full name and date of Chief Complaint Patient presents with Follow Up Pt here for full skin exam. Hx of melanoma and non-melanoma skin cancer. Pt has multiple areas of concern. Pt has lesion on L eyelid, lesion on abdomen, and lesion on R index finger that she is concerned with. Spots are old but have changed. documented in this encounter Plan of Treatment Upcoming Encounters Date Type Department Care Team (Late st Contact Info) Description 12/07/2023 3:00 PM EDT Nurse Only Ancillary [facility] [address] [facility] [place] [place] [address] Im, Nurse Annual Wellness [facility] [address] [facility] [place] [place] [address] 01/16/2024 3:00 PM EDT Office Visit Family Practice [address] [place] [address] [place] [address] Ally Paredes DO [address] [place] [address] 08/30/2024 12:00 PM EST Office Visit Endocrinology, [place] [address] [place], [place] [id number] Maddy Munoz MD [address] [place] [address] 10/17/2024 12:30 PM EDT Office Visit Hematology/Oncology [facility] [address] [facility] [place] [place] [address] Sonia Tesfaye MD 200 [place] [address] Pending Results Name Type Priority Associated Diagnoses Date /Time SURGICAL PATHOLOGY Pathology Routine Skin neoplasm 11/21/2023 9:50 AM EDT Health Maintenance Due Date Last Done Comments *BISPHONATE OR OTHER ACCEPTABLE MEDICATION NEEDED FOR OSTEOPOROSIS (REFER TO SMARTSET #1146) 09/08/2023 Depression Screening 05/10/2024 05/10/2023 GFR 08/24/2024 08/24/2023, 12/06, 09/23/2022, Additional history exists TSH 08/24/2024 08/24/2023, 12/0 08/2021, 07/08/2021, Additional history exists DXA Scan 12/20/2024 [...] D LEVEL ONCE IN A LIFETIME-USE SMARTSET# 69641 Completed 08/24/2023, 07/08/2022, 07/08/2021, Additional history exists [...] this encounter Medical Devices Implanted Type Area Tank Truck Driver Device Identifier Shelf Expiration Date Model / Serial / Lot Plate Ricardo 6.5x30 508-32-104 - [id number] Implanted:Qty: 1 on 04/09/2010 at [place] [facility] [place] Right: Shoulder [employer] 10/07/2015 508-32-104 / / [id number] Socket Humeral Insert Implanted:Qty: 1 on 04/09/2010 at [place] [facility] [place] Right: Shoulder [employer] 07/08/2014 508-01-032 / / [id number] Head Glenoid/Screw5 - [id number] Implanted:Qty: 1 on 04/09/2010 at [place] [facility] [place] Right: Shoulder [employer] 11/07/2015 508-32-101 / / [id number] Screw Lckg 5x22 506-03-122 - [id number] Implanted:Qty: 1 on 04/09/2010 at [place] [facility] [place] Right: Shoulder [employer] 10/07/2015 506--122 / / [id number] Scrw Lckg [employer] 506-03-114 - [id number] Implanted:Qty: 1 on 04/09/2010 at OR [facility] [place] Right: Shoulder [employer] 08/08/2015 506-03-114 / / [id number] Screw Lckg 5x26 506-03-126 - [id number] Implanted:Qty: 1 on 04/09/2010 at [place] [facility] [place] Right: Shoulder [employer] 12/07/2015 506-03-126 / / [id number] Screw Lckg 5x22 506-03122 - [id number] Implanted:Qty: 1 on 04/09/2010 at [place] [facility] [place] Right: Shoulder [employer] 02/06/2016 506-03-122 / / [id number] Cement Bone G 1113-140-01 - [id number] Implanted:Qty: 1 on 04/09/2010 at [place] [facility] [place] Right: Shoulder [employer] 07/08/2013 00-1113-14 0- / / [id number] Shell Socket Humeral Rsp Implanted:Qty: 1 on 04/09/2010 at [place] [facility] [place] Right: Shoulder [employer] 01/07/2016 508-00-008 / / [id number] Stem Humeral Primary Rsp Implanted:Qty: 1 on 04/09/2010 at [place] [facility] [place] Right: Shoulder [employer] 08/08/2015 506-00-008 / / [id number] [place] [employer] Mini Quick 2/0 062394 - [id number] Implanted:Qty: 1 on 09/17/2016 by Rafi Burnham MD at OR [facility] Left: Hand JNJ : DEPUY MITEK SURG PROD 05/07/2019610203 / / [id number] [employer] Mini Quick 2/0 251701 - [id number] Implanted:Qty: 1 on 09/17/2016 by Rafi Burnham MD at OR [facility] Left: Hand JNJ : DEPUY MITEK SURG PROD 05/07/20195 / / [id number] documented as of this encounter Visit Diagnoses Diagnosis Actinic skin damage- Primary Other dermatitis due to solar radiation Seborrheic keratoses Hx of squamous cell carcinoma Personal history of malignant neoplasm of other site Hx of malignant melanoma Personal history of malignant melanoma of skin Scar Scar condition and fibrosis of skin Skin neoplasm Neoplasm of unspecified nature of bone, soft tissue, and skin Actinic keratosis documented in this encounter Advance Directives Documents on File Type Date Recorded 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 No Full Code 08/13/2008 1:48 PM 08/14/2008 6:49 PM Care Teams Customer Support Consultant Relationship Specialty Start Date End Date Ally Paredes DO [address] [place] [address] PCP - General Family Medicine 01/20/23 documented as of this encounter
--- OUTSIDE RECORDS SUMMARY | 2024-04-03 13:12 | External Medical Summary | Summary of Care ---
Author Name Unknown Organization [facility] Address [address] [place] [address] Phone [phone] Care Team Providers Care Certified Medical Dosimetrist Name Role Phone Ally Paredes DO Primary Care Provider Reason for Visit * Reason Comments Medication Refill Encounter Details Date Type Department Care Team (Late st Contact Info) Description 11/10/2023 Refill Cardiology, [facility] [address] [place] [address] Ally Paredes DO [address] [place] [address] Allergies Active Allergy Reactions Criticality Noted Date [...] MORNING 90 Tablet 3 11/10/2023 5 Active Lisinopril 40 MG Oral Tablet TAKE ONE TABLET BY MOUTH EVERY MORNING 90 Tablet 3 11/22/2022 4 Discontinu ed(Refill) Potassium Chloride ER 10 MEQ Oral Capsule [...] inj 60 mgIndications:Senile osteoporosis 60 mg SC [id number] 09/06/2023 08/31/2024 Active documented as of this [...] 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, recurrent, [id number], 2009 Dyslipidemia, goal LDL below 130 06/16/2010 [...] Keratin granuloma , Glabella 05/30/00 05/30/2002 05/25/2006 Weigher And Mixer's papule, Lt arm 05/30/00 05/30/2002 05/25/2006 Irritated [...] 11/10/2023 12:18 PM EDTSigned Prescriptions: Disp Refills Lisinopril 40 MG Oral Tablet 90 Tab*3 Sig: TAKE ONE TABLET BY MOUTH EVERY MORNINGAuthorizing Provider: ALLY PAREDES documented in this encounter Plan of Treatment Upcoming Encounters Date Type Department Care Team (Late st Contact Info) Description 11/21/2023 9:15 AM EDT Office Visit Dermatology [facility] [address] [place] [address] Dann Tavarez MD [address] [place] [address] 12/07/2023 3:00 PM EDT Nurse Only Ancillary [facility] [address] [place] [address] Im, Nurse Annual Wellness [facility] [address] [place] [address] 01/16/2024 3:00 PM EDT Office Visit Family Practice [address] [facility] [address] [place] [address] Ally Paredes DO [address] [place] [address] 08/30/2024 12:00 PM EST Office Visit Endocrinology, [place] [address] [place] [address] Maddy Munoz MD [address] [place] [address] 10/17/2024 12:30 PM EDT Office Visit Hematology/Oncology [facility] [address] [place] [address] Sonia Tesfaye MD [address] [place] [address] Health Maintenance Due Date Last Done Comments *BISPHONATE OR OTHER ACCEPTABLE MEDICATION NEEDED FOR OSTEOPOROSIS (REFER TO SMARTSET #1146) 09/08/2023 Depression Screening 05/10/2024 05/10/2023 GFR 08/24/2024 08/24/2023, 12/06, 09/23/2022, Additional history exists TSH 08/24/2024 08/24/2023, 08/2021, 07/08/2021, Additional history exists DXA Scan [...] D LEVEL ONCE IN A LIFETIME-USE SMARTSET# 47663 Completed 08/24/2023, 07/08/2022, 07/08/2021, Additional history exists [...] this encounter Medical Devices Implanted Type Area Wind Site Manager Device Identifier Shelf Expiration Date Model / Serial / Lot Plate Ricardo 6.5x30 508-32-104 - [id number] Implanted:Qty: 1 on 04/09[place] [facility] [place]er [employer] 10/07/2015 508-32-104 / / [id number] Socket Humeral Insert Implanted:Qty: 1 on 04/09/2010 [place] [facility] [place]: Shoulder [employer] 07/08/2014 508-01-032 / / [id number] Head Glenoid/Screw5 006 - [id number] Implanted:Qty: 1 on 04/09/2010 [place] [facility] [place]: Shoulder [employer] 11/07/2015 508-32-101 / / [id number] Screw Lckg 5x22 506--122 - [id number] Implanted:Qty: 1 on 04/09/2010 [place] [facility] [place]: Shoulder [employer] 10/07/2015 506-03-122 / / [id number] Scrw Lckg [employer] 114 - [id number] Implanted:Qty: 1 on 04/09/2010 [place] [facility] [place]: Shoulder [employer] 08/08/2015 506-03-114 / / [id number] Screw Lckg 5x26 506-03-126 - [id number] Implanted:Qty: 1 on 04/09/2010 [place] [facility] [place]: Shoulder [employer] 12/07/2015 506-03-126 / / [id number] Screw Lckg 5x22 506-03-122 - [id number] Implanted:Qty: 1 on 04/09/2010 [place] [facility] [place]: Shoulder [employer] 02/06/2016 506-03-122 / / [id number] Cement Bone G 1113-140-01 - [id number] Implanted:Qty: 1 on 04/09/2010 [place] [facility] [place] Right: Shoulder [employer] 07/08/2013 00-1113-14 / / [id number] Shell Socket Humeral Rsp Implanted:Qty: 1 on 04/09/2010 [place] [facility] [place] Right: Shoulder [employer] 01/07/2016 508-00-008 / / [id number] Stem Humeral Primary Rsp Implanted:Qty: 1 on 04/09/2010 [place] [facility] [place] Right: Shoulder [employer] 08/08/2015 506-00-008 / / [id number] [place] Mini Quick 2/0 448906 - [id number] Implanted:Qty: 1 on 09/17/2016 by Rafi Burnham MD at OR [facility] Left: Hand JNJ : DEPUY MITEK SURG PROD 05/07/2019 891247 / / [id number] [place] Mini Quick 2/0 [id number] - [id number] Implanted:Qty: 1 on 09/17/2016 by Rafi Burnham MD at OR [facility] Left: Hand JNJ : DEPUY MITEK SURG PROD 05/07/2019430303 / / [id number] documented as of this encounter Advance Directives Documents on File Type Date Recorded 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 No Full Code 08/13/2008 1:48 PM 08/14/2008 6:49 PM Care Teams Certified Medical Dosimetrist Relationship Specialty Start Date End Date Ally Paredes DO [address] [facility] [place] [address] PCP - General Family Medicine 01/20/23 documented as of this encounter
--- NOTE | 2024-04-03 13:15 | History & Physical Report ---
Date of Service April 03, 2024 Assessment & Plan (1) Carotid artery disease: (2) S/P drug eluting coronary stent placement: Plan: This is an 83yo with a PMH of CAD with abnormal stress test as an outpatient, hypertension, HFpEF, PVD, history of breast carcinoma with bilateral mastectomy and other medical problems listed below who presented for cardiac catheterization and underwent 1 JEM to RCA by Dr. Mccoy. Observing in PCU following JEM placement Continue aspirin, statin, Coreg 3.125mg BID, lisinopril 30mg per Dr. Mccoy Follows with Dr. Roper - routine consult placed (3) (HFpEF) heart failure with preserved ejection fraction: Plan: 2D echo January 2024 with preserved EF 60-64%, grade 2 diastolic dysfunction Lasix held this morning prior to cath Typically alternates lasix 20mg daily with lasix 40mg Will plan to resume lasix tomorrow per Dr. Roper (4) HTN (hypertension): Plan: Continue amlodipine, carvedilol, lisinopril (5) Hypothyroidism: Plan: Continue levothyroxine (6) HX: breast cancer: Plan: H/o bilateral mastectomy in 2008 Code status: FULL PCP: Janet Dispo: observation in PCU Patient seen in collaboration with Dr. Vance. Please see addendum. I spent a total of 75 minutes coordinating, documenting, and providing care for this patient excluding time spent in the performance of separately billed services. History of Present Illness Chief Complaint: abonormal stress test Primary Care Provider: Ally Gonzales, DO This is an 83yo with a PMH of CAD with abnormal stress test as an outpatient, hypertension, HFpEF, PVD, history of breast carcinoma with bilateral mastectomy and other medical problems listed below who presented for cardiac catheterization and underwent 1 JEM to RCA by Dr. Mccoy. Has been having a few months of exertional chest tightness when doing water aerobics and more recently began having chest tightness at rest also. Had an abnormal stress test on 03/19/24, prompting today's cardiac catheterization. Seen in 207-1 following procedure. Patient feels comfortable, denying any chest pain, shortness of breath or nausea at rest. No F/C, lightheadedness, abdminal pain. Has history of HFpEF and alternates lasix 20mg with lasix 40mg. Did not take this morning prior to procedure. Allergies Allergy/AdvReac Type Severity Reaction Status Date / Time cephalexin [From Keflex] Allergy Mild Diarrhea Verified 04/03/24 09:04 Bactrim Allergy Unknown _ Verified 01/27/16 13:23 sulfamethoxazole [Bactrim] Allergy Unknown Unknown Verified 04/03/24 09:04 trimethoprim [Bactrim] Allergy Unknown Unknown Verified 04/03/24 09:04 Home Medications Medication Instructions Recorded Confirmed Type ascorbic acid (vitamin C) 1,000 mg 1 g PO QAM 10/25/22 04/03/24 History tablet (Vitamin C) aspirin 81 mg capsule 81 mg PO HS 10/25/22 04/03/24 History atorvastatin 40 mg tablet 40 mg PO QAM 10/25/22 04/03/24 History cholecalciferol (vitamin D3) 50 50 mcg PO UD 10/25/22 04/03/24 History mcg (2,000 unit) tablet (Vitamin D3) denosumab 60 mg/mL subcutaneous 60 mg subcut UD 10/25/22 04/03/24 History syringe (Prolia) levothyroxine 88 mcg tablet 88 mcg PO UD 10/25/22 04/03/24 History (Levoxyl) magnesium 30 mg tablet 65 mg PO HS 10/25/22 04/03/24 History melatonin 3 mg tablet 3 mg PO HS PRN Sleep 10/25/22 04/03/24 History phenazopyridine 95 mg tablet 95 mg PO WK 10/25/22 04/03/24 History potassium chloride 10 mEq 10 meq PO HS 10/25/22 04/03/24 History tablet,extended release vitamin B complex 1 tab PO QAM 10/25/22 04/03/24 History diclofenac sodium 1 % topical gel 2 g topical QID 90 days #800 grams 09/19/23 04/03/24 Rx amlodipine 5 mg tablet 5 mg PO DAILY 04/03/24 04/03/24 History carvedilol 3.125 mg tablet 3.125 mg PO BID 04/03/24 04/03/24 History furosemide 20 mg tablet (Lasix) 40 mg PO UD 04/03/24 04/03/24 History lisinopril 30 mg tablet 30 mg PO DAILY 04/03/24 04/03/24 History mirabegron 25 mg tablet,extended 25 mg PO DAILY 04/03/24 04/03/24 History release 24 hr (Myrbetriq) omega-3 fatty acids 1,000 mg PO DAILY 04/03/24 04/03/24 History Past Med/Surg History Problem List S/P drug eluting coronary stent placement Carotid artery disease <50% stenosis to bilateral ICAs per 08/2022 carotid doppler Medical History (HFpEF) heart failure with preserved ejection fraction Hip arthritis History of thyroid cancer Per records Urinary frequency and retention - chronic, age related Heart murmur Per 10/14/22 ECHO- moderate AV sclerosis without stenosis; moderate AR, moderate MR, moderate TR History of skin cancer melanoma and squamous cell hx- multiple excisions Hypothyroidism Hyperlipidemia HTN (hypertension) History of COVID-19 05/2022- COLD LIKE SYMPTOMS HX: breast cancer X2 ON RIGHT -1983 AND 2008- CHEMO AND RADIATION Surgical History Hx of colonoscopy History of right shoulder replacement Hx of shoulder surgery MULTIPLE- RIGHT Hx of bilateral mastectomy History of repair of left rotator cuff Hx of parathyroidectomy Hx of thyroidectomy Hx of lymph node excision RIGHT Hx of lumpectomy Hx of hysterectomy Hx of vein stripping B/L Hx of lumbar discectomy Hx of tonsillectomy Family History Other Cancer Heart disease No family history of adverse response to anesthesia Social History Smoking Status: Never smoker Second Hand Exposure: No; Do You Dip or Chew Tobacco: No; Hx Alcohol Use: Yes Alcohol type: hard liquor Hx Substance Use: No Preferred Language: Latvian Communication Ability: Effective 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 Physical Exam Physical Exam: General Appearance: WD/WN, vitals as above, NAD, sitting up in bed, pleasant, conversing easily Head: normocephalic, atraumatic Eyes: normal inspection, PERRL, conjunctivae normal, anicteric sclerae ENT: external ear and nose normal, oropharynx normal Neck: normal visual inspection, trachea midline, no thyromegaly Respiratory: normal respiratory effort, lungs clear to auscultation, no wheeze, rales, rhonchi. No accessory muscle use Cardiovascular: regular rate, rhythm, +systolic murmur, normal peripheral pulses, trace BLE edema. Vessels: no JVD Chest: normal inspection of chest Abdomen/GI: normal bowel sounds, soft, nontender, no hepatosplenomegaly Extremities/Musculoskeletal: + R radial wrist guard in place, no bleeding. Extremities motor strength 5/5 Neurologic: PERRL, EOMI, accommodation nl, no face palsy, no dysarthria, CN's II-XI intact bilaterally and moves all extremities Psychiatric: A+Ox3, euthymic affect Skin: no rashes, normal color, warm/dry Results & Data Results & Data Vital Signs (Past 12 Hours) Vital Signs Pulse Resp BP Pulse Ox O2 Del Method 04/03/24 12:45 58 L 18 151/60 H 96 Room Air 04/03/24 12:30 58 L 18 136/61 96 Room Air 04/03/24 12:15 59 L 18 152/63 H 96 Room Air 04/03/24 08:49 69 18 159/65 H 96 Room Air Code Status & VTE Plan VTE Prophylaxis Plan VTE Prophylaxis will be ordered: Yes Supervising Physician Co-Signing Physician Notes 53-year-old lady with PMH of CAD with abnormal stress test as an outpatient, HTN, HFpEF, PVD, breast cancer, with bilateral mastectomy who is s/p elective cath and underwent 1 JEM to RCA is seen and examined at bedside as patient will be observed overnight. Patient reports no chest pain, denies any febrile illness in the recent past week. Reports compliance with her medications. Patient educated about stent and need for maintaining compliance with DAPT and also she was educated to not utilize omeprazole (in case if need arises) as long as she is on Plavix. Will get labs tomorrow a.m., patient is status post cath and stent placement. Patient received Plavix loading dose at [employer], DAPT to start from tomorrow. Continue cardiac medications as per cardiology recommendations. Continue other home medications as able. On exam: GENERAL: Alert and oriented x3. NAD, on RA. HEENT: No pallor, no icterus. Pupils equal, round and reactive to light. Oral mucosa moist. NECK: No JVD, no neck masses. HEART: S1 and S2 heard. Regular rate and rhythm. No murmur, no gallop. RESPIRATORY SYSTEM: Normal AP diameter. No accessory muscle use. No wheezing, no crackles. ABDOMEN: Soft, bowel sounds present, nontender, no distention. CENTRAL NERVOUS SYSTEM: No facial droop. Speech is clear. Obeys simple commands. Moves extremities. EXTREMITIES: No edema, no erythema seen. Right radial band noted, patient reports improving discoloration distal to it. Minimal discoloration noted, good capillary refill noted. I have seen and examined the patient and have discussed the case with the provider above. I agree with the assessment and plan as stated.
[2024-04-03] MEDS: SODIUM CHLORIDE 0.9% 1,000 ML IV SCH (14:53)
[2024-04-03] MEDS ORDERED: DICLOFENAC SOD 1% GEL 100 GM TUBE EXT PRN (17:03)
[2024-04-03] MEDS: DICLOFENAC SOD 1% GEL 100 GM TUBE EXT SCH (17:23)
[2024-04-03] MEDS: POTASSIUM CHLORIDE 10 MEQ TABCR PO SCH (17:28)
[2024-04-03] MEDS: MAGNESIUM OXIDE 400 MG TAB PO SCH (17:28)
[2024-04-03] MEDS: ADVANCED PROBIOTIC 625 MG CAPSULE PO SCH (17:28)
[2024-04-03] MEDS: carvediloL 3.125 MG TAB PO SCH (17:28)
--- NOTE | 2024-04-03 17:34 | Cardiology Consultation ---
Date of Consultation April 03, 2024 Assessment & Plan (1) Exertional angina: (2) S/P drug eluting coronary stent placement: * Continue aspirin, clopidogrel, amlodipine, carvedilol, lisinopril, atorvastatin. * Patient is on alternating doses of furosemide with 20 mg and 40 mg. * At present volume status is stable and she is receiving postprocedure hydration. * A repeat EKG, CBC, and chemistry panel will be obtained in the morning. History of Present Illness Attending Physician: Edilia Vance MD History of Present Illness Ally Morris is an 83 year old female seen in cardiology consultation per the request of Bette Keen PA-C for follow up care of coronary heart disease. Patient recently undergone an outpatient stress test for complaints of exertional shortness of breath and chest tightness which was positive and suggestive of ischemia. Arrangements were made for outpatient invasive coronary angiography performed by Dr. Mccoy of [facility] [place] interventional cardiology today with patient found to have a culprit high-grade stenosis of the ostial and proximal RCA for which she underwent PCI and implantation of a drug-eluting stent. Patient tolerated the procedure well. She was seen by the undersigned in follow-up in room 207. Her radial band has already been discontinued and she has enjoyed her evening meal. She is feeling well and is in good spirits. Telemetry reveals sinus rhythm in the 80s. Allergies Allergy/AdvReac Type Severity Reaction Status Date / Time cephalexin [From Keflex] Allergy Mild Diarrhea Verified 04/03/24 09:04 Bactrim Allergy Unknown _ Verified 01/27/16 13:23 sulfamethoxazole [Bactrim] Allergy Unknown Unknown Verified 04/03/24 09:04 trimethoprim [Bactrim] Allergy Unknown Unknown Verified 04/03/24 09:04 Home Medications Medication Instructions Recorded Confirmed Type ascorbic acid (vitamin C) 1,000 mg 1 g PO QAM 10/25/22 04/03/24 History tablet (Vitamin C) aspirin 81 mg capsule 81 mg PO HS 10/25/22 04/03/24 History atorvastatin 40 mg tablet 40 mg PO QAM 10/25/22 04/03/24 History cholecalciferol (vitamin D3) 50 50 mcg PO UD 10/25/22 04/03/24 History mcg (2,000 unit) tablet (Vitamin D3) denosumab 60 mg/mL subcutaneous 60 mg subcut UD 10/25/22 04/03/24 History syringe (Prolia) levothyroxine 88 mcg tablet 88 mcg PO UD 10/25/22 04/03/24 History (Levoxyl) magnesium 30 mg tablet 65 mg PO DAILY@1700 10/25/22 04/03/24 History melatonin 3 mg tablet 3 mg PO HS PRN Sleep 10/25/22 04/03/24 History phenazopyridine 95 mg tablet 95 mg PO WK 10/25/22 04/03/24 History potassium chloride 10 mEq 10 meq PO DAILY@1700 10/25/22 04/03/24 History tablet,extended release vitamin B complex 1 tab PO QAM 10/25/22 04/03/24 History diclofenac sodium 1 % topical gel 2 g topical QID 90 days #800 grams 09/19/23 04/03/24 Rx amlodipine 5 mg tablet 5 mg PO DAILY 04/03/24 04/03/24 History carvedilol 3.125 mg tablet 3.125 mg PO BID 04/03/24 04/03/24 History furosemide 20 mg tablet (Lasix) 40 mg PO UD 04/03/24 04/03/24 History lactobacillus combination no.4 3 3,000 mmu cells PO DAILY@1700 04/03/24 04/03/24 History billion cell capsule (Probiotic) lisinopril 30 mg tablet 30 mg PO DAILY 04/03/24 04/03/24 History mirabegron 25 mg tablet,extended 25 mg PO DAILY 04/03/24 04/03/24 History release 24 hr (Myrbetriq) omega-3 fatty acids 1,000 mg PO DAILY 04/03/24 04/03/24 History Patient History Medical History (HFpEF) heart failure with preserved ejection fraction Hip arthritis History of thyroid cancer Per records Urinary frequency and retention - chronic, age related Heart murmur Per 10/14/22 ECHO- moderate AV sclerosis without stenosis; moderate AR, moderate MR, moderate TR History of skin cancer melanoma and squamous cell hx- multiple excisions Hypothyroidism Hyperlipidemia HTN (hypertension) History of COVID-19 05/2022- COLD LIKE SYMPTOMS HX: breast cancer X2 ON RIGHT -1983 AND 2008- CHEMO AND RADIATION Surgical History Hx of colonoscopy History of right shoulder replacement Hx of shoulder surgery MULTIPLE- RIGHT Hx of bilateral mastectomy History of repair of left rotator cuff Hx of parathyroidectomy Hx of thyroidectomy Hx of lymph node excision RIGHT Hx of lumpectomy Hx of hysterectomy Hx of vein stripping B/L Hx of lumbar discectomy Hx of tonsillectomy Family History Other Cancer Heart disease No family history of adverse response to anesthesia Social History Smoking Status: Never smoker Second Hand Exposure: No; Do You Dip or Chew Tobacco: No; Hx Alcohol Use: Yes Alcohol type: hard liquor Hx Substance Use: No Preferred Language: Azerbaijani Communication Ability: Effective Adult Manager Required: No Beliefs That Will Affect Care: None Current Living Situation: Spouse Feels Safe at Home: Yes Assistive Devices: None Review of Systems Review of Systems: All systems reviewed & are unremarkable except as noted in HPI & below Physical Exam Physical Exam: General: no acute distress and stated age Eyes: conjunctiva are pink and non-injected, sclera clear Neck: normal jugular venous pulse, no hepatojugular reflux Chest: normal shape and normal respiratory effort Lungs: clear to auscultation and percussion Cardiac Exam: - regular heart sounds, no murmurs, rubs, or gallops, no jugular venous distention Abdomen: abdomen soft, non-tender, no abnormal masses and no hepatosplenomegaly Musculoskeletal: no gait disturbance, no weakness Extremities: no edema and no cyanosis -Right radial artery access site with mi ld ecchymosis, no hematoma Neuro:awake, conversant, follows commands, no focal motor deficits Psych: appropriate affect and insight. Results & Data Vital Signs (Past 12 Hours) Vital Signs Pulse Pulse Resp BP Pulse Ox O2 Del Method 04/03/24 16:30 80 18 158/62 H 95 Room Air 04/03/24 15:30 65 20 158/62 H 95 Room Air 04/03/24 15:07 64 04/03/24 14:30 60 18 149/82 H 98 Room Air 04/03/24 13:30 62 18 153/59 H 96 Room Air 04/03/24 13:15 71 18 137/95 97 Room Air 04/03/24 13:00 59 L 18 159/65 H 97 Room Air 04/03/24 12:45 58 L 18 151/60 H 96 Room Air 04/03/24 12:30 58 L 18 136/61 96 Room Air 04/03/24 12:15 59 L 18 152/63 H 96 Room Air 04/03/24 08:49 69 18 159/65 H 96 Room Air
--- NOTE | 2024-04-03 17:57 | Cardiac Catheterization ---
[facility] [place] Data: Circulation Representative Cardiac Status Clinical evaluation leading to the procedure CAD Presenation: Positive Stress Test Anginal Classification: CCS III Diagnostic Physicians Name: German Mccoy MD Closure Device Recommendations: PCI without planned CABG Cardiac Cath Procedure Full Procedure Date April 03, 2024 Pre-Procedure Diagnosis Pre-Procedure Diagnosis: Angina and Positive Stress Test AUC Score AUC Score: 7 Post-Procedure Diagnosis Post-Procedure Diagnosis: Severe CAD and Successful PCI Procedure(s) Performed Procedure(s) Performed: Coronary Angiography, Left Heart Cath and Drug Eluting Stent Product Scientist German Mccoy MD Pan Dumper(s) Fred Estimated Blood Loss Estimated Blood Loss: 25 Medication(s) Medication(s): Fentanyl, Heparin, Lidocaine 1%, Nicardipine, Nitroglycerin and Versed Summary of Findings Indication: Accelerating angina, abnormal stress test Access: 6 Fr slender right radial artery Catheters: Geary, JR4 guide Findings: LM -Short, normal caliber LAD -medium caliber, proximal luminal irregularities. Remainder of vessel without significant disease and wraps around apex. Small D1, medium D2 without significant disease. LAD provides faint [id number] collaterals to PDA. Circumflex -medium caliber, 20-30% ostial. Remainder of vessel without significant disease RCA -dominant, large caliber, 98% ostial/proximal stenosis. Remainder of vessel without significant disease. Competitive flow and RPDA. LVEDP -4 -- PCI -- Antithrombotic therapy: Heparin, clopidogrel Procedure: RCA cannulated with care for guide Pre-procedure flow DEYSI 1-2 Internal Grinder Tender 50 wire passed across lesion into distal vessel Proximal RCA lesion predilated with 1.5, 2.0, 2.5 balloons with the aid of GuideLiner support Attempt made to pass intravascular lithotripsy catheter and noncompliant 3.0 balloon unsuccessful Further angioplasty to proximal RCA with 3.0 compliant balloon to high atmospheres with partial expansion of proximal segment. Additional angioplasty of proximal RCA with 2.5 mm shockwave intravascular lith otripsy balloon With the aid of GuideLiner dilated lesion stented with 3.0 x 18 mm Xience drug- eluting stent Stent post-dilated with 3.5 noncompliant balloon IC vasodilators administered for spasm Post procedure DEYSI 3 flow, stent well expanded with minimal residual stenosis and no apparent cardiac complications. Arterial Closure: TR band Summary: 1. Severe single vessel coronary artery disease -98% ostial/proximal RCA stenosis with faint [id number] collaterals to PDA 20-30% ostial circumflex 2. Normal intracardiac filling pressure 3. Successful PCI of ostial/proximal RCA with intravascular lithotripsy and single drug-eluting stent (3.0 x 18 mm Xience; postdilated with 3.5 NC). Recommendations: To PCU for continued monitoring Loaded with clopidogrel 600 mg in Circulation Representative Continue dual-antiplatelet therapy for at least 1 year, consider extended P2Y12 in the setting of ostial stenting Continue statin, and ASCVD risk factor modification Consult cardiac Rehab Hemodynamics Rest Ao:: 141/53/89 Final Ao: 90/31/48 LV: 141/4 Recommendations Recommendations: PCI without planned CABG Specimens Specimens: None Radiation Exposure (mGy) 499 Contrast (mls) 120 Anesthesia Moderate [id number] Procedural Complication(s) None Disposition Circulation Representative Holding/Recovery I attest to the content of the Intraoperative Record and any orders documented therein. Any exceptions are noted below. [facility] Card Cath Procedure Codes Cardiac Catheterization Procedure 1: Cardiovascular Cath Procedures: 87132 Coronaries and LHC (+/-LV) Moderate Sedation Procedure 1: Sedation/Anesthesia: 09267 Mod Sedation by the same physician;Init15 Min Child Age 5 & Up Procedure 2: Sedation/Anesthesia: 73177 Mod Sedation by the same physician; Ea [id number] Minutes Stenting Procedure 1: Cardiovascular Stent Procedures: 46365 Perc transcatheter placement of intracoronary stent(s), with ang PG Care Time/CCT Total # of Minutes Spent Total Time Spent with Patient: Total time spent is greater than 50% in coordination of care (as documented) at patient's floor/unit and/or counseling patient:
[2024-04-03] MEDS: ATORVASTATIN 40 MG TAB PO SCH (20:10)
[2024-04-03] MEDS: MELATONIN 3 MG TAB PO PRN (20:10)
[2024-04-03] MEDS ORDERED: NON-FORMULARY MEDICATION (Magnesium 30 mg Tablet) PO SCH (21:00)
[2024-04-04] MEDS: LEVOTHYROXINE SODIUM 88 MCG TABLET PO SCH (06:12)
[2024-04-04 07:20] LABS: Basophils # (auto) 0.02 K/uL (0.00-0.20); Basophils % (auto) 0.4 %; Eosinophils # (auto) 0.11 K/uL (0.00-0.50); Eosinophils % (auto) 2.1 %; Hematocrit (blood only) 35.9 % (37.0-47.0); Hemoglobin 12.2 g/dl (12.0-16.0); Immature Granulocytes # (auto) 0.01 K/uL (0.01-0.20); Immature Granulocytes % (auto) 0.2 %; Lymphocytes # (auto) 1.28 K/uL (1.20-3.40); Lymphocytes % (auto) 24.3 %; Mean Corpuscular Hemoglobin 30.8 pg (25.0-34.0); Mean Corpuscular Volume 90.7 fL (80.0-100.0); Mean Platelet Volume 10.6 fL (9.4-12.4); Monocytes # (auto) 0.66 K/uL (0.11-0.59); Monocytes % (auto) 12.5 %; Neutrophils # (auto) 3.18 K/uL (1.40-6.50); Neutrophils % (auto) 60.5 %; Platelet Count 157 K/uL (130-400); RDW Coefficient of Variation 12.7 % (11.5-14.5); RDW Standard Deviation 42.2 fL (36.4-46.3); Red Blood Count 3.96 M/uL (4.20-5.40); White Blood Count 5.26 K/ul (4.8-10.8)
[2024-04-04 07:40] VITALS: O2SAT 95
[2024-04-04 07:44] LABS: BUN Creatinine Ratio 17.6 (10-20); Calcium 9.4 mg/dl (8.6-10.3); Creatinine Clr Calc Pharmacy 38.1 ml/min; Est GFR (African American) 67.1 ml/min; Est GFR (Non-African American) 57.9 ml/min; Potassium 4.1 mmol/L (3.5-5.1)
[2024-04-04] MEDS: FUROSEMIDE 20 MG TAB PO SCH (08:40)
[2024-04-04] MEDS: CHOLECALCIFEROL 25 MCG (1000 UNITS) TAB PO SCH (08:40)
[2024-04-04] MEDS: ASCORBIC ACID 500 MG TAB PO SCH (08:40)
[2024-04-04] MEDS: VIBEGRON 75 MG TAB PO SCH (08:41)
[2024-04-04] MEDS: amLODIPine BESYLATE 5 MG TAB PO SCH (08:41)
[2024-04-04] MEDS: ASPIRIN 81 MG ECTAB PO SCH (08:41)
[2024-04-04] MEDS: CLOPIDOGREL BISULFATE 75 MG TAB PO SCH (08:41)
[2024-04-04] MEDS: lisinopril 10 MG TAB PO SCH (08:41)
[2024-04-04] MEDS: VITAMIN B COMPLEX TAB PO SCH (08:41)
--- NOTE | 2024-04-04 09:40 | Cardiology Progress Note ---
Date of Service April 04, 2024 Assessment & Plan (1) Exertional angina: (2) S/P drug eluting coronary stent placement: Plan: * Continue aspirin, clopidogrel, amlodipine, carvedilol, lisinopril, atorvastatin at current doses. * Patient is on alternating doses of furosemide with 20 mg and 40 mg. * EKG this am revealed sinus rhythm with diffuse T wave changes, no change compared to previous baseline. * Right radial access site is clean , dry, intact , with mild ecchymosis, no hematoma. * Pt stable for discharge to home. * She is aware she will be on ASA 81 mg daily -life long therapy, clopidogrel 75 mg daily for 1 year with plan for need of ongoing treatment to be reassessed then. * Stable for discharge to home. * I contacted office to request appointment with me or Teddy Mccain for April. Admission and Anticipated Discharge Date Admission Date: April 03, 2024 Subjective Patient seen in cardiology follow up of chief complaint of exertional angina for which patient underwent cardiac catheterization and sent to the ostial RCA. Patient feels well. Denies chest pain or pain at procedure site. Telemetry reveals SR in the 70s. Physical Exam Physical Exam: General: no acute distress and stated age Eyes: conjunctiva are pink and non-injected, sclera clear Neck: normal jugular venous pulse, no hepatojugular reflux Chest: normal shape and normal respiratory effort Lungs: clear to auscultation and percussion Cardiac Exam: - regular heart sounds, no murmurs, rubs, or gallops, no jugular venous distention Abdomen: abdomen soft, non-tender, no abnormal masses and no hepatosplenomegaly Musculoskeletal: no gait disturbance, no weakness Extremities: no edema and no cyanosis -Right radial artery access site with mi ld ecchymosis, no hematoma Neuro:awake, conversant, follows commands, no focal motor deficits Psych: appropriate affect and insight. Results & Data Vital Signs (Past 12 Hours) Vital Signs Temp Pulse Resp BP Pulse Ox O2 Del Method 04/04/24 07:39 36.6 C 77 18 164/71 H 95 Room Air 04/04/24 03:21 36.8 C 67 18 146/67 H 94 Room Air 04/03/24 23:01 36.9 C 97 H 20 135/62 95 Room Air Laboratory Results CBC 04/04/24 Range/Units 06:46 WBC 5.26 (4.8-10.8) K/ul RBC 3.96 L (4.20-5.40) M/uL Hgb 12.2 (12.0-16.0) g/dl Hct 35.9 L (37.0-47.0) % Plt Count 157 (130-400) K/uL Neut # (Auto) 3.18 (1.40-6.50) K/uL Lymph # (Auto) 1.28 (1.20-3.40) K/uL [place] # (Auto) 0.66 H (0.11-0.59) K/uL Eos # (Auto) 0.11 (0.00-0.50) K/uL Baso # (Auto) 0.02 (0.00-0.20) K/uL Comprehensive Metabolic Panel 04/04/24 Range/Units 06:46 Sodium 137 (136-145) mmol/L Potassium 4.1 (3.5-5.1) mmol/L Chloride 103 (98-107) mmol/L Carbon Dioxide 28 (21-32) mmol/L BUN 16 (6-23) mg/dl Creatinine 0.91 (0.6-1.2) mg/dl Glucose 96 (70-99(Fasting)) mg/dl Calcium 9.4 (8.6-10.3) mg/dl Intake and Output 04/03/24 04/04/24 04/04/24 22:59 06:59 14:59 Intake Total 1000 / 1425 425 / 1425 Balance 1000 / 1425 425 / 1425 Intake: IV 1000 / 1000 Sodium Chloride 0.9% 1,000 ml @ 1000 / 1000 100 mls/hr IV .Q10H [facility] Rx#: [id number] Oral
--- NOTE | 2024-04-04 10:39 | Discharge Summary ---
Date of Service April 04, 2024 Admission HPI Per Admitting Provider This is an 83yo with a PMH of CAD with abnormal stress test as an outpatient, hypertension, HFpEF, PVD, history of breast carcinoma with bilateral mastectomy and other medical problems listed below who presented for cardiac catheterization and underwent 1 JEM to RCA by Dr. Mccoy. Has been having a few months of exertional chest tightness when doing water aerobics and more recently began having chest tightness at rest also. Had an abnormal stress test on 03/19/24, prompting today's cardiac catheterization. Seen in 207- following procedure. Patient feels comfortable, denying any chest pain, shortness of breath or nausea at rest. No F/C, lightheadedness, abdminal pain. Has history of HFpEF and alternates lasix 20mg with lasix 40mg. Did not take this morning prior to procedure. Admission Exam Per Admitting Provider General Appearance: WD/WN, vitals as above, NAD, sitting up in bed, pleasant, conversing easily Head: normocephalic, atraumatic Eyes: normal inspection, PERRL, conjunctivae normal, anicteric sclerae ENT: external ear and nose normal, oropharynx normal Neck: normal visual inspection, trachea midline, no thyromegaly Respiratory: normal respiratory effort, lungs clear to auscultation, no wheeze, rales, rhonchi. No accessory muscle use Cardiovascular: regular rate, rhythm, +systolic murmur, normal peripheral pulses, trace BLE edema. Vessels: no JVD Chest: normal inspection of chest Abdomen/GI: normal bowel sounds, soft, nontender, no hepatosplenomegaly Extremities/Musculoskeletal: + R radial wrist guard in place, no bleeding. Extremities motor strength 5/5 Neurologic: PERRL, EOMI, accommodation nl, no face palsy, no dysarthria, CN's II-XI intact bilaterally and moves all extremities Psychiatric: A+Ox3, euthymic affect Skin: no rashes, normal color, warm/dry Principal Diagnosis Exertional Angina Coronary artery disease Status post drug eluting stent Discharge Exam Constitutional + well hydrated; no acute distress Eyes PERRL, conjunctivae normal, anicteric sclerae ENMT external ear and nose normal, oropharynx normal Respiratory normal respiratory effort, lungs clear to auscultation Cardiovascular Rate/Rhythm: regular rate and regular rhythm Gastrointestinal (Abdomen) normal bowel sounds, soft, nontender, no hepatosplenomegaly Musculoskeletal no cyanosis or clubbing, extremities motor strength 5/5 Neurologic PERRL, EOMI, accommodation nl, no face palsy, no dysarthria Psychiatric A+Ox3, euthymic affect Discharge Data Allergies Allergy/AdvReac Type Severity Reaction Status Date / Time cephalexin [From Keflex] Allergy Mild Diarrhea Verified 04/03/24 09:04 Bactrim Allergy Unknown _ Verified 01/27/16 13:23 sulfamethoxazole [Bactrim] Allergy Unknown Unknown Verified 04/03/24 09:04 trimethoprim [Bactrim] Allergy Unknown Unknown Verified 04/03/24 09:04 Consultations 04/03/24 12:49 Consult Cardiology Routine Procedures Performed Operation Date: 04/03/24 09:30 Actual Procedures s Cineradiography w/Routine Exam - German Mccoy MD p Cath, Left with Cors and Vent - German Mccoy MD p Drug Eluting Stent SGl Vessel - German Mccoy MD Ordered Studies 04/03/24 08:18 CL Cath Imgs for PACS use only Routine Hospital Course (1) Coronary artery disease: (2) S/P drug eluting coronary stent placement: 83 year old woman with a PMH of CAD with abnormal stress test as an outpatient, hypertension, HFpEF, PVD, history of breast carcinoma with bilateral mastectomy and other medical problems who presented for cardiac catheterization S/p [address]EM [address]CA [address] Mccoy. Continue Aspirin 81mg daily lifelong and plavix 75mg daily for 1 year Continue statin, Coreg 3.125mg BID, lisinopril 30mg Patient to follow up with Cardiology oupatient (3) (HFpEF) heart failure with preserved ejection fraction: 2D echo January 2024 with preserved EF 60-64%, grade 2 diastolic dysfunction Lasix held this morning prior to cath Typically alternates lasix 20mg daily with lasix 40mg Will plan to resume lasix tomorrow per Dr. Roper (4) HTN (hypertension): Continue amlodipine, carvedilol, lisinopril (5) Hypothyroidism: Continue levothyroxine (6) HX: breast cancer: H/o bilateral mastectomy in 2008 Total Time Total Time Spent Total Time Spent (In Minutes): 35 Total Time Includes: Examination of the Patient, Discharge Planning, Medication Reconciliation and Communication With Other Providers Discharge Plan Discharge Items Patient Disposition: Home - Self-Care Reason For Visit: Abnormal Stress Echo, Chest Pain Discharge Diagnosis: Exertional Angina Coronary artery disease Status post drug eluting stent Activity: Resume your previous activity Non-emergency contact: Primary Care Provider and Water Proofer Call non-emergency contact if: you have any medication questions and your symptoms worsen Follow-up/Referrals: Steve Roper DO [Water Proofer] - (The Cardiology office will contact you for a follow up appointment.) Ally Gonzales DO [Primary Care Provider] - (Date & Time 04/10/2024 2:20 PM Provider [place] Pharmacist [address] Date & Time 04/10/2024 3:00 PM Provider Ally Gonzales DO [address] ) Diet: Heart Healthy Addtl Attending Provider Instructions: Mrs Morris You were having exertional chest tightness and had a stress test which was abnormal. You had cardiac catheterization which showed narrowing in one of the blood vessels of your heart and required a stent. You are to continue aspirin life long and started on plavix for next one year. Please continue your home medications and follow up with Cardiology. It was a pleasure taking care of you. Pending Studies at Discharge: No Stand-Alone Forms: My [facility] Fillm, Smoking Cessation Medications and DC Order Prescriptions: New clopidogrel 75 mg Tablet 75 mg PO QAM Qty: 30 0RF Continued diclofenac sodium 1 % gel 2 g topical QID 90 Days Qty: 800 2RF Rx Instructions: apply to single elbow, wrist or hand; for hand includes palm/fingers/back of hand atorvastatin 40 mg Tablet 40 mg PO QAM ascorbic acid (vitamin C) [Vitamin C] 1,000 mg Tablet 1 g PO QAM potassium chloride 10 mEq Tablet Extended Release 10 meq PO DAILY@1700 melatonin 3 mg Tablet 3 mg PO HS PRN (Reason: Sleep) levothyroxine [Levoxyl] 88 mcg Tablet 88 mcg PO UD Rx Instructions: EVERY DAY EXCEPT TUESDAY phenazopyridine 95 mg Tablet 95 mg PO WK Rx Instructions: WEDNESDAYS vitamin B complex Tablet 1 tab PO QAM magnesium 30 mg Tablet 65 mg PO DAILY@1700 cholecalciferol (vitamin D3) [Vitamin D3] 50 mcg (2,000 unit) Tablet 50 mcg PO UD Rx Instructions: EVERY OTHER DAY Prolia 60 mg/mL Syringe 60 mg SUBCUT UD Rx Instructions: Q 6 MOS aspirin 81 mg Capsule 81 mg PO HS amlodipine 5 mg Tablet 5 mg PO DAILY carvedilol 3.125 mg tablet 3.125 mg PO BID furosemide [Lasix] 20 mg Tablet 40 mg PO UD Rx Instructions: alternates between 20mg daily and 40mg daily omega-3 fatty acids Capsule 1,000 mg PO DAILY mirabegron [Myrbetriq] 25 mg tablet extended release 24 hr 25 mg PO DAILY lisinopril 30 mg Tablet 30 mg PO DAILY Probiotic 3 billion cell Capsule 3,000 mmu cells PO DAILY@1700 Rx Instructions: administer with a meal Discharge Orders: Discharge Order (Routine); Ordered 04/04/24 Ordered By: Sherry Solares Admission Data Admit Date/Time: 04/03/24 12:26 Attending Provider: Sherry Solares I. Admit Provider: German Mccoy Primary Care Provider: Ally Gonzales Other Providers: Steve Roper Rishikesh Other Interventions: Discharge Summary Assessment (RN) Last Done: 04/04/24 12:38
[2024-04-04 10:51] VITALS: BP 139/70; PULSE 68; RESP 17; TEMP 98.2
--- OUTSIDE RECORDS SUMMARY | 2024-04-04 20:48 | External Medical Summary | Summary of Care ---
Author Name Unknown Organization [facility] Address [address] [place] [address] Phone [phone] Care Team Providers Care Clinical Account Liaison Name Role Phone Ally Gonzales DO Primary Care Provider Encounter Details Date Type Department Care Team (Late st Contact Info) Description 04/03/2024 Result Scan Unspecified Department Steve Roper DO [address] [place] [address] <No scans attached> Allergies Active Allergy Reactions Criticality Noted Date Comments Clindamycin Hcl 09/19/2015 Fentanyl High 10/01/2016 Severe emesis Cephalexin Diarrhea 03/22/2022 Meperidine Hcl 01/24/2023 Naproxen Nausea/vomiting 06/30/2009 Oxycodone Hcl Nausea/vomiting 04/09/2010 Sulfamethoxazole-Trimethoprim Nausea/vomiting 0 01/27/2016 Tramadol 12/08/2016 Hydrocodone-Acetaminophen Nausea/vomiting 06/30 documented as of this encounter (statuses as of 04/04/2024) Medications Medication Sig Dispensed Refills Start Date [...] FOOD 200 Tablet 2 06/28/2023 4 Active Diclofenac Sodium 1 % External [...] MG Oral Tablet Extended Release 24 Hour (Myrbetriq)Indicatio ns:Urinary frequency Take 1 Tablet by mouth in the morning. 100 Tablet 3 03/23/2024 Active Hospital, Clinic, or Other Facility Administered Medication Ordered Dose Route Frequency Start Date End Date Status Denosumab (Prolia) subcut inj 60 mgIndications:Senile osteoporosis 60 mg SC [id number] 09/06/2023 08/31/2024 Active documented as of this encounter (statuses as of 04/04/2024) Active Problems Problem Noted Date Diagnosed Date [...] 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, recurrent, [id number], 2008 Dyslipidemia, goal LDL below 130 06/16/2010 [...] as of this encounter (statuses as of 04/04/2024) Resolved Problems Problem Noted Date Diagnosed Date [...] Keratin granuloma , Glabella 05/30/00 05/30/2002 05/25/2006 [employer]'s papule, Lt arm 05/30/00 05/30/2002 05/25/2006 Irritated crateriform keratosis, Back 11/18/00 05/30/20 02 05/25/2006 Lichenoid inflammatory reaction, Back 10/20/01 05/30/20 02 05/01/2019 Other seborrheic keratosis 03/02/2002 1 Actinic keratosis 03/02/2002 05/01/2019 Dyslipidemia, goal to be determined 06/16/2010 documented as of this encounter (statuses as of 04/04/2024) Immunizations Name Administration Dates Next Due COVID-19 [...] 9:20 AM EDT Office Visit Family Practice [address] [place] [address] [address] [place] [address] Ally Gonzales DO [address] [place] [address] 05/14/2024 2:45 PM EDT Office Visit Dermatology [facility] [address] [facility] [place] [address] Dann Tavarez MD 200 [facility] [place] [address] 07/03/2024 8:30 AM EST Office Visit [facility], [facility] [place] [address] Charito Mccain PA-C 132 [facility] [place] [address] 07/26/2024 1:30 PM EST Office Visit Cardiology, [facility] 132 [facility] [place] [address] Charito Mccain PA-C [address] [place] [address] 08/30/2024 12:00 PM EST Office Visit Endocrinology [address] [place], [place] [address] Maddy Munoz MD [address] [place] [id number] 10/17/2024 12:30 PM EDT Office Visit [facility]ematology[facility] [address] [facility] [place] [address] Sonia Tesfaye MD 200 [facility] [place] [address] 12/17/2024 11:00 AM EDT Nurse Only Ancillary [address] [facility] [address] [place] [address] College, Nurse Annual Wellness Visit [address] [facility] [address] [place] [address] Health Maintenance Due Date Last Done Comments *NEPHROLOGY REFERRAL DUE TO RESISTANT HTN 03/14/2024 Influenza Vaccine (FLU shot) (#1) 2024 05/10/2023, 05/06/2022, 04/29/2021, Additional history exists Adult Wellness Visit 12/12/2024 12/13/2023, 04/05/2022, 03/23/2021 Depression Screening 12/12/2024 12/13/2023 DXA Scan 12/20/2024 12/20/2022, 12/06, 12/16/2020, Additional history exists TSH 01/24/2025 01/25/2024, 08/08, 07/08/2022, Additional history exists GFR 03/20/2025 03/20/2024, 08/01/2024, 02/23/2024, Additional history exists Albumin/Creatinine Ratio 04/05/20252 022, 03/05/2019, 07/25/2018, Additional history exists DTap/Tdap Vaccines (3 - Td or Tdap) 10/07/2032 10/07/2022, 09/19/2012, 12/20/2002 Pneumococcal Vaccine: 65+ Years Completed 07/25/2018, 09/14/2004 Zoster Vaccines Completed 01/01/2020, 09/09, 12/05/2008 COVID-19 Vaccine Completed 12/19/2023, 09/2022, 03/10/2023, Additional history exists VITAMIN D LEVEL ONCE IN A LIFETIME-USE SMARTSET# [id number] Completed 02/23/2024, 08/24/2023, 07/08/2022, Additional history exists [...] this encounter Medical Devices Implanted Type Area Vp Biology Device Identifier Shelf Expiration Date Model / Serial / Lot Plate Ricardo 6.5x30 508-32-104 - [id number] Implanted:Qty: 1 on 04/09/2010 at [place] [facility] [place] Right: Shoulder [employer] 10/07/2015 508-32-104 / / [id number] Socket Humeral Insert Implanted:Qty: 1 on 04/09/2010 at OR [facility] [place] Right: Shoulder [employer] 07/08/2014 508-01-032 / / [id number] Head Glenoid/Screw5 - [id number] Implanted:Qty: 1 on 04/09/2010 at OR [facility] [place] Right: Shoulder [employer] 11/07/2015 508-32-101 / / [id number] Screw Lckg 5x22 506-03-122 - [id number] Implanted:Qty: 1 on 04/09/2010 at OR [facility] [place] Right: Shoulder [employer] 10/07/2015 506-03-122 / / [id number] Scrw Lckg [employer] 506-03-114 - [id number] Implanted:Qty: 1 on 04/09/2010 at OR [facility] [place] Right: Shoulder [employer] 08/08/2015 506-03-114 / / [id number] Screw Lckg 5x26 506-03-126 - [id number] Implanted:Qty: 1 on 04/09/2010 at [place] [facility] [place] Right: Shoulder [employer] 12/07/2015 506-03-126 / / [id number] Screw Lckg 5x22 506-03-122 - [id number] Implanted:Qty: 1 on 04/09/2010 at OR [facility] [place] Right: Shoulder [employer] 02/06/2016 506-03-122 / / [id number] Cement Bone G 1113-140-01 - [id number] Implanted:Qty: 1 on 04/09/2010 at OR [facility] [place] Right: Shoulder [employer] 07/08/2013 00-1113-14 0 / / [id number] Shell Socket Humeral Rsp Implanted:Qty: 1 on 04/09/2010 at [place] [facility] [place] Right: Shoulder [employer] 01/07/2016 508-00-008 / / [id number] Stem Humeral Primary Rsp Implanted:Qty: 1 on 04/09/2010 at [place] [facility] [place] Right: Shoulder [employer] 08/08/2015 506-00-008 / / [id number] [place] Mini Quick 2/0 [id number] - [id number] Implanted:Qty: 1 on 09/17/2016 by Rafi Burnham MD at OR [facility] Left: Hand JNJ : [employer]G [employer]OD 05/07/2019 [id number] / / [id number] [place] Mini Quick 2/0 [id number] - [id number] Implanted:Qty: 1 on 09/17/2016 by Rafi Burnham MD at OR [facility] Left: Hand JNJ : DEPUY MITEK SURG PROD 05/07/2019 [id number] / / [id number] documented as of this encounter Procedures Procedure Name Priority Date/Time Associated Diagnosis Comments CARDIAC CATH SCANNED RESULT 04/03/2024 documented in this encounter Results * CARDIAC CATH SCANNED RESULT (04/03/2024) 04/03/2024 Steve Roper DO CARD CATH documented in this encounter Advance Directives Documents on File Type Date Recorded 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
--- NOTE | 2024-04-05 06:02 | Electrocardiogram Report ---
Test Reason : Blood Pressure : */* mmHG Vent. Rate : 67 BPM Atrial Rate : 67 BPM P-R Int : 154 ms QRS Dur : 86 ms QT Int : 430 ms P-R-T Axes : 58 10 165 degrees QTcB Int : 454 ms Normal sinus rhythm Possible Anterior infarct , age undetermined Abnormal ECG When compared with ECG of 30-Jun-2009 12:16, T wave inversion now evident in Lateral leads Confirmed by Todd North ([id number]) on 04/05/2024 6:02:21 AM Referred By: Steve Roper Confirmed By: Todd North
[2024-04-05] MEDS ORDERED: FUROSEMIDE 40 MG TAB PO SCH (09:00)
== END 2024-04-04 13:15 | disposition home or self-care (01) ==
LOC: 2E 08:21 → CC 08:21 → SUATTDRO 12:26